=== PATIENT | female | born 1925 | race Caucasian/White ===

== ENCOUNTER 2016-04-04 12:57 | Inpatient (IN) | payer MEDICARE, OTHER ==
[2016-04-04] VITALS (37 sets, daily range): BP systolic 76–208; BP diastolic 17–176; PULSE 65–98; RESP 10–27; Ht 160 cm; Wt 85.0 kg
[~2016-04-04] VITALS: Ht 160 cm; Wt 85.0 kg
[~2016-04-04 12:57] MED LIST: ACET-2047 PO; ALLO100T PO; APIX2.5T PO; ASPIRIN 81 MG TAB ONE; BENZ200C43 PO; CLOPIDOGREL 75 MG TAB ONE; DOCU-144 PO; DOCU-159 PO; DULR PR; FER325 PO; FOLI0.8T2 PO; GUAI600T PO; HEPARIN 5,000 UNIT/0.5 ML SYG ONE; INSU100C SC; IPRA4AER INHALATION; LACT1CAP57 PO; LANT3I SC; LATA2.5D2 BOTH EYES; LEVO200T6 PO; LEVO250T9 PO; LIOT5TAB3 PO; LYRI100 PO; METO-448 PO; PANT40TA4 PO; POLY17PO3 PO; PRAV40TA76 PO; PRED5 PO; SENN-53 PO; SYMB80120 INHALATION; TAMS0.4C2 PO; TRAM-40 G-TUBE; ZOLP5TAB6 PO; [UNRECOGNIZED DRUG - CODE] CATHETER
[2016-04-04] MEDS ORDERED: IPRATROPIUM (NEB) 0.5 MG/2.5 ML AMP NEB STA (13:04)
[2016-04-04] MEDS ORDERED: ALBUTEROL 0.5% (NEB) 2.5 MG/0.5 ML AMP NEB STA (13:04)
[2016-04-04] MEDS ORDERED: LANT3I SC (13:28)
[2016-04-04] MEDS ORDERED: INSU100C SQ (13:33)
[2016-04-04] MEDS ORDERED: METO25TA4 PO (13:35)
[2016-04-04 13:36] LABS: HEMATOCRIT 30.5 % (37.0-47.0); LYMPHOCYTES # 0.9 10^3/ul (0.8-2.9); LYMPHOCYTES % 6.4 % (15.0-51.0); MEAN CORPUSCULAR HEMOGLOBIN 30.8 pg (29.0-33.0); MEAN CORPUSCULAR HGB CONC 32.9 g/dl (32.0-37.0); MEAN CORPUSCULAR VOLUME 93.5 fl (82.0-101.0); MEAN PLATELET VOLUME 9.4 fl (7.4-10.4); MONOCYTE # 0.9 10^3/ul (0.3-0.9); NEUTROPHIL # 12.4 10^3/ul (1.6-7.5); NEUTROPHILS % 87.6 % (39.0-77.0); PLATELET COUNT 123 10^3/UL (140-440); RED BLOOD COUNT 3.26 10^6/ul (4.20-5.40); RED CELL DISTRIBUTION WIDTH 17.4 % (11.5-14.5); UNCORRECTED WBC 14.2 10^3/ul (4.8-10.8); WHITE BLOOD COUNT 14.2 10^3/ul (4.8-10.8)
[2016-04-04] MEDS ORDERED: MECL-77 PO (13:37)
[2016-04-04] MEDS ORDERED: ONDA4TAB8 PO (13:38)
[2016-04-04] MEDS ORDERED: SIMV40TA2 PO (13:38)
[2016-04-04 13:42] LABS: ALBUMIN 3.6 g/dl (3.3-4.9); INR 1.46; PROTIME 17.8 Sec (12.2-14.2); PT RATIO 1.4
[2016-04-04 13:43] LABS: CONDITION 1; LH ANALYZER COMMENTS 1; PARTIAL THROMBOPLASTIN TIME 43.9 Sec (25.0-35.0); POTASSIUM 4.9 mmol/L (3.5-5.1); SUSPECT 1
[2016-04-04 13:45] LABS: ALBUMIN/GLOBULIN RATIO 1.05; BILIRUBIN,INDIRECT 0.1 mg/dl (0-1.1); BILIRUBIN,TOTAL 0.1 mg/dl (0.2-1.3); CALCIUM 9.1 mg/dl (8.4-10.2); CREATININE 4.48 mg/dl (0.44-1.00)
--- NOTE | 2016-04-04 13:56 | RADRPT ---
PROCEDURE: XR Chest. CLINICAL INDICATION: Possible sepsis TECHNIQUE: Single frontal chest x-ray. COMPARISON: 01/19/2016 FINDINGS: A dual lead, biventricular left-sided pacemaker is again seen. A right-sided dialysis catheter is p resent with its tip at the SVC / RA junction. Low lung volumes are seen with mild bibasilar atelectasis. There is no focal consolidation, pleural effusion or pneumothorax. The aorta is calcified. The cardiac silhouette is enlarged with presenc e of mitral annular calcifications. The osseous structures are unchanged. IMPRESSION: 1. Low lung volumes with bibasilar atelectasis. 2. No acute infiltrate or interval change. 3. Enlarged cardiac silhouette and atherosclerotic aortic calcifications. 4. Left-sided pacemaker and right-sided dialysis catheter, unchanged. RPTAT: VV .Cecilio Agrawal MD, Date Time Electronically viewed and signed by .Cecilio Agrawal MD, on 04/04/2016 13:55 .d/
[2016-04-04 14:05] LABS: TROPONIN-I 0.173 ng/ml (0.00-0.12)
[2016-04-04] MEDS ORDERED: CIPROFLOXACIN 400MG/D5W 200 ML IVPB STA (14:18)
[2016-04-04] MEDS ORDERED: CEFEPIME 1GM/50 ML (PMX) 50 ML IVPB STA (14:18)
[2016-04-04] MEDS ORDERED: SOD CHLORIDE 0.9% 500 ML IV STA (14:19)
[2016-04-04] MEDS ORDERED: ASPIRIN 325 MG TAB PO ONE (14:30)
[2016-04-04] MEDS ORDERED: HEPARIN 1000 UNITS/ML 10 ML INJ IV ONE ×2 (14:30→16:30)
[2016-04-04] MEDS ORDERED: CLOPIDOGREL 75 MG TAB PO ONE (14:30)
[2016-04-04] MEDS ORDERED: ASPIRIN 300 MG SUPP PR ONE (14:30)
--- NOTE | 2016-04-04 14:33 | ERA ---
ER Documentation Chief Complaint Date/Time DATE: 04/04/16 TIME: 14:22 Chief Complaint shortness of breath; chest congestion HPI History obtained from daughter who is at bedside as his review is unobtainable from patient secondary to her clinical condition. This is an 89-year-old female presents to the emergency room from home for shortness of breath, chest congestion, fever. This patient does have a history of previous pneumonia with hospitalization. Has a history of a previous AL with stenting. The patient came to the ER today for evaluation. Denies any active chest pain or palpitations at this time ROS All systems reviewed and are negative except as per history of present illness. Medications Home Meds Reported Medications Ondansetron Hcl* (Zofran*) 4 Mg Tablet, 4 MG PO Q8 Y for NAUSEA AND/OR VOMITING , TAB 04/04/16 Simvastatin* (Zocor*) 40 Mg Tablet, 40 MG PO QHS, #30 TAB 04/04/16 Meclizine Hcl* (Meclizine Hcl*) 25 Mg Tablet, 25 MG PO Q6 Y for DIZZINESS, TAB 04/04/16 Metoprolol Tartrate* (Lopressor*) 25 Mg Tablet, 25 MG PO BID, #60 TAB 04/04/16 Insulin Lispro (Humalog) 100 Unit/1 Ml Cartridge, 4 UNIT SQ AC MEALS 04/04/16 Insulin Glargine* (Lantus*) 100 Unit/Ml Soln, 25 UNIT SC QHS, #1 VIAL 04/04/16 Sennosides* (Senna Lax*) 8.6 Mg Tablet, 1 TAB PO BID, TAB 09/08/15 Polyethylene Glycol* (Polyethylene Glycol*) 17 Gm Powd.pack, 17 GM PO DAILY, # 30 PACKET 09/08/15 Docusate Sodium* (Docusate Sodium*) 100 Mg Capsule, 100 MG PO BID, #60 CAP 09/08/15 Bisacodyl* (Bisacodyl*) 10 Mg Supp, 10 MG NC DAILY, SUPP 09/08/15 Benzonatate* (Benzonatate*) 200 Mg Capsule, 200 MG PO Q8 Y for COUGH, CAP 09/08/15 Acetaminophen* (Acetaminophen*) 650 Mg Tablet, 650 MG PO Q4 Y for PAIN AND OR ELEVATED TEMP, #30 TAB 09/08/15 Tamsulosin Hcl* (Tamsulosin Hcl*) 0.4 Mg Cap.er.24h, 0.4 MG PO DAILY, CAP 09/08/15 Folic Acid/Vitamin B Comp W-C (Renal Multivitamin Tablet) 0.8 Mg Tablet, 0.8 MG PO QAM, TAB 09/08/15 Pregabalin* (Lyrica*) 100 Mg Capsule, 100 MG PO BID, CAP 09/08/15 Prednisone* (Prednisone*) 5 Mg Tab, 5 MG PO DAILY SUN WED SUN, TAB 09/08/15 Levothyroxine Sodium* (Levothyroxine Sodium*) 200 Mcg Tablet, 200 MCG PO BEFORE BREAKFAST, #30 TAB 09/08/15 Latanoprost (Latanoprost) 2.5 Ml Drops, 1 DROP BOTH EYES QHS, #1 BOTTLE 09/08/15 Lactobacillus Rhamnosus* (Culturelle*) 1 Each Cap.sprink, 1 CAP PO BID, CAP 09/08/15 Heparin Sodium,Porcine/Ns/Pf (Heparin 1,000 Units-Ns 500 Ml) 2 Unit/Ml Iv.soln, 6000 UNIT CATHETER AFTER EACH DIALYSIS 09/08/15 Guaifenesin (MUCUS ER) 600 Mg Tablet.er, 600 MG PO BID, TAB 09/08/15 Ferrous Sulfate* (Ferrous Sulfate*) 325 Mg Tabec, 325 MG PO DAILY, TAB 09/08/15 Docusate Sodium* (Colace*) 100 Mg Capsule, 200 MG PO DAILY, #30 CAP 09/08/15 Budesonide-Formoterol Fumarate* (Symbicort*) 80-4.5 Inha, 2 PUFFS INHALATION BID , #1 EACH 09/08/15 Apixaban* (Eliquis*) 2.5 Mg Tablet, 2.5 MG PO BID, TAB 09/08/15 Albuterol/Ipratropium* (Combivent Respimat*) 20-100 Mcg/Inh - 4 Gm Aer.w.adap, 1 PUFF INHALATION QID, #1 INHALER 09/08/15 Allopurinol* (Allopurinol*) 100 Mg Tablet, 200 MG PO DAILY, TAB 09/08/15 Discontinued Reported Medications Zolpidem Tartrate* (Zolpidem Tartrate*) 5 Mg Tablet, 5 MG PO QHS, #30 TAB 09/08/15 Tramadol Hcl* (Ultram*) 50 Mg Tablet, 50 MG G-TUBE Q6H Y for PAIN, TAB 09/08/15 Pravastatin Sodium* (Pravastatin Sodium*) 40 Mg Tablet, 40 MG PO HS, TAB 09/08/15 Pantoprazole* (Pantoprazole*) 40 Mg Tablet.dr, 40 MG PO AC BREAKFAST, TAB 09/08/15 Metoprolol Tartrate* (Lopressor*) 25 Mg Tab, 12.5 MG PO BID, #60 TAB 09/08/15 Liothyronine Sodium* (Cytomel*) 5 Mcg Tablet, 10 MCG PO DAILY, TAB 09/08/15 Levofloxacin* (Levofloxacin*) 250 Mg Tablet, 250 MG PO DAILY, TAB 09/08/15 Insulin Lispro (Humalog) 100 U/Ml Cartridge, 6 UNITS SC TID WC, EA 09/08/15 Insulin Lispro (Humalog) 100 U/Ml Cartridge, 12 UNITS SC QID WC AND HS, EA 09/08/15 Insulin Glargine* (Lantus*) 100 Unit/Ml Soln, 20 UNIT SC QHS, #1 VIAL 09/08/15 Allergies Allergies: Coded Allergies: Penicillins (Verified Allergy, Unknown, 04/04/16) codeine (Verified Allergy, Unknown, 04/04/16) PMhx/Soc History of Surgery: Yes (right chest dialysis catheter ) Anesthesia Reaction: No Hx Neurological Disorder: Yes Hx Respiratory Disorders: Yes Hx Cardiac Disorders: Yes Hx Psychiatric Problems: No Hx Miscellaneous Medical Probl: Yes (dialysis MWF) Hx Alcohol Use: No Hx Substance Use: No Hx Tobacco Use: No Smoking Status: Never smoker Physical Exam Vitals Vital Signs Date Time Temp Pulse Resp B/P Pulse Ox O2 Delivery O2 Flow Rate FiO2 04/04/16 14:00 3.0 04/04/16 13:30 Nasal Cannula 2 04/04/16 13:21 101 19 Aerosol Mask 10.0 04/04/16 13:04 Rebreather 15 04/04/16 13:00 100.4 75 35 104/54 95 Physical Exam INITIAL VITAL SIGNS: Reviewed by me GENERAL: The patient is frail-appearing elderly female, no acute distress HEENT: Pupils equal, round, and reactive to light. EOMI. There is no scleral icterus. NECK: C-spine is soft and supple, there is no meningismus. There is no cervical lymphadenopathy. LUNGS: Coarse breath sounds bilaterally with rhonchi auscultating bilateral lower lobe HEART: Tachycardic, no murmurs, clicks, rubs or gallops. ABDOMEN: Soft, non-tender, non-distended. There are bowel sounds in all four quadrants. No rebound or guarding. EXTREMITIES: There is no peripheral cyanosis or edema. No focal swelling or erythema. NEUROLOGICAL: The patient moves all four extremities with 5/5 strength. Cranial nerves II - XII are intact. Normal gait. Alert and oriented SKIN: There is no apparent rash or petechiae. HEME/LYMPHATIC: There is no evidence of excessive bruising or lymphedema. PSYCHIATRIC: The patient does not appear anxious or depressed. Result Diagram: 04/04/16 1310 04/04/16 1310 Results 24 hrs Laboratory Tests Test 04/04/16 13:10 Activated Partial Thromboplast Time 43.9Sec Alanine Aminotransferase (ALT/SGPT) 73IU/L Albumin 3.6g/dl Albumin/Globulin Ratio 1.05 Alkaline Phosphatase 154IU/L Anion Gap 23 Aspartate Amino Transf (AST/SGOT) 86IU/L Basophils # 0.010^3/ul Basophils % 0.0% Blood Morphology Comment Blood Urea Nitrogen 44mg/dl Calcium Level 9.1mg/dl Carbon Dioxide Level 25mmol/L Chloride Level 96mmol/L Creatinine 4.48mg/dl Direct Bilirubin 0.00mg/dl Eosinophils # 0.010^3/ul Eosinophils % 0.0% Globulin 3.40g/dl Glucose Level 186mg/dl Hematocrit 30.5% Hemoglobin 10.0g/dl INR International Normalized Ratio 1.46 Indirect Bilirubin 0.1mg/dl Lactic Acid Level 2.7mmol/L Lymphocytes # 0.910^3/ul Lymphocytes % 6.4% Mean Corpuscular Hemoglobin 30.8pg Mean Corpuscular Hemoglobin Concent 32.9g/dl Mean Corpuscular Volume 93.5fl Mean Platelet Volume 9.4fl Monocytes # 0.910^3/ul Monocytes % 6.0% Neutrophils # 12.410^3/ul Neutrophils % 87.6% Nucleated Red Blood Cells # 0.010^3/ul Nucleated Red Blood Cells % 0.0/100WBC Platelet Count 71827^3/UL Potassium Level 4.9mmol/L Prothrombin Time 17.8Sec Prothrombin Time Ratio 1.4 Red Blood Count 3.2610^6/ul Red Cell Distribution Width 17.4% Sodium Level 139mmol/L Total Bilirubin 0.1mg/dl Total Protein 7.0g/dl Troponin I 0.173ng/ml White Blood Count 14.210^3/ul Current Medications Medications (Trade) Dose Ordered Sig/Adelfo Route PRN Reason Start Time Stop Time Status Last Admin Dose Admin Albuterol (Proventil 0.5% (Neb)) 5 mg ONCE STAT NEB 04/04/16 13:04 04/04/16 13:05 DC 04/04/16 13:20 Ipratropium Dellrose (Atrovent 0.02% (Neb)) 0.5 mg ONCE STAT NEB 04/04/16 13:04 04/04/16 13:05 DC 04/04/16 13:20 Aspirin (Aspirin) 325 mg ONCE ONCE PO 04/04/16 14:30 04/04/16 14:31 DC 04/04/16 14:36 Clopidogrel Bisulfate (plaVIX) 300 mg ONCE ONCE PO 04/04/16 14:30 04/04/16 14:31 DC 04/04/16 14:36 Heparin Sodium (Porcine) 5000 unit 5,000 unit ONCE ONCE IV 04/04/16 14:30 04/04/16 14:31 DC 04/04/16 14:36 Cefepime HCl 50 ml @ 100 mls/hr ONCE STAT IVPB 04/04/16 14:18 04/04/16 14:47 04/04/16 14:36 Ciprofloxacin/ Dextrose 200 ml @ 200 mls/hr ONCE STAT IVPB 04/04/16 14:18 04/04/16 15:17 Sodium Chloride (NS) 500 ml @ 500 mls/hr Q1H STAT IV 04/04/16 14:19 04/04/16 15:18 04/04/16 14:23 Aspirin 300 mg 300 mg ONCE ONCE NC 04/04/16 14:30 04/04/16 14:31 DC Heparin Sodium/ Sodium Chloride (Heparin 1000 Units/NS (A-Line)) 1,500 ml @ ud STK-MED ONCE .ROUTE 04/04/16 14:39 04/04/16 14:40 DC Lidocaine (Xylocaine 1% (Mdv) 20 ml) 20 ml STK-MED ONCE .ROUTE 04/04/16 14:39 04/04/16 14:40 DC Iodixanol (Visipaque Locm) 100 ml STK-MED ONCE .ROUTE 04/04/16 14:39 04/04/16 14:40 DC Procedures/MDM EKG: Rate/Rhythm: Left bundle branch block QRS, ST, T-waves: [No changes consistent w/ acute ischemia] Impression: Left bundle branch block, abnormal EKG] Chest X-ray 1V Interpreted by me: Soft Tissue: Left-sided pacemaker , right-sided dialysis catheter Bones: No acute abnormalities Mediastinum/Cardiac Silhouette/Lungs: [No acute abnormalities] This 89-year-old female presents to the emergency room for evaluation of general weakness, cough and congestion. She is found to have fever, tachycardia. A septic workup was initiated. This patient did have an EKG which reads acute AL. However I do not see any ST elevations on the EKG. I did talk to her fiberglass pipe covering supervisor help desk consultant, Dr. Coyle who agrees that this is not an acute AL however he does state that the patient has a left bundle branch block. This patient does have a pacemaker as well. The troponin came back elevated, and although this could be due to sepsis, her chronic renal failure, or NSTEMI I did call back our fiberglass pipe covering supervisor who agrees to take this patient urgently to screedman/laborer. This patient was also found to have an elevated lactic acid, this could be due to pneumonia which is not yet seen on x-ray. This patient was given heparin, aspirin, Plavix, will be taken to catheter. The patient will be admitted to her panel physician, Dr. Post. This patient was not given a 30 cc/kg bolus of IV normal saline due to the fact that she is a dialysis patient, does have signs of fluid overload on x-ray Patient's infectious symptoms have not stabilized and the patient is at risk of rapid decompensation. The patient will be admitted for careful hydration, antibiotic therapy, and infectious source control. Severe Sepsis Assessment: Infectious Source: Pneumonia End organ damage indicated by: [Lactate > 2.0 mmol/L Hypotension( SBP < 90 or >40 mmHG drop or MAP < 65) Acute Resp Failure (sat < 92% w/o oxygen) Central Supply Supervisor > 2.0 INR > 1.5 Plt < 100 Bili > 2] Severe Sepsis Managment: Blood Cultures X 2 before broad spectrum antibiotics initiated within 3 hours of recognition. 30 ml/kg NS bolus Completed Initial Lactate: 2.7 Repeat Lactate pending Critical Care: Time: 44 minutes Treatments/Evaluations: Emergent fluid management, while maintaining close respiratory support. Immediate broad spectrum antibiotic therapy. Simultaneous assessment for possible sources in order to direct therapy. Consideration for invasive and chemical support to prevent respiratory or cardiac collapse. Septic Shock Assessment (1 hour post 30 ml/kg fluid bolus): Hypotension (SBP < 90 or 40 mmHg drop, MAP < 65): [No] Lactic acid > 4.0 [No] Perfusion Reassessment for Septic Shock: Temp 101.1, Pulse 94], RR 18, BP 104/74 Heart Exam: [Tachycardic] Lung Exam: [No Crackles] Capillary Refill: [Delayed] Peripheral Pulses: [Radially present] Skin: [Mottled, pale] Hypotensive Treatment (not required for isolated lactic acid elevation): Comfort Care: No Central LIne: [XOXOXO] Vasopressor started: [norepinephrine] I considered further perfusion assessment with CVP measurement, SCVO2, bedside ultrasound volume assessment, passive leg raise, trial of further fluid bolus. And preceded with [further fluid bolus Accepting Care Team: Current data and ongoing care discussed. Time: Time of admission Primary Provider: [XOXOXO] Consulting: [XOXOXO] Outstanding Data: none Departure Diagnosis: Primary Impression: Acute AL Additional Impressions: Severe sepsis Renal insufficiency Normocytic anemia Hyperchloremia Condition: Critical LUIS ENRIQUE SANDERSON DO Apr 04, 2016 14:33
[2016-04-04] MEDS ORDERED: IODIXANOL LOCM 100 ML BTL ONE (14:39)
[2016-04-04] MEDS ORDERED: NITROGLYCERIN (IC) 100 MCG/ML INJ ONE (14:39)
[2016-04-04] MEDS ORDERED: LIDOCAINE 1% (MDV) 20 ML INJ ONE (14:39)
[2016-04-04] MEDS ORDERED: HEPARIN 1000 UNITS/ML 10 ML INJ ONE (14:40)
[2016-04-04] MEDS ORDERED: VERAPAMIL 5 MG INJ ONE (14:40)
[2016-04-04] MEDS ORDERED: FUROSEMIDE 40 MG INJ ONE (14:50)
[2016-04-04] MEDS ORDERED: NACL 0.9% 3 ML SYG IV SCH (15:30)
[2016-04-04] MEDS ORDERED: LORAZEPAM 2 MG INJ IV PRN (15:30)
[2016-04-04] MEDS ORDERED: ONDANSETRON 4 MG INJ IV PRN (15:30)
--- NOTE | 2016-04-04 15:42 | RADRPT ---
PROCEDURE: XR Chest. CLINICAL INDICATION: Shortness of breath. TECHNIQUE: Single frontal view. COMPARISON: 04/04/2016. 1336 hours. FINDINGS: The right internal jugular vein tunneled dialysis catheter and left-sided biventricular pacemaker ar e once again noted. The heart is enlarged. There is calcification in the aorta consistent with ath erosclerosis. There is mild atelectasis at the lung bases. The lungs are otherwise clear. There is no pleural effusion. There is no pneumothorax. IMPRESSION: 1. No change from the prior study done earlier the same day. RPTAT: QQ .Ethan Fay MD, MD Date Time Electronically viewed and signed by .Ethan Fay MD, on 04/04/2016 15:42 .R/
[2016-04-04 15:54] LABS: AADO2 Arterial 179.7 mmHg (7.0-24.0); Allen Test ACCEPTAB; Arterial Base Excess -3.2 mmol/L (-3.0-3); Arterial COHb 0.3 % (0.0-3.0); Arterial Fraction of Oxyhgb 97.9 % (93.0-99.0); Arterial HCO3 22.4 mmol/L (22.0-26.0); Arterial MetHb 0.2 % (0.0-1.5); Arterial Total Hemglobin 11.1 g/dl (12.0-18.0); MODE MASK - SIMPLE
[2016-04-04] MEDS ORDERED: GLUCOSE GEL 15 GRAM TUBE BUCCAL PRN (16:00)
[2016-04-04] MEDS ORDERED: GLUCAGON 1 MG INJ IM PRN (16:00)
[2016-04-04] MEDS ORDERED: VANCOMYCIN IV PER PHARMACY XX SCH (16:00)
[2016-04-04] MEDS ORDERED: DEXTROSE 50% 50 ML SYRINGE IV PRN (16:00)
[2016-04-04] MEDS ORDERED: GLUCOSE GEL 15 GRAM TUBE PO PRN ×2 (16:00)
--- NOTE | 2016-04-04 16:13 | CONS ---
Date/Time of Note Date/Time of Note DATE: 04/04/16 TIME: 16:04 Assessment/Plan Assessment/Plan Problems: (1) Hyperchloremia Status: Acute (2) Renal insufficiency Status: Acute (3) Normocytic anemia Status: Acute (4) Acute OR Status: Acute (5) Severe sepsis Status: Acute Additional Assessment/Plan NSTEMI CAD PCI Severe MS ESRD TIA PAD DVT IVC filter Pt in ICU, critical On Bipap NSTEMI will give heparin drip no Eliques for now plavix given cotninue plavix and Heparin drip multiple TIAs in past as per daughter She wants to do everything on her We need to stablize her first medical mx for now see how she does HD needed Dr sanchez has been called as he is primary rn private duty. CXr Will f/u Consultation Date/Type/Reason Admit Date/Time Date of Consultation: Apr 04, 2016 Type of Consultation: Interventional Cardiology Reason for Consultation NSTEMI Hx of Present Illness Patient is 89 year old female with PMH of CAD pci of LAD, Severe mitral calcification with MS, CHF, ESRD on HD, Multiple TIA, PAD came in with SOB, Positive trop, intial plan was to take her to laboratory engineer from ER but she was very SOB with craclkes, So brought to ICU. Will need HD, trend trop. had long discussion with family, daughter. Constitutional: no complaints Past Medical History Medical History: coronary artery disease, diabetes, high cholesterol, hypertension Past Surgical History Past Surgical Hx: no surgical history Social History Smoking Status: Never smoker Exam/Review of Systems Vital Signs Vitals Vital Signs Date Time Temp Pulse Resp B/P Pulse Ox O2 Delivery O2 Flow Rate FiO2 04/04/16 14:00 3.0 04/04/16 13:30 Nasal Cannula 04/04/16 13:21 101 19 04/04/16 13:00 100.4 104/54 95 Exam Constitutional: alert, oriented Psych: no complaints Head: normocephalic Eyes: nl conjunctiva ENMT: nl external ears & nose Respiratory: diminished breath sounds, wheezing Cardiovascular: regular rate and rhythm Musculoskeletal: nl extremities to inspection Results Result Diagram: 04/04/16 1310 04/04/16 1310 Results 24 hrs Laboratory Tests Test 04/04/16 13:10 04/04/16 15:20 Activated Partial Thromboplast Time 43.9 H Alanine Aminotransferase (ALT/SGPT) 73 H Albumin 3.6 Albumin/Globulin Ratio 1.05 Alkaline Phosphatase 154 H Anion Gap 23 H Aspartate Amino Transf (AST/SGOT) 86 H Basophils # 0.0 Basophils % 0.0 Blood Morphology Comment Blood Urea Nitrogen 44 H Calcium Level 9.1 Carbon Dioxide Level 25 Chloride Level 96 L Creatinine 4.48 H Direct Bilirubin 0.00 Eosinophils # 0.0 Eosinophils % 0.0 Globulin 3.40 H Glucose Level 186 Hematocrit 30.5 L Hemoglobin 10.0 L INR International Normalized Ratio 1.46 Indirect Bilirubin 0.1 Lactic Acid Level 2.7 H Lymphocytes # 0.9 Lymphocytes % 6.4 L Mean Corpuscular Hemoglobin 30.8 Mean Corpuscular Hemoglobin Concent 32.9 Mean Corpuscular Volume 93.5 Mean Platelet Volume 9.4 Monocytes # 0.9 Monocytes % 6.0 Neutrophils # 12.4 H Neutrophils % 87.6 H Nucleated Red Blood Cells # 0.0 Nucleated Red Blood Cells % 0.0 Platelet Count 123 L Potassium Level 4.9 Prothrombin Time 17.8 H Prothrombin Time Ratio 1.4 Red Blood Count 3.26 L Red Cell Distribution Width 17.4 H Sodium Level 139 Total Bilirubin 0.1 L Total Protein 7.0 Troponin I 0.173 *H White Blood Count 14.2 #H Arterial Blood HCO3 22.4 Arterial Blood Base Excess -3.2 L Arterial Blood Oxygen Saturation 98.4 Jimmie Test ACCEPTAB Arterial Blood Gas Puncture Site Right Radial Arterial Blood Carboxyhemoglobin 0.3 Arterial Blood Date Drawn 04/04/2016 3:40:08 PM Arterial Blood Methemoglobin 0.2 Arterial Blood pCO2 (Temp correct) 42.3 Arterial Blood pH (Temp corrected) 7.342 L Arterial Blood pO2 (Temp corrected) 150.9 H Blood Gas A-a O2 Differential 179.7 H Blood Gas Modality MASK - SIMPLE Blood Gas Notified Time 04/04/2016 3:53:43 PM Blood Gas Notified Whom DT Blood Gas Specimen Source Blood arterial Blood Gas Temperature 37.0 FiO2 53.0 Oxyhemoglobin Percent 97.9 Total Hemoglobin 11.1 L Medications Medications Current Medications Lorazepam (Ativan) 0.5 mg Q6H PRN IV ANXIETY; Start 04/04/16 at 15:30 Ondansetron HCl (Zofran Inj) 4 mg Q6H PRN IV NAUSEA AND/OR VOMITING; Start at 15:30 Famotidine (Pepcid Iv) 20 mg QHS IV ; Start 04/04/16 at 21:00 Ferrous Sulfate (Ferrous Sulfate (Ec)) 325 mg DAILY PO ; Start 04/05/16 at 09: 00 Insulin Glargine (Lantus) 25 unit QHS SC ; Start 04/04/16 at 21:00 Latanoprost (Xalatan) 1 drop QHS BOTH EYES ; Start 04/04/16 at 21:00 Metoprolol Tartrate (Lopressor) 25 mg BID PO ; Start 04/04/16 at 21:00 Polyethylene Glycol (Miralax) 17 gm DAILY PO ; Start 04/05/16 at 09:00 Pregabalin (Lyrica) 100 mg BID PO ; Start 04/04/16 at 21:00 Atorvastatin Calcium (Lipitor) 20 mg DAILY@21 PO ; Start 04/04/16 at 21:00 Miscellaneous Information 1 ea NOTE XX ; Start 04/04/16 at 16:00 Glucose (Glutose) 15 gm Q15M PRN PO DECREASED GLUCOSE; Start 04/04/16 at 16:00 Glucose (Glutose) 22.5 gm Q15M PRN PO DECREASED GLUCOSE; Start 04/04/16 at 16: 00 Dextrose (D50w Syringe) 25 ml Q15M PRN IV DECREASED GLUCOSE; Start 04/04/16 at 16:00 Dextrose (D50w Syringe) 50 ml Q15M PRN IV DECREASED GLUCOSE; Start 04/04/16 at 16:00 Glucagon (Glucagen) 1 mg Q15M PRN IM DECREASED GLUCOSE; Start 04/04/16 at 16: 00 Glucose 15 gm 15 gm Q15M PRN BUCCAL DECREASED GLUCOSE; Start 04/04/16 at 16:00 Norepinephrine 16 mg/Dextrose 500 ml @ 1.87 mls/hr TITRATE IV ; Start at 16:30 Cefepime HCl (Maxipime 1gm/50 ml (Pmx)) 50 ml @ 100 mls/hr Q24H IVPB ; Start 04/05/16 at 15:00 Apixaban (Eliquis) 2.5 mg BID PO ; Start 04/04/16 at 21:00 ANH FRITZ MD Apr 04, 2016 16:13
--- NOTE | 2016-04-04 16:18 | RADRPT ---
Echocardiogram Report Patient Name: FRANKY ALEGRE Gender: Female Date: 1925 Study Date: 04-Apr-2016 Absorption Operator: Shayan Patino RDCS Location: [facility] Ref. Physician: TYLER COYLE Quality: Technically Difficult Study Procedures: Transthoracic echocardiogram with complete 2D, M-Mode, and doppler examination. Indications: Congestive Heart Failure. NSTEMI. 2D/M Mode Doppler Measurement Value Normal Ranges Measurement Value Normal Ranges LVIDd 2D 4.1 3.5 - 5.6 cm AV Peak Eric 1.2 m/sec LVIDs 2D 2.3 2.1 - 4.1 cm AV Peak PG 5.4 mmHg LVPWd 2D 1.0 0.6 - 1.1 cm LVOT Peak Eric 1.1 m/sec IVSd 2D 0.9 0.6 - 1.1 cm LVOT Peak PG 4.8 mmHg AoR Diam 2D 2.3 2.0 - 3.7 cm MV PHT 202.2 msec EDV 2D 72.7 cm3 MV Peak Eric 2.2 m/sec ESV 2D 12.9 cm3 MV Peak PG 19.9 mmHg LA Dimen 2D 4.0 2.3 - 4.0 cm MV Mean Eric 1.5 m/sec MV Mean PG 9.9 mmHg MV PHT 202.2 msec MV VTI 76.3 cm MVA PHT 1.1 cm2 TR Peak Eric 2.4 m/sec TR Peak PG 23.2 mmHg RVSP 31.0 mmHg Findings Left Ventricle: Normal left ventricular systolic function. Normal left ventricular cavity size. Normal left ventricular wall thickness. Ejection fraction is visually estimated at 65 %. Tissue Doppler/Mitral Doppler indices are indeterminate in this study due to the presence of severe mitral anular calcification. Right Ventricle: Normal right ventricular size. Normal right ventricular systolic function. Pacemaker right heart. Left Atrium: The left atrium is normal in size. Right Atrium: The right atrium is normal in size. Mitral Valve: Moderate mitral leaflet calcification. Severe mitral annular calcification. Trace mitral regurgitation. Moderate to severe mitral stenosis. Mitral valve Max Velocity 2.02 m/sec. MaxPG 19.90 mmHg. MeanPG 9.90 mmHg. Mitral Valve Area by PHT1.10 cm2. Aortic Valve: No significant aortic stenosis or insufficiency. Aortic cusps appear mildly calcified. Tricuspid Valve: Normal appearance of the tricuspid valve. Estimated peak PA systolic pressure 31 mmHg. There is moderate tricuspid regurgitation. Pulmonic Valve: Normal pulmonic valve appearance. Pericardium: Normal pericardium with no significant pericardial effusion. Aorta: Normal aortic root. IVC: Normal size and no respiratory collapse consistent with elevated right atrial pressure. Pulmonary Artery: Normal pulmonary artery size. Conclusions Normal left ventricular systolic function. Normal left ventricular cavity size. Normal left ventricular wall thickness. Ejection fraction is visually estimated at 65 %. Tissue Doppler/Mitral Doppler indices are indeterminate in this study due to the presence of severe mitral anular calcification. Normal right ventricular size. Normal right ventricular systolic function. Pacemaker right heart. The left atrium is normal in size. The right atrium is normal in size. Moderate mitral leaflet calcification. Severe mitral annular calcification. Trace mitral regurgitation. Moderate to severe mitral stenosis. Mitral valve Max Velocity 2.02 m/sec. MaxPG 19.90 mmHg. MeanPG 9.90 mmHg. Mitral Valve Area by PHT1.10 cm2. No significant aortic stenosis or insufficiency. Aortic cusps appear mildly calcified. Normal appearance of the tricuspid valve. Estimated peak PA systolic pressure 31 mmHg. There is moderate tricuspid regurgitation. Normal pulmonic valve appearance. Electronically Signed By: Tyler Coyle 04-Apr-2016 16:16:58 -0800 Patient Name: FRANKY ALEGRE Study Date: 04-Apr-2016 [id number]
[2016-04-04] MEDS ORDERED: HEPARIN 1000 UNITS/ML 10 ML INJ IV PRN (16:30)
[2016-04-04] MEDS ORDERED: HEPARIN 25000 UNITS/250 ML 250 ML IV SCH (16:30)
[2016-04-04] MEDS ORDERED: VANCOMYCIN 500MG/NS (PMX) 100 ML IVPB SCH (16:30)
[2016-04-04 17:32] LABS: BASOPHILS % 0.1 % (0.0-2.0); HEMATOCRIT 29.1 % (37.0-47.0); HEMOGLOBIN 9.7 g/dl (12.0-16.0); LYMPHOCYTES # 0.6 10^3/ul (0.8-2.9); LYMPHOCYTES % 6.2 % (15.0-51.0); MEAN CORPUSCULAR HEMOGLOBIN 31.3 pg (29.0-33.0); MEAN CORPUSCULAR HGB CONC 33.4 g/dl (32.0-37.0); MEAN CORPUSCULAR VOLUME 93.6 fl (82.0-101.0); MEAN PLATELET VOLUME 9.2 fl (7.4-10.4); MONOCYTE # 0.6 10^3/ul (0.3-0.9); MONOCYTES % 5.8 % (0.0-11.0); NEUTROPHIL # 9.1 10^3/ul (1.6-7.5); NEUTROPHILS % 87.9 % (39.0-77.0); PLATELET COUNT 118 10^3/UL (140-440); RED BLOOD COUNT 3.11 10^6/ul (4.20-5.40); RED CELL DISTRIBUTION WIDTH 17.5 % (11.5-14.5); UNCORRECTED WBC 10.4 10^3/ul (4.8-10.8); WHITE BLOOD COUNT 10.4 10^3/ul (4.8-10.8)
[2016-04-04 17:34] LABS: CONDITION 1; LH ANALYZER COMMENTS 1
[2016-04-04] MEDS: INSULIN ASPART [NOVOLOG] 3 ML PEN SC SCH ×3 (17:35→22:21)
[2016-04-04] MEDS: ALBUTEROL/IPRATROPIUM (NEB) 3 ML AMP HHN SCH ×2 (17:35→20:16)
--- NOTE | 2016-04-04 17:42 | HP ---
DATE OF ADMISSION: 04/04/2016 TIME OF EVALUATION: 1600. REASON FOR ADMISSION: Shortness of breath and chest congestion. CONSULTATIONS: 1. Dr. Tyler Coyle, Interventional Cardiology. 2. Dr. Truman Hirsch, Nephrology. 3. Dr. Tahir Jim, Pulmonary. HISTORY OF PRESENT ILLNESS: This is an 89-year-old Faroese female with multiple comorbidities including end-stage renal disease on hemodialysis, type 2 diabetes mellitus, essential hypertension, paroxysmal atrial fibrillation, hypothyroidism, dyslipidemia, multiple TIAs, gout, glaucoma CVA, COPD, diastolic heart failure, CAD, and sick sinus syndrome who was brought to the emergency room because of increasing shortness of breath and chest congestion. The patient was also noticed to be febrile in the emergency room with a temperature of 100.4. The patient also had leukocytosis. The patient's initial troponins were 0.173. In the emergency room, the patient was treated with p.o. aspirin 325 mg along with p.o. Plavix 300 mg, and the patient was emergently taken to the sugar laboratory assistant for evaluating for any possible underlying ACS. However, in the sugar laboratory assistant, the patient was unable to lie down flat and, hence, the coronary angiogram had to be aborted and the patient was moved to intensive care unit. PAST MEDICAL HISTORY: End-stage renal disease on hemodialysis, type 2 diabetes mellitus, essential hypertension, paroxysmal atrial fibrillation, hypothyroidism , dyslipidemia, multiple TIAs, a CVA, gout, glaucoma, COPD, CAD, sick sinus syndrome, DVT. PAST SURGICAL HISTORY: Pacemaker placement, cholecystectomy, PermCath placement , IVC filter placement. HOME MEDICATIONS: 1. Combivent 20/100 mcg inhalation 1 puff inhaled q.i.d. 2. Tamsulosin 0.4 mg p.o. daily. 3. Eliquis 2.5 mg p.o. b.i.d. 4. Ferrous sulfate 325 mg p.o. daily. 5. Lopressor 25 mg p.o. b.i.d. 6. Zocor 40 mg p.o. at bedtime. 7. Lyrica 100 mg p.o. b.i.d. 8. Symbicort 2 puffs inhalation b.i.d. 9. Latanoprost 1 drop to both eyes at bedtime. 10. Insulin Lantus 25 units subcutaneous at bedtime. 11. Insulin lispro 4 units subcutaneously before meals. 12. Synthroid 200 mcg before breakfast. 13. Allopurinol 200 mg p.o. daily. ALLERGIES: 1. PENICILLIN. 2. CODEINE. SOCIAL HISTORY: The patient lives at home with her family. Remote history of tobacco use. No recent history of tobacco, alcohol, or illicit drug use. REVIEW OF SYSTEMS: Unable to obtain any meaningful review of systems, since the patient has a significant respiratory distress and because of language barrier. PHYSICAL EXAMINATION: VITAL SIGNS: Temperature 100.4, pulse rate 101, respiratory rate 19, blood pressure 104/54, oxygen saturation 96% on 100% FIO2 via BiPAP mask. HEENT: Head normocephalic and atraumatic. Eyes: Anicteric sclerae. Conjunctivae clear. ENT: Nasal septum is midline. Oral mucosa is dry. NECK: Short and obese. Unable to visualize any neck veins. RESPIRATORY: Bilaterally coarse rales. No use of accessory muscles of respiration. Remains on BiPAP. CARDIAC: Regular rate and rhythm. S1, S2 heard. ABDOMEN: Protuberant. Distended. Bowel sounds hypoactive in all 4 quadrants. GENITOURINARY: Deferred. EXTREMITIES: No cyanosis, no clubbing, no edema. Peripheral pulses are palpable. NEUROLOGIC: The patient is somnolent. Moves all 4 extremities. LABORATORY AND DIAGNOSTIC DATA: 1. WBC 14.2, hemoglobin 10.0, hematocrit 30.5, platelet count 123. Sodium 139, potassium 4.9, chloride 96, carbon dioxide 25, anion gap 20, BUN 44 , creatinine 4.4, glucose 186. Lactic acid 2.7, calcium 9.1. AST 86, ALT 73, alkaline phosphatase 154. Troponin I 0.173. PT 17.8, INR 1.46, aPTT 43.9. Blood gas that was done on simple mask, pH 7.342, pCO2 of 42.3, pO2 of 150, bicarbonate 22.4, oxygen saturation 98.4, base excess -3.2. 2. Chest x-ray: Low lung volumes with bibasilar atelectasis. No acute infiltrate or interval change. Enlarged cardiac silhouette and atherosclerosis , aortic calcification. Left-sided pacemaker, right-sided dialysis catheter, unchanged. IMPRESSION: This is an 89-year-old female patient with multiple comorbidities who came to the emergency room with vague complaints of chest congestion and shortness of breath, who was found to have evidence of non-ST elevation myocardial infarction and possible underlying sepsis who will be admitted here for further treatment and evaluation. ASSESSMENT AND PLAN: 1. Non-ST elevation myocardial infarction. The patient will be started on heparin drip. The patient was evaluated by manager of drilling and was recommended to have a left heart catheterization. But this has to be aborted because of the patient's significant respiratory distress. The patient received a single dose of aspirin and Plavix in the emergency room. The patient will be maintained on aspirin. Cardiology will follow the patient. A 2D echocardiogram will be obtained. 2. Sepsis with underlying lactic acidosis, febrile illness, and leukocytosis. Etiology unclear. Chest x-ray negative for any acute infiltrates. Yost cultures will be obtained. The patient will be started on empiric antibiotics. The patient's blood pressure was noticed to be borderline low. It is unclear whether the patient is in impending septic shock. The patient will be started on vasopressors for blood pressure support. The patient cannot be aggressively resuscitated with fluids because of worsening renal function and underlying fluid overload with respiratory distress. Lactic acid levels will be trended. 3. Type 2 diabetes mellitus. The patient's home insulin regimen will be resumed. A hemoglobin A1c will be obtained to evaluate the blood glucose control over the past few weeks. 4. Paroxysmal atrial fibrillation. The patient to be anticoagulated with IV heparin. The patient's Eliquis will be put on hold. 5. End-stage renal disease on hemodialysis. The patient's galley boy was informed about the patient's admission. The patient most probably needs emergent hemodialysis because of her worsening respiratory distress. 6. Acute on chronic respiratory failure. Hypoxic. The patient will be maintained on supplemental oxygen. The patient will be resumed on her inhaled bronchodilators. 7. Glaucoma. The patient's optic drops will be resumed. 8. Gout. The patient's allopurinol will be resumed. A uric acid level will be obtained. 9. Hypothyroidism. The patient's Synthroid will be resumed. A thyroid function panel will be obtained. 10. Normocytic normochromic anemia. Most probably anemia of chronic kidney disease. We will monitor the H and H closely. 11. Transaminitis without hyperbilirubinemia. The patient is on a statin, Lipitor 20 mg. We will monitor the LFTs closely. If the LFTs are getting worse , will hold statin. 12. History of deep venous thrombosis, status post inferior vena cava filter placement. The patient currently anticoagulated with IV heparin. 13. Severe mitral stenosis. The patient being followed by cardiology. We will defer the management to cardiology. PLAN. The patient will be admitted to intensive care unit. The patient will be made a DNR as per family request. The patient will be started on gastrointestinal prophylaxis. The patient will be started on a carbohydrate controlled low cholesterol diet if the patient is able to tolerate oral intake. Activity will be bed rest. Cardiology, nephrology, and pulmonary consults were called. The rest of the patient's management will be based on the clinical course, results of diagnostic studies, and inputs from the consultants. Based on the patient's clinical presentation, she most probably requires at least 2 midnights' stay for further management and evaluation of her clinical presentation. The case and management of this patient was fully discussed with Dr. Lyons. The patient's prognosis is poor. This was discussed with the patient's family who was at the bedside. Approximately 60 minutes was spent on the history and physical of this patient. CARLEY LYONS MD, AM/MAXIMO Conf#: [id number] DID#: [id number] MTDD
[2016-04-04 17:43] LABS: INR 1.54; PROTIME 18.6 Sec (12.2-14.2); PT RATIO 1.5
--- NOTE | 2016-04-04 17:58 | CONS ---
DATE OF ADMISSION: 04/04/2016 DATE OF CONSULTATION: 04/04/2016 TYPE OF CONSULTATION: Nephrology. REASON FOR CONSULTATION: End-stage renal disease. REQUESTING PHYSICIAN: Waldo Starks NP HISTORY OF PRESENT ILLNESS: This is an 89-year-old female with past medical history of end-stage re nal disease on dialysis Sunday, Sunday, Sunday with access to right Perm-A-Cath, history of CHF, diabetes, CVA, AFib, neuropathy, dyslipidemia, hypothyroidism who presents to [facility] with complaints of shortness of breath and chest congestion. The patient had hemodialysis y where she had 4 liters removed. This morning, the patient was complaining of symptoms of s hortness of breath, congestion, fever. The patient had previous episode of pneumonia from previous hospitalization. As a result, she came into the emergency room. Upon arrival, patient was noted to be febrile with a temperature of 100.4. The patient was moderately hypotensive with systolic press ures of 104, on 100% nonrebreather. The patient's imaging studies x-ray in the emergency room showe d atelectasis at the lung base, no pleural effusion, no pneumothorax, no obvious cardiopulmonary inf iltrates or process. The patient's laboratory data showed a white count of 14,000. The patient als o noted to have elevated troponin of 0.173. In the emergency room, the patient was given IV antibio tics. She was given aspirin and heparin and placed on BiPAP. The patient was admitted to intensive care unit. While in intensive care unit, the patient has been on BiPAP, has been noted to be hypot ensive with systolic pressures in the 90s. No other acute episodes noted. No hemoptysis, hemetemes is, hematochezia. PAST MEDICAL HISTORY: As stated above, history of end-stage renal disease, CHF, diabetes, history o f CVA, history of AFib, hypothyroidism, neuropathy, dyslipidemia. PAST SURGICAL HISTORY: Status post PermCath placement. MEDICATIONS: The patient's medications have been reviewed. ALLERGIES: PATIENT IS ALLERGIC TO 1. PENICILLIN. 2. CODEINE. SOCIAL HISTORY: Does not drink, smoke or do drugs. FAMILY HISTORY: Noncontributory. REVIEW OF SYSTEMS: A 14-point review of systems was conducted. Pertinent positives in HPI, otherwi se negative. Please note that the review of system was obtained by speaking to family and hospital staff. PHYSICAL EXAMINATION: VITAL SIGNS: Blood pressure is currently 104/54, respiration 35, pulse 75, temperature 100.4. HEENT: Head is normocephalic. Pupils are reactive to light. NECK: Supple. HEART: Regular rate. LUNGS: Show diminished breath sounds at base. ABDOMEN: Soft, nontender to palpation. No rebound or guarding. EXTREMITIES: Negative for clubbing, cyanosis, trace edema. DERMATOLOGIC: No rashes. MUSCULOSKELETAL: No joint effusions. NEUROLOGIC: Limited exam as the patient is not able to follow commands. LABORATORY DATA: Shows sodium 139, potassium 4.9, chloride 96, BUN 44, creatinine 4.48. Lactic aci d 2.8. White count 14.2, hemoglobin 10.0, hematocrit 30.5, platelet count is 123. Chest x-ray on 06/05/2015 has been reviewed. ASSESSMENT AND PLAN: This is an 89-year-old female who presents with: 1. End-stage renal disease. The patient is on dialysis Sunday, Sunday, Sunday with access Perm- A-Cath. Will plan for dialysis today, if patient is hemodynamically stable. The patient is current ly hypotensive in the setting of sepsis. If unable to be dialyzed today, will then anticipate dialy sis tomorrow. Plan will be to dialyze for 3 hours on 2K bath, calcium 2.5, ultrafiltrate as tolerat ed. 2. Severe sepsis. Etiology and source unclear, possibly pneumonic, possible UTI. The patient is c urrently on broad spectrum antibiotics. We will continue. If patient becomes hypotensive, would co nsider starting IV hydration and/or pressor support. We will follow up cultures. Follow up with pr imary team. 3. Anemia of chronic disease. Continue to monitor hemoglobin and hematocrit levels. 4. Mineral bone support. Will monitor calcium and phosphorus levels. 5. Acute hypoxemic respiratory failure, etiology secondary to severe sepsis. There is no obvious e vidence of pulmonary edema; however, the patient may have pulmonary vascular congestion. Would atte mpt hemodialysis with ultrafiltration if patient is hemodynamically stable. 6. Non-ST elevation myocardial infarction. We will continue current medical management. Continue heparin drip. Continue Plavix. Follow up with cardiology. 7. Previous history of coronary artery disease. Continue medical management. 8. Severe mitral stenosis. Continue to monitor. 9. History of peripheral vascular disease. Continue current treatment plan. 10. Transaminitis. Etiology is multifactorial, possibly due to sepsis, hepatic congestion. We is[place] l continue to monitor. 11. Acute encephalopathy, etiology toxic metabolic. Continue to observe. 12. Lactic acidosis. Etiology is due to underlying sepsis. Continue to treat underlying sepsis. Continue IV antibiotics. Thank you, Waldo, for this interesting consultation. It will be a pleasure to follow patient with you throughout the hospital course. Dictated By: ZULEMA KOLB DO NR/NTS Conf#: [id number] DID#: [id number]
[2016-04-04] MEDS ORDERED: VANCOMYCIN 1.25 GM in SOD CHLORIDE 0.9% 250 ML IVPB ONE (18:30)
[2016-04-04 18:38] LABS: PARTIAL THROMBOPLASTIN TIME > 180.0 Sec (25.0-35.0)
[2016-04-04] MEDS: ALBUMIN HUMAN 25% 100 ML IV SCH ×2 (18:42→20:00)
[2016-04-04] MEDS: METOPROLOL 25 MG TAB PO SCH (21:00)
[2016-04-04] MEDS ORDERED: APIXABAN 5 MG TABLET PO SCH (21:00)
[2016-04-04] MEDS ORDERED: TAMSULOSIN (SR) 0.4 MG CAP PO SCH (21:00)
[2016-04-04] MEDS: ATORVASTATIN 20 MG TAB PO SCH (21:00)
[2016-04-04] MEDS: PREGABALIN 100 MG CAP PO SCH (21:00)
[2016-04-04 21:09] LABS: CK-MB 2.56 ng/ml (0.0-2.4)
[2016-04-04 21:13] LABS: TROPONIN-I 0.236 ng/ml (0.00-0.12)
[2016-04-04] MEDS: FAMOTIDINE 20 MG INJ IV SCH (22:22)
[2016-04-04] MEDS: INSULIN GLARGINE [LANtus] 3 ML PEN SC SCH (22:37)
[2016-04-04 22:52] LABS: Arterial Base Excess -0.1 mmol/L (-3.0-3); Arterial COHb 0 % (0.0-3.0)
[2016-04-04 22:53] LABS: AADO2 Arterial 203.6 mmHg (7.0-24.0); Allen Test ACCEPTAB; Arterial Fraction of Oxyhgb 98.5 % (93.0-99.0); Arterial MetHb 0.4 % (0.0-1.5); Arterial Total Hemglobin 12.7 g/dl (12.0-18.0); Blood Gas IEPAP 15/5; MODE MASK - BIPAP
[2016-04-04] MEDS: LATANOPROST 0.005% 2.5 ML OPH BOTH EYES SCH (23:51)
[2016-04-05] VITALS (83 sets, daily range): BP systolic 69–176; BP diastolic 21–141; PULSE 49–96; RESP 14–40
[2016-04-05 05:01] LABS: BASOPHILS % 0.2 % (0.0-2.0); HEMATOCRIT 31.6 % (37.0-47.0); HEMOGLOBIN 10.3 g/dl (12.0-16.0); LYMPHOCYTES # 0.8 10^3/ul (0.8-2.9); LYMPHOCYTES % 4.8 % (15.0-51.0); MEAN CORPUSCULAR HEMOGLOBIN 30.6 pg (29.0-33.0); MEAN CORPUSCULAR HGB CONC 32.4 g/dl (32.0-37.0); MEAN CORPUSCULAR VOLUME 94.5 fl (82.0-101.0); MEAN PLATELET VOLUME 9.6 fl (7.4-10.4); MONOCYTE # 0.5 10^3/ul (0.3-0.9); MONOCYTES % 2.9 % (0.0-11.0); NEUTROPHIL # 15.6 10^3/ul (1.6-7.5); NEUTROPHILS % 92.1 % (39.0-77.0); PLATELET COUNT 119 10^3/UL (140-440); RED BLOOD COUNT 3.35 10^6/ul (4.20-5.40); RED CELL DISTRIBUTION WIDTH 17.5 % (11.5-14.5); UNCORRECTED WBC 16.9 10^3/ul (4.8-10.8); WHITE BLOOD COUNT 16.9 10^3/ul (4.8-10.8)
[2016-04-05 05:10] LABS: CONDITION 1; LH ANALYZER COMMENTS 1; SUSPECT 1
[2016-04-05 05:24] LABS: ALBUMIN 4.3 g/dl (3.3-4.9)
[2016-04-05 05:25] LABS: POTASSIUM 4.7 mmol/L (3.5-5.1)
[2016-04-05 05:26] LABS: CHOL/HDL RATIO 3.2 RATIO
[2016-04-05 05:27] LABS: ALBUMIN/GLOBULIN RATIO 1.26; BILIRUBIN,INDIRECT 0.2 mg/dl (0-1.1); BILIRUBIN,TOTAL 0.2 mg/dl (0.2-1.3); CREATININE 3.38 mg/dl (0.44-1.00); TOTAL PROTEIN 7.7 g/dl (6.1-8.1)
[2016-04-05 05:28] LABS: CALCIUM 9.4 mg/dl (8.4-10.2)
[2016-04-05 05:29] LABS: CK-MB 2.33 ng/ml (0.0-2.4)
[2016-04-05 05:33] LABS: TROPONIN-I 0.273 ng/ml (0.00-0.12)
[2016-04-05 06:23] LABS: MAGNESIUM 2.1 mg/dl (1.7-2.5); PHOSPHORUS 4.6 mg/dl (2.5-4.9)
[2016-04-05] MEDS: LEVOTHYROXINE 100 MCG TAB PO SCH (06:35)
[2016-04-05] MEDS: INSULIN ASPART [NOVOLOG] 3 ML PEN SC SCH ×6 (07:35→21:00)
[2016-04-05] MEDS: DEXTROSE 50% 50 ML SYRINGE IV PRN (08:37)
[2016-04-05] MEDS: ALBUTEROL/IPRATROPIUM (NEB) 3 ML AMP HHN SCH ×4 (08:42→20:16)
[2016-04-05] MEDS: ASPIRIN (EC) 81 MG TAB PO SCH (08:43)
[2016-04-05] MEDS: FERROUS SULFATE (EC) 325 MG TAB PO SCH (08:43)
[2016-04-05] MEDS: METOPROLOL 25 MG TAB PO SCH ×2 (08:45→21:00)
[2016-04-05] MEDS: POLYETHYLENE GLYCOL 17 GM PACKET PO SCH (08:45)
[2016-04-05] MEDS: PREGABALIN 100 MG CAP PO SCH (08:45)
[2016-04-05] MEDS: ALLOPURINOL 100 MG TAB PO SCH (08:46)
[2016-04-05] MEDS: ALBUMIN HUMAN 25% 100 ML IV SCH (09:05)
[2016-04-05] MEDS: ALBUMIN HUMAN 25% 50 ML IV SCH ×2 (09:05→16:54)
--- NOTE | 2016-04-05 09:47 | RADRPT ---
PROCEDURE: XR Chest 1 view. CLINICAL INDICATION: Shortness of breath, pulmonary edema TECHNIQUE: AP views of the chest were obtained. COMPARISON: April 04, 2016 FINDINGS: The heart is large. Calcified atherosclerosis is noted in the aorta. Left-sided dual chamber pacema ker has its leads over the heart and appears stable. Right-sided dialysis catheter is unchanged. T he lungs are hypoinflated. Mild central pulmonary vascular congestion and interstitial prominence i n both lungs is unchanged. Atelectasis is seen at the lung bases. No consolidations are identified. No pneumothorax is seen. Osseous structures are intact. IMPRESSION: Cardiomegaly with calcified atherosclerosis in the aorta. Stable mild central pulmonary vascular congestion and interstitial prominence in both lungs. Atelectasis at the lung bases. RPTAT: AA .Wilfredo Curran MD, Date Time Electronically viewed and signed by .Wilfredo Curran MD, on 04/05/2016 09:46 .P/
--- NOTE | 2016-04-05 10:04 | PN ---
DATE: 04/05/2016 SUBJECTIVE: The patient remains critically ill, currently on pressor support. The patient yesterda y, was dialyzed with 3 L removed. The patient tolerated the procedure well, remained off the presso r support during the course of the evening. This morning, the patient resumed back on pressor suppo rt. No other events noted. No hemoptysis, hematemesis, or hematochezia. OBJECTIVE: VITAL SIGNS: Currently, blood pressure 102/43, respirations 19, pulse 90, temperature 98.6. The pa kary is on BiPAP. HEENT: Head is normocephalic. NECK: Supple. HEART: Regular rate. LUNGS: Show diminished breath sounds at the base. Positive rhonchi. ABDOMEN: Soft, nontender to palpation, no rebound or guarding. EXTREMITIES: Negative for clubbing, cyanosis. Positive edema. DERMATOLOGIC: No rashes. MUSCULOSKELETAL: No joint effusions. NEUROLOGIC: Limited exam due to lack of patient cooperation. LABORATORY DATA: The patient's sodium 124, potassium 4.7, chloride 97, bicarbonate 27, BUN 30, crea tinine 3.38, AST and ALT 115 and 79. Troponin 0.273. White count 16.9, hemoglobin 10.3, hematocrit 31.6, platelet count 119. ABG shows pH 7.38 with pCO2 of 42. ASSESSMENT AND PLAN: 1. End-stage renal disease. The patient is on dialysis Sunday, Sunday, Sunday. The patient had dialysis yesterday due to respiratory distress and pulmonary congestion. The patient tolerated it well with 3 L removed. Plan is to hold dialysis today as patient is currently on pressor support. Anticipate hemodialysis tomorrow if patient is hemodynamically stable. 2. Severe sepsis, etiology is unclear, possibly pneumonic, possible urinary tract infection. The p atient is currently on antibiotics, pressor support. We will give the patient IV albumin in order t o increase intravascular volume and facilitate weaning off pressors. Follow up cultures. Monitor c losely. 3. Anemia of chronic disease. Continue to monitor hemoglobin and hematocrit levels. Continue Epog en following dialysis. 4. Mineral bone disorder. Will monitor calcium and phosphorus levels. Defer phosphorus binders at this time. 5. Acute hypoxemic respiratory failure secondary to severe sepsis. Will continue BiPAP. Follow up ABG. Will repeat a chest x-ray and monitor closely. 6. Fmk-[id number] myocardial infarction. Continue current medical management. Continue heparin drip. Follow up with cardiology. 7. Severe mitral stenosis. Continue to monitor. 8. History of peripheral vascular disease. Continue current medical management. 9. Transaminitis, etiology is unclear. Continue to monitor. 10. Acute encephalopathy, etiology is toxic metabolic. Continue to monitor. 11. Lactic acidosis, likely due to underlying sepsis. Continue to observe. Repeat lactic acid lev el is pending. Please note I spent over 40 minutes of critical care time with this patient and discussed the case w ith the hospital staff. Dictated By: ZULEMA KOLB DO NR/NTS Conf#: [id number] DID#: [id number]
--- NOTE | 2016-04-05 11:46 | PN ---
Date/Time of Note Date/Time of Note DATE: 04/05/16 TIME: 11:36 Assessment/Plan VTE Prophylaxis VTE Prophylaxis Intervention: SCD's Lines/Catheters IV Catheter Type (from [facility]): Peripheral IV Urinary Cath still in place: No Assessment/Plan Chief Complaint/Hosp Course Assessment and plan 1. Non-ST elevated myocardial infarction. Continue on heparin. Patient seen by kitchen mechanic. Unable to tolerate left heart catheterization due to respiratory distress. Continue medical management for now. Follow-up with kitchen mechanic recommendations echocardiogram with ejection fraction at 65%. 2. sepsis. Follow up on silva culture. Continue on antibiotics for now. Remains afebrile at present. We'll get ID consultation 3. Type 2 diabetes. Continue on insulin regimen. Will adjust as needed 4. Paroxysmal atrial fibrillation. Continue on heparin for now. Continue on beta familia 5. End-stage renal disease. Personnel Records Clerk following. Continue on dialysis per nephrology recommendations. 6. Acute on chronic respiratory failure. Patient remains on BiPAP. Tailercpa follow. Continue bronchodilators. 7. History of glaucoma. Continue on patient's optic eyedrops 8. Gout. Continue allopurinol 9. Hypothyroidism. Resume Synthroid 10. Severe mitral stenosis. Continue with cardiology recommendations DVT prophylaxis: Heparin (patient does have IVC filter in place) Disposition and plan: Titrate down O2 as tolerated. Monitor for improvement of patient's pulmonary status. Continue on heparin. Follow-up with cardiology. Discussed plan of care with Problems: Subjective 24 Hr Interval Summary Free Text/Dictation seen on bipap. lethargic. Exam/Review of Systems Vital Signs Vitals Vital Signs Date Time Temp Pulse Resp B/P Pulse Ox O2 Delivery O2 Flow Rate FiO2 04/05/16 11:12 70 100 30 04/05/16 11:00 19 86/23 BIPAP 04/05/16 08:00 100.5 04/04/16 16:00 8.0 Intake and Output 04/04/16 04/04/16 04/05/16 14:59 22:59 06:59 Intake Total 705 ml Output Total 3500 ml Balance -2795 ml Exam General:on bipap, lethargic Eyes: pupils equal round, Anicteric sclera Neck: Supple nontender, no JVD Cardiac: S1, S2 auscultated, regular rhythm and rate Pulmonary: rales auscultated bilateral lung cano. GI: Abdomen soft nontender nondistended, bowel sounds active Extremities: No edema bilateral lower extremities Skin: Clean dry and intact Neurologic: awakens to noxious stimulus. lethargic Results Result Diagram: 04/05/16 0430 04/05/16 0430 Results 24 hrs Laboratory Tests Test 04/04/16 13:10 04/04/16 15:01 04/04/16 15:20 04/04/16 15:59 Activated Partial Thromboplast Time 43.9 H Alanine Aminotransferase (ALT/SGPT) 73 H Albumin 3.6 Albumin/Globulin Ratio 1.05 Alkaline Phosphatase 154 H Anion Gap 23 H Aspartate Amino Transf (AST/SGOT) 86 H Basophils # 0.0 Basophils % 0.0 Blood Morphology Comment Blood Urea Nitrogen 44 H Calcium Level 9.1 Carbon Dioxide Level 25 Chloride Level 96 L Creatinine 4.48 H Direct Bilirubin 0.00 Eosinophils # 0.0 Eosinophils % 0.0 Globulin 3.40 H Glucose Level 186 Hematocrit 30.5 L Hemoglobin 10.0 L INR International Normalized Ratio 1.46 Indirect Bilirubin 0.1 Lactic Acid Level 2.7 H 2.8 H Lymphocytes # 0.9 Lymphocytes % 6.4 L Mean Corpuscular Hemoglobin 30.8 Mean Corpuscular Hemoglobin Concent 32.9 Mean Corpuscular Volume 93.5 Mean Platelet Volume 9.4 Monocytes # 0.9 Monocytes % 6.0 Neutrophils # 12.4 H Neutrophils % 87.6 H Nucleated Red Blood Cells # 0.0 Nucleated Red Blood Cells % 0.0 Platelet Count 123 L Potassium Level 4.9 Prothrombin Time 17.8 H Prothrombin Time Ratio 1.4 Red Blood Count 3.26 L Red Cell Distribution Width 17.4 H Sodium Level 139 Total Bilirubin 0.1 L Total Protein 7.0 Troponin I 0.173 *H White Blood Count 14.2 #H Arterial Blood HCO3 22.4 Arterial Blood Base Excess -3.2 L Arterial Blood Oxygen Saturation 98.4 Jimmie Test ACCEPTAB Arterial Blood Gas Puncture Site Right Radial Arterial Blood Carboxyhemoglobin 0.3 Arterial Blood Date Drawn 04/04/2016 3:40:00 PM Arterial Blood Methemoglobin 0.2 Arterial Blood pCO2 (Temp correct) 42.3 Arterial Blood pH (Temp corrected) 7.342 L Arterial Blood pO2 (Temp corrected) 150.9 H Blood Gas A-a O2 Differential 179.7 H Blood Gas Modality MASK - SIMPLE Blood Gas Notified Time 04/04/2016 3:53:00 PM Blood Gas Notified Whom DT Blood Gas Specimen Source Blood arterial Blood Gas Temperature 37.0 FiO2 53.0 Oxyhemoglobin Percent 97.9 Total Hemoglobin 11.1 L Bedside Glucose 199 Test 04/04/16 17:10 04/04/16 17:18 04/04/16 18:45 04/04/16 20:30 Activated Partial Thromboplast Time > 180.0 *H 121.3 *H Basophils # 0.0 Basophils % 0.1 Blood Morphology Comment Eosinophils # 0.0 Eosinophils % 0.0 Hematocrit 29.1 L Hemoglobin 9.7 L INR International Normalized Ratio 1.54 Lymphocytes # 0.6 L Lymphocytes % 6.2 L Mean Corpuscular Hemoglobin 31.3 Mean Corpuscular Hemoglobin Concent 33.4 Mean Corpuscular Volume 93.6 Mean Platelet Volume 9.2 Monocytes # 0.6 Monocytes % 5.8 Neutrophils # 9.1 H Neutrophils % 87.9 H Nucleated Red Blood Cells # 0.0 Nucleated Red Blood Cells % 0.0 Platelet Count 118 L Prothrombin Time 18.6 H Prothrombin Time Ratio 1.5 Red Blood Count 3.11 L Red Cell Distribution Width 17.5 H White Blood Count 10.4 # Bedside Glucose 202 Free Thyroxine 2.75 H Thyroid Stimulating Hormone (TSH) 1.040 Creatine Kinase 208 H Creatine Kinase Index 1.2 Creatinine Kinase MB (Mass) 2.56 H Lactic Acid Level 2.7 H Troponin I 0.236 *H Test 04/04/16 21:30 04/04/16 22:18 04/04/16 23:30 04/05/16 01:41 Arterial Blood HCO3 25.0 Arterial Blood Base Excess -0.1 Arterial Blood Oxygen Saturation 98.9 Jimmie Test ACCEPTAB Arterial Blood Gas Puncture Site Right Radial Arterial Blood Carboxyhemoglobin 0 Arterial Blood Date Drawn 04/04/2016 10:35:56 PM Arterial Blood Methemoglobin 0.4 Arterial Blood pCO2 (Temp correct) 42.5 Arterial Blood pH (Temp corrected) 7.388 Arterial Blood pO2 (Temp corrected) 177.5 H Blood Gas A-a O2 Differential 203.6 H Blood Gas Actual Respiration Rate 26 Blood Gas IPAP/EPAP Ratio 15/ Blood Gas Modality MASK - BIPAP Blood Gas Notified Time 04/04/2016 10:52:52 PM Blood Gas Notified Whom KM Blood Gas Respiration Rate 16.0 Blood Gas Specimen Source Blood arterial Blood Gas Temperature 37.0 FiO2 60.0 Oxyhemoglobin Percent 98.5 Total Hemoglobin 12.7 Bedside Glucose 143 Activated Partial Thromboplast Time 80.3 *H 54.3 H Test 04/05/16 04:30 04/05/16 08:31 04/05/16 09:00 04/05/16 09:02 Alanine Aminotransferase (ALT/SGPT) 79 H Albumin 4.3 Albumin/Globulin Ratio 1.26 Alkaline Phosphatase 140 H Anion Gap 25 H Aspartate Amino Transf (AST/SGOT) 115 H Basophils # 0.0 Basophils % 0.2 Blood Morphology Comment Blood Urea Nitrogen 30 #H Calcium Level 9.4 Carbon Dioxide Level 27 Chloride Level 97 Cholesterol Level 148 Cholesterol/HDL Ratio 3.2 Creatine Kinase 575 #H Creatine Kinase Index 0.4 Creatinine 3.38 #H Creatinine Kinase MB (Mass) 2.33 Direct Bilirubin 0.00 Eosinophils # 0.0 Eosinophils % 0.0 Globulin 3.40 H Glucose Level 69 #L HDL Cholesterol 46 Hematocrit 31.6 L Hemoglobin 10.3 L Indirect Bilirubin 0.2 LDL Cholesterol, Calculated 86 Lymphocytes # 0.8 Lymphocytes % 4.8 L Magnesium Level 2.1 Mean Corpuscular Hemoglobin 30.6 Mean Corpuscular Hemoglobin Concent 32.4 Mean Corpuscular Volume 94.5 Mean Platelet Volume 9.6 Monocytes # 0.5 Monocytes % 2.9 Neutrophils # 15.6 H Neutrophils % 92.1 H Nucleated Red Blood Cells # 0.0 Nucleated Red Blood Cells % 0.0 Phosphorus Level 4.6 Platelet Count 119 L Potassium Level 4.7 Red Blood Count 3.35 L Red Cell Distribution Width 17.5 H Sodium Level 144 Total Bilirubin 0.2 Total Protein 7.7 Triglycerides Level 82 Troponin I 0.273 *H Uric Acid 3.3 White Blood Count 16.9 #H Bedside Glucose 62 L 126 Activated Partial Thromboplast Time 117.6 *H Lactic Acid Level 1.5 Test 04/05/16 09:28 Bedside Glucose 123 Medications Medications Current Medications Lorazepam (Ativan) 0.5 mg Q6H PRN IV ANXIETY Last administered on 04/04/16at 20 :40; Admin Dose 0.5 MG; Start 04/04/16 at 15:30 Ondansetron HCl (Zofran Inj) 4 mg Q6H PRN IV NAUSEA AND/OR VOMITING; Start at 15:30 Famotidine (Pepcid Iv) 20 mg QHS IV Last administered on 04/04/16at 22:22; Admin Dose 20 MG; Start 04/04/16 at 21:00 Ferrous Sulfate (Ferrous Sulfate (Ec)) 325 mg DAILY PO ; Start 04/05/16 at 09: 00 Insulin Glargine (Lantus) 25 unit QHS SC Last administered on 04/04/16at 22:37 ; Admin Dose 25 UNIT; Start 04/04/16 at 21:00 Latanoprost (Xalatan) 1 drop QHS BOTH EYES Last administered on 04/04/16at 23: 51; Admin Dose 1 DROP; Start 04/04/16 at 21:00 Metoprolol Tartrate (Lopressor) 25 mg BID PO ; Start 04/04/16 at 21:00 Polyethylene Glycol (Miralax) 17 gm DAILY PO ; Start 04/05/16 at 09:00 Pregabalin (Lyrica) 100 mg BID PO ; Start 04/04/16 at 21:00 Atorvastatin Calcium (Lipitor) 20 mg DAILY@21 PO ; Start 04/04/16 at 21:00 Miscellaneous Information 1 ea NOTE XX ; Start 04/04/16 at 16:00 Glucose (Glutose) 15 gm Q15M PRN PO DECREASED GLUCOSE; Start 04/04/16 at 16:00 Glucose (Glutose) 22.5 gm Q15M PRN PO DECREASED GLUCOSE; Start 04/04/16 at 16: 00 Dextrose (D50w Syringe) 25 ml Q15M PRN IV DECREASED GLUCOSE Last administered on 04/05/16at 08:37; Admin Dose 25 ML; Start 04/04/16 at 16:00 Dextrose (D50w Syringe) 50 ml Q15M PRN IV DECREASED GLUCOSE; Start 04/04/16 at 16:00 Glucagon (Glucagen) 1 mg Q15M PRN IM DECREASED GLUCOSE; Start 04/04/16 at 16: 00 Glucose 15 gm 15 gm Q15M PRN BUCCAL DECREASED GLUCOSE; Start 04/04/16 at 16:00 Norepinephrine 16 mg/Dextrose 500 ml @ 1.87 mls/hr TITRATE IV Last administered on 04/04/16at 18:44; Admin Dose 9.37 MLS/HR; Start 04/04/16 at 16: 30 Cefepime HCl (Maxipime 1gm/50 ml (Pmx)) 50 ml @ 100 mls/hr Q24H IVPB ; Start 04/05/16 at 15:00 Tramadol HCl (Ultram) 50 mg Q6H PRN PO Pain; Start 04/04/16 at 16:30 Aspirin (Halfprin) 81 mg DAILY PO ; Start 04/05/16 at 09:00 Allopurinol 200 mg 200 mg DAILY PO ; Start 04/05/16 at 09:00 Albumin Human (Albumin Human 25%) 50 ml @ 100 mls/hr Q8H IV ; Start 04/05/16 at 08:00; Stop 04/06/16 at 00:29 ERIK ALVARENGA Apr 05, 2016 11:45
--- NOTE | 2016-04-05 12:38 | CONS ---
DATE OF ADMISSION: 04/04/2016 DATE OF CONSULTATION: REASON FOR CONSULTATION: Shortness of breath, hypoxemia. Thank you, Dr. Almaguer, for this consultation. HISTORY OF PRESENT ILLNESS: This is an 89-year-old lady with multiple medical problems including en d-stage renal failure, on hemodialysis, type 2 diabetes, hypertension, hyperlipidemia, atrial fibril lation, who came in with increasing shortness of breath, orthopnea, PND requiring initiation of jeffrey nvasive positive pressure ventilation. She was also found to have fever of 100.4 with evidence of p ossible aspiration pneumonia. PAST MEDICAL HISTORY: As above. MEDICATIONS: Per chart. ALLERGIES: NONE. SURGICAL HISTORY: Includes IVC filter placement, pacemaker, cholecystectomy, and PermCath. ALLERGIES 1. PENICILLIN. 2. CODEINE. SOCIAL HISTORY: Nonsmoker, no alcohol, no history of drug use. FAMILY HISTORY: Noncontributory. SYSTEMS REVIEW: A 12-point review of systems currently unable to perform. PHYSICAL EXAMINATION: GENERAL: Elderly Bangladeshi lady on BiPAP. VITAL SIGNS: Currently afebrile, pulse is 70, blood pressure 80/40, O2 saturation 96% on FIO2 of 30 %. NECK: Supple. No JVD or lymphadenopathy. CARDIAC: S1, S2, no added sounds or murmurs. CHEST: Diminished air entry bilaterally. ABDOMEN: Soft, nontender. No guarding or rebound. EXTREMITIES: No cyanosis, clubbing, 1+ edema. NEUROLOGIC: Generalized weakness. LABORATORY DATA: White count 16.9, hemoglobin 10.3, platelets of 119. Chemistry: BUN 30, creatini ne 3.38. Troponin 2.23. INR 1.54. Arterial blood gas as of yesterday 7.38, pCO2 of 42, pO2 177. DIAGNOSTIC DATA: Chest x-ray was reviewed, shows ongoing pulmonary edema. IMPRESSION: 1. Pulmonary edema with possible component of pneumonia with subsequent hypoxemic respiratory failu re. 2. 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 3. Encephalopathy, toxic metabolic. 4. Patient's code status: DNR/DNI. PLAN: 1. Continue noninvasive positive pressure ventilation. 2. Supplemental O2. 3. DVT and GI prophylaxis. Dictated By: OSIRIS REYNOLDS MD SV/MAXIMO Conf#: [id number] DID#: [id number]
[2016-04-05] MEDS ORDERED: DEXTROSE 5% 1,000 ML IV SCH (14:00)
[2016-04-05] MEDS: DEXTROSE 5%-0.45% NACL 1,000 ML IV SCH (14:20)
[2016-04-05] MEDS: CEFEPIME 1GM/50 ML (PMX) 50 ML IVPB SCH (15:29)
--- NOTE | 2016-04-05 15:56 | CONS ---
DATE OF ADMISSION: 04/04/2016 DATE OF CONSULTATION: 04/05/2016 TYPE OF CONSULTATION: Infectious Disease. REASON FOR CONSULTATION: Antibiotic management. HISTORY OF PRESENT ILLNESS: Katy Dunaway is an 89-year-old English [place] female with multip le comorbidities who comes in now short of breath and is being seen for antibiotic management. Her past problems include: 1. End-stage renal disease on hemodialysis. 2. Adult-onset diabetes mellitus. 3. Hypertension. 4. Paroxysmal atrial fibrillation. 5. Hypothyroidism. 6. Dyslipidemia. 7. Multiple transient ischemic attacks. 8. Gout. 9. Glaucoma. 10. History of cerebrovascular accident. 11. COPD. 12. Diastolic heart failure. 13. Coronary artery disease 14. Sick sinus syndrome. 15. History of DVTs. Acutely, the patient was brought to the emergency room with increasing shortness of breath and conge stive failure. She was afebrile to 100.4 with leukocytosis. Troponin was 0.173. The patient was t aken to the engineering laboratory technician for any possible underlying acute coronary syndrome. In the engineering laboratory technician; however, she was unable to lie down flat and the angiogram had to be aborted. She was moved to the intensi ve care unit. PAST SURGICAL HISTORY: 1. Includes status post pacemaker placement. 2. Status post cholecystectomy. 3. Perm-A-Cath placement. 4. IVC filter placement. PAST MEDICAL HISTORY: Operations as outlined. FAMILY HISTORY: Noncontributory. SOCIAL HISTORY: She does not smoke though she has a remote history of tobacco use. She does not dr ink or abuse drugs. ALLERGIES 1. PENICILLIN. 2. CODEINE. MEDICATIONS: Per chart. REVIEW OF SYSTEMS: Noncontributory. PHYSICAL EXAMINATION: GENERAL: The patient is lethargic, sedated, on a BiPAP machine. VITAL SIGNS: Her T-max is 100.4. SKIN: Without generalized rash. HEENT: Within normal limits. NECK: Supple. LYMPH NODES: None palpable. CHEST: Decreased breath sounds at the bases. HEART: Without murmur or gallop. ABDOMEN: Soft, obese, nontender, without organosplenomegaly or masses. EXTREMITIES: Without cyanosis, clubbing, or edema. RECTAL AND GENITAL: Deferred. NEUROLOGIC: No focal neurological abnormalities. ANCILLARY LABORATORY DATA: White count on admission 14.2, H and H of 10 and 30.5, platelet count 12 3,000. BUN and creatinine is 44/4.4, glucose 186. Lactic acid 2.7, AST 86, ALT 73, alkaline phosph atase 154. IMAGING STUDIES: Chest x-ray showed low lung volumes, no acute infiltrate or interval change, enlar ged cardiac silhouette and atherosclerotic cardiovascular disease, acute calcification. She has lef t-sided pacemaker, right-sided dialysis catheter unchanged. Blood cultures x2 so far are negative. Chest x-ray shows just congestion. The patient was started on cefepime and vancomycin for the poss ibility of pneumonitis and also because her white count today is 16.9. Her BUN and creatinine are 3 0/3.8. Troponin still elevated at 0.273. IMPRESSION AND PLAN: We will continue her on vancomycin and cefepime and await further testing as s he is diuresed. I will dictate my findings to the hospitalist, as well as Dr. Hirsch and Dr. Nader guzman and Dr. Coyle. Dictated By: JONAH GRACIA MD, JD/MAXIMO Conf#: [id number] DID#: [id number]
--- NOTE | 2016-04-05 18:08 | CONS ---
Date/Time of Note Date/Time of Note DATE: 04/05/16 TIME: 17:51 Consult Date/Type/Reason Admit Date/Time Apr 04, 2016 at 15:15 Initial Consult Date 04/04/16 Type of Consultation: Interventional Cardiology Objective Vital Signs Date Time Temp Pulse Resp B/P Pulse Ox O2 Delivery O2 Flow Rate FiO2 04/05/16 17:11 58 99 30 04/05/16 14:45 17 118/38 04/05/16 14:30 BIPAP 04/05/16 12:00 99.6 04/04/16 16:00 8.0 Intake and Output 04/04/16 04/04/16 04/05/16 15:00 23:00 07:00 Intake Total 705 ml 10 ml Output Total 3500 ml Balance -2795 ml 10 ml Results/Medications Result Diagram: 04/05/16 0430 04/05/16 0430 Results 24 hrs Laboratory Tests Test 04/04/16 18:45 04/04/16 20:30 04/04/16 21:30 04/04/16 22:18 Free Thyroxine 2.75 H Thyroid Stimulating Hormone (TSH) 1.040 Activated Partial Thromboplast Time 121.3 *H Creatine Kinase 208 H Creatine Kinase Index 1.2 Creatinine Kinase MB (Mass) 2.56 H Lactic Acid Level 2.7 H Troponin I 0.236 *H Arterial Blood HCO3 25.0 Arterial Blood Base Excess -0.1 Arterial Blood Oxygen Saturation 98.9 Jimmie Test ACCEPTAB Arterial Blood Gas Puncture Site Right Radial Arterial Blood Carboxyhemoglobin 0 Arterial Blood Date Drawn 04/04/2016 10:35:56 PM Arterial Blood Methemoglobin 0.4 Arterial Blood pCO2 (Temp correct) 42.5 Arterial Blood pH (Temp corrected) 7.388 Arterial Blood pO2 (Temp corrected) 177.5 H Blood Gas A-a O2 Differential 203.6 H Blood Gas Actual Respiration Rate 26 Blood Gas IPAP/EPAP Ratio 15/5 Blood Gas Modality MASK - BIPAP Blood Gas Notified Time 04/04/2016 10:52:52 PM Blood Gas Notified Whom KM Blood Gas Respiration Rate 16.0 Blood Gas Specimen Source Blood arterial Blood Gas Temperature 37.0 FiO2 60.0 Oxyhemoglobin Percent 98.5 Total Hemoglobin 12.7 Bedside Glucose 143 Test 04/04/16 23:30 04/05/16 01:41 04/05/16 04:30 04/05/16 08:31 Activated Partial Thromboplast Time 80.3 *H 54.3 H Alanine Aminotransferase (ALT/SGPT) 79 H Albumin 4.3 Albumin/Globulin Ratio 1.26 Alkaline Phosphatase 140 H Anion Gap 25 H Aspartate Amino Transf (AST/SGOT) 115 H Basophils # 0.0 Basophils % 0.2 Blood Morphology Comment Blood Urea Nitrogen 30 #H Calcium Level 9.4 Carbon Dioxide Level 27 Chloride Level 97 Cholesterol Level 148 Cholesterol/HDL Ratio 3.2 Creatine Kinase 575 #H Creatine Kinase Index 0.4 Creatinine 3.38 #H Creatinine Kinase MB (Mass) 2.33 Direct Bilirubin 0.00 Eosinophils # 0.0 Eosinophils % 0.0 Globulin 3.40 H Glucose Level 69 #L HDL Cholesterol 46 Hematocrit 31.6 L Hemoglobin 10.3 L Indirect Bilirubin 0.2 LDL Cholesterol, Calculated 86 Lymphocytes # 0.8 Lymphocytes % 4.8 L Magnesium Level 2.1 Mean Corpuscular Hemoglobin 30.6 Mean Corpuscular Hemoglobin Concent 32.4 Mean Corpuscular Volume 94.5 Mean Platelet Volume 9.6 Monocytes # 0.5 Monocytes % 2.9 Neutrophils # 15.6 H Neutrophils % 92.1 H Nucleated Red Blood Cells # 0.0 Nucleated Red Blood Cells % 0.0 Phosphorus Level 4.6 Platelet Count 119 L Potassium Level 4.7 Red Blood Count 3.35 L Red Cell Distribution Width 17.5 H Sodium Level 144 Total Bilirubin 0.2 Total Protein 7.7 Triglycerides Level 82 Troponin I 0.273 *H Uric Acid 3.3 White Blood Count 16.9 #H Bedside Glucose 62 L Test 04/05/16 09:00 04/05/16 09:02 04/05/16 09:28 04/05/16 12:15 Activated Partial Thromboplast Time 117.6 *H Lactic Acid Level 1.5 Bedside Glucose 126 123 94 Test 04/05/16 12:45 04/05/16 16:51 Lab Scanned Report REFERENCE LAB Bedside Glucose 121 Medications Current Medications Lorazepam (Ativan) 0.5 mg Q6H PRN IV ANXIETY Last administered on 04/04/16at 20 :40; Admin Dose 0.5 MG; Start 04/04/16 at 15:30 Ondansetron HCl (Zofran Inj) 4 mg Q6H PRN IV NAUSEA AND/OR VOMITING; Start at 15:30 Famotidine (Pepcid Iv) 20 mg QHS IV Last administered on 04/04/16at 22:22; Admin Dose 20 MG; Start 04/04/16 at 21:00 Ferrous Sulfate (Ferrous Sulfate (Ec)) 325 mg DAILY PO ; Start 04/05/16 at 09: 00 Insulin Glargine (Lantus) 25 unit QHS SC Last administered on 04/04/16at 22:37 ; Admin Dose 25 UNIT; Start 04/04/16 at 21:00 Latanoprost (Xalatan) 1 drop QHS BOTH EYES Last administered on 04/04/16at 23: 51; Admin Dose 1 DROP; Start 04/04/16 at 21:00 Metoprolol Tartrate (Lopressor) 25 mg BID PO ; Start 04/04/16 at 21:00 Polyethylene Glycol (Miralax) 17 gm DAILY PO ; Start 04/05/16 at 09:00 Pregabalin (Lyrica) 100 mg BID PO ; Start 04/04/16 at 21:00 Atorvastatin Calcium (Lipitor) 20 mg DAILY@21 PO ; Start 04/04/16 at 21:00 Miscellaneous Information 1 ea NOTE XX ; Start 04/04/16 at 16:00 Glucose (Glutose) 15 gm Q15M PRN PO DECREASED GLUCOSE; Start 04/04/16 at 16:00 Glucose (Glutose) 22.5 gm Q15M PRN PO DECREASED GLUCOSE; Start 04/04/16 at 16: 00 Dextrose (D50w Syringe) 25 ml Q15M PRN IV DECREASED GLUCOSE Last administered on 04/05/16at 08:37; Admin Dose 25 ML; Start 04/04/16 at 16:00 Dextrose (D50w Syringe) 50 ml Q15M PRN IV DECREASED GLUCOSE; Start 04/04/16 at 16:00 Glucagon (Glucagen) 1 mg Q15M PRN IM DECREASED GLUCOSE; Start 04/04/16 at 16: 00 Glucose 15 gm 15 gm Q15M PRN BUCCAL DECREASED GLUCOSE; Start 04/04/16 at 16:00 Norepinephrine 16 mg/Dextrose 500 ml @ 1.87 mls/hr TITRATE IV Last administered on 04/04/16at 18:44; Admin Dose 9.37 MLS/HR; Start 04/04/16 at 16: 30 Cefepime HCl (Maxipime 1gm/50 ml (Pmx)) 50 ml @ 100 mls/hr Q24H IVPB Last administered on 04/05/16at 15:29; Admin Dose 100 MLS/HR; Start 04/05/16 at 15: 00 Tramadol HCl (Ultram) 50 mg Q6H PRN PO Pain; Start 04/04/16 at 16:30 Aspirin (Halfprin) 81 mg DAILY PO ; Start 04/05/16 at 09:00 Allopurinol 200 mg 200 mg DAILY PO ; Start 04/05/16 at 09:00 Albumin Human (Albumin Human 25%) 50 ml @ 100 mls/hr Q8H IV Last administered on 04/05/16at 16:54; Admin Dose 100 MLS/HR; Start 04/05/16 at 08:00; Stop at 00:29 Miscellaneous Information VANCO RANDOM LEVEL... ONCE ONCE XX ; Start 04/06/16 at 05:00; Stop 04/06/16 at 05:01 Dextrose/Sodium Chloride (D5-1/2ns) 1,000 ml @ 40 mls/hr Q24H IV Last administered on 04/05/16at 14:20; Admin Dose 40 MLS/HR; Start 04/05/16 at 14:00 Insulin Aspart (Novolog Insulin Pen) NOVOLOG *MILD* ALGORI... Q4 SC ; Start at 17:00 Assessment/Plan Chief Complaint/Hosp Course Patient is 89 year old female with PMH of CAD pci of LAD, Severe mitral calcification with MS, CHF, ESRD on HD, Multiple TIA, PAD came in with SOB, Positive trop, intial plan was to take her to pie bakery laborer from ER but she was very SOB with craclkes, So brought to ICU. Will need HD, trend trop. had long discussion with family, daughter. Problems: Additional Assessment/Plan High-risk non-ST elevation myocardial infarction History of coronary artery disease with a PCI of LAD Severe mitral stenosis with severe mitral calcification most likely a cause of TIA COPD Patient is high risk patient with high risk non-ST elevation MD had a long discussion with the daughters that patient might have a component of coronary artery disease which we will plan to see if he can help her out tomorrow. But during the procedure we need to really walk her DNR/DNI. All the risk and benefit has been excellent with the patient in detail in regards to possible TIA or stroke during the procedure as well as MD and sudden cardiac . We will start her on PO meds on NG or PO. Plavix will be given Will add BB as well PO Will /fu ANH FRITZ MD Apr 05, 2016 18:08
[2016-04-05] MEDS: CLOPIDOGREL 75 MG TAB PO SCH (18:52)
[2016-04-05] MEDS: ATORVASTATIN 20 MG TAB PO SCH (21:11)
[2016-04-05] MEDS: FAMOTIDINE 20 MG INJ IV SCH (21:12)
[2016-04-05] MEDS: LATANOPROST 0.005% 2.5 ML OPH BOTH EYES SCH (21:20)
[2016-04-05] MEDS: PREGABALIN 25 MG CAP PO SCH (21:20)
[2016-04-05] MEDS: INSULIN GLARGINE [LANtus] 3 ML PEN SC SCH (21:30)
[2016-04-06] VITALS (89 sets, daily range): BP systolic 53–170; BP diastolic 14–107; PULSE 33–98; RESP 15–29
[2016-04-06] MEDS: ALBUMIN HUMAN 25% 50 ML IV SCH (00:11)
[2016-04-06] MEDS: INSULIN ASPART [NOVOLOG] 3 ML PEN SC SCH ×6 (01:00→21:41)
[2016-04-06 06:07] LABS: EOSINOPHILS % 0.1 % (0.0-7.0); HEMATOCRIT 29.1 % (37.0-47.0); HEMOGLOBIN 9.6 g/dl (12.0-16.0); LYMPHOCYTES # 1.9 10^3/ul (0.8-2.9); LYMPHOCYTES % 13.1 % (15.0-51.0); MEAN CORPUSCULAR HEMOGLOBIN 31.3 pg (29.0-33.0); MEAN CORPUSCULAR HGB CONC 33.1 g/dl (32.0-37.0); MEAN CORPUSCULAR VOLUME 94.6 fl (82.0-101.0); MEAN PLATELET VOLUME 10.1 fl (7.4-10.4); MONOCYTE # 0.2 10^3/ul (0.3-0.9); MONOCYTES % 1.2 % (0.0-11.0); NEUTROPHIL # 12.1 10^3/ul (1.6-7.5); NEUTROPHILS % 85.6 % (39.0-77.0); PLATELET COUNT 118 10^3/UL (140-440); RED BLOOD COUNT 3.08 10^6/ul (4.20-5.40); RED CELL DISTRIBUTION WIDTH 17.6 % (11.5-14.5); UNCORRECTED WBC 14.1 10^3/ul (4.8-10.8); WHITE BLOOD COUNT 14.1 10^3/ul (4.8-10.8)
[2016-04-06 06:16] LABS: POTASSIUM 4.9 mmol/L (3.5-5.1)
[2016-04-06 06:19] LABS: CREATININE 4.8 mg/dl (0.44-1.00)
[2016-04-06 06:20] LABS: CALCIUM 9.4 mg/dl (8.4-10.2); MAGNESIUM 2.2 mg/dl (1.7-2.5); PHOSPHORUS 6.3 mg/dl (2.5-4.9)
[2016-04-06 06:24] LABS: CONDITION 1; LH ANALYZER COMMENTS 1
[2016-04-06] MEDS: ALBUTEROL/IPRATROPIUM (NEB) 3 ML AMP HHN SCH ×4 (09:40→20:17)
--- NOTE | 2016-04-06 09:50 | PN ---
DATE: 04/06/2016 SUBJECTIVE: The patient remains critically ill on pressor support. The patient is currently on hem odialysis, tolerating it well. No other acute events noted. No hemoptysis, hematemesis, or hematoc hezia. OBJECTIVE: VITAL SIGNS: Currently blood pressure is 119/31, respirations 17, pulse 56, temperature 98.6. Aline ent remains on BiPAP. HEENT: Head is normocephalic. NECK: Supple. HEART: Regular rate. LUNGS: Show diminished breath sounds at the base. Positive rhonchi. ABDOMEN: Soft, nontender to palpation. No rebound or guarding. EXTREMITIES: Negative for clubbing, cyanosis. Trace edema. DERMATOLOGIC: No rashes. MUSCULOSKELETAL: No joint effusions. NEUROLOGIC: No change in exam. MEDICATIONS: The patient's medications have been reviewed. LABORATORY DATA: Shows sodium 139, potassium 4.9, chloride 98, BUN 48, creatinine 4.80, phosphorus 6.3. White count 14.1, hemoglobin 9.6, hematocrit 29.1, platelet count is 118. Imaging studies hav e been reviewed. ABG was reviewed. ASSESSMENT AND PLAN: 1. End-stage renal disease. The patient is on dialysis Sunday, Sunday, Sunday. Currently, the patient is off schedule. Currently is on hemodialysis. Will be dialyzed for 3 hours with a 2K bath , calcium 2.5, will ultrafiltrate as tolerated. 2. Septic shock, etiology is possibly pneumonic versus urinary tract infection. The patient remain s on antibiotics, pressor support. We give IV albumin for fluids to expand intravascular volume. W ill monitor closely. 3. Anemia of chronic disease. Continue to monitor H and H levels. Continue Epogen. 4. Mineral bone disorder. Continue to monitor calcium, phosphorus levels. Defer phosphate binders . 5. Acute hypoxemic respiratory failure secondary to sepsis. Continue BiPAP. The patient's ABG was reviewed. Chest x-ray reviewed. 6. Leg-AR-skvttjhe myocardial infarction. Continue medical management. Continue heparin drip. 7. Severe mitral stenosis. Continue to monitor. 8. History of peripheral vascular disease. Continue medical management. 9. Acute encephalopathy. Etiology is toxic metabolic. Continue to monitor. 10. Lactic acidosis secondary to sepsis, improved. Continue to monitor. Dictated By: ZULEMA STOVALL/MAXIMO Conf#: [id number] [facility]#: [id number]
[2016-04-06] MEDS: FERROUS SULFATE (EC) 325 MG TAB PO SCH (10:58)
[2016-04-06] MEDS: LEVOTHYROXINE 100 MCG TAB PO SCH (10:58)
[2016-04-06] MEDS: ASPIRIN (EC) 81 MG TAB PO SCH (10:59)
[2016-04-06] MEDS: CLOPIDOGREL 75 MG TAB PO SCH (10:59)
[2016-04-06] MEDS: METOPROLOL 25 MG TAB PO SCH ×2 (10:59→21:00)
[2016-04-06] MEDS: ALLOPURINOL 100 MG TAB PO SCH (11:11)
[2016-04-06] MEDS: POLYETHYLENE GLYCOL 17 GM PACKET PO SCH (11:12)
[2016-04-06] MEDS ORDERED: ACETAMINOPHEN 650 MG SUPP PR PRN (12:00)
[2016-04-06] MEDS: PREGABALIN 25 MG CAP PO SCH ×2 (12:26→21:00)
--- NOTE | 2016-04-06 12:54 | PN ---
Date/Time of Note Date/Time of Note DATE: 04/06/16 TIME: 12:51 Assessment/Plan VTE Prophylaxis VTE Prophylaxis Intervention: heparin Lines/Catheters IV [facility]ter Type (from [facility]): Peripheral IV Urinary Cath still in place: No Assessment/Plan Assessment/Plan 1. Non-ST elevated myocardial infarction. - Continue on heparin and current cardiac meds. Patient seen by mandrel maker. 2. sepsis. Follow up on silva culture. Continue on antibiotics for now. Remains afebrile at present. We'll get ID consultation 3. Type 2 diabetes. Continue on insulin regimen. Will adjust as needed 4. Paroxysmal atrial fibrillation. Continue on heparin for now. Continue on beta familia 5. End-stage renal disease. Industrial Engineering Manager following. Continue on dialysis per nephrology recommendations. 6. Acute on chronic respiratory failure. Patient remains on BiPAP. Zigzag Elastic Attacher follow. Continue bronchodilators. 7. History of glaucoma. Continue on patient's optic eyedrops 8. Gout. Continue allopurinol 9. Hypothyroidism. Resume Synthroid 10. Severe mitral stenosis. Continue with cardiology recommendations Subjective 24 Hr Interval Summary Free Text/Dictation on BIPAP. noted to be lethargic and moaning Exam/Review of Systems Vital Signs Vitals Vital Signs Date Time Temp Pulse Resp B/P Pulse Ox O2 Delivery O2 Flow Rate FiO2 04/06/16 12:00 60 04/06/16 11:30 21 117/75 100 04/06/16 11:15 BIPAP 04/06/16 08:00 100.5 04/06/16 05:10 30 04/05/16 21:00 3.0 Intake and Output 04/05/16 04/05/16 04/06/16 14:59 22:59 06:59 Intake Total 245.60 ml 617.05 ml 413.33 ml Balance 245.60 ml 617.05 ml 413.33 ml Exam Constitutional: obese, other (on BIPAP. noted to be lethargic and moaning) Head: atraumatic, normocephalic Respiratory: diminished breath sounds, wheezing Cardiovascular: regular rate and rhythm Gastrointestinal: other (no grimaces noted), soft Extremities: normal pulses Results Result Diagram: 04/06/16 0540 04/06/16 0514 Results 24 hrs Laboratory Tests Test 04/05/16 16:51 04/05/16 17:37 04/05/16 21:09 04/06/16 00:35 Bedside Glucose 121 139 Activated Partial Thromboplast Time 159.6 *H Troponin I 0.287 *H 0.359 *H Test 04/06/16 00:51 04/06/16 01:55 04/06/16 05:14 04/06/16 05:40 Bedside Glucose 137 Activated Partial Thromboplast Time 127.2 *H Anion Gap 24 H Blood Urea Nitrogen 48 #H Calcium Level 9.4 Carbon Dioxide Level 22 Chloride Level 98 Creatinine 4.80 #H Glucose Level 130 # Magnesium Level 2.2 Phosphorus Level 6.3 H Potassium Level 4.9 Sodium Level 139 Basophils # 0.0 Basophils % 0.0 Blood Morphology Comment Eosinophils # 0.0 Eosinophils % 0.1 Hematocrit 29.1 L Hemoglobin 9.6 L Lymphocytes # 1.9 Lymphocytes % 13.1 L Mean Corpuscular Hemoglobin 31.3 Mean Corpuscular Hemoglobin Concent 33.1 Mean Corpuscular Volume 94.6 Mean Platelet Volume 10.1 Monocytes # 0.2 L Monocytes % 1.2 Neutrophils # 12.1 H Neutrophils % 85.6 H Nucleated Red Blood Cells # 0.0 Nucleated Red Blood Cells % 0.0 Platelet Count 118 L Random Vancomycin Level 16.9 Red Blood Count 3.08 L Red Cell Distribution Width 17.6 H Troponin I 0.353 *H White Blood Count 14.1 H Test 04/06/16 05:49 04/06/16 09:10 04/06/16 09:15 04/06/16 12:30 Bedside Glucose 134 141 120 Activated Partial Thromboplast Time 61.9 H Medications Medications Current Medications Lorazepam (Ativan) 0.5 mg Q6H PRN IV ANXIETY Last administered on 04/04/16at 20 :40; Admin Dose 0.5 MG; Start 04/04/16 at 15:30 Ondansetron HCl (Zofran Inj) 4 mg Q6H PRN IV NAUSEA AND/OR VOMITING; Start at 15:30 Famotidine (Pepcid Iv) 20 mg QHS IV Last administered on 04/05/16at 21:12; Admin Dose 20 MG; Start 04/04/16 at 21:00 Ferrous Sulfate (Ferrous Sulfate (Ec)) 325 mg DAILY PO Last administered on at 10:58; Admin Dose 325 MG; Start 04/05/16 at 09:00 Insulin Glargine (Lantus) 25 unit QHS SC Last administered on 04/05/16at 21:30 ; Admin Dose 25 UNIT; Start 04/04/16 at 21:00 Latanoprost (Xalatan) 1 drop QHS BOTH EYES Last administered on 04/05/16at 21: 20; Admin Dose 1 DROP; Start 04/04/16 at 21:00 Metoprolol Tartrate (Lopressor) 25 mg BID PO ; Start 04/04/16 at 21:00 Polyethylene Glycol (Miralax) 17 gm DAILY PO ; Start 04/05/16 at 09:00 Atorvastatin Calcium (Lipitor) 20 mg DAILY@21 PO Last administered on at 21:11; Admin Dose 20 MG; Start 04/04/16 at 21:00 Miscellaneous Information 1 ea NOTE XX ; Start 04/04/16 at 16:00 Glucose (Glutose) 15 gm Q15M PRN PO DECREASED GLUCOSE; Start 04/04/16 at 16:00 Glucose (Glutose) 22.5 gm Q15M PRN PO DECREASED GLUCOSE; Start 04/04/16 at 16: 00 Dextrose (D50w Syringe) 25 ml Q15M PRN IV DECREASED GLUCOSE Last administered on 04/05/16at 08:37; Admin Dose 25 ML; Start 04/04/16 at 16:00 Dextrose (D50w Syringe) 50 ml Q15M PRN IV DECREASED GLUCOSE; Start 04/04/16 at 16:00 Glucagon (Glucagen) 1 mg Q15M PRN IM DECREASED GLUCOSE; Start 04/04/16 at 16: 00 Glucose 15 gm 15 gm Q15M PRN BUCCAL DECREASED GLUCOSE; Start 04/04/16 at 16:00 Norepinephrine 16 mg/Dextrose 500 ml @ 1.87 mls/hr TITRATE IV Last administered on 04/04/16at 18:44; Admin Dose 9.37 MLS/HR; Start 04/04/16 at 16: 30 Cefepime HCl (Maxipime 1gm/50 ml (Pmx)) 50 ml @ 100 mls/hr Q24H IVPB Last administered on 04/05/16at 15:29; Admin Dose 100 MLS/HR; Start 04/05/16 at 15: 00 Tramadol HCl (Ultram) 50 mg Q6H PRN PO Pain; Start 04/04/16 at 16:30 Aspirin (Halfprin) 81 mg DAILY PO Last administered on 04/06/16at 10:59; Admin Dose 81 MG; Start 04/05/16 at 09:00 Allopurinol 200 mg 200 mg DAILY PO ; Start 04/05/16 at 09:00 Dextrose/Sodium Chloride (D5-1/2ns) 1,000 ml @ 40 mls/hr Q24H IV Last administered on 04/05/16at 14:20; Admin Dose 40 MLS/HR; Start 04/05/16 at 14:00 Insulin Aspart (Novolog Insulin Pen) NOVOLOG *MILD* ALGORI... Q4 SC Last administered on 04/06/16at 09:15; Admin Dose 1 UNIT; Start 04/05/16 at 17:00 Clopidogrel Bisulfate (plaVIX) 75 mg DAILY PO Last administered on 04/06/16at 10:59; Admin Dose 75 MG; Start 04/05/16 at 18:30 Pregabalin 100 mg 100 mg BID PO Last administered on 04/05/16at 21:20; Admin Dose 100 MG; Start 04/05/16 at 21:00 Vancomycin HCl (Vancocin) 250 ml @ 125 mls/hr ONCE ONCE IVPB ; Start at 18:00; Stop 04/06/16 at 19:59 Acetaminophen (Tylenol Supp) 650 mg Q6H PRN [place] FEVER; Start 04/06/16 at 12:00 DEJUAN LINDA MD Apr 06, 2016 12:54
[2016-04-06] MEDS: CEFEPIME 1GM/50 ML (PMX) 50 ML IVPB SCH (15:08)
[2016-04-06] MEDS: DEXTROSE 5%-0.45% NACL 1,000 ML IV SCH (15:09)
--- NOTE | 2016-04-06 15:15 | CONS ---
Date/Time of Note Date/Time of Note DATE: 04/06/16 TIME: 15:14 Consult Date/Type/Reason Admit Date/Time Apr 04, 2016 at 15:15 Initial Consult Date 04/04/16 Type of Consultation: pulmonary Subjective Patient remains on noninvasive positive pressure ventilation Pending further cardiac catheterization today Objective Vital Signs Date Time Temp Pulse Resp B/P Pulse Ox O2 Delivery O2 Flow Rate FiO2 04/06/16 12:00 60 04/06/16 11:30 21 117/75 100 04/06/16 11:15 BIPAP 04/06/16 08:00 100.5 04/06/16 05:10 30 04/05/16 21:00 3.0 Intake and Output 04/05/16 04/05/16 04/06/16 14:59 22:59 06:59 Intake Total 245.60 ml 617.05 ml 413.33 ml Balance 245.60 ml 617.05 ml 413.33 ml PHYSICAL EXAMINATION: GENERAL: Elderly Pashto lady on BiPAP. VITAL SIGNS: As above NECK: Supple. No JVD or lymphadenopathy. CARDIAC: S1, S2, no added sounds or murmurs. CHEST: Diminished air entry bilaterally. ABDOMEN: Soft, nontender. No guarding or rebound. EXTREMITIES: No cyanosis, clubbing, 1+ edema. NEUROLOGIC: Generalized weakness. Results/Medications Result Diagram: 04/06/16 0540 04/06/16 0514 Results 24 hrs Laboratory Tests Test 04/05/16 16:51 04/05/16 17:37 04/05/16 21:09 04/06/16 00:35 Bedside Glucose 121 139 Activated Partial Thromboplast Time 159.6 *H Troponin I 0.287 *H 0.359 *H Test 04/06/16 00:51 04/06/16 01:55 04/06/16 05:14 04/06/16 05:40 Bedside Glucose 137 Activated Partial Thromboplast Time 127.2 *H Anion Gap 24 H Blood Urea Nitrogen 48 #H Calcium Level 9.4 Carbon Dioxide Level 22 Chloride Level 98 Creatinine 4.80 #H Glucose Level 130 # Magnesium Level 2.2 Phosphorus Level 6.3 H Potassium Level 4.9 Sodium Level 139 Basophils # 0.0 Basophils % 0.0 Blood Morphology Comment Eosinophils # 0.0 Eosinophils % 0.1 Hematocrit 29.1 L Hemoglobin 9.6 L Lymphocytes # 1.9 Lymphocytes % 13.1 L Mean Corpuscular Hemoglobin 31.3 Mean Corpuscular Hemoglobin Concent 33.1 Mean Corpuscular Volume 94.6 Mean Platelet Volume 10.1 Monocytes # 0.2 L Monocytes % 1.2 Neutrophils # 12.1 H Neutrophils % 85.6 H Nucleated Red Blood Cells # 0.0 Nucleated Red Blood Cells % 0.0 Platelet Count 118 L Random Vancomycin Level 16.9 Red Blood Count 3.08 L Red Cell Distribution Width 17.6 H Troponin I 0.353 *H White Blood Count 14.1 H Test 04/06/16 05:49 04/06/16 09:10 04/06/16 09:15 04/06/16 12:25 Bedside Glucose 134 141 Activated Partial Thromboplast Time 61.9 H Troponin I 0.293 *H Test 04/06/16 12:30 Bedside Glucose 120 Medications Current Medications Lorazepam (Ativan) 0.5 mg Q6H PRN IV ANXIETY Last administered on 04/04/16at 20 :40; Admin Dose 0.5 MG; Start 04/04/16 at 15:30 Ondansetron HCl (Zofran Inj) 4 mg Q6H PRN IV NAUSEA AND/OR VOMITING; Start at 15:30 Famotidine (Pepcid Iv) 20 mg QHS IV Last administered on 04/05/16at 21:12; Admin Dose 20 MG; Start 04/04/16 at 21:00 Ferrous Sulfate (Ferrous Sulfate (Ec)) 325 mg DAILY PO Last administered on at 10:58; Admin Dose 325 MG; Start 04/05/16 at 09:00 Insulin Glargine (Lantus) 25 unit QHS SC Last administered on 04/05/16at 21:30 ; Admin Dose 25 UNIT; Start 04/04/16 at 21:00 Latanoprost (Xalatan) 1 drop QHS BOTH EYES Last administered on 04/05/16at 21: 20; Admin Dose 1 DROP; Start 04/04/16 at 21:00 Metoprolol Tartrate (Lopressor) 25 mg BID PO ; Start 04/04/16 at 21:00 Polyethylene Glycol (Miralax) 17 gm DAILY PO ; Start 04/05/16 at 09:00 Atorvastatin Calcium (Lipitor) 20 mg DAILY@21 PO Last administered on at 21:11; Admin Dose 20 MG; Start 04/04/16 at 21:00 Miscellaneous Information 1 ea NOTE XX ; Start 04/04/16 at 16:00 Glucose (Glutose) 15 gm Q15M PRN PO DECREASED GLUCOSE; Start 04/04/16 at 16:00 Glucose (Glutose) 22.5 gm Q15M PRN PO DECREASED GLUCOSE; Start 04/04/16 at 16: 00 Dextrose (D50w Syringe) 25 ml Q15M PRN IV DECREASED GLUCOSE Last administered on 04/05/16at 08:37; Admin Dose 25 ML; Start 04/04/16 at 16:00 Dextrose (D50w Syringe) 50 ml Q15M PRN IV DECREASED GLUCOSE; Start 04/04/16 at 16:00 Glucagon (Glucagen) 1 mg Q15M PRN IM DECREASED GLUCOSE; Start 04/04/16 at 16: 00 Glucose 15 gm 15 gm Q15M PRN BUCCAL DECREASED GLUCOSE; Start 04/04/16 at 16:00 Norepinephrine 16 mg/Dextrose 500 ml @ 1.87 mls/hr TITRATE IV Last administered on 04/06/16at 14:58; Admin Dose 28.12 MLS/HR; Start 04/04/16 at 16 :30 Cefepime HCl (Maxipime 1gm/50 ml (Pmx)) 50 ml @ 100 mls/hr Q24H IVPB Last administered on 04/06/16at 15:08; Admin Dose 100 MLS/HR; Start 04/05/16 at 15: 00 Tramadol HCl (Ultram) 50 mg Q6H PRN PO Pain; Start 04/04/16 at 16:30 Aspirin (Halfprin) 81 mg DAILY PO Last administered on 04/06/16at 10:59; Admin Dose 81 MG; Start 04/05/16 at 09:00 Allopurinol 200 mg 200 mg DAILY PO ; Start 04/05/16 at 09:00 Dextrose/Sodium Chloride (D5-1/2ns) 1,000 ml @ 40 mls/hr Q24H IV Last administered on 04/06/16at 15:09; Admin Dose 40 MLS/HR; Start 04/05/16 at 14:00 Insulin Aspart (Novolog Insulin Pen) NOVOLOG *MILD* ALGORI... Q4 SC Last administered on 04/06/16at 09:15; Admin Dose 1 UNIT; Start 04/05/16 at 17:00 Clopidogrel Bisulfate (plaVIX) 75 mg DAILY PO Last administered on 04/06/16at 10:59; Admin Dose 75 MG; Start 04/05/16 at 18:30 Pregabalin 100 mg 100 mg BID PO Last administered on 04/05/16at 21:20; Admin Dose 100 MG; Start 04/05/16 at 21:00 Vancomycin HCl (Vancocin) 250 ml @ 125 mls/hr ONCE ONCE IVPB ; Start at 18:00; Stop 04/06/16 at 19:59 Acetaminophen (Tylenol Supp) 650 mg Q6H PRN [place] FEVER; Start 04/06/16 at 12:00 Assessment/Plan Chief Complaint/Hosp Course IMPRESSION: 1. Pulmonary edema with possible component of pneumonia with subsequent hypoxemic respiratory failure. 2. 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 3. Encephalopathy, toxic metabolic. 4. Patient's code status: DNR/DNI. 5. Severe mitral stenosis with underlying coronary artery disease PLAN: 1. Continue noninvasive positive pressure ventilation. 2. Supplemental O2. 3. DVT and GI prophylaxis. 4. Cardiac catheterization with with an aim to help reperfusion Problems: OSIRIS REYNOLDS MD, [facility] Apr 06, 2016 15:15
[2016-04-06] MEDS ORDERED: LIDOCAINE 1% (MDV) 20 ML INJ ONE (17:29)
[2016-04-06] MEDS ORDERED: IODIXANOL LOCM 100 ML BTL ONE (17:29)
[2016-04-06] MEDS ORDERED: LIDOCAINE 1% (MDV) 20 ML INJ SC ONE (17:30)
[2016-04-06] MEDS ORDERED: METHYLPREDNISOLONE 125 MG INJ ONE (17:39)
[2016-04-06] MEDS ORDERED: DIPHENHYDRAMINE 50 MG INJ ONE (17:39)
[2016-04-06] MEDS ORDERED: VANCOMYCIN 1 GM in NS 250 ML IVPB ONE (18:00)
[2016-04-06] MEDS ORDERED: FAMOTIDINE 20 MG INJ IV SCH (18:00)
--- NOTE | 2016-04-06 18:03 | PN ---
DATE: 04/06/2016 SUBJECTIVE: Patient is awake on BiPAP. She is spiking fevers with a T-max of 101. The patient is on Levophed and heparin drip. She is also on BiPAP. Pulse 59, respirations 16, blood pressure 115/ 30, WBC today 14.1, H and H 9.6 and 29.1, platelets 118, neutrophils 85.6. INDWELLINGS: She has right subclavian Perm-A-Cath. MICROBIOLOGY: Blood cultures so far negative. Sputum culture negative. DIAGNOSTICS: Chest x-ray revealed cardiomegaly, mild central pulmonary vascular congestion and inte rstitial prominence in both lungs. ANTIMICROBIALS: The patient is on: 1. IV vancomycin. 2. Cefepime. PHYSICAL EXAMINATION: GENERAL: This is a fragile, obese, well-developed, elderly woman who is in no distress. HEENT: Head atraumatic, normocephalic. Sclerae anicteric. Buccal mucosa dry. NECK: Obese, trachea midline. CHEST: Rise symmetrical. Breath sounds diminished to bases. HEART: S1, S2. ABDOMEN: Soft, bowel tones present. EXTREMITIES: Without cyanosis. ASSESSMENT: 1. Shock, multifactorial, likely septic and cardiogenic. 2. Acute respiratory failure, possible pneumonia. 3. Pulmonary edema. 4. Severe mitral stenosis with underlying coronary artery disease. 5. End-stage renal disease, hemodialysis dependent. 6. Encephalopathy. PLAN: The patient remains hemodynamically unstable, covered with broad spectrum antibiotics. We wi ll repeat blood cultures with hemodialysis from [place]. 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 Dictated By: TAMIKO DIXON ELEMENTARY READING SPECIALIST for JONAH STEVE/MAXIMO Conf#: [id number] DID#: [id number]
[2016-04-06] MEDS ORDERED: MIDAZOLAM 1 MG/ML 2 ML INJ ONE (18:12)
--- NOTE | 2016-04-06 20:01 | SP ---
DATE OF PROCEDURE: 04/06/2016 INDICATIONS FOR THE PROCEDURE: Non-ST elevation myocardial infarction, chest pain, coronary artery disease. PROCEDURES PERFORMED: 1. Selective left and right coronary angiography. 2. LV pressure measurements. 3. Successful complex PCI of ostial PDA with 2.5 x 8 mm drug-eluting stent. 4. Fluoroscopy. 5. Supervised procedural sedation. PROCEDURE DETAILS: After informed consent, the patient was brought to cardiac catheter lab. The pa tient is on a BiPAP as well as Levophed. The patient is critically sick into ICU, patient's entire history and risk of the procedure has been explained to patient's daughter in detail. The patient i s also iodine allergic. The patient premedicated prior to the procedure. Still after the premedica tion, there is also the risk of hemodynamic instability as well as allergic reaction. The patient's daughter agrees prior to the procedure. A 6-Arabic Slender sheath was accessed into the left to right groin. Followed by that, selective di agnostic catheter angiography was performed and found to have a tight ostial PDA stenosis, so we swi tched our 0.035 wire to a JR4 guide and Runthrough wire was crossed to the lesion and 2.5 x 18 mm ba lloon angioplasty was performed prior to the stent. Followed by that 2.5 x 18 mm drug-eluting stent was placed into ostial PDA with good angiographic result. Followed by that JR4 guide, entered into the left ventricle retrogradely and LV pressure was measured with LVEDP was 35 mmHg. All the johanna ters and wires had been removed over the wire and procedure was finished without any complication. CORONARY FINDINGS: 1. Left main: Mild diffuse disease. 2. LAD: Proximal patent stent with mild diffuse disease throughout the vessel. There is in-stent restenosis off the distal segment of the stent around 40%. 3. Ramus intermedius: Proximal stent is patent with mild diffuse disease. 4. Circumflex artery: Mild diffuse disease. 5. Right coronary artery: Patent stent from proximal mid to distal artery, there is a high bifurca tion with PDA coming higher, the ostial PDA had a 99% severe stenosis. LEFT VENTRICULAR FINDINGS: LVEDP is 35 mmHg, no aortic stenosis. CONCLUSION: 1. A 99% ostial right posterior descending artery. 2. Patent stent in left anterior descending and ramus. 3. Patent stent in proximal distal RCA. 4. Successful complex PCI of ostial proximal PDA with 2.5 x 18 mm drug-eluting stent. RECOMMENDATIONS: Aspirin, Eliquis and Plavix 75 mg daily. Continue Levophed. ICU admit. Hemodialy sis. Dictated By: ANH FRITZ MD ML/NTS Conf#: [id number] DID#: [id number]
--- NOTE | 2016-04-06 20:12 | SP ---
DATE OF PROCEDURE: 04/06/2016 INDICATIONS FOR THE PROCEDURE: 1. Severe claudication resting pain. 2. Discrepancy of the blood pressure from to cuff pressure. PROCEDURES: 1. Selective right and left subclavian angiography. 2. Abdominal aortogram with runoff. 3. Successful Angio-Seal placement. PROCEDURE DETAILS: After informed consent, the patient was prepped and draped in the supine positio n. Her right groin was accessed with a 6-Ukrainian slender sheath in a sterile fashion. Followed by t hat JR4 guiding catheter was entered over 0.035 wire and selective right and left subclavian angiogr aphy was performed. Followed by that JR4 was switched to the pigtail and abdominal aortogram with r unoff was performed on the patient. Followed by that all the wires and catheter had been removed wi thout any complication and 6-Ukrainian groin was sealed with Angio-Seal. PERIPHERAL ARTERY FINDINGS: 1. Right and left subclavian artery: Mild diffuse disease without any significant stenosis 2. Abdominal aorta: Mild diffuse disease without any significant disease. 3. Bilateral iliac artery: Mild diffuse disease without any significant disease. 4. Right superficial femoral artery: Mild diffuse disease with mid distal area that has 50% stenos is followed by below the knee artery had severe diffuse disease. 5. Left superficial femoral artery: Mid to distal area has a 50% to 70% focal restenosis, fo llowed by that below the knee has severe diffuse disease. CONCLUSION: 1. There is bilateral superficial femoral artery disease. 2. There is below the knee severe diffuse disease. 3. Normal subclavian arteries bilaterally. RECOMMENDATIONS: Medical management for this time, exercise program. If symptoms do not go away, c onsider peripheral intervention. Discussed with the daughter in detail. Dictated By: ANH FRITZ MD ML/NTS Conf#: [id number] DID#: [id number]
--- NOTE | 2016-04-06 20:14 | CONS ---
Date/Time of Note Date/Time of Note DATE: 04/06/16 TIME: 20:13 Consult Date/Type/Reason Admit Date/Time Apr 04, 2016 at 15:15 Initial Consult Date 04/04/16 Type of Consultation: pulmonary Objective Vital Signs Date Time Temp Pulse Resp B/P Pulse Ox O2 Delivery O2 Flow Rate FiO2 04/06/16 19:29 51 99 30 04/06/16 16:45 21 105/38 04/06/16 16:30 BIPAP 04/06/16 16:00 100.8 04/05/16 21:00 3.0 Intake and Output 04/05/16 04/05/16 04/06/16 14:59 22:59 06:59 Intake Total 245.60 ml 617.05 ml 413.33 ml Balance 245.60 ml 617.05 ml 413.33 ml Results/Medications Result Diagram: 04/06/16 0540 04/06/16 0514 Results 24 hrs Laboratory Tests Test 04/05/16 21:09 04/06/16 00:35 04/06/16 00:51 04/06/16 01:55 Bedside Glucose 139 137 Troponin I 0.359 *H Activated Partial Thromboplast Time 127.2 *H Test 04/06/16 05:14 04/06/16 05:40 04/06/16 05:49 04/06/16 09:10 Anion Gap 24 H Blood Urea Nitrogen 48 #H Calcium Level 9.4 Carbon Dioxide Level 22 Chloride Level 98 Creatinine 4.80 #H Glucose Level 130 # Magnesium Level 2.2 Phosphorus Level 6.3 H Potassium Level 4.9 Sodium Level 139 Basophils # 0.0 Basophils % 0.0 Blood Morphology Comment Eosinophils # 0.0 Eosinophils % 0.1 Hematocrit 29.1 L Hemoglobin 9.6 L Lymphocytes # 1.9 Lymphocytes % 13.1 L Mean Corpuscular Hemoglobin 31.3 Mean Corpuscular Hemoglobin Concent 33.1 Mean Corpuscular Volume 94.6 Mean Platelet Volume 10.1 Monocytes # 0.2 L Monocytes % 1.2 Neutrophils # 12.1 H Neutrophils % 85.6 H Nucleated Red Blood Cells # 0.0 Nucleated Red Blood Cells % 0.0 Platelet Count 118 L Random Vancomycin Level 16.9 Red Blood Count 3.08 L Red Cell Distribution Width 17.6 H Troponin I 0.353 *H White Blood Count 14.1 H Bedside Glucose 134 141 Test 04/06/16 09:15 04/06/16 12:25 04/06/16 12:30 04/06/16 15:20 Activated Partial Thromboplast Time 61.9 H 48.6 H Troponin I 0.293 *H Bedside Glucose 120 Test 04/06/16 16:28 Bedside Glucose 164 Medications Current Medications Lorazepam (Ativan) 0.5 mg Q6H PRN IV ANXIETY Last administered on 04/04/16at 20 :40; Admin Dose 0.5 MG; Start 04/04/16 at 15:30 Ondansetron HCl (Zofran Inj) 4 mg Q6H PRN IV NAUSEA AND/OR VOMITING; Start at 15:30 Famotidine (Pepcid Iv) 20 mg QHS IV Last administered on 04/05/16at 21:12; Admin Dose 20 MG; Start 04/04/16 at 21:00 Ferrous Sulfate (Ferrous Sulfate (Ec)) 325 mg DAILY PO Last administered on at 10:58; Admin Dose 325 MG; Start 04/05/16 at 09:00 Insulin Glargine (Lantus) 25 unit QHS SC Last administered on 04/05/16at 21:30 ; Admin Dose 25 UNIT; Start 04/04/16 at 21:00 Latanoprost (Xalatan) 1 drop QHS BOTH EYES Last administered on 04/05/16at 21: 20; Admin Dose 1 DROP; Start 04/04/16 at 21:00 Metoprolol Tartrate (Lopressor) 25 mg BID PO ; Start 04/04/16 at 21:00 Polyethylene Glycol (Miralax) 17 gm DAILY PO ; Start 04/05/16 at 09:00 Atorvastatin Calcium (Lipitor) 20 mg DAILY@21 PO Last administered on at 21:11; Admin Dose 20 MG; Start 04/04/16 at 21:00 Miscellaneous Information 1 ea NOTE XX ; Start 04/04/16 at 16:00 Glucose (Glutose) 15 gm Q15M PRN PO DECREASED GLUCOSE; Start 04/04/16 at 16:00 Glucose (Glutose) 22.5 gm Q15M PRN PO DECREASED GLUCOSE; Start 04/04/16 at 16: 00 Dextrose (D50w Syringe) 25 ml Q15M PRN IV DECREASED GLUCOSE Last administered on 04/05/16at 08:37; Admin Dose 25 ML; Start 04/04/16 at 16:00 Dextrose (D50w Syringe) 50 ml Q15M PRN IV DECREASED GLUCOSE; Start 04/04/16 at 16:00 Glucagon (Glucagen) 1 mg Q15M PRN IM DECREASED GLUCOSE; Start 04/04/16 at 16: 00 Glucose 15 gm 15 gm Q15M PRN BUCCAL DECREASED GLUCOSE; Start 04/04/16 at 16:00 Norepinephrine 16 mg/Dextrose 500 ml @ 1.87 mls/hr TITRATE IV Last administered on 04/06/16at 14:58; Admin Dose 28.12 MLS/HR; Start 04/04/16 at 16 :30 Cefepime HCl (Maxipime 1gm/50 ml (Pmx)) 50 ml @ 100 mls/hr Q24H IVPB Last administered on 04/06/16at 15:08; Admin Dose 100 MLS/HR; Start 04/05/16 at 15: 00 Tramadol HCl (Ultram) 50 mg Q6H PRN PO Pain; Start 04/04/16 at 16:30 Aspirin (Halfprin) 81 mg DAILY PO Last administered on 04/06/16at 10:59; Admin Dose 81 MG; Start 04/05/16 at 09:00 Allopurinol 200 mg 200 mg DAILY PO ; Start 04/05/16 at 09:00 Dextrose/Sodium Chloride (D5-1/2ns) 1,000 ml @ 40 mls/hr Q24H IV Last administered on 04/06/16at 15:09; Admin Dose 40 MLS/HR; Start 04/05/16 at 14:00 Insulin Aspart (Novolog Insulin Pen) NOVOLOG *MILD* ALGORI... Q4 SC Last administered on 04/06/16at 16:33; Admin Dose 1 UNIT; Start 04/05/16 at 17:00 Clopidogrel Bisulfate (plaVIX) 75 mg DAILY PO Last administered on 04/06/16at 10:59; Admin Dose 75 MG; Start 04/05/16 at 18:30 Pregabalin (Lyrica) 100 mg BID PO Last administered on 04/05/16at 21:20; Admin Dose 100 MG; Start 04/05/16 at 21:00 Acetaminophen (Tylenol Supp) [address] FEVER; Start 04/06/16 at 12:00 Miscellaneous Information (* Miscellaneous Pharmacy Order) Hold all Metformin ... ONCE XX ; Start 04/06/16 at 19:00; Stop 04/08/16 at 18:59 Assessment/Plan Chief Complaint/Hosp Course Patient is 89 year old female with PMH of CAD pci of LAD, Severe mitral calcification with MS, CHF, ESRD on HD, Multiple TIA, PAD came in with SOB, Positive trop, intial plan was to take her to general laborer from ER but she was very SOB with craclkes, So brought to ICU. Will need HD, trend trop. had long discussion with family, daughter. Problems: Additional Assessment/Plan Pt under went [facility] Foiund to have 99% ostial PDA PCI done LVEDP was high ABG done in lab which was WNL Placed A line due to discripency of BP Low BP may be due to sepsis Still has Severe MS d/w daughter in detail Plavix and eliques No need for heparin drip Will ANH Mcallister MD Apr 06, 2016 20:14
[2016-04-06] MEDS: FAMOTIDINE 20 MG INJ IV SCH (21:00)
[2016-04-06] MEDS: ATORVASTATIN 20 MG TAB PO SCH (21:00)
[2016-04-06] MEDS: LATANOPROST 0.005% 2.5 ML OPH BOTH EYES SCH (21:42)
[2016-04-06] MEDS: INSULIN GLARGINE [LANtus] 3 ML PEN SC SCH (21:42)
--- NOTE | 2016-04-06 22:44 | RADRPT ---
PROCEDURE: XR Chest. CLINICAL INDICATION: Check PICC line position. TECHNIQUE: Single frontal view. COMPARISON: 04/05/2016. FINDINGS: There is a left arm PICC line with the tip in the lower superior vena cava. There is a tunneled rig ht internal jugular vein dialysis catheter with the tip in the cavoatrial junction region. A left-s ided permanent pacemaker is noted. The heart is enlarged. There is calcification in the aorta cons istent with atherosclerosis. There is mild atelectasis at the lung bases. There is no pleural effusion. There is no pneumothorax. IMPRESSION: 1. Satisfactory position of left arm PICC line. 2. No other change from 04/05/2016. RPTAT: QQ .Ethan Fay MD, MD Date Time Electronically viewed and signed by .Ethan Fay MD, on 04/06/2016 22:44 .R/
[2016-04-07] VITALS (54 sets, daily range): BP systolic 102–149; BP diastolic 35–71; PULSE 48–60; RESP 12–24
[2016-04-07] MEDS: INSULIN ASPART [NOVOLOG] 3 ML PEN SC SCH ×6 (01:29→20:55)
[2016-04-07 05:07] LABS: BASOPHILS % 0.1 % (0.0-2.0); HEMATOCRIT 28.2 % (37.0-47.0); HEMOGLOBIN 9.2 g/dl (12.0-16.0); LYMPHOCYTES # 0.4 10^3/ul (0.8-2.9); LYMPHOCYTES % 7.3 % (15.0-51.0); MEAN CORPUSCULAR HEMOGLOBIN 30.3 pg (29.0-33.0); MEAN CORPUSCULAR HGB CONC 32.5 g/dl (32.0-37.0); MEAN CORPUSCULAR VOLUME 93.2 fl (82.0-101.0); MONOCYTE # 0.2 10^3/ul (0.3-0.9); MONOCYTES % 3.2 % (0.0-11.0); NEUTROPHIL # 4.5 10^3/ul (1.6-7.5); NEUTROPHILS % 89.4 % (39.0-77.0); PLATELET COUNT 89 10^3/UL (140-440); RED BLOOD COUNT 3.02 10^6/ul (4.20-5.40); RED CELL DISTRIBUTION WIDTH 17.2 % (11.5-14.5)
[2016-04-07 05:13] LABS: CONDITION 1; LH ANALYZER COMMENTS 1; SUSPECT 1
[2016-04-07 05:17] LABS: POTASSIUM 4.2 mmol/L (3.5-5.1)
[2016-04-07 05:20] LABS: CREATININE 3.75 mg/dl (0.44-1.00)
[2016-04-07 05:21] LABS: CALCIUM 8.6 mg/dl (8.4-10.2); PHOSPHORUS 6.2 mg/dl (2.5-4.9)
[2016-04-07 06:05] LABS: AADO2 Arterial 145.8 mmHg (7.0-24.0); Arterial Base Excess -3.6 mmol/L (-3.0-3); Arterial COHb 0.3 % (0.0-3.0); Arterial HCO3 21.7 mmol/L (22.0-26.0); Arterial MetHb 0.3 % (0.0-1.5); Arterial Total Hemglobin 11.1 g/dl (12.0-18.0); Blood Gas IEPAP 15 / 5; MODE MASK - BIPAP
[2016-04-07] MEDS: LEVOTHYROXINE 100 MCG TAB PO SCH (06:45)
--- NOTE | 2016-04-07 08:06 | PN ---
DATE: 04/07/2016 SUBJECTIVE: The patient yesterday underwent cardiac catheterization, with successful PCI of the ost ial PDA. The patient remains critically ill, on pressor support, on BiPAP. No other acute events n oted. OBJECTIVE: VITAL SIGNS: Blood pressure is 119/45, respirations 14, pulse 50, temperature 98.6. HEENT: Head is normocephalic. NECK: Supple. HEART: Regular rate. LUNGS: Showed diminished breath sounds at the base. ABDOMEN: Soft, nontender to palpation. No rebound or guarding. EXTREMITIES: Negative for clubbing or cyanosis. Trace edema. DERMATOLOGIC: No rashes. MUSCULOSKELETAL: Have no joint effusion. NEUROLOGIC: No change in exam. MEDICATIONS: The patient's medications have been reviewed. LABORATORY DATA: Shows a white count of 5.0, hemoglobin 9.2, hematocrit 28.2, platelet count is 89. Sodium 136, potassium 4.2, BUN 35, creatinine 2.75. ABG shows a pH of 7.35, pCO2 of 40. IMAGING: Chest x-ray on 04/05/2016 shows mild central vascular congestion. ASSESSMENT AND PLAN: 1. End-stage renal disease. The patient has dialysis Sunday, Sunday, Sunday. Currently sched ed. The patient had hemodialysis yesterday and tolerated it well, with 3 liters removed. Plan is fo r hemodialysis tomorrow. 2. Septic shock. The patient's underlying etiology is unclear, possible pneumonic versus UTI. The patient remains on pressor support, on antibiotics. Will continue the current treatment plan. Wea n off pressors. 3. Anemia of chronic disease. Continue to monitor H and H levels. Continue Epogen with dialysis. 4. Mineral bone disorder. Continue to monitor calcium and phos levels. Defer phos binders. 5. Acute hypoxemic respiratory failure secondary to sepsis. Continue BiPAP. The patient's ABG was reviewed. Chest x-ray was reviewed. 6. Non-ST elevation myocardial infarction. The patient is status post PCI to the posterior descend ing artery. Continue the current medical management. Follow up with cardiology. 7. History of mitral stenosis. 8. History of peripheral vascular disease. Continue medical management. 9. Acute encephalopathy. Etiology is toxic metabolic. Continue to monitor. Dictated By: ZULEMA STOVALL/MAXIMO Conf#: [id number] [facility]#: [id number]
[2016-04-07] MEDS: ALBUTEROL/IPRATROPIUM (NEB) 3 ML AMP HHN SCH ×4 (08:22→20:33)
[2016-04-07 08:27] LABS: AADO2 Arterial 62.2 mmHg (7.0-24.0); Arterial Base Excess -3.5 mmol/L (-3.0-3); Arterial COHb 0 % (0.0-3.0); Arterial Fraction of Oxyhgb 97.4 % (93.0-99.0); Arterial MetHb 0.3 % (0.0-1.5); Arterial Total Hemglobin 9.9 g/dl (12.0-18.0); Blood Gas IEPAP 15/5; MODE MASK - BIPAP
[2016-04-07] MEDS: METOPROLOL 25 MG TAB PO SCH ×2 (09:00→20:48)
[2016-04-07] MEDS: PREGABALIN 25 MG CAP PO SCH ×2 (09:00→20:49)
[2016-04-07] MEDS: POLYETHYLENE GLYCOL 17 GM PACKET PO SCH (09:00)
[2016-04-07] MEDS: FERROUS SULFATE (EC) 325 MG TAB PO SCH (09:00)
[2016-04-07] MEDS: ALLOPURINOL 100 MG TAB PO SCH (09:00)
--- NOTE | 2016-04-07 10:02 | RADRPT ---
PROCEDURE: XR Chest. CLINICAL INDICATION: Shortness of breath. TECHNIQUE: Single frontal view. COMPARISON: 04/06/2016. FINDINGS: There is a left arm PICC line with the tip in the lower superior vena cava. There is a tunneled righ t internal jugular vein dialysis catheter with the tip in the cavoatrial junction region. A left-shelbie ed permanent pacemaker is noted. The heart is enlarged. There is calcification in the aorta consiste nt with atherosclerosis. There is mild atelectasis at the lung bases. There is mild pulmonary edema, slightly worse than seen previously. There is no pleural effusion. There is no pneumothorax. IMPRESSION: 1. Mild pulmonary edema, slightly worse than seen previously. 2. No other change from 04/06/2016. RPTAT: QQ .Ethan Fay MD, MD Date Time Electronically viewed and signed by .Ethan Fay MD, MD on 04/07/2016 10:02 .R/
--- NOTE | 2016-04-07 10:03 | RADRPT ---
PROCEDURE: Ultrasound guidance for placement of needle in left upper extremity vein. CLINICAL INDICATION: Venous access. TECHNIQUE: Limited sonography of the left upper extremity was performed. Ultrasound images were recorded and s tored in the patient's medical record. COMPARISON: None. FINDINGS: The ultrasound images demonstrate a patent left upper extremity vein. The PICC line was inserted by the PICC line nurse. IMPRESSION: 1. Ultrasound guidance for a needle placement in a left upper extremity vein. 2. The left upper extremity vein is patent. RPTAT: QQ .Ethan Fay MD, MD Date Time Electronically viewed and signed by .Ethan Fay MD, MD on 04/07/2016 10:03 .R/
[2016-04-07] MEDS: ASPIRIN (EC) 81 MG TAB PO SCH (10:20)
[2016-04-07] MEDS: CLOPIDOGREL 75 MG TAB PO SCH (10:20)
--- NOTE | 2016-04-07 10:23 | CONS ---
Date/Time of Note Date/Time of Note DATE: 04/07/16 TIME: 10:21 Consult Date/Type/Reason Admit Date/Time Apr 04, 2016 at 15:15 Initial Consult Date 04/04/16 Type of Consultation: pulmonary Subjective Status post coronary angiogram with intervention Remains hemodynamically stable on noninvasive positive pressure ventilation Awake alert and oriented Objective Vital Signs Date Time Temp Pulse Resp B/P Pulse Ox O2 Delivery O2 Flow Rate FiO2 04/07/16 09:15 50 15 120/43 100 04/07/16 09:00 BIPAP 04/07/16 08:22 30 04/07/16 08:05 97.0 04/05/16 21:00 3.0 Intake and Output 04/06/16 04/06/16 04/07/16 15:00 23:00 07:00 Intake Total 465.11 ml 438.74 ml 340.60 ml Output Total 2020 ml Balance -1554.89 ml 438.74 ml 340.60 ml PHYSICAL EXAMINATION: GENERAL: Elderly [place] lady on BiPAP. VITAL SIGNS: As above NECK: Supple. No JVD or lymphadenopathy. CARDIAC: S1, S2, no added sounds or murmurs. CHEST: Diminished air entry bilaterally. ABDOMEN: Soft, nontender. No guarding or rebound. EXTREMITIES: No cyanosis, clubbing, 1+ edema. NEUROLOGIC: Generalized weakness. Results/Medications Result Diagram: 04/07/16 0430 04/07/16 0430 Results 24 hrs Chest x-ray Interstitial edema Laboratory Tests Test 04/06/16 12:25 04/06/16 12:30 04/06/16 15:20 04/06/16 16:28 Troponin I 0.293 *H Bedside Glucose 120 164 Activated Partial Thromboplast Time 48.6 H Test 04/06/16 18:41 04/06/16 21:37 04/07/16 01:13 04/07/16 04:30 Arterial Blood HCO3 21.7 L Arterial Blood Base Excess -3.6 L Arterial Blood Oxygen Saturation 96.6 Jimmie Test N/A Arterial Blood Gas Puncture Site A-Line Arterial Blood Carboxyhemoglobin 0.3 Arterial Blood Date Drawn 04/06/2016 6:40:00 PM Arterial Blood Methemoglobin 0.3 Arterial Blood pCO2 (Temp correct) 40.2 Arterial Blood pH (Temp corrected) 7.351 Arterial Blood pO2 (Temp corrected) 93.2 H Blood Gas A-a O2 Differential 145.8 H Blood Gas Critical Value Read Back Aaron FRITZ MD Blood Gas IPAP/EPAP Ratio 15 Blood Gas Modality MASK - BIPAP Blood Gas Notified Time 04/06/2016 6:53:00 PM Blood Gas Notified Whom BL Blood Gas Respiration Rate 16.0 Blood Gas Specimen Source Blood arterial Blood Gas Temperature 37.0 FiO2 40.0 Oxyhemoglobin Percent 96.0 Total Hemoglobin 11.1 L Bedside Glucose 174 257 H Anion Gap 20 H Basophils # 0.0 Basophils % 0.1 Blood Morphology Comment Blood Urea Nitrogen 35 #H Calcium Level 8.6 Carbon Dioxide Level 24 Chloride Level 96 L Creatinine 3.75 #H Eosinophils # 0.0 Eosinophils % 0.0 Glucose Level 221 H Hematocrit 28.2 L Hemoglobin 9.2 L Lymphocytes # 0.4 L Lymphocytes % 7.3 L Magnesium Level 2.0 Mean Corpuscular Hemoglobin 30.3 Mean Corpuscular Hemoglobin Concent 32.5 Mean Corpuscular Volume 93.2 Mean Platelet Volume 10.0 Monocytes # 0.2 L Monocytes % 3.2 Neutrophils # 4.5 Neutrophils % 89.4 H Nucleated Red Blood Cells # 0.0 Nucleated Red Blood Cells % 0.0 Phosphorus Level 6.2 H Platelet Count 89 #L Potassium Level 4.2 Red Blood Count 3.02 L Red Cell Distribution Width 17.2 H Sodium Level 136 White Blood Count 5.0 # Test 04/07/16 04:32 04/07/16 07:00 04/07/16 08:51 Bedside Glucose 264 H 195 Arterial Blood HCO3 21.0 L Arterial Blood Base Excess -3.5 L Arterial Blood Oxygen Saturation 97.7 Jimmie Test N/A Arterial Blood Gas Puncture Site A-Line Arterial Blood Carboxyhemoglobin 0 Arterial Blood Date Drawn 04/07/2016 8:00:05 AM Arterial Blood Methemoglobin 0.3 Arterial Blood pCO2 (Temp correct) 35.9 Arterial Blood pH (Temp corrected) 7.386 Arterial Blood pO2 (Temp corrected) 109.5 H Blood Gas A-a O2 Differential 62.2 H Blood Gas Actual Respiration Rate 39 Blood Gas IPAP/EPAP Ratio 15 Blood Gas Modality MASK - BIPAP Blood Gas Notified Time 04/07/2016 8:26:55 AM Blood Gas Notified Whom JLD Blood Gas Respiration Rate 16.0 Blood Gas Specimen Source Blood arterial Blood Gas Temperature 37.0 FiO2 30.0 Oxyhemoglobin Percent 97.4 Total Hemoglobin 9.9 L Medications Current Medications Lorazepam (Ativan) 0.5 mg Q6H PRN IV ANXIETY Last administered on 04/04/16at 20 :40; Admin Dose 0.5 MG; Start 04/04/16 at 15:30 Ondansetron HCl (Zofran Inj) 4 mg Q6H PRN IV NAUSEA AND/OR VOMITING; Start at 15:30 Famotidine (Pepcid Iv) 20 mg QHS IV Last administered on 04/05/16at 21:12; Admin Dose 20 MG; Start 04/04/16 at 21:00 Ferrous Sulfate (Ferrous Sulfate (Ec)) 325 mg DAILY PO Last administered on at 10:58; Admin Dose 325 MG; Start 04/05/16 at 09:00 Insulin Glargine (Lantus) 25 unit QHS SC Last administered on 04/06/16at 21:42 ; Admin Dose 25 UNIT; Start 04/04/16 at 21:00 Latanoprost (Xalatan) 1 drop QHS BOTH EYES Last administered on 04/06/16at 21: 42; Admin Dose 1 DROP; Start 04/04/16 at 21:00 Metoprolol Tartrate (Lopressor) 25 mg BID PO ; Start 04/04/16 at 21:00 Polyethylene Glycol (Miralax) 17 gm DAILY PO ; Start 04/05/16 at 09:00 Atorvastatin Calcium (Lipitor) 20 mg DAILY@21 PO Last administered on at 21:11; Admin Dose 20 MG; Start 04/04/16 at 21:00 Miscellaneous Information 1 ea NOTE XX ; Start 04/04/16 at 16:00 Glucose (Glutose) 15 gm Q15M PRN PO DECREASED GLUCOSE; Start 04/04/16 at 16:00 Glucose (Glutose) 22.5 gm Q15M PRN PO DECREASED GLUCOSE; Start 04/04/16 at 16: 00 Dextrose (D50w Syringe) 25 ml Q15M PRN IV DECREASED GLUCOSE Last administered on 04/05/16at 08:37; Admin Dose 25 ML; Start 04/04/16 at 16:00 Dextrose (D50w Syringe) 50 ml Q15M PRN IV DECREASED GLUCOSE; Start 04/04/16 at 16:00 Glucagon (Glucagen) 1 mg Q15M PRN IM DECREASED GLUCOSE; Start 04/04/16 at 16: 00 Glucose 15 gm 15 gm Q15M PRN BUCCAL DECREASED GLUCOSE; Start 04/04/16 at 16:00 Norepinephrine 16 mg/Dextrose 500 ml @ 1.87 mls/hr TITRATE IV Last administered on 04/06/16 14:58; Admin Dose 28.12 MLS/HR; Start 04/04/16 at 16 :30 Cefepime HCl (Maxipime 1gm/50 ml (Pmx)) 50 ml @ 100 mls/hr Q24H IVPB Last administered on 04/06/16at 15:08; Admin Dose 100 MLS/HR; Start 04/05/16 at 15: 00 Tramadol HCl (Ultram) 50 mg Q6H PRN PO Pain; Start 04/04/16 at 16:30 Aspirin (Halfprin) 81 mg DAILY PO Last administered on 04/07/16at 10:20; Admin Dose 81 MG; Start 04/05/16 at 09:00 Allopurinol 200 mg 200 mg DAILY PO ; Start 04/05/16 at 09:00 Dextrose/Sodium Chloride (D5-1/2ns) 1,000 ml @ 40 mls/hr Q24H IV Last administered on 04/06/16at 15:09; Admin Dose 40 MLS/HR; Start 04/05/16 at 14:00 Insulin Aspart (Novolog Insulin Pen) NOVOLOG *MILD* ALGORI... Q4 SC Last administered on 04/07/16 08:54; Admin Dose 2 UNIT; Start 04/05/16 at 17:00 Clopidogrel Bisulfate (plaVIX) 75 mg DAILY PO Last administered on 04/07/16 10:20; Admin Dose 75 MG; Start 04/05/16 at 18:30 Pregabalin (Lyrica) 100 mg BID PO Last administered on 04/05/16at 21:20; Admin Dose 100 MG; Start 04/05/16 at 21:00 Acetaminophen (Tylenol Supp) 650 mg Q6H PRN [place] FEVER; Start 04/06/16 at 12:00 Miscellaneous Information (* Miscellaneous Pharmacy Order) Hold all Metformin ... ONCE XX Last administered on 12/29/16at 19:00; Admin Dose 1 EA; Start at 19:00; Stop 04/08/16 at 18:59 Assessment/Plan Chief Complaint/Hosp Course IMPRESSION: 1. Pulmonary edema with possible component of pneumonia with subsequent hypoxemic respiratory failure. 2. 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 3. Encephalopathy, toxic metabolic. 4. Patient's code status: DNR/DNI. 5. Severe mitral stenosis with underlying coronary artery disease 6. Status post coronary intervention PLAN: 1. Continue noninvasive positive pressure ventilation. Trial of nasal cannula oxygen 2. Supplemental O2. 3. DVT and GI prophylaxis. 4. Cardiac catheterization with revascularization, continue cardiology recommendations 5. Consider transfer to telemetry in stable this afternoon Problems: OSIRIS REYNOLDS [facility], [facility] Apr 07, 2016 10:23
--- NOTE | 2016-04-07 15:16 | PN ---
DATE: 04/07/2016 INFECTIOUS DISEASE PROGRESS NOTE SUBJECTIVE: No events overnight. The patient is awake, looks comfortable. Denies pain. Complaini ng of feeling cold. She is in no distress. T-max 100.8, T-current 97.2, pulse 50, respirations 17, blood pressure 119/43, saturations 100 on 3 liters nasal cannula. INDWELLINGS: Right radial line, right chest perm-a-cath. LABORATORY DATA: WBC 5, H and H 9.2 and 28.2, platelet count 89, neutrophils 89.4. No bands. MICROBIOLOGY: Sputum culture growing Sandra albicans. ANTIMICROBIALS: The patient is on: 1. Vancomycin. 2. Cefepime. PHYSICAL EXAMINATION: GENERAL: This is a morbidly obese, elderly woman, who is awake, in no distress. HEENT: Head atraumatic, normocephalic. Sclerae are anicteric. Buccal mucosa dry. NECK: Supple. CHEST: Chest rise is symmetrical. Breath sounds diminished to the bases. HEART: S1, S2. ABDOMEN: Soft, bowel tones present. EXTREMITIES: Without cyanosis. Trace edema. ASSESSMENT: 1. Status post shock, likely septic and cardiogenic both. 2. Acute respiratory failure secondary to pulmonary edema, possibly aspiration event. 3. Non-ST elevation myocardial infarction, status post cardiac catheterization with stenting to the posterior descending artery. 4. Severe mitral stenosis. 5. End-stage renal disease, hemodialysis dependent. 6. Resolving encephalopathy. PLAN: The patient is hemodynamically stable, now off pressors. We will add Diflucan to the regimen , continue her on vancomycin and cefepime for now, consider repeating blood cultures from hemodialys is catheter. Follow recommendation of consultants. Dictated By: TAMIKO DIXON [employer] for JONAH GRACIA MD NI/NTS Conf#: [id number] DID#: [id number]
[2016-04-07] MEDS: CEFEPIME 1GM/50 ML (PMX) 50 ML IVPB SCH (15:54)
[2016-04-07] MEDS: DEXTROSE 5%-0.45% NACL 1,000 ML IV SCH (15:54)
[2016-04-07] MEDS: FLUCONAZOLE 100 MG TAB PO SCH (17:10)
--- NOTE | 2016-04-07 19:06 | RADRPT ---
Vent Rate: 50 bpm RR Interval: 0 msec ID Interval: 162 msec QRS Duration: 66 msec QT Interval: 474 msec QTC Interval: 432 msec P-R-T [place]: 0 - 0 - -34 degrees Sinus bradycardia Right superior axis deviation Low voltage QRS Inferior infarct , age undetermined Anterior infarct , possibly acute Abnormal ECG Electronically Signed By: Travis Beltre [id number]
[2016-04-07] MEDS: LATANOPROST 0.005% 2.5 ML OPH BOTH EYES SCH (20:46)
[2016-04-07] MEDS: FAMOTIDINE 20 MG INJ IV SCH (20:48)
[2016-04-07] MEDS: ATORVASTATIN 20 MG TAB PO SCH (20:48)
[2016-04-07] MEDS: INSULIN GLARGINE [LANtus] 3 ML PEN SC SCH (20:56)
--- NOTE | 2016-04-07 22:34 | CONS ---
Date/Time of Note Date/Time of Note DATE: 04/07/16 TIME: 22:33 Consult Date/Type/Reason Admit Date/Time Apr 04, 2016 at 15:15 Initial Consult Date 04/04/16 Type of Consultation: cardiology Objective Vital Signs Date Time Temp Pulse Resp B/P Pulse Ox O2 Delivery O2 Flow Rate FiO2 04/07/16 20:33 97 2.0 04/07/16 20:33 50 18 Nasal Cannula 04/07/16 20:00 97.8 116/40 04/07/16 09:30 30 Intake and Output 04/06/16 04/06/16 04/07/16 15:00 23:00 07:00 Intake Total 465.11 ml 438.74 ml 340.60 ml Output Total 2020 ml Balance -1554.89 ml 438.74 ml 340.60 ml Results/Medications Result Diagram: 04/07/16 0430 04/07/16 0430 Results 24 hrs Laboratory Tests Test 04/07/16 01:13 04/07/16 04:30 04/07/16 04:32 04/07/16 07:00 Bedside Glucose 257 H 264 H Anion Gap 20 H Basophils # 0.0 Basophils % 0.1 Blood Morphology Comment Blood Urea Nitrogen 35 #H Calcium Level 8.6 Carbon Dioxide Level 24 Chloride Level 96 L Creatinine 3.75 #H Eosinophils # 0.0 Eosinophils % 0.0 Glucose Level 221 H Hematocrit 28.2 L Hemoglobin 9.2 L Lymphocytes # 0.4 L Lymphocytes % 7.3 L Magnesium Level 2.0 Mean Corpuscular Hemoglobin 30.3 Mean Corpuscular Hemoglobin Concent 32.5 Mean Corpuscular Volume 93.2 Mean Platelet Volume 10.0 Monocytes # 0.2 L Monocytes % 3.2 Neutrophils # 4.5 Neutrophils % 89.4 H Nucleated Red Blood Cells # 0.0 Nucleated Red Blood Cells % 0.0 Phosphorus Level 6.2 H Platelet Count 89 #L Potassium Level 4.2 Red Blood Count 3.02 L Red Cell Distribution Width 17.2 H Sodium Level 136 White Blood Count 5.0 # Arterial Blood HCO3 21.0 L Arterial Blood Base Excess -3.5 L Arterial Blood Oxygen Saturation 97.7 Jimmie Test N/A Arterial Blood Gas Puncture Site A-Line Arterial Blood Carboxyhemoglobin 0 Arterial Blood Date Drawn 04/07/2016 8:00:05 AM Arterial Blood Methemoglobin 0.3 Arterial Blood pCO2 (Temp correct) 35.9 Arterial Blood pH (Temp corrected) 7.386 Arterial Blood pO2 (Temp corrected) 109.5 H Blood Gas A-a O2 Differential 62.2 H Blood Gas Actual Respiration Rate 39 Blood Gas IPAP/EPAP Ratio 15/5 Blood Gas Modality MASK - BIPAP Blood Gas Notified Time 04/07/2016 8:26:55 AM Blood Gas Notified Whom JLD Blood Gas Respiration Rate 16.0 Blood Gas Specimen Source Blood arterial Blood Gas Temperature 37.0 FiO2 30.0 Oxyhemoglobin Percent 97.4 Total Hemoglobin 9.9 L Test 04/07/16 08:51 04/07/16 13:06 04/07/16 17:08 04/07/16 20:53 Bedside Glucose 195 195 225 H 205 Medications Current Medications Lorazepam (Ativan) 0.5 mg Q6H PRN IV ANXIETY Last administered on 04/04/16 20 :40; Admin Dose 0.5 MG; Start 04/04/16 at 15:30 Ondansetron HCl (Zofran Inj) 4 mg Q6H PRN IV NAUSEA AND/OR VOMITING; Start at 15:30 Famotidine (Pepcid Iv) 20 mg QHS IV Last administered on 04/07/16at 20:48; Admin Dose 20 MG; Start 04/04/16 at 21:00 Ferrous Sulfate (Ferrous Sulfate (Ec)) 325 mg DAILY PO Last administered on at 10:58; Admin Dose 325 MG; Start 04/05/16 at 09:00 Insulin Glargine (Lantus) 25 unit QHS SC Last administered on 04/07/16at 20:56 ; Admin Dose 25 UNIT; Start 04/04/16 at 21:00 Latanoprost (Xalatan) 1 drop QHS BOTH EYES Last administered on 04/07/16 20: 46; Admin Dose 1 DROP; Start 04/04/16 at 21:00 Metoprolol Tartrate (Lopressor) 25 mg BID PO ; Start 04/04/16 at 21:00 Polyethylene Glycol (Miralax) 17 gm DAILY PO ; Start 04/05/16 at 09:00 Atorvastatin Calcium (Lipitor) 20 mg DAILY@21 PO Last administered on at 20:48; Admin Dose 20 MG; Start 04/04/16 at 21:00 Miscellaneous Information 1 ea NOTE XX ; Start 04/04/16 at 16:00 Glucose (Glutose) 15 gm Q15M PRN PO DECREASED GLUCOSE; Start 04/04/16 at 16:00 Glucose (Glutose) 22.5 gm Q15M PRN PO DECREASED GLUCOSE; Start 04/04/16 at 16: 00 Dextrose (D50w Syringe) 25 ml Q15M PRN IV DECREASED GLUCOSE Last administered on 04/05/16at 08:37; Admin Dose 25 ML; Start 04/04/16 at 16:00 Dextrose (D50w Syringe) 50 ml Q15M PRN IV DECREASED GLUCOSE; Start 04/04/16 at 16:00 Glucagon (Glucagen) 1 mg Q15M PRN IM DECREASED GLUCOSE; Start 04/04/16 at 16: 00 Glucose 15 gm 15 gm Q15M PRN BUCCAL DECREASED GLUCOSE; Start 04/04/16 at 16:00 Norepinephrine 16 mg/Dextrose 500 ml @ 1.87 mls/hr TITRATE IV Last administered on 04/06/16at 14:58; Admin Dose 28.12 MLS/HR; Start 04/04/16 at 16 :30 Cefepime HCl (Maxipime 1gm/50 ml (Pmx)) 50 ml @ 100 mls/hr Q24H IVPB Last administered on 04/07/16at 15:54; Admin Dose 100 MLS/HR; Start 04/05/16 at 15: 00 Tramadol HCl (Ultram) 50 mg Q6H PRN PO Pain; Start 04/04/16 at 16:30 Aspirin (Halfprin) 81 mg DAILY PO Last administered on 04/07/16at 10:20; Admin Dose 81 MG; Start 04/05/16 at 09:00 Allopurinol 200 mg 200 mg DAILY PO ; Start 04/05/16 at 09:00 Dextrose/Sodium Chloride (D5-1/2ns) 1,000 ml @ 40 mls/hr Q24H IV Last administered on 04/07/16at 15:54; Admin Dose 40 MLS/HR; Start 04/05/16 at 14:00 Insulin Aspart (Novolog Insulin Pen) NOVOLOG *MILD* ALGORI... Q4 SC Last administered on 04/07/16at 20:55; Admin Dose 2 UNIT; Start 04/05/16 at 17:00 Clopidogrel Bisulfate (plaVIX) 75 mg DAILY PO Last administered on 04/07/16at 10:20; Admin Dose 75 MG; Start 04/05/16 at 18:30 Pregabalin (Lyrica) 100 mg BID PO Last administered on 04/05/16at 21:20; Admin Dose 100 MG; Start 04/05/16 at 21:00 Acetaminophen (Tylenol Supp) 650 mg Q6H PRN LA FEVER; Start 04/06/16 at 12:00 Miscellaneous Information (* Miscellaneous Pharmacy Order) Hold all Metformin ... ONCE XX Last administered on 04/06/16at 19:00; Admin Dose 1 EA; Start at 19:00; Stop 04/08/16 at 18:59 Miscellaneous Information (*Rx Drug Level Order Reminder*) RANDOM VANCO LE... ONCE ONCE XX ; Start 04/08/16 at 05:00; Stop 04/08/16 at 05:01 Fluconazole (Diflucan) 100 mg DAILY PO Last administered on 04/07/16at 17:10; Admin Dose 100 MG; Start 04/07/16 at 15:00 Assessment/Plan Chief Complaint/Hosp Course Patient is 89 year old female with PMH of CAD pci of LAD, Severe mitral calcification with MS, CHF, ESRD on HD, Multiple TIA, PAD came in with SOB, Positive trop, intial plan was to take her to metallurgical laboratory assistant from ER but she was very SOB with craclkes, So brought to ICU. Will need HD, trend trop. had long discussion with family, daughter. Problems: Additional Assessment/Plan Pt with PCI of RPDA severe MS doing better A line in place Hemodynamically stable can be tx to tele Continue abx and HD will. ANH Mcallister MD Apr 07, 2016 22:34
--- NOTE | 2016-04-07 23:33 | PN ---
Date/Time of Note Date/Time of Note DATE: 04/07/16 TIME: 23:33 Assessment/Plan VTE Prophylaxis VTE Prophylaxis Intervention: SCD's Lines/Catheters IV Catheter Type (from Nrs): A Line Central line still needed: Yes Urinary Cath still in place: No Assessment/Plan Assessment/Plan 1. Non-ST elevated myocardial infarction. - Continue on heparin and current cardiac meds. Patient seen by resource recovery specialist. 2. sepsis. Follow up on silva culture. Continue on antibiotics for now. Remains afebrile at present. We'll get ID consultation 3. Type 2 diabetes. Continue on insulin regimen. Will adjust as needed 4. Paroxysmal atrial fibrillation. Continue on heparin for now. Continue on beta familia 5. End-stage renal disease. Middleware Architect following. Continue on dialysis per nephrology recommendations. 6. Acute on chronic respiratory failure. Patient remains on BiPAP. Arrt Technologist follow. Continue bronchodilators. 7. History of glaucoma. Continue on patient's optic eyedrops 8. Gout. Continue allopurinol 9. Hypothyroidism. Resume Synthroid 10. Severe mitral stenosis. Continue with cardiology recommendations Subjective 24 Hr Interval Summary Free Text/Dictation on bipap, looks lethargic Exam/Review of Systems Vital Signs Vitals Vital Signs Date Time Temp Pulse Resp B/P Pulse Ox O2 Delivery O2 Flow Rate FiO2 04/07/16 22:00 50 15 113/39 97 Nasal Cannula 2.0 04/07/16 20:00 97.8 04/07/16 09:30 30 Intake and Output 04/06/16 04/06/16 04/07/16 15:00 23:00 07:00 Intake Total 465.11 ml 438.74 ml 340.60 ml Output Total 2020 ml Balance -1554.89 ml 438.74 ml 340.60 ml Exam Constitutional: obese, other (on BIPAP. noted to be lethargic and moaning) Head: atraumatic, normocephalic Respiratory: diminished breath sounds, wheezing Cardiovascular: regular rate and rhythm Gastrointestinal: other (no grimaces noted), soft Extremities: normal pulses Results Result Diagram: 04/07/160 04/07/16 0430 Results 24 hrs Laboratory Tests Test 04/07/16 01:13 04/07/16 04:30 04/07/16 04:32 04/07/16 07:00 Bedside Glucose 257 H 264 H Anion Gap 20 H Basophils # 0.0 Basophils % 0.1 Blood Morphology Comment Blood Urea Nitrogen 35 #H Calcium Level 8.6 Carbon Dioxide Level 24 Chloride Level 96 L Creatinine 3.75 #H Eosinophils # 0.0 Eosinophils % 0.0 Glucose Level 221 H Hematocrit 28.2 L Hemoglobin 9.2 L Lymphocytes # 0.4 L Lymphocytes % 7.3 L Magnesium Level 2.0 Mean Corpuscular Hemoglobin 30.3 Mean Corpuscular Hemoglobin Concent 32.5 Mean Corpuscular Volume 93.2 Mean Platelet Volume 10.0 Monocytes # 0.2 L Monocytes % 3.2 Neutrophils # 4.5 Neutrophils % 89.4 H Nucleated Red Blood Cells # 0.0 Nucleated Red Blood Cells % 0.0 Phosphorus Level 6.2 H Platelet Count 89 #L Potassium Level 4.2 Red Blood Count 3.02 L Red Cell Distribution Width 17.2 H Sodium Level 136 White Blood Count 5.0 # Arterial Blood HCO3 21.0 L Arterial Blood Base Excess -3.5 L Arterial Blood Oxygen Saturation 97.7 Jimmie Test N/A Arterial Blood Gas Puncture Site A-Line Arterial Blood Carboxyhemoglobin 0 Arterial Blood Date Drawn 04/07/2016 8:00:05 AM Arterial Blood Methemoglobin 0.3 Arterial Blood pCO2 (Temp correct) 35.9 Arterial Blood pH (Temp corrected) 7.386 Arterial Blood pO2 (Temp corrected) 109.5 H Blood Gas A-a O2 Differential 62.2 H Blood Gas Actual Respiration Rate 39 Blood Gas IPAP/EPAP Ratio 15/5 Blood Gas Modality MASK - BIPAP Blood Gas Notified Time 04/07/2016 8:26:55 AM Blood Gas Notified Whom JLD Blood Gas Respiration Rate 16.0 Blood Gas Specimen Source Blood arterial Blood Gas Temperature 37.0 FiO2 30.0 Oxyhemoglobin Percent 97.4 Total Hemoglobin 9.9 L Test 04/07/16 08:51 04/07/16 13:06 04/07/16 17:08 04/07/16 20:53 Bedside Glucose 195 195 225 H 205 Medications Medications Current Medications Lorazepam (Ativan) 0.5 mg Q6H PRN IV ANXIETY Last administered on 04/04/16at 20 :40; Admin Dose 0.5 MG; Start 04/04/16 at 15:30 Ondansetron HCl (Zofran Inj) 4 mg Q6H PRN IV NAUSEA AND/OR VOMITING; Start at 15:30 Famotidine (Pepcid Iv) 20 mg QHS IV Last administered on 04/07/16at 20:48; Admin Dose 20 MG; Start 04/04/16 at 21:00 Ferrous Sulfate (Ferrous Sulfate (Ec)) 325 mg DAILY PO Last administered on at 10:58; Admin Dose 325 MG; Start 04/05/16 at 09:00 Insulin Glargine (Lantus) 25 unit QHS SC Last administered on 04/07/16 20:56 ; Admin Dose 25 UNIT; Start 04/04/16 at 21:00 Latanoprost (Xalatan) 1 drop QHS BOTH EYES Last administered on 04/07/16 20: 46; Admin Dose 1 DROP; Start 04/04/16 at 21:00 Metoprolol Tartrate (Lopressor) 25 mg BID PO ; Start 04/04/16 at 21:00 Polyethylene Glycol (Miralax) 17 gm DAILY PO ; Start 04/05/16 at 09:00 Atorvastatin Calcium (Lipitor) 20 mg DAILY@21 PO Last administered on 20:48; Admin Dose 20 MG; Start 04/04/16 at 21:00 Miscellaneous Information 1 ea NOTE XX ; Start 04/04/16 at 16:00 Glucose (Glutose) 15 gm Q15M PRN PO DECREASED GLUCOSE; Start 04/04/16 at 16:00 Glucose (Glutose) 22.5 gm Q15M PRN PO DECREASED GLUCOSE; Start 04/04/16 at 16: 00 Dextrose (D50w Syringe) 25 ml Q15M PRN IV DECREASED GLUCOSE Last administered on 04/05/16at 08:37; Admin Dose 25 ML; Start 04/04/16 at 16:00 Dextrose (D50w Syringe) 50 ml Q15M PRN IV DECREASED GLUCOSE; Start 04/04/16 at 16:00 Glucagon (Glucagen) 1 mg Q15M PRN IM DECREASED GLUCOSE; Start 04/04/16 at 16: 00 Glucose 15 gm 15 gm Q15M PRN BUCCAL DECREASED GLUCOSE; Start 04/04/16 at 16:00 Norepinephrine 16 mg/Dextrose 500 ml @ 1.87 mls/hr TITRATE IV Last administered on 04/06/16at 14:58; Admin Dose 28.12 MLS/HR; Start 04/04/16 at 16 :30 Cefepime HCl (Maxipime 1gm/50 ml (Pmx)) 50 ml @ 100 mls/hr Q24H IVPB Last administered on 04/07/16at 15:54; Admin Dose 100 MLS/HR; Start 04/05/16 at 15: 00 Tramadol HCl (Ultram) 50 mg Q6H PRN PO Pain; Start 04/04/16 at 16:30 Aspirin (Halfprin) 81 mg DAILY PO Last administered on 04/07/16at 10:20; Admin Dose 81 MG; Start 04/05/16 at 09:00 Allopurinol 200 mg 200 mg DAILY PO ; Start 04/05/16 at 09:00 Dextrose/Sodium Chloride (D5-1/2ns) 1,000 ml @ 40 mls/hr Q24H IV Last administered on 04/07/16at 15:54; Admin Dose 40 MLS/HR; Start 04/05/16 at 14:00 Insulin Aspart (Novolog Insulin Pen) NOVOLOG *MILD* ALGORI... Q4 SC Last administered on 04/07/16at 20:55; Admin Dose 2 UNIT; Start 04/05/16 at 17:00 Clopidogrel Bisulfate (plaVIX) 75 mg DAILY PO Last administered on 04/07/16at 10:20; Admin Dose 75 MG; Start 04/05/16 at 18:30 Pregabalin (Lyrica) 100 mg BID PO Last administered on 04/05/16at 21:20; Admin Dose 100 MG; Start 04/05/16 at 21:00 Acetaminophen (Tylenol Supp) 650 mg Q6H PRN LA FEVER; Start 04/06/16 at 12:00 Miscellaneous Information (* Miscellaneous Pharmacy Order) Hold all Metformin ... ONCE XX Last administered on 04/06/16at 19:00; Admin Dose 1 EA; Start at 19:00; Stop 04/08/16 at 18:59 Miscellaneous Information (*Rx Drug Level Order Reminder*) RANDOM VANCO LE... ONCE ONCE XX ; Start 04/08/16 at 05:00; Stop 04/08/16 at 05:01 Fluconazole (Diflucan) 100 mg DAILY PO Last administered on 04/07/16at 17:10; Admin Dose 100 MG; Start 04/07/16 at 15:00 DEJUAN LINDA MD Apr 07, 2016 23:33
[2016-04-08] VITALS (40 sets, daily range): BP systolic 76–191; BP diastolic 28–69; PULSE 46–61; RESP 16–30
[2016-04-08] MEDS: INSULIN ASPART [NOVOLOG] 3 ML PEN SC SCH ×6 (00:24→21:00)
[2016-04-08 04:28] LABS: HEMATOCRIT 27.2 % (37.0-47.0); LYMPHOCYTES # 0.4 10^3/ul (0.8-2.9); LYMPHOCYTES % 6.5 % (15.0-51.0); MEAN CORPUSCULAR HEMOGLOBIN 30.8 pg (29.0-33.0); MEAN CORPUSCULAR VOLUME 93.2 fl (82.0-101.0); MEAN PLATELET VOLUME 10.1 fl (7.4-10.4); MONOCYTE # 0.3 10^3/ul (0.3-0.9); MONOCYTES % 5.7 % (0.0-11.0); NEUTROPHILS % 87.8 % (39.0-77.0); PLATELET COUNT 81 10^3/UL (140-440); RED BLOOD COUNT 2.92 10^6/ul (4.20-5.40); RED CELL DISTRIBUTION WIDTH 17.8 % (11.5-14.5); UNCORRECTED WBC 5.7 10^3/ul (4.8-10.8); WHITE BLOOD COUNT 5.7 10^3/ul (4.8-10.8)
[2016-04-08 04:29] LABS: CONDITION 1; LH ANALYZER COMMENTS 1
[2016-04-08 04:42] LABS: POTASSIUM 3.9 mmol/L (3.5-5.1)
[2016-04-08 04:44] LABS: CREATININE 4.55 mg/dl (0.44-1.00)
[2016-04-08 04:45] LABS: CALCIUM 8.9 mg/dl (8.4-10.2); PHOSPHORUS 6.1 mg/dl (2.5-4.9)
[2016-04-08] MEDS: traMADol 50 MG TAB PO PRN (05:48)
[2016-04-08] MEDS: FLUCONAZOLE 100 MG TAB PO SCH (09:00)
[2016-04-08] MEDS: POLYETHYLENE GLYCOL 17 GM PACKET PO SCH (09:00)
[2016-04-08] MEDS: CLOPIDOGREL 75 MG TAB PO SCH (09:00)
[2016-04-08] MEDS: PREGABALIN 25 MG CAP PO SCH ×2 (09:00→21:21)
[2016-04-08] MEDS: ASPIRIN (EC) 81 MG TAB PO SCH (09:00)
[2016-04-08] MEDS: METOPROLOL 25 MG TAB PO SCH ×2 (09:00→21:22)
[2016-04-08] MEDS: ALLOPURINOL 100 MG TAB PO SCH (09:00)
[2016-04-08] MEDS: FERROUS SULFATE (EC) 325 MG TAB PO SCH (09:00)
[2016-04-08] MEDS: ALBUTEROL/IPRATROPIUM (NEB) 3 ML AMP HHN SCH ×4 (09:13→20:49)
--- NOTE | 2016-04-08 09:13 | RADRPT ---
PROCEDURE: XR Chest. CLINICAL INDICATION: Pulmonary edema. TECHNIQUE: AP Portable chest. COMPARISON: Chest x-ray 04/07/2016. FINDINGS: A tunneled right jugular central venous dialysis catheter is again identified with its tip at the RA /SVC junction. A left-sided PICC line is evident, though its distal tip is somewhat obscured on the current examination. A dual-chamber pacemaker with a left chest wall battery pack is noted. Moder ate cardiomegaly is unchanged. Atherosclerotic calcifications of the thoracic aorta are identified. Mild central pulmonary vascular congestion is identified. Mild interstitial edema is noted and like ly not significantly changed. No consolidation is seen. No definite pleural effusion is evident. Degenerative changes of the thoracic spine are evident. IMPRESSION: 1. Mild central pulmonary vascular congestion and interstitial edema, not significantly changed. N o consolidation is evident. 2. The right jugular central venous dialysis catheter stable in position. The left PICC line dista l tip is not well seen due to overlying wires, though is visualized in the axillary region. 3. Unchanged dual-chamber pacemaker with a left chest wall battery pack. RPTAT: AA .Moira Mccullough MD, MD Date Time Electronically viewed and signed by .Moira Mccullough MD, on 04/08/2016 09:12 .H/
--- NOTE | 2016-04-08 09:33 | CONS ---
Date/Time of Note Date/Time of Note DATE: 04/08/16 TIME: : Consult Date/Type/Reason Admit Date/Time Apr 04, 2016 at 15:15 Initial Consult Date 04/04/16 Type of Consultation: pulmonary Subjective More congested today significant upper airway secretions patient is having difficulty clearing Continues to remain hemodynamically stable Arterial line in place Objective Vital Signs Date Time Temp Pulse Resp B/P Pulse Ox O2 Delivery O2 Flow Rate FiO2 04/08/16 09:13 56 100 30 04/08/16 08:00 97.8 29 135/45 Nasal Cannula 2.0 Intake and Output 04/07/16 04/07/16 04/08/16 14:59 22:59 06:59 Intake Total 334.67 ml 470 ml 350 ml Balance 334.67 ml 470 ml 350 ml PHYSICAL EXAMINATION: GENERAL: Elderly [place] lady on nasal cannula oxygen VITAL SIGNS: As above NECK: Supple. No JVD or lymphadenopathy. CARDIAC: S1, S2, no added sounds or murmurs. CHEST: Diminished air entry bilaterally. Coarse upper airway rales ABDOMEN: Soft, nontender. No guarding or rebound. EXTREMITIES: No cyanosis, clubbing, 1+ edema. NEUROLOGIC: Generalized weakness. Results/Medications Result Diagram: 04/08/16 0400 04/08/16 0400 Results 24 hrs Laboratory Tests Test 04/07/16 13:06 04/07/16 17:08 04/07/16 20:53 04/08/16 00:22 Bedside Glucose 195 225 H 205 210 Test 04/08/16 04:00 04/08/16 04:52 Anion Gap 21 H Basophils # 0.0 Basophils % 0.0 Blood Morphology Comment Blood Urea Nitrogen 49 #H Calcium Level 8.9 Carbon Dioxide Level 22 Chloride Level 95 L Creatinine 4.55 H Eosinophils # 0.0 Eosinophils % 0.0 Glucose Level 252 H Hematocrit 27.2 L Hemoglobin 9.0 L Lymphocytes # 0.4 L Lymphocytes % 6.5 L Magnesium Level 2.0 Mean Corpuscular Hemoglobin 30.8 Mean Corpuscular Hemoglobin Concent 33.0 Mean Corpuscular Volume 93.2 Mean Platelet Volume 10.1 Monocytes # 0.3 Monocytes % 5.7 Neutrophils # 5.0 Neutrophils % 87.8 H Nucleated Red Blood Cells # 0.0 Nucleated Red Blood Cells % 0.0 Phosphorus Level 6.1 H Platelet Count 81 L Potassium Level 3.9 Random Vancomycin Level 18.1 Red Blood Count 2.92 L Red Cell Distribution Width 17.8 H Sodium Level 134 L White Blood Count 5.7 Bedside Glucose 170 Medications Current Medications Lorazepam (Ativan) 0.5 mg Q6H PRN IV ANXIETY Last administered on 04/04/16 20 :40; Admin Dose 0.5 MG; Start 04/04/16 at 15:30 Ondansetron HCl (Zofran Inj) 4 mg Q6H PRN IV NAUSEA AND/OR VOMITING; Start at 15:30 Famotidine (Pepcid Iv) 20 mg QHS IV Last administered on 04/07/16 20:48; Admin Dose 20 MG; Start 04/04/16 at 21:00 Ferrous Sulfate (Ferrous Sulfate (Ec)) 325 mg DAILY PO Last administered on 10:58; Admin Dose 325 MG; Start 04/05/16 at 09:00 Insulin Glargine (Lantus) 25 unit QHS SC Last administered on 04/07/16 20:56 ; Admin Dose 25 UNIT; Start 04/04/16 at 21:00 Latanoprost (Xalatan) 1 drop QHS BOTH EYES Last administered on 04/07/16 20: 46; Admin Dose 1 DROP; Start 04/04/16 at 21:00 Metoprolol Tartrate (Lopressor) 25 mg BID PO ; Start 04/04/16 at 21:00 Polyethylene Glycol (Miralax) 17 gm DAILY PO ; Start 04/05/16 at 09:00 Atorvastatin Calcium (Lipitor) 20 mg DAILY@21 PO Last administered on at 20:48; Admin Dose 20 MG; Start 04/04/16 at 21:00 Miscellaneous Information 1 ea NOTE XX ; Start 04/04/16 at 16:00 Glucose (Glutose) 15 gm Q15M PRN PO DECREASED GLUCOSE; Start 04/04/16 at 16:00 Glucose (Glutose) 22.5 gm Q15M PRN PO DECREASED GLUCOSE; Start 04/04/16 at 16: 00 Dextrose (D50w Syringe) 25 ml Q15M PRN IV DECREASED GLUCOSE Last administered on 04/05/16at 08:37; Admin Dose 25 ML; Start 12/27/16 at 16:00 Dextrose (D50w Syringe) 50 ml Q15M PRN IV DECREASED GLUCOSE; Start 04/04/16 at 16:00 Glucagon (Glucagen) 1 mg Q15M PRN IM DECREASED GLUCOSE; Start 04/04/16 at 16: 00 Glucose 15 gm 15 gm Q15M PRN BUCCAL DECREASED GLUCOSE; Start 04/04/16 at 16:00 Norepinephrine 16 mg/Dextrose 500 ml @ 1.87 mls/hr TITRATE IV Last administered on 04/06/16at 14:58; Admin Dose 28.12 MLS/HR; Start 04/04/16 at 16 :30 Cefepime HCl (Maxipime 1gm/50 ml (Pmx)) 50 ml @ 100 mls/hr Q24H IVPB Last administered on 04/07/16at 15:54; Admin Dose 100 MLS/HR; Start 04/05/16 at 15: 00 Tramadol HCl (Ultram) 50 mg Q6H PRN PO Pain Last administered on 04/08/16at 05: 48; Admin Dose 50 MG; Start 04/04/16 at 16:30 Aspirin (Halfprin) 81 mg DAILY PO Last administered on 04/07/16at 10:20; Admin Dose 81 MG; Start 04/05/16 at 09:00 Allopurinol 200 mg 200 mg DAILY PO ; Start 04/05/16 at 09:00 Dextrose/Sodium Chloride (D5-1/2ns) 1,000 ml @ 40 mls/hr Q24H IV Last administered on 04/07/16at 15:54; Admin Dose 40 MLS/HR; Start 04/05/16 at 14:00 Insulin Aspart (Novolog Insulin Pen) NOVOLOG *MILD* ALGORI... Q4 SC Last administered on 04/08/16at 05:44; Admin Dose 1 UNIT; Start 04/05/16 at 17:00 Clopidogrel Bisulfate (plaVIX) 75 mg DAILY PO Last administered on 04/07/16at 10:20; Admin Dose 75 MG; Start 04/05/16 at 18:30 Pregabalin (Lyrica) 100 mg BID PO Last administered on 04/05/16at 21:20; Admin Dose 100 MG; Start 04/05/16 at 21:00 Acetaminophen (Tylenol Supp) [address] FEVER; Start 04/06/16 at 12:00 Miscellaneous Information (* Miscellaneous Pharmacy Order) Hold all Metformin ... ONCE XX Last administered on 04/06/16at 19:00; Admin Dose 1 EA; Start at 19:00; Stop 04/08/16 at 18:59 Fluconazole (Diflucan) 100 mg DAILY PO Last administered on 04/07/16at 17:10; Admin Dose 100 MG; Start 04/07/16 at 15:00 Assessment/Plan Chief Complaint/Hosp Course IMPRESSION: 1. Pulmonary edema with possible component of pneumonia with subsequent hypoxemic respiratory failure. 2. 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 3. Encephalopathy, toxic metabolic. 4. Patient's code status: DNR/DNI. 5. Severe mitral stenosis with underlying coronary artery disease 6. Status post coronary intervention 7. Likely significant aspiration risk PLAN: 1. Continue noninvasive positive pressure ventilation and nasal cannula oxygen. Aggressive pulmonary toilet 2. Supplemental O2. 3. DVT and GI prophylaxis. 4. Cardiac catheterization with revascularization, continue cardiology recommendations 5. Consider keep nothing by mouth and speech therapy evaluation Consider hospice evaluation Problems: OSIRIS REYNOLDS MD, [facility] Apr 08, 2016 09:33
[2016-04-08] MEDS: LEVOTHYROXINE 100 MCG TAB PO SCH (09:37)
--- NOTE | 2016-04-08 12:18 | PN ---
DATE: 04/08/2016 TIME SEEN: 9:30 a.m. SUBJECTIVE: The patient remains on BiPAP now. She is lethargic, continues to moan and appears weak. She is currently receiving dialysis, with a plan to remove 3 liters, if she tolerates it. DON kilgore. Her chest x-ray still shows mild central pulmonary vascular congestion and interstitial edema; [facility] er, without significant change. On physical examination she still has crackles. PHYSICAL EXAMINATION: VITAL SIGNS: Blood pressure 146/48, heart rate 58, respiratory rate 29, temperature 97.8, oxygen sa turation 97% on 2 liters. GENERAL: The patient is on BiPAP. Appears lethargic and moaning, not following any commands. HEENT: No obvious head deformity. CARDIOVASCULAR: Bradycardic, with a regular rhythm. She also has a systolic murmur. PULMONARY: Lungs sound congested, with crackles anteriorly. ABDOMEN: Obese, soft. No grimaces noted on palpation. Positive bowel sounds. EXTREMITIES: There is trace pitting edema. LABORATORY: Hemoglobin 9, platelet count 81. Sodium 134, chloride 95, BUN 49, creatinine 4.55, glu cose 252, phosphorus 6.1. IMAGING: X-ray shows mild central pulmonary vascular congestion, interstitial edema, not significan tly changed from yesterday. No consolidation noted. IMPRESSION: 1. Hypoxic respiratory failure, with pulmonary vascular congestion. 2. Coronary artery disease, status post PCI, with stent to right posterior descending artery. The patient also has a history of PCI to the LAD. 3. Severe mitral calcification with stenosis. 4. End-stage renal disease, on dialysis. 5. History of transient ischemic attack. 6. Status post sepsis, with possible underlying pneumonia. 7. Anemia, likely anemia of chronic disease. 8. Electrolyte abnormalities. 9. Type 2 diabetes. PLAN: Will continue positive pressure support. Continue breathing treatments. The patient just antonio d a cardiac catheterization with a PCI and stents to RPDA. She also has a history PCI of the LAD. T he patient is supposed to be on cardiac medications, including dual antiplatelets; however, she cont inues to be on BiPAP and has not been receiving her medications regularly. If she is transitioned t o nasal cannula we need to place a NG tube and at least give medication through that. Will continue her insulin for her diabetes and will adjust as needed. Dialysis per nephrology. Today the plan i s to remove 3 liters, if the patient tolerates it. Overall the patient does not have a good prognos is and we need to have a family meeting to discuss even possible hospice. Will place a palliative c are consult. Further workup and management per clinical course. Total critical time spent was about 35 minutes. Dictated By: DEJUAN GRIGGS/MAXIMO Conf#: [id number] DID#: [id number]
--- NOTE | 2016-04-08 13:41 | PN ---
DATE: 04/08/2016 SUBJECTIVE: The patient remains on BiPAP. No acute events overnight. No hemoptysis, hematemesis, h ematochezia. OBJECTIVE: VITAL SIGNS: Blood pressure is 135/45, respiration 26, pulse , temperature 98.6. I's and O's reviewed. HEENT: Head is normocephalic. NECK: Supple. HEART: Regular rate. LUNGS: Show diminished breath sounds at base. ABDOMEN: Soft, nontender to palpation without rebound or guarding. EXTREMITIES: Center for clubbing, cyanosis. Positive edema. DERMATOLOGIC: No rashes. MUSCULOSKELETAL: No joint effusions. NEUROLOGIC: No change in exam. MEDICATIONS: The patient's medications have been reviewed. LABORATORY DATA: Shows sodium 134, potassium, chloride 95, BUN 49, creatinine 4.55. White count 5. 7, hemoglobin 9.0, hematocrit 27.2, platelet count is 81. ASSESSMENT AND PLAN 1. End-stage renal disease. Patient on dialysis Sunday, Sunday, Sunday. Will anticipate dialys is for next several days for volume clearance. The patient remains volume overloaded on exam. 2. Sepsis, status post shock. Etiology secondary to pneumonia, urinary tract infection. The patie nt currently off pressors. Continue antibiotic therapy. 3. Volume overload. The patient has noted some crackles on exam. Chest x-ray shows pulmonary tequila estion. Continue ultrafiltration dialysis, anticipate dialysis tomorrow for continued ultrafiltrati on. 4. Anemia of chronic disease. Continue to monitor hemoglobin and hematocrit levels. Continue Epog en. 5. Mineral bone disorder. Continue to monitor calcium and phosphorus. Defer phosphate binders. 6. Acute hypoxemic respiratory failure, etiology secondary to congestive heart failure. Continue B iPAP. Continue ultrafiltration dialysis. Monitor closely. 7. Non-ST elevation myocardial infarction. The patient is status post PCI to the posterior descend ing artery. Continue medical management. 8. History of mitral stenosis. 9. Peripheral vascular disease. Continue medical management. 10. Encephalopathy, etiology is toxic metabolic. Mental status slowly improving. Continue to obse rve. Dictated By: ZUELMA KOLB DO NR/NTS Conf#: [id number] DID#: [id number]
[2016-04-08] MEDS: DEXTROSE 5%-0.45% NACL 1,000 ML IV SCH ×2 (14:13→22:08)
--- NOTE | 2016-04-08 14:29 | CONS ---
Date/Time of Note Date/Time of Note DATE: 04/08/16 TIME: 14:29 Assessment/Plan Assessment/Plan Chief Complaint/Hosp Course INFECTIOUS DISEASE PROGRESS NOTE 24H INTERVAL SUMMARY * 89 yo F, alert, stable, no fevers, on supplemental O2 via NC * INDWELLINGS: IJ, PICC, PACER * MICROBIOLOGY: Sputum culture growing Sandra albicans. * ANTIMICROBIALS: Vancomycin IV, Cefepime, Diflucan * CXR TODAY: IMPRESSION: * 1. Mild central pulmonary vascular congestion and interstitial edema, not significantly changed. No consolidation is evident. * 2. The right jugular central venous dialysis catheter stable in position. The left PICC line distal tip is not well seen due to overlying wires, though is visualized in the axillary region. * 3. Unchanged dual-chamber pacemaker with a left chest wall battery pack. PHYSICAL EXAMINATION: GENERAL: This is a morbidly obese, elderly woman, who is awake, in no distress. HEENT: Unremarkable NECK: Supple. CHEST: Chest rise is symmetrical, diminished, supplemental O2 HEART: S1, S2. ABDOMEN: Soft, bowel tones present. EXTREMITIES: Without cyanosis. Trace edema. ID ASSESSMENT: 89 yo Obese F admit with: 1. Status post shock, likely septic and cardiogenic both. 2. Acute respiratory failure secondary to pulmonary edema, possibly aspiration event. 3. Non-ST elevation myocardial infarction, status post cardiac catheterization with stenting to the posterior descending artery. 4. Severe mitral stenosis. 5. (+)Indwelling Pacer 6. End-stage renal disease, hemodialysis dependent. 7. Resolving encephalopathy. (-)MRSA Nares INVASIVES: IJ-> HD , PICC, Pacer CURRENT ABX: Vanco IV, Cefepime, Diflucan ID PLAN: Continue ABX Repeat BCx next HD Problems: Consultation Date/Type/Reason Admit Date/Time Apr 04, 2016 at 15:15 Initial Consult Date 04/04/16 Type of Consultation: ID Exam/Review of Systems Vital Signs Vitals Vital Signs Date Time Temp Pulse Resp B/P Pulse Ox O2 Delivery O2 Flow Rate FiO2 04/08/16 13:53 61 100 30 04/08/16 12:00 98.1 28 121/41 BIPAP 04/08/16 10:00 2.0 Intake and Output 04/07/16 04/07/16 04/08/16 15:00 23:00 07:00 Intake Total 292.80 ml 510 ml 350 ml Balance 292.80 ml 510 ml 350 ml Results Result Diagram: 04/08/16 0400 04/08/16 0400 Results 24 hrs Laboratory Tests Test 04/07/16 17:08 04/07/16 20:53 04/08/16 00:22 04/08/16 04:00 Bedside Glucose 225 H 205 210 Anion Gap 21 H Basophils # 0.0 Basophils % 0.0 Blood Morphology Comment Blood Urea Nitrogen 49 #H Calcium Level 8.9 Carbon Dioxide Level 22 Chloride Level 95 L Creatinine 4.55 H Eosinophils # 0.0 Eosinophils % 0.0 Glucose Level 252 H Hematocrit 27.2 L Hemoglobin 9.0 L Lymphocytes # 0.4 L Lymphocytes % 6.5 L Magnesium Level 2.0 Mean Corpuscular Hemoglobin 30.8 Mean Corpuscular Hemoglobin Concent 33.0 Mean Corpuscular Volume 93.2 Mean Platelet Volume 10.1 Monocytes # 0.3 Monocytes % 5.7 Neutrophils # 5.0 Neutrophils % 87.8 H Nucleated Red Blood Cells # 0.0 Nucleated Red Blood Cells % 0.0 Phosphorus Level 6.1 H Platelet Count 81 L Potassium Level 3.9 Random Vancomycin Level 18.1 Red Blood Count 2.92 L Red Cell Distribution Width 17.8 H Sodium Level 134 L White Blood Count 5.7 Test 04/08/16 04:52 04/08/16 09:40 04/08/16 13:28 Bedside Glucose 170 126 85 Medications Medications Current Medications Lorazepam (Ativan) 0.5 mg Q6H PRN IV ANXIETY Last administered on 04/04/16at 20 :40; Admin Dose 0.5 MG; Start 04/04/16 at 15:30 Ondansetron HCl (Zofran Inj) 4 mg Q6H PRN IV NAUSEA AND/OR VOMITING; Start at 15:30 Famotidine (Pepcid Iv) 20 mg QHS IV Last administered on 04/07/16at 20:48; Admin Dose 20 MG; Start 04/04/16 at 21:00 Ferrous Sulfate (Ferrous Sulfate (Ec)) 325 mg DAILY PO Last administered on at 10:58; Admin Dose 325 MG; Start 04/05/16 at 09:00 Insulin Glargine (Lantus) 25 unit QHS SC Last administered on 04/07/16at 20:56 ; Admin Dose 25 UNIT; Start 04/04/16 at 21:00 Latanoprost (Xalatan) 1 drop QHS BOTH EYES Last administered on 04/07/16at 20: 46; Admin Dose 1 DROP; Start 04/04/16 at 21:00 Metoprolol Tartrate (Lopressor) 25 mg BID PO ; Start 04/04/16 at 21:00 Polyethylene Glycol (Miralax) 17 gm DAILY PO ; Start 04/05/16 at 09:00 Atorvastatin Calcium (Lipitor) 20 mg DAILY@21 PO Last administered on at 20:48; Admin Dose 20 MG; Start 04/04/16 at 21:00 Miscellaneous Information 1 ea NOTE XX ; Start 04/04/16 at 16:00 Glucose (Glutose) 15 gm Q15M PRN PO DECREASED GLUCOSE; Start 04/04/16 at 16:00 Glucose (Glutose) 22.5 gm Q15M PRN PO DECREASED GLUCOSE; Start 04/04/16 at 16: 00 Dextrose (D50w Syringe) 25 ml Q15M PRN IV DECREASED GLUCOSE Last administered on 04/05/16at 08:37; Admin Dose 25 ML; Start 04/04/16 at 16:00 Dextrose (D50w Syringe) 50 ml Q15M PRN IV DECREASED GLUCOSE; Start 04/04/16 at 16:00 Glucagon (Glucagen) 1 mg Q15M PRN IM DECREASED GLUCOSE; Start 04/04/16 at 16: 00 Glucose 15 gm 15 gm Q15M PRN BUCCAL DECREASED GLUCOSE; Start 04/04/16 at 16:00 Norepinephrine 16 mg/Dextrose 500 ml @ 1.87 mls/hr TITRATE IV Last administered on 04/06/16at 14:58; Admin Dose 28.12 MLS/HR; Start 04/04/16 at 16 :30 Cefepime HCl (Maxipime 1gm/50 ml (Pmx)) 50 ml @ 100 mls/hr Q24H IVPB Last administered on 04/07/16at 15:54; Admin Dose 100 MLS/HR; Start 04/05/16 at 15: 00 Tramadol HCl (Ultram) 50 mg Q6H PRN PO Pain Last administered on 04/08/16at 05: 48; Admin Dose 50 MG; Start 04/04/16 at 16:30 Aspirin (Halfprin) 81 mg DAILY PO Last administered on 04/07/16 10:20; Admin Dose 81 MG; Start 04/05/16 at 09:00 Allopurinol (Zyloprim) 200 mg DAILY PO ; Start 04/05/16 at 09:00 Insulin Aspart (Novolog Insulin Pen) NOVOLOG *MILD* ALGORI... Q4 SC Last administered on 04/08/16 05:44; Admin Dose 1 UNIT; Start 04/05/16 at 17:00 Clopidogrel Bisulfate (plaVIX) 75 mg DAILY PO Last administered on 04/07/16 10:20; Admin Dose 75 MG; Start 04/05/16 at 18:30 Pregabalin (Lyrica) 100 mg BID PO Last administered on 04/05/16 21:20; Admin Dose 100 MG; Start 04/05/16 at 21:00 Acetaminophen (Tylenol Supp) 650 mg Q6H PRN [place] FEVER Last administered on 04/08 14:12; Admin Dose 650 MG; Start 04/06/16 at 12:00 Miscellaneous Information (* Miscellaneous Pharmacy Order) Hold all Metformin ... ONCE XX Last administered on 04/06/16 19:00; Admin Dose 1 EA; Start at 19:00; Stop 04/08/16 at 18:59 Fluconazole 100 mg 100 mg DAILY PO Last administered on 04/07/16 17:10; Admin Dose 100 MG; Start 04/07/16 at 15:00 Dextrose/Sodium Chloride (D5-1/2ns) 1,000 ml @ 40 mls/hr Q24H IV Last administered on 04/08/16 14:13; Admin Dose 40 MLS/HR; Start 04/08/16 at 14:00 MANDIE DOW NP Apr 08, 2016 14:29
[2016-04-08] MEDS: CEFEPIME 1GM/50 ML (PMX) 50 ML IVPB SCH (15:23)
--- NOTE | 2016-04-08 16:25 | CONS ---
Date/Time of Note Date/Time of Note DATE: 04/08/16 TIME: 16:18 Consult Date/Type/Reason Admit Date/Time Apr 04, 2016 at 15:15 Initial Consult Date 04/04/16 Type of Consultation: Cardiology Objective Vital Signs Date Time Temp Pulse Resp B/P Pulse Ox O2 Delivery O2 Flow Rate FiO2 04/08/16 15:00 29 119/37 100 BIPAP 04/08/16 14:30 61 04/08/16 13:53 30 04/08/16 12:00 98.1 04/08/16 10:00 2.0 Intake and Output 04/07/16 04/07/16 04/08/16 14:59 22:59 06:59 Intake Total 334.67 ml 470 ml 350 ml Balance 334.67 ml 470 ml 350 ml Results/Medications Result Diagram: 04/08/16 0400 04/08/16 0400 Results 24 hrs Laboratory Tests Test 04/07/16 17:08 04/07/16 20:53 04/08/16 00:22 04/08/16 04:00 Bedside Glucose 225 H 205 210 Anion Gap 21 H Basophils # 0.0 Basophils % 0.0 Blood Morphology Comment Blood Urea Nitrogen 49 #H Calcium Level 8.9 Carbon Dioxide Level 22 Chloride Level 95 L Creatinine 4.55 H Eosinophils # 0.0 Eosinophils % 0.0 Glucose Level 252 H Hematocrit 27.2 L Hemoglobin 9.0 L Lymphocytes # 0.4 L Lymphocytes % 6.5 L Magnesium Level 2.0 Mean Corpuscular Hemoglobin 30.8 Mean Corpuscular Hemoglobin Concent 33.0 Mean Corpuscular Volume 93.2 Mean Platelet Volume 10.1 Monocytes # 0.3 Monocytes % 5.7 Neutrophils # 5.0 Neutrophils % 87.8 H Nucleated Red Blood Cells # 0.0 Nucleated Red Blood Cells % 0.0 Phosphorus Level 6.1 H Platelet Count 81 L Potassium Level 3.9 Random Vancomycin Level 18.1 Red Blood Count 2.92 L Red Cell Distribution Width 17.8 H Sodium Level 134 L White Blood Count 5.7 Test 04/08/16 04:52 04/08/16 09:40 04/08/16 13:28 Bedside Glucose 170 126 85 Medications Current Medications Lorazepam (Ativan) 0.5 mg Q6H PRN IV ANXIETY Last administered on 04/04/16at 20 :40; Admin Dose 0.5 MG; Start 04/04/16 at 15:30 Ondansetron HCl (Zofran Inj) 4 mg Q6H PRN IV NAUSEA AND/OR VOMITING; Start at 15:30 Famotidine (Pepcid Iv) 20 mg QHS IV Last administered on 04/07/16at 20:48; Admin Dose 20 MG; Start 04/04/16 at 21:00 Ferrous Sulfate (Ferrous Sulfate (Ec)) 325 mg DAILY PO Last administered on at 10:58; Admin Dose 325 MG; Start 04/05/16 at 09:00 Insulin Glargine (Lantus) 25 unit QHS SC Last administered on 04/07/16at 20:56 ; Admin Dose 25 UNIT; Start 04/04/16 at 21:00 Latanoprost (Xalatan) 1 drop QHS BOTH EYES Last administered on 04/07/16at 20: 46; Admin Dose 1 DROP; Start 04/04/16 at 21:00 Metoprolol Tartrate (Lopressor) 25 mg BID PO ; Start 04/04/16 at 21:00 Polyethylene Glycol (Miralax) 17 gm DAILY PO ; Start 04/05/16 at 09:00 Atorvastatin Calcium (Lipitor) 20 mg DAILY@21 PO Last administered on at 20:48; Admin Dose 20 MG; Start 04/04/16 at 21:00 Miscellaneous Information 1 ea NOTE XX ; Start 04/04/16 at 16:00 Glucose (Glutose) 15 gm Q15M PRN PO DECREASED GLUCOSE; Start 04/04/16 at 16:00 Glucose (Glutose) 22.5 gm Q15M PRN PO DECREASED GLUCOSE; Start 04/04/16 at 16: 00 Dextrose (D50w Syringe) 25 ml Q15M PRN IV DECREASED GLUCOSE Last administered on 04/05/16at 08:37; Admin Dose 25 ML; Start 04/04/16 at 16:00 Dextrose (D50w Syringe) 50 ml Q15M PRN IV DECREASED GLUCOSE; Start 04/04/16 at 16:00 Glucagon (Glucagen) 1 mg Q15M PRN IM DECREASED GLUCOSE; Start 04/04/16 at 16: 00 Glucose 15 gm 15 gm Q15M PRN BUCCAL DECREASED GLUCOSE; Start 12/27/16 at 16:00 Norepinephrine 16 mg/Dextrose 500 ml @ 1.87 mls/hr TITRATE IV Last administered on 04/06/16 14:58; Admin Dose 28.12 MLS/HR; Start 04/04/16 at 16 :30 Cefepime HCl (Maxipime 1gm/50 ml (Pmx)) 50 ml @ 100 mls/hr Q24H IVPB Last administered on 04/08/16 15:23; Admin Dose 100 MLS/HR; Start 04/05/16 at 15: 00 Tramadol HCl (Ultram) 50 mg Q6H PRN PO Pain Last administered on 04/08/16 05: 48; Admin Dose 50 MG; Start 04/04/16 at 16:30 Aspirin (Halfprin) 81 mg DAILY PO Last administered on 04/07/16 10:20; Admin Dose 81 MG; Start 04/05/16 at 09:00 Allopurinol (Zyloprim) 200 mg DAILY PO ; Start 04/05/16 at 09:00 Insulin Aspart (Novolog Insulin Pen) NOVOLOG *MILD* ALGORI... Q4 SC Last administered on 04/08/16 05:44; Admin Dose 1 UNIT; Start 04/05/16 at 17:00 Clopidogrel Bisulfate (plaVIX) 75 mg DAILY PO Last administered on 04/07/16at 10:20; Admin Dose 75 MG; Start 04/05/16 at 18:30 Pregabalin (Lyrica) 100 mg BID PO Last administered on 04/05/16at 21:20; Admin Dose 100 MG; Start 04/05/16 at 21:00 Acetaminophen (Tylenol Supp) 650 mg Q6H PRN [place] FEVER Last administered on 04/08at 14:12; Admin Dose 650 MG; Start 04/06/16 at 12:00 Miscellaneous Information (* Miscellaneous Pharmacy Order) Hold all Metformin ... ONCE XX Last administered on 04/06/16at 19:00; Admin Dose 1 EA; Start at 19:00; Stop 04/08/16 at 18:59 Fluconazole 100 mg 100 mg DAILY PO Last administered on 04/07/16at 17:10; Admin Dose 100 MG; Start 04/07/16 at 15:00 Dextrose/Sodium Chloride 1,000 ml @ 40 mls/hr Q24H IV Last administered on at 14:13; Admin Dose 40 MLS/HR; Start 04/08/16 at 14:00 Vancomycin HCl/ Sodium Chloride (Vancocin/NS) 150 ml @ 75 mls/hr ONCE IVPB ; Start 04/08/16 at 23:00; Stop 04/09/16 at 03:00 Assessment/Plan Chief Complaint/Hosp Course Patient is 89 year old female with PMH of CAD pci of LAD, Severe mitral calcification with MS, CHF, ESRD on HD, Multiple TIA, PAD came in with SOB, Positive trop, intial plan was to take her to laborer operator from ER but she was very SOB with craclkes, So brought to ICU. Will need HD, trend trop. had long discussion with family, daughter. Problems: Additional Assessment/Plan CAD NSTEMI PCI of PDA Sepsis Severe MS PAD ESRD Multile TIAs due to severe MS and calcificaiton on mitral valve. Pt still has A-line and BP 100/33 and Cuff pressure is 84/30 There is clear difference of >15mm Hg difference due to likely calcified arteries for peripheral BP check A line should come out She is on BB and PPM changed to the setting that now her internal rhytm is out. PPM set at 50 so she can have her internal rhythm. Will d/c asa and add epixiban due to multiple TIAs d/w daughter in detail about she is still sick and prognosis overall is poor. They made her DNR and DNI for long time. acceptance is there about prognosis. will continue cardiac care Pulm/CC on case. ANH FRITZ MD Apr 08, 2016 16:25
--- NOTE | 2016-04-08 17:43 | RADRPT ---
PROCEDURE: XR Chest. CLINICAL INDICATION: NG tube placement TECHNIQUE: Chest AP portable. COMPARISON: 04/08/2016 at 0903 hours FINDINGS: Left-sided dual lead pacemaker. Right internal jugular tunneled dialysis catheter. Nasogastric tub e with the tip in the antrum of the stomach. No change in left arm PICC line The mediastinal structures are unremarkable. There is calcification of the thoracic aorta (consiste nt with atherosclerosis). There is mild cardiomegaly. There is no change in the pulmonary venous h ypertension. There are L U L, LLL and RLL patchy consolidations. The pleural spaces are unremarkab le. There are senescent changes of the axial skeleton. IMPRESSION: Mild cardiomegaly. No change in pulmonary venous hypertension. L U L, LLL and RLL patchy consolidations. RPTAT: HGDB .Davon Frey MD, Date Time Electronically viewed and signed by .Davon Frey MD, on 04/08/2016 17:42 .B/
[2016-04-08] MEDS: FAMOTIDINE 20 MG INJ IV SCH (21:21)
[2016-04-08] MEDS: LATANOPROST 0.005% 2.5 ML OPH BOTH EYES SCH (21:21)
[2016-04-08] MEDS: APIXABAN 5 MG TABLET PO SCH (21:22)
[2016-04-08] MEDS: ATORVASTATIN 20 MG TAB PO SCH (21:22)
[2016-04-08] MEDS: INSULIN GLARGINE [LANtus] 3 ML PEN SC SCH (21:47)
[2016-04-08] MEDS ORDERED: VANCOMYCIN 750 MG in SOD CHLORIDE 0.9% 150 ML IVPB SCH (23:00)
[2016-04-09] VITALS (85 sets, daily range): BP systolic 65–236; BP diastolic 16–207; PULSE 49–64; RESP 18–29
[2016-04-09] MEDS: INSULIN ASPART [NOVOLOG] 3 ML PEN SC SCH ×6 (01:00→22:20)
[2016-04-09 04:54] LABS: ALBUMIN 3.6 g/dl (3.3-4.9)
[2016-04-09 04:55] LABS: POTASSIUM 3.4 mmol/L (3.5-5.1)
[2016-04-09 04:57] LABS: BILIRUBIN,INDIRECT 0.2 mg/dl (0-1.1); BILIRUBIN,TOTAL 0.2 mg/dl (0.2-1.3); CREATININE 3.88 mg/dl (0.44-1.00)
[2016-04-09 04:58] LABS: ALBUMIN/GLOBULIN RATIO 1.12; CALCIUM 9.2 mg/dl (8.4-10.2); TOTAL PROTEIN 6.8 g/dl (6.1-8.1)
[2016-04-09 05:09] LABS: HEMATOCRIT 29.6 % (37.0-47.0); HEMOGLOBIN 9.8 g/dl (12.0-16.0); LYMPHOCYTES # 0.5 10^3/ul (0.8-2.9); LYMPHOCYTES % 6.5 % (15.0-51.0); MEAN CORPUSCULAR HEMOGLOBIN 30.9 pg (29.0-33.0); MEAN CORPUSCULAR VOLUME 93.5 fl (82.0-101.0); MEAN PLATELET VOLUME 10.7 fl (7.4-10.4); MONOCYTE # 0.2 10^3/ul (0.3-0.9); MONOCYTES % 2.3 % (0.0-11.0); NEUTROPHIL # 6.4 10^3/ul (1.6-7.5); NEUTROPHILS % 91.2 % (39.0-77.0); PLATELET COUNT 91 10^3/UL (140-440); RED BLOOD COUNT 3.16 10^6/ul (4.20-5.40); RED CELL DISTRIBUTION WIDTH 17.2 % (11.5-14.5)
[2016-04-09 06:23] LABS: CONDITION 1; LH ANALYZER COMMENTS 1
[2016-04-09] MEDS: LEVOTHYROXINE 100 MCG TAB PO SCH (06:32)
[2016-04-09] MEDS ORDERED: ALBUMIN HUMAN 25% 100 ML IV ONE (07:30)
[2016-04-09] MEDS: CLOPIDOGREL 75 MG TAB PO SCH (09:13)
[2016-04-09] MEDS: FERROUS SULFATE (EC) 325 MG TAB PO SCH (09:13)
[2016-04-09] MEDS: POLYETHYLENE GLYCOL 17 GM PACKET PO SCH (09:13)
[2016-04-09] MEDS: PREGABALIN 25 MG CAP PO SCH ×2 (09:13→20:22)
[2016-04-09] MEDS: FLUCONAZOLE 100 MG TAB PO SCH (09:14)
[2016-04-09] MEDS: ALLOPURINOL 100 MG TAB PO SCH (09:14)
[2016-04-09] MEDS: METOPROLOL 25 MG TAB PO SCH ×2 (09:22→20:22)
[2016-04-09] MEDS: APIXABAN 5 MG TABLET PO SCH ×2 (09:23→20:20)
[2016-04-09] MEDS: DEXTROSE 50% 50 ML SYRINGE IV PRN ×2 (09:29→13:09)
[2016-04-09] MEDS: ALBUTEROL/IPRATROPIUM (NEB) 3 ML AMP HHN SCH ×4 (09:30→22:25)
[2016-04-09] MEDS ORDERED: hydrALAzine 20 MG INJ ONE (09:57)
[2016-04-09] MEDS ORDERED: POTASSIUM CHLORIDE 250 ML IVPB ONE (10:00)
[2016-04-09] MEDS ORDERED: BENAZEPRIL 40 MG TAB PO ONE (10:00)
--- NOTE | 2016-04-09 10:23 | CONS ---
Date/Time of Note Date/Time of Note DATE: 04/09/16 TIME: 10:22 Consult Date/Type/Reason Admit Date/Time Apr 04, 2016 at 15:15 Initial Consult Date 04/04/16 Subjective Afebrile this morning, continues noninvasive positive pressure ventilation Objective Vital Signs Date Time Temp Pulse Resp B/P Pulse Ox O2 Delivery O2 Flow Rate FiO2 04/09/16 10:00 28 228/203 96 04/09/16 09:15 62 04/09/16 07:30 101.2 04/09/16 05:00 30 04/09/16 04:00 BIPAP 04/09/16 00:00 3.0 Intake and Output 04/08/16 04/08/16 04/09/16 15:00 23:00 07:00 Intake Total 700 ml 505 ml 355 ml Output Total 3500 ml Balance -2800 ml 505 ml 355 ml PHYSICAL EXAMINATION: GENERAL: Elderly [place] lady on nasal cannula oxygen VITAL SIGNS: As above NECK: Supple. No JVD or lymphadenopathy. CARDIAC: S1, S2, no added sounds or murmurs. CHEST: Diminished air entry bilaterally. Coarse upper airway rales ABDOMEN: Soft, nontender. No guarding or rebound. EXTREMITIES: No cyanosis, clubbing, 1+ edema. NEUROLOGIC: Generalized weakness. Results/Medications Result Diagram: 04/09/1642404/09/165 Results 24 hrs Laboratory Tests Test 04/08/16 13:28 04/08/16 17:27 04/08/16 21:44 04/09/16 01:17 Bedside Glucose 85 117 124 117 Test 04/09/16 04:25 04/09/16 04:26 04/09/16 09:25 04/09/16 10:01 Alanine Aminotransferase (ALT/SGPT) 62 Albumin 3.6 Albumin/Globulin Ratio 1.12 Alkaline Phosphatase 123 H Anion Gap 19 H Aspartate Amino Transf (AST/SGOT) 128 H Basophils # 0.0 Basophils % 0.0 Blood Morphology Comment Blood Urea Nitrogen 35 #H Calcium Level 9.2 Carbon Dioxide Level 25 Chloride Level 102 Creatinine 3.88 H Direct Bilirubin 0.00 Eosinophils # 0.0 Eosinophils % 0.0 Globulin 3.20 Glucose Level 83 # Hematocrit 29.6 L Hemoglobin 9.8 L Indirect Bilirubin 0.2 Lymphocytes # 0.5 L Lymphocytes % 6.5 L Mean Corpuscular Hemoglobin 30.9 Mean Corpuscular Hemoglobin Concent 33.0 Mean Corpuscular Volume 93.5 Mean Platelet Volume 10.7 H Monocytes # 0.2 L Monocytes % 2.3 Neutrophils # 6.4 Neutrophils % 91.2 H Nucleated Red Blood Cells # 0.0 Nucleated Red Blood Cells % 0.0 Platelet Count 91 L Potassium Level 3.4 L Red Blood Count 3.16 L Red Cell Distribution Width 17.2 H Sodium Level 143 Total Bilirubin 0.2 Total Protein 6.8 White Blood Count 7.0 # Bedside Glucose 88 62 L 116 Medications Current Medications Lorazepam (Ativan) 0.5 mg Q6H PRN IV ANXIETY Last administered on 04/04/16 20 :40; Admin Dose 0.5 MG; Start 04/04/16 at 15:30 Ondansetron HCl (Zofran Inj) 4 mg Q6H PRN IV NAUSEA AND/OR VOMITING; Start at 15:30 Famotidine (Pepcid Iv) 20 mg QHS IV Last administered on 04/08/16 21:21; Admin Dose 20 MG; Start 04/04/16 at 21:00 Ferrous Sulfate (Ferrous Sulfate (Ec)) 325 mg DAILY PO Last administered on 04/09 09:13; Admin Dose 325 MG; Start 04/05/16 at 09:00 Insulin Glargine (Lantus) 25 unit QHS SC Last administered on 04/08/16 21:47 ; Admin Dose 25 UNIT; Start 04/04/16 at 21:00 Latanoprost (Xalatan) 1 drop QHS BOTH EYES Last administered on 04/08/16 21: 21; Admin Dose 1 DROP; Start 04/04/16 at 21:00 Metoprolol Tartrate (Lopressor) 25 mg BID PO Last administered on 04/09/16 09: 22; Admin Dose 25 MG; Start 04/04/16 at 21:00 Polyethylene Glycol (Miralax) 17 gm DAILY PO Last administered on 04/09/16 09: 13; Admin Dose 17 GM; Start 04/05/16 at 09:00 Atorvastatin Calcium (Lipitor) 20 mg DAILY@21 PO Last administered on 21:22; Admin Dose 20 MG; Start 04/04/16 at 21:00 Miscellaneous Information 1 ea NOTE XX ; Start 04/04/16 at 16:00 Glucose (Glutose) 15 gm Q15M PRN PO DECREASED GLUCOSE; Start 04/04/16 at 16:00 Glucose (Glutose) 22.5 gm Q15M PRN PO DECREASED GLUCOSE; Start 04/04/16 at 16: 00 Dextrose (D50w Syringe) 25 ml Q15M PRN IV DECREASED GLUCOSE Last administered on 04/09/16 09:29; Admin Dose 25 ML; Start 04/04/16 at 16:00 Dextrose (D50w Syringe) 50 ml Q15M PRN IV DECREASED GLUCOSE; Start 04/04/16 at 16:00 Glucagon (Glucagen) 1 mg Q15M PRN IM DECREASED GLUCOSE; Start 04/04/16 at 16: 00 Glucose 15 gm 15 gm Q15M PRN BUCCAL DECREASED GLUCOSE; Start 04/04/16 at 16:00 Norepinephrine 16 mg/Dextrose 500 ml @ 1.87 mls/hr TITRATE IV Last administered on 04/06/16at 14:58; Admin Dose 28.12 MLS/HR; Start 04/04/16 at 16 :30 Cefepime HCl (Maxipime 1gm/50 ml (Pmx)) 50 ml @ 100 mls/hr Q24H IVPB Last administered on 04/08/16at 15:23; Admin Dose 100 MLS/HR; Start 04/05/16 at 15: 00 Tramadol HCl (Ultram) 50 mg Q6H PRN PO Pain Last administered on 04/08/16at 05: 48; Admin Dose 50 MG; Start 04/04/16 at 16:30 Allopurinol (Zyloprim) 200 mg DAILY PO Last administered on 04/09/16 09:14; Admin Dose 200 MG; Start 04/05/16 at 09:00 Insulin Aspart (Novolog Insulin Pen) NOVOLOG *MILD* ALGORI... Q4 SC Last administered on 04/08/16at 05:44; Admin Dose 1 UNIT; Start 04/05/16 at 17:00 Clopidogrel Bisulfate (plaVIX) 75 mg DAILY PO Last administered on 04/09/16 09: 13; Admin Dose 75 MG; Start 04/05/16 at 18:30 Pregabalin (Lyrica) 100 mg BID PO Last administered on 04/09/16 09:13; Admin Dose 100 MG; Start 04/05/16 at 21:00 Acetaminophen (Tylenol Supp) 650 mg Q6H PRN [place] FEVER Last administered on 04/08at 14:12; Admin Dose 650 MG; Start 04/06/16 at 12:00 Fluconazole (Diflucan) 100 mg DAILY PO Last administered on 04/09/16 09:14; Admin Dose 100 MG; Start 04/07/16 at 15:00 Apixaban 2.5 mg 2.5 mg BID PO Last administered on 04/09/16 09:23; Admin Dose 2.5 MG; Start 04/08/16 at 21:00 Dextrose 1,000 ml @ 40 mls/hr Q24H IV ; Start 04/09/16 at 10:00 Potassium Chloride (KCl 40 MEQ/250 ML NS) 250 ml @ 62.5 mls/hr ONCE ONCE IVPB ; Start 04/09/16 at 10:00; Stop 04/09/16 at 13:59 Benazepril HCl (Lotensin) 40 mg DAILY GTB ; Start 04/10/16 at 09:00 Amlodipine Besylate (Norvasc) 5 mg DAILY NGT ; Start 04/10/16 at 09:00 Hydralazine HCl (Apresoline) 5 mg Q6 IV ; Start 04/09/16 at 12:00 Assessment/Plan Chief Complaint/Hosp Course IMPRESSION: 1. Pulmonary edema with possible component of pneumonia with subsequent hypoxemic respiratory failure. 2. 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 3. Encephalopathy, toxic metabolic. 4. Patient's code status: DNR/DNI. 5. Severe mitral stenosis with underlying coronary artery disease 6. Status post coronary intervention 7. Likely significant aspiration risk PLAN: 1. Continue noninvasive positive pressure ventilation and nasal cannula oxygen. Aggressive pulmonary toilet 2. Supplemental O2. 3. DVT and GI prophylaxis. 4. Cardiac catheterization with revascularization, continue cardiology recommendations 5. Unlikely patient is stable for oral intake significant aspiration risk Consider hospice evaluation Problems: OSIRIS REYNOLDS MD, [facility] Apr 09, 2016 10:23
[2016-04-09] MEDS ORDERED: hydrALAzine 20 MG INJ IV PRN (11:30)
[2016-04-09] MEDS: DEXTROSE 5% 1,000 ML IV SCH ×2 (11:42→22:50)
--- NOTE | 2016-04-09 11:48 | CONS ---
Date/Time of Note Date/Time of Note DATE: 04/09/16 TIME: 11:30 Assessment/Plan Assessment/Plan Chief Complaint/Hosp Course INFECTIOUS DISEASE PROGRESS NOTE 24H INTERVAL SUMMARY * 89 yo F - Bipap, no fevers, severe mitral valve stenosis w/hx of TIAs, (+) NSTEMI hx of CAD * CARDS note reviewed: Patient has arterial calcification w/arterial stiffness - > her non-invasive peripheral B/P readings are ~15mmHg lower than her invasive A -line readings. A-esha needs to be removed. Recommend taking peripheral B/P on lower extremity if possible due to false low systolic B/P readings on upper extremities. * INDWELLINGS: IJ, PICC, PACER * MICROBIOLOGY: Sputum culture growing Sandra albicans. * ANTIMICROBIALS: Vancomycin IV, Cefepime, Diflucan * CXR TODAY: IMPRESSION: * 1. Mild central pulmonary vascular congestion and interstitial edema, not significantly changed. No consolidation is evident. * 2. The right jugular central venous dialysis catheter stable in position. The left PICC line distal tip is not well seen due to overlying wires, though is visualized in the axillary region. * 3. Unchanged dual-chamber pacemaker with a left chest wall battery pack. PHYSICAL EXAMINATION: GENERAL: This is a morbidly obese, elderly woman, who is awake, in no distress. HEENT: Unremarkable NECK: Supple. CHEST: Chest rise is symmetrical, diminished, supplemental O2 HEART: S1, S2. ABDOMEN: Soft, bowel tones present. EXTREMITIES: Without cyanosis. Trace edema. ID ASSESSMENT: 89 yo Obese F admit with: 1. Status post shock, likely septic and cardiogenic both. 2. HYPOTENSION => CARDS note reviewed: * Patient has arterial calcification w/arterial stiffness -> her non-invasive peripheral B/P readings are ~15mmHg lower than her invasive A-line readings. A- esha needs to be removed. Recommend taking peripheral B/P on lower extremity if possible due to false low systolic B/P readings on upper extremities. Acute respiratory failure secondary to pulmonary edema, possibly aspiration event. 3. Non-ST elevation myocardial infarction, status post cardiac catheterization with stenting to the posterior descending artery. 4. Severe mitral stenosis. 5. (+)Indwelling Pacer 6. End-stage renal disease, hemodialysis dependent. 7. Resolving encephalopathy. (-)MRSA Nares INVASIVES: IJ-> HD , PICC, Pacer CURRENT ABX: Vanco IV, Cefepime, Diflucan ID PLAN: Continue ABX Repeat BCx next HD CARDS note reviewed: Patient has arterial calcification w/arterial stiffness: * -> her non-invasive peripheral B/P readings are ~15mmHg lower than her invasive A-line readings. A-esha needs to be removed. * Recommend taking peripheral B/P on lower extremity if possible due to false low systolic B/P readings on upper extremities. Problems: Consultation Date/Type/Reason Admit Date/Time Apr 04, 2016 at 15:15 Initial Consult Date 04/04/16 Exam/Review of Systems Vital Signs Vitals Vital Signs Date Time Temp Pulse Resp B/P Pulse Ox O2 Delivery O2 Flow Rate FiO2 04/09/16 10:00 28 228/203 96 04/09/16 09:15 62 04/09/16 07:30 101.2 04/09/16 05:00 30 04/09/16 04:00 BIPAP 04/09/16 00:00 3.0 Intake and Output 04/08/16 04/08/16 04/09/16 15:00 23:00 07:00 Intake Total 700 ml 505 ml 355 ml Output Total 3500 ml Balance -2800 ml 505 ml 355 ml Results Result Diagram: 04/09/16 0425 04/09/16 0425 Results 24 hrs Laboratory Tests Test 04/08/16 13:28 04/08/16 17:27 04/08/16 21:44 04/09/16 01:17 Bedside Glucose 85 117 124 117 Test 04/09/16 04:25 04/09/16 04:26 04/09/16 09:25 04/09/16 10:01 Alanine Aminotransferase (ALT/SGPT) 62 Albumin 3.6 Albumin/Globulin Ratio 1.12 Alkaline Phosphatase 123 H Anion Gap 19 H Aspartate Amino Transf (AST/SGOT) 128 H Basophils # 0.0 Basophils % 0.0 Blood Morphology Comment Blood Urea Nitrogen 35 #H Calcium Level 9.2 Carbon Dioxide Level 25 Chloride Level 102 Creatinine 3.88 H Direct Bilirubin 0.00 Eosinophils # 0.0 Eosinophils % 0.0 Globulin 3.20 Glucose Level 83 # Hematocrit 29.6 L Hemoglobin 9.8 L Indirect Bilirubin 0.2 Lymphocytes # 0.5 L Lymphocytes % 6.5 L Mean Corpuscular Hemoglobin 30.9 Mean Corpuscular Hemoglobin Concent 33.0 Mean Corpuscular Volume 93.5 Mean Platelet Volume 10.7 H Monocytes # 0.2 L Monocytes % 2.3 Neutrophils # 6.4 Neutrophils % 91.2 H Nucleated Red Blood Cells # 0.0 Nucleated Red Blood Cells % 0.0 Platelet Count 91 L Potassium Level 3.4 L Red Blood Count 3.16 L Red Cell Distribution Width 17.2 H Sodium Level 143 Total Bilirubin 0.2 Total Protein 6.8 White Blood Count 7.0 # Bedside Glucose 88 62 L 116 Test 04/09/16 10:38 Bedside Glucose 89 Medications Medications Current Medications Lorazepam (Ativan) 0.5 mg Q6H PRN IV ANXIETY Last administered on 04/04/16 20 :40; Admin Dose 0.5 MG; Start 04/04/16 at 15:30 Ondansetron HCl (Zofran Inj) 4 mg Q6H PRN IV NAUSEA AND/OR VOMITING; Start at 15:30 Famotidine (Pepcid Iv) 20 mg QHS IV Last administered on 04/08/16 21:21; Admin Dose 20 MG; Start 04/04/16 at 21:00 Ferrous Sulfate (Ferrous Sulfate (Ec)) 325 mg DAILY PO Last administered on 04/09 09:13; Admin Dose 325 MG; Start 04/05/16 at 09:00 Insulin Glargine (Lantus) 25 unit QHS SC Last administered on 04/08/16 21:47 ; Admin Dose 25 UNIT; Start 04/04/16 at 21:00 Latanoprost (Xalatan) 1 drop QHS BOTH EYES Last administered on 04/08/16 21: 21; Admin Dose 1 DROP; Start 04/04/16 at 21:00 Metoprolol Tartrate (Lopressor) 25 mg BID PO Last administered on 04/09/16 09: 22; Admin Dose 25 MG; Start 04/04/16 at 21:00 Polyethylene Glycol (Miralax) 17 gm DAILY PO Last administered on 04/09/16 09: 13; Admin Dose 17 GM; Start 04/05/16 at 09:00 Atorvastatin Calcium (Lipitor) 20 mg DAILY@21 PO Last administered on 21:22; Admin Dose 20 MG; Start 04/04/16 at 21:00 Miscellaneous Information 1 ea NOTE XX ; Start 04/04/16 at 16:00 Glucose (Glutose) 15 gm Q15M PRN PO DECREASED GLUCOSE; Start 04/04/16 at 16:00 Glucose (Glutose) 22.5 gm Q15M PRN PO DECREASED GLUCOSE; Start 04/04/16 at 16: 00 Dextrose (D50w Syringe) 25 ml Q15M PRN IV DECREASED GLUCOSE Last administered on 04/09/16 09:29; Admin Dose 25 ML; Start 04/04/16 at 16:00 Dextrose (D50w Syringe) 50 ml Q15M PRN IV DECREASED GLUCOSE; Start 04/04/16 at 16:00 Glucagon (Glucagen) 1 mg Q15M PRN IM DECREASED GLUCOSE; Start 04/04/16 at 16: 00 Glucose 15 gm 15 gm Q15M PRN BUCCAL DECREASED GLUCOSE; Start 04/04/16 at 16:00 Norepinephrine 16 mg/Dextrose 500 ml @ 1.87 mls/hr TITRATE IV Last administered on 04/06/16at 14:58; Admin Dose 28.12 MLS/HR; Start 04/04/16 at 16 :30 Cefepime HCl (Maxipime 1gm/50 ml (Pmx)) 50 ml @ 100 mls/hr Q24H IVPB Last administered on 04/08/16at 15:23; Admin Dose 100 MLS/HR; Start 04/05/16 at 15: 00 Tramadol HCl (Ultram) 50 mg Q6H PRN PO Pain Last administered on 04/08/16at 05: 48; Admin Dose 50 MG; Start 04/04/16 at 16:30 Allopurinol (Zyloprim) 200 mg DAILY PO Last administered on 04/09/16 09:14; Admin Dose 200 MG; Start 04/05/16 at 09:00 Insulin Aspart (Novolog Insulin Pen) NOVOLOG *MILD* ALGORI... Q4 SC Last administered on 04/08/16at 05:44; Admin Dose 1 UNIT; Start 04/05/16 at 17:00 Clopidogrel Bisulfate (plaVIX) 75 mg DAILY PO Last administered on 04/09/16 09: 13; Admin Dose 75 MG; Start 04/05/16 at 18:30 Pregabalin (Lyrica) 100 mg BID PO Last administered on 04/09/16 09:13; Admin Dose 100 MG; Start 04/05/16 at 21:00 Acetaminophen (Tylenol Supp) 650 mg Q6H PRN MT FEVER Last administered on 04/08at 14:12; Admin Dose 650 MG; Start 04/06/16 at 12:00 Fluconazole (Diflucan) 100 mg DAILY PO Last administered on 04/09/16 09:14; Admin Dose 100 MG; Start 04/07/16 at 15:00 Apixaban 2.5 mg 2.5 mg BID PO Last administered on 04/09/16 09:23; Admin Dose 2.5 MG; Start 04/08/16 at 21:00 Dextrose 1,000 ml @ 40 mls/hr Q24H IV ; Start 04/09/16 at 10:00 Potassium Chloride (KCl 40 MEQ/250 ML NS) 250 ml @ 62.5 mls/hr ONCE ONCE IVPB ; Start 04/09/16 at 10:00; Stop 04/09/16 at 13:59 Benazepril HCl (Lotensin) 40 mg DAILY GTB ; Start 04/10/16 at 09:00 Amlodipine Besylate (Norvasc) 5 mg DAILY NGT ; Start 04/10/16 at 09:00 Hydralazine HCl (Apresoline) 5 mg Q6 IV ; Start 04/09/16 at 12:00 MANDIE DOW NP Apr 09, 2016 11:48
[2016-04-09] MEDS ORDERED: hydrALAzine 20 MG INJ IV SCH (12:00)
[2016-04-09] MEDS: CEFEPIME 1GM/50 ML (PMX) 50 ML IVPB SCH (16:06)
--- NOTE | 2016-04-09 18:10 | PN ---
DATE: 04/09/2016 SUBJECTIVE: The patient is hemodialysis stable with 2 liters removed. The patient noted to be hype rtensive this morning. No other acute events noted. The patient remains on BiPAP. No hemoptysis, hematemesis, or hematochezia. OBJECTIVE: VITAL SIGNS: Blood pressure is 200/69, respiration is 29, pulse 62. HEENT: Head is normocephalic. NECK: Supple. HEART: Regular rate. LUNGS: Show diminished breath sounds at the base. ABDOMEN: Soft, nontender to palpation. No rebound or guarding. EXTREMITIES: Negative for clubbing, cyanosis, edema. DERMATOLOGIC: No rashes. MUSCULOSKELETAL: No joint effusions. NEUROLOGIC: No change in exam. MEDICATIONS: The patient's medications have been reviewed. LABORATORY DATA: Showed a sodium 143, potassium 4, chloride 102, BUN 35, creatinine 3.55. White co unt 7.9, hemoglobin 9.8, hematocrit 29.6, platelet count is 91. IMAGING STUDIES: Chest x-ray on 04/08/2016 shows cardiomegaly, patchy consolidations. ASSESSMENT AND PLAN: 1. End-stage renal disease. The patient has been receiving dialysis daily for solute clearance and volume removal. Anticipate dialysis again tomorrow for 3 hours, 2K bath, calcium 2.5. 2. Sepsis, status post shock. Etiology is secondary to pneumonia, urinary tract infection. Contin ue current antibiotic regimen. 3. Volume overload. The patient has received dialysis near daily. We will continue ultrafiltratio n. 4. Anemia of chronic disease. Continue to monitor hemoglobin and hematocrit levels. Continue Epog en. 5. Hypertensive urgency. The patient's systolic pressures are greater than 200. We will give IV l abetalol. We will also start the patient on oral medications of Norvasc and benazepril and monitor closely. If blood pressure is not improved, consider starting nicardipine drip. 6. Mineral bone disorder. Monitor calcium and phosphorus levels. 7. Acute hypoxemic respiratory failure secondary to congestive heart failure, pneumonia. Continue BiPAP. 8. Non-ST elevation myocardial infarction, status post percutaneous coronary intervention. Continu e medical management. 9. Peripheral vascular disease. Continue medical management. 10. Encephalopathy, etiology toxic metabolic. Continue to monitor. 11. History of mitral stenosis. Please note I spent over 40 minutes critical care time with this patient. Dictated By: ZULEMA STOVALL/MAXIMO Conf#: [id number] DID#: [id number]
[2016-04-09] MEDS: ATORVASTATIN 20 MG TAB PO SCH (20:20)
[2016-04-09] MEDS: LATANOPROST 0.005% 2.5 ML OPH BOTH EYES SCH (20:20)
[2016-04-09] MEDS: FAMOTIDINE 20 MG INJ IV SCH (20:20)
[2016-04-09] MEDS: INSULIN GLARGINE [LANtus] 3 ML PEN SC SCH (22:19)
--- NOTE | 2016-04-09 22:29 | CONS ---
Date/Time of Note Date/Time of Note DATE: 04/09/16 TIME: 22:28 Consult Date/Type/Reason Admit Date/Time Apr 04, 2016 at 15:15 Initial Consult Date 04/04/16 Objective Vital Signs Date Time Temp Pulse Resp B/P Pulse Ox O2 Delivery O2 Flow Rate FiO2 04/09/16 18:30 51 18 83/32 94 04/09/16 17:40 30 04/09/16 16:00 97.9 04/09/16 04:00 BIPAP 04/09/16 00:00 3.0 Intake and Output 04/08/16 04/08/16 04/09/16 15:00 23:00 07:00 Intake Total 700 ml 505 ml 355 ml Output Total 3500 ml Balance -2800 ml 505 ml 355 ml Results/Medications Result Diagram: 04/09/16 0425 04/09/16 0425 Results 24 hrs Laboratory Tests Test 04/09/16 01:17 04/09/16 04:25 04/09/16 04:26 04/09/16 09:25 Bedside Glucose 117 88 62 L Alanine Aminotransferase (ALT/SGPT) 62 Albumin 3.6 Albumin/Globulin Ratio 1.12 Alkaline Phosphatase 123 H Anion Gap 19 H Aspartate Amino Transf (AST/SGOT) 128 H Basophils # 0.0 Basophils % 0.0 Blood Morphology Comment Blood Urea Nitrogen 35 #H Calcium Level 9.2 Carbon Dioxide Level 25 Chloride Level 102 Creatinine 3.88 H Direct Bilirubin 0.00 Eosinophils # 0.0 Eosinophils % 0.0 Globulin 3.20 Glucose Level 83 # Hematocrit 29.6 L Hemoglobin 9.8 L Indirect Bilirubin 0.2 Lymphocytes # 0.5 L Lymphocytes % 6.5 L Mean Corpuscular Hemoglobin 30.9 Mean Corpuscular Hemoglobin Concent 33.0 Mean Corpuscular Volume 93.5 Mean Platelet Volume 10.7 H Monocytes # 0.2 L Monocytes % 2.3 Neutrophils # 6.4 Neutrophils % 91.2 H Nucleated Red Blood Cells # 0.0 Nucleated Red Blood Cells % 0.0 Platelet Count 91 L Potassium Level 3.4 L Red Blood Count 3.16 L Red Cell Distribution Width 17.2 H Sodium Level 143 Total Bilirubin 0.2 Total Protein 6.8 White Blood Count 7.0 # Test 04/09/16 10:01 04/09/16 10:38 04/09/16 11:21 04/09/16 13:06 Bedside Glucose 116 89 89 69 L Test 04/09/16 14:14 04/09/16 16:57 04/09/16 20:50 Bedside Glucose 124 170 152 Medications Current Medications Lorazepam (Ativan) 0.5 mg Q6H PRN IV ANXIETY Last administered on 04/04/16at 20 :40; Admin Dose 0.5 MG; Start 04/04/16 at 15:30 Ondansetron HCl (Zofran Inj) 4 mg Q6H PRN IV NAUSEA AND/OR VOMITING; Start at 15:30 Famotidine (Pepcid Iv) 20 mg QHS IV Last administered on 04/09/16 20:20; Admin Dose 20 MG; Start 04/04/16 at 21:00 Ferrous Sulfate (Ferrous Sulfate (Ec)) 325 mg DAILY PO Last administered on 04/09 09:13; Admin Dose 325 MG; Start 04/05/16 at 09:00 Insulin Glargine (Lantus) 25 unit QHS SC Last administered on 04/09/16 22:19; Admin Dose 25 UNIT; Start 04/04/16 at 21:00 Latanoprost (Xalatan) 1 drop QHS BOTH EYES Last administered on 04/09/16 20:20 ; Admin Dose 1 DROP; Start 04/04/16 at 21:00 Metoprolol Tartrate (Lopressor) 25 mg BID PO Last administered on 04/09/16 20: 22; Admin Dose 25 MG; Start 04/04/16 at 21:00 Polyethylene Glycol (Miralax) 17 gm DAILY PO Last administered on 04/09/16 09: 13; Admin Dose 17 GM; Start 04/05/16 at 09:00 Atorvastatin Calcium (Lipitor) 20 mg DAILY@21 PO Last administered on 04/09/16 20:20; Admin Dose 20 MG; Start 04/04/16 at 21:00 Miscellaneous Information 1 ea NOTE XX ; Start 04/04/16 at 16:00 Glucose (Glutose) 15 gm Q15M PRN PO DECREASED GLUCOSE; Start 04/04/16 at 16:00 Glucose (Glutose) 22.5 gm Q15M PRN PO DECREASED GLUCOSE; Start 04/04/16 at 16: 00 Dextrose (D50w Syringe) 25 ml Q15M PRN IV DECREASED GLUCOSE Last administered on 04/09/16 13:09; Admin Dose 25 ML; Start 04/04/16 at 16:00 Dextrose (D50w Syringe) 50 ml Q15M PRN IV DECREASED GLUCOSE; Start 04/04/16 at 16:00 Glucagon (Glucagen) 1 mg Q15M PRN IM DECREASED GLUCOSE; Start 04/04/16 at 16: 00 Glucose 15 gm 15 gm Q15M PRN BUCCAL DECREASED GLUCOSE; Start 04/04/16 at 16:00 Norepinephrine 16 mg/Dextrose 500 ml @ 1.87 mls/hr TITRATE IV Last administered on 04/06/16at 14:58; Admin Dose 28.12 MLS/HR; Start 04/04/16 at 16 :30 Cefepime HCl (Maxipime 1gm/50 ml (Pmx)) 50 ml @ 100 mls/hr Q24H IVPB Last administered on 04/09/16 16:06; Admin Dose 100 MLS/HR; Start 04/05/16 at 15:00 Tramadol HCl (Ultram) 50 mg Q6H PRN PO Pain Last administered on 04/08/16at 05: 48; Admin Dose 50 MG; Start 04/04/16 at 16:30 Allopurinol (Zyloprim) 200 mg DAILY PO Last administered on 04/09/16 09:14; Admin Dose 200 MG; Start 04/05/16 at 09:00 Insulin Aspart (Novolog Insulin Pen) NOVOLOG *MILD* ALGORI... Q4 SC Last administered on 04/09/16 22:20; Admin Dose 1 UNIT; Start 04/05/16 at 17:00 Clopidogrel Bisulfate (plaVIX) 75 mg DAILY PO Last administered on 04/09/16 09: 13; Admin Dose 75 MG; Start 04/05/16 at 18:30 Pregabalin (Lyrica) 100 mg BID PO Last administered on 04/09/16 20:22; Admin Dose 100 MG; Start 04/05/16 at 21:00 Acetaminophen (Tylenol Supp) 650 mg Q6H PRN HI FEVER Last administered on 04/08at 14:12; Admin Dose 650 MG; Start 04/06/16 at 12:00 Fluconazole (Diflucan) 100 mg DAILY PO Last administered on 04/09/16 09:14; Admin Dose 100 MG; Start 04/07/16 at 15:00 Apixaban 2.5 mg 2.5 mg BID PO Last administered on 04/09/16 20:20; Admin Dose 2.5 MG; Start 04/08/16 at 21:00 Dextrose (D5W) 1,000 ml @ 40 mls/hr Q24H IV Last administered on 04/09/16 11: 42; Admin Dose 40 MLS/HR; Start 04/09/16 at 10:00 Hydralazine HCl (Apresoline) 5 mg Q6H PRN IV ELEVATED BLOOD PRESSURE; Start 04/09/16 at 11:30 Assessment/Plan Chief Complaint/Hosp Course Patient is 89 year old female with PMH of CAD pci of LAD, Severe mitral calcification with MS, CHF, ESRD on HD, Multiple TIA, PAD came in with SOB, Positive trop, intial plan was to take her to labor conciliator from ER but she was very SOB with craclkes, So brought to ICU. Will need HD, trend trop. had long discussion with family, daughter. Problems: Additional Assessment/Plan Stable off pressures on plavix and jayla keep her on bipap overnight tx out from ICU d/C planning continue ANH Avila MD Apr 09, 2016 22:28
[2016-04-10] VITALS (79 sets, daily range): BP systolic 47–127; BP diastolic 10–79; PULSE 48–80; RESP 15–21
[2016-04-10] MEDS: INSULIN ASPART [NOVOLOG] 3 ML PEN SC SCH ×6 (01:30→20:34)
[2016-04-10 05:17] LABS: BASOPHILS % 0.2 % (0.0-2.0); EOSINOPHILS % 0.3 % (0.0-7.0); HEMATOCRIT 28.5 % (37.0-47.0); HEMOGLOBIN 9.3 g/dl (12.0-16.0); LYMPHOCYTES # 0.8 10^3/ul (0.8-2.9); LYMPHOCYTES % 10.9 % (15.0-51.0); MEAN CORPUSCULAR HEMOGLOBIN 30.7 pg (29.0-33.0); MEAN CORPUSCULAR HGB CONC 32.7 g/dl (32.0-37.0); MEAN CORPUSCULAR VOLUME 93.9 fl (82.0-101.0); MONOCYTE # 0.3 10^3/ul (0.3-0.9); MONOCYTES % 4.5 % (0.0-11.0); NEUTROPHILS % 84.1 % (39.0-77.0); PLATELET COUNT 98 10^3/UL (140-440); RED BLOOD COUNT 3.03 10^6/ul (4.20-5.40); UNCORRECTED WBC 7.1 10^3/ul (4.8-10.8); WHITE BLOOD COUNT 7.1 10^3/ul (4.8-10.8)
[2016-04-10 05:32] LABS: CONDITION 1; LH ANALYZER COMMENTS 1
[2016-04-10 05:56] LABS: ALBUMIN 3.5 g/dl (3.3-4.9); POTASSIUM 3.6 mmol/L (3.5-5.1)
[2016-04-10 05:58] LABS: CREATININE 4.53 mg/dl (0.44-1.00)
[2016-04-10 05:59] LABS: ALBUMIN/GLOBULIN RATIO 1.09; BILIRUBIN,INDIRECT 0.2 mg/dl (0-1.1); BILIRUBIN,TOTAL 0.2 mg/dl (0.2-1.3); TOTAL PROTEIN 6.7 g/dl (6.1-8.1)
[2016-04-10] MEDS: LEVOTHYROXINE 100 MCG TAB PO SCH (06:37)
[2016-04-10] MEDS: ALLOPURINOL 100 MG TAB PO SCH (08:06)
[2016-04-10] MEDS: FLUCONAZOLE 100 MG TAB PO SCH (08:06)
[2016-04-10] MEDS: APIXABAN 5 MG TABLET PO SCH ×2 (08:07→20:37)
[2016-04-10] MEDS: CLOPIDOGREL 75 MG TAB PO SCH (08:07)
--- NOTE | 2016-04-10 08:16 | RADRPT ---
PROCEDURE: XR Chest. CLINICAL INDICATION: Shortness of breath. TECHNIQUE: Single frontal view. COMPARISON: 04/08/2016. FINDINGS: The nasogastric tube and right internal jugular vein tunneled dialysis catheter remain in satisfacto ry position. There is a left-sided permanent pacemaker and a left arm PICC line in satisfactory pos ition. Pulmonary edema is unchanged. The heart is enlarged. There is no pleural effusion. There is no pneumothorax. IMPRESSION: 1. No change from 04/08/2016. RPTAT: QQ .Ethan Fay MD, MD Date Time Electronically viewed and signed by .Ethan Fay MD, MD on 04/10/2016 08:16 .R/
[2016-04-10 08:17] LABS: AADO2 Arterial 113.8 mmHg (7.0-24.0); Arterial Base Excess -3.5 mmol/L (-3.0-3); Arterial COHb 0.5 % (0.0-3.0); Arterial Fraction of Oxyhgb 90.7 % (93.0-99.0); Arterial HCO3 20.2 mmol/L (22.0-26.0); Arterial MetHb 0.3 % (0.0-1.5); Arterial Total Hemglobin 14.2 g/dl (12.0-18.0); Blood Gas IEPAP 15/5; MODE MASK - BIPAP
[2016-04-10] MEDS ORDERED: AMLODIPINE 5 MG TAB NGT SCH (09:00)
[2016-04-10] MEDS ORDERED: BENAZEPRIL 40 MG TAB GTB SCH (09:00)
[2016-04-10] MEDS: FERROUS SULFATE (EC) 325 MG TAB PO SCH (09:00)
[2016-04-10] MEDS: POLYETHYLENE GLYCOL 17 GM PACKET PO SCH (09:00)
[2016-04-10] MEDS ORDERED: ALBUMIN HUMAN 25% 100 ML ONE (09:04)
[2016-04-10] MEDS: ALBUTEROL/IPRATROPIUM (NEB) 3 ML AMP HHN SCH ×4 (09:06→21:04)
[2016-04-10] MEDS ORDERED: ALBUMIN HUMAN 25% 100 ML IV ONE (09:30)
--- NOTE | 2016-04-10 09:31 | PN ---
DATE: 04/10/2016 SUBJECTIVE: The patient remains on BiPAP, unable to be weaned off. The patient's hypertensive urge ncy yesterday resolved. No other acute events noted. No hemoptysis, hematemesis or hematochezia. OBJECTIVE: VITAL SIGNS: Blood pressure of 110/51, respiration is 18, pulse 50. I's and O's of 1.0 liters in, 2.5 liters out. HEENT: Head is normocephalic. NECK: Supple. HEART: Regular rate. LUNGS: Show diminished breath sounds at base. Positive crackles. ABDOMEN: Soft, nontender to palpation without rebound or guarding. EXTREMITIES: Negative for clubbing, cyanosis. No edema. DERMATOLOGIC: No rashes. MUSCULOSKELETAL: No joint effusions. NEUROLOGIC: No change in exam. MEDICATIONS: The patient's medications have been reviewed. LABORATORY DATA: Shows sodium 141, potassium 3.6, chloride 102, BUN , creatinine 4.53. White count 7.1, hemoglobin 9.3, hematocrit 28.5, platelet count is 90. IMAGING: Chest x-ray shows worsening pulmonary congestion. ASSESSMENT AND PLAN: 1. End-stage renal disease. The patient is receiving daily dialysis for solute clearance and volum e removal. Plan for dialysis today and tomorrow. The patient will be dialyzed today for 3 hours on a 3 K bath, calcium 2.5, ultrafiltrate as tolerated. 2. Sepsis, status post shock. Etiology secondary to pneumonia, urinary tract infection. The patie nt is currently on antibiotics, continue. 3. Volume overload. The patient continues to have pulmonary congestion. Continue daily dialysis w ith ultrafiltration. 4. Anemia. Hemoglobin level stable. Continue Epogen. 5. Hypertensive urgency, resolved. The patient is currently normotensive. Blood pressure medicati ons will be held, monitor closely. 6. Mineral bone disorder. Continue to monitor calcium and phosphorus levels. 7. Acute hypoxemic respiratory failure secondary to congestive heart failure, pneumonia. Continue BiPAP, wean off if possible. 8. Non-ST elevation myocardial infarction, status post percutaneous coronary intervention. Continu e medical management. 9. Peripheral vascular disease. Continue current medical management. 10. encephalopathy, etiology toxic metabolic. Continue to monitor. 11. Severe mitral stenosis. Dictated By: ZULEMA STOVALL/MAXIMO Conf#: [id number] [facility]#: [id number]
--- NOTE | 2016-04-10 10:21 | PN ---
Date/Time of Note Date/Time of Note DATE: 04/10/16 TIME: 09:14 Assessment/Plan VTE Prophylaxis VTE Prophylaxis Intervention: other (Apixaban) Lines/Catheters IV [facility] Type (from [facility]): PICC Line Central line still needed: Yes Urinary Cath still in place: No Assessment/Plan Assessment/Plan IMPRESSION: 1. Hypoxic respiratory failure, with pulmonary vascular congestion. 2. Coronary artery disease, status post PCI, with stent to right posterior descending artery. The patient also has a history of PCI to the LAD. 3. Severe mitral calcification with stenosis. 4. End-stage renal disease, on dialysis. 5. History of transient ischemic attack. 6. Status post sepsis, with possible underlying pneumonia. 7. Anemia, likely anemia of chronic disease. 8. Type 2 diabetes. PLAN: - Will continue positive pressure support and try to transition to NC as tolerated. - Continue breathing treatments. pt is s/p cardiac catheterization with a PCI and stents to RPDA. She also has a history PCI of the LAD. Cont meds, including cardiac through NG tube. Will continue insulin for her diabetes and will adjust as needed. - Cont Dialysis per nephrology. - Overall the patient does not have a good prognosis and we need to have a family meeting to discuss even possible hospice. Palliative care consult has been placed Further workup and management per clinical course. Total critical time spent was about 35 minutes. Subjective 24 Hr Interval Summary Free Text/Dictation pt is on BIPAP, still looks lethargic. Exam/Review of Systems Vital Signs Vitals Vital Signs Date Time Temp Pulse Resp B/P Pulse Ox O2 Delivery O2 Flow Rate FiO2 04/10/16 08:58 50 20 04/10/16 08:15 97 04/10/16 08:00 99/41 04/10/16 07:15 98.0 04/10/16 05:30 30 04/10/16 04:00 BIPAP 04/09/16 00:00 3.0 Intake and Output 04/09/16 04/09/16 04/10/16 15:00 23:00 07:00 Intake Total 860 ml 600 ml 380 ml Output Total 4500 ml 0 ml 0 ml Balance -3640 ml 600 ml 380 ml Exam GENERAL: The patient is on BiPAP. Appears lethargic and moaning, not following any commands. HEENT: No obvious head deformity. CARDIOVASCULAR: Bradycardic, with a regular rhythm. She also has a systolic murmur. PULMONARY: Lungs sound congested, with crackles anteriorly. ABDOMEN: Obese, soft. No grimaces noted on palpation. Positive bowel sounds. EXTREMITIES: No edema. Results Result Diagram: 04/10/16 0440 04/10/16 0440 Results 24 hrs Laboratory Tests Test 04/09/16 09:25 04/09/16 10:01 04/09/16 10:38 04/09/16 11:21 Bedside Glucose 62 L 116 89 89 Test 04/09/16 13:06 04/09/16 14:14 04/09/16 16:57 04/09/16 20:50 Bedside Glucose 69 L 124 170 152 Test 04/10/16 01:22 04/10/16 04:40 04/10/16 04:49 04/10/16 07:00 Bedside Glucose 164 157 Alanine Aminotransferase (ALT/SGPT) 58 Albumin 3.5 Albumin/Globulin Ratio 1.09 Alkaline Phosphatase 114 Anion Gap 19 H Aspartate Amino Transf (AST/SGOT) 131 H Basophils # 0.0 Basophils % 0.2 Blood Morphology Comment Blood Urea Nitrogen 40 H Calcium Level 9.0 Carbon Dioxide Level 24 Chloride Level 102 Creatinine 4.53 H Direct Bilirubin 0.00 Eosinophils # 0.0 Eosinophils % 0.3 Globulin 3.20 Glucose Level 141 # Hematocrit 28.5 L Hemoglobin 9.3 L Indirect Bilirubin 0.2 Lymphocytes # 0.8 Lymphocytes % 10.9 L Mean Corpuscular Hemoglobin 30.7 Mean Corpuscular Hemoglobin Concent 32.7 Mean Corpuscular Volume 93.9 Mean Platelet Volume 11.0 H Monocytes # 0.3 Monocytes % 4.5 Neutrophils # 6.0 Neutrophils % 84.1 H Nucleated Red Blood Cells # 0.0 Nucleated Red Blood Cells % 0.0 Platelet Count 98 L Potassium Level 3.6 Red Blood Count 3.03 L Red Cell Distribution Width 18.0 H Sodium Level 141 Total Bilirubin 0.2 Total Protein 6.7 White Blood Count 7.1 Arterial Blood HCO3 20.2 L Arterial Blood Base Excess -3.5 L Arterial Blood Oxygen Saturation 91.4 L Jimmie Test N/A Arterial Blood Gas Puncture Site LB Arterial Blood Carboxyhemoglobin 0.5 Arterial Blood Date Drawn 04/10/2016 8:00:51 AM Arterial Blood Methemoglobin 0.3 Arterial Blood pCO2 (Temp correct) 32.6 L Arterial Blood pH (Temp corrected) 7.409 Arterial Blood pO2 (Temp corrected) 61.8 L Blood Gas A-a O2 Differential 113.8 H Blood Gas Actual Respiration Rate 18 Blood Gas IPAP/EPAP Ratio 15/5 Blood Gas Modality MASK - BIPAP Blood Gas Notified Time 04/10/2016 8:16:53 AM Blood Gas Notified Whom CW Blood Gas Respiration Rate 16.0 Blood Gas Specimen Source Blood arterial Blood Gas Temperature 37.0 FiO2 30.0 Oxyhemoglobin Percent 90.7 L Total Hemoglobin 14.2 Medications Medications Current Medications Lorazepam (Ativan) 0.5 mg Q6H PRN IV ANXIETY Last administered on 04/04/16at 20 :40; Admin Dose 0.5 MG; Start 04/04/16 at 15:30 Ondansetron HCl (Zofran Inj) 4 mg Q6H PRN IV NAUSEA AND/OR VOMITING; Start at 15:30 Famotidine (Pepcid Iv) 20 mg QHS IV Last administered on 04/09/16 20:20; Admin Dose 20 MG; Start 04/04/16 at 21:00 Ferrous Sulfate (Ferrous Sulfate (Ec)) 325 mg DAILY PO Last administered on 04/09 09:13; Admin Dose 325 MG; Start 04/05/16 at 09:00 Insulin Glargine (Lantus) 25 unit QHS SC Last administered on 04/09/16 22:19; Admin Dose 25 UNIT; Start 04/04/16 at 21:00 Latanoprost (Xalatan) 1 drop QHS BOTH EYES Last administered on 04/09/16 20:20 ; Admin Dose 1 DROP; Start 04/04/16 at 21:00 Metoprolol Tartrate (Lopressor) 25 mg BID PO Last administered on 04/09/16 20: 22; Admin Dose 25 MG; Start 04/04/16 at 21:00 Polyethylene Glycol (Miralax) 17 gm DAILY PO Last administered on 04/09/16 09: 13; Admin Dose 17 GM; Start 04/05/16 at 09:00 Atorvastatin Calcium (Lipitor) 20 mg DAILY@21 PO Last administered on 04/09/16 20:20; Admin Dose 20 MG; Start 04/04/16 at 21:00 Miscellaneous Information 1 ea NOTE XX ; Start 04/04/16 at 16:00 Glucose (Glutose) 15 gm Q15M PRN PO DECREASED GLUCOSE; Start 04/04/16 at 16:00 Glucose (Glutose) 22.5 gm Q15M PRN PO DECREASED GLUCOSE; Start 04/04/16 at 16: 00 Dextrose (D50w Syringe) 25 ml Q15M PRN IV DECREASED GLUCOSE Last administered on 04/09/16 13:09; Admin Dose 25 ML; Start 04/04/16 at 16:00 Dextrose (D50w Syringe) 50 ml Q15M PRN IV DECREASED GLUCOSE; Start 04/04/16 at 16:00 Glucagon (Glucagen) 1 mg Q15M PRN IM DECREASED GLUCOSE; Start 04/04/16 at 16: 00 Glucose 15 gm 15 gm Q15M PRN BUCCAL DECREASED GLUCOSE; Start 04/04/16 at 16:00 Norepinephrine 16 mg/Dextrose 500 ml @ 1.87 mls/hr TITRATE IV Last administered on 04/06/16at 14:58; Admin Dose 28.12 MLS/HR; Start 04/04/16 at 16 :30 Cefepime HCl (Maxipime 1gm/50 ml (Pmx)) 50 ml @ 100 mls/hr Q24H IVPB Last administered on 04/09/16 16:06; Admin Dose 100 MLS/HR; Start 04/05/16 at 15:00 Tramadol HCl (Ultram) 50 mg Q6H PRN PO Pain Last administered on 04/08/16at 05: 48; Admin Dose 50 MG; Start 04/04/16 at 16:30 Allopurinol (Zyloprim) 200 mg DAILY PO Last administered on 04/10/16 08:06; Admin Dose 200 MG; Start 04/05/16 at 09:00 Insulin Aspart (Novolog Insulin Pen) NOVOLOG *MILD* ALGORI... Q4 SC Last administered on 04/10/16 05:00; Admin Dose 1 UNIT; Start 04/05/16 at 17:00 Clopidogrel Bisulfate (plaVIX) 75 mg DAILY PO Last administered on 04/10/16 08: 07; Admin Dose 75 MG; Start 04/05/16 at 18:30 Pregabalin (Lyrica) 100 mg BID PO Last administered on 04/09/16 20:22; Admin Dose 100 MG; Start 04/05/16 at 21:00 Acetaminophen (Tylenol Supp) [address] FEVER Last administered on 04/08at 14:12; Admin Dose 650 MG; Start 04/06/16 at 12:00 Fluconazole (Diflucan) 100 mg DAILY PO Last administered on 04/10/16 08:06; Admin Dose 100 MG; Start 04/07/16 at 15:00 Apixaban 2.5 mg 2.5 mg BID PO Last administered on 04/10/16 08:07; Admin Dose 2.5 MG; Start 04/08/16 at 21:00 Dextrose (D5W) 1,000 ml @ 40 mls/hr Q24H IV Last administered on 04/09/16 22: 50; Admin Dose 40 MLS/HR; Start 04/09/16 at 10:00 Hydralazine HCl (Apresoline) 5 mg Q6H PRN IV ELEVATED BLOOD PRESSURE; Start 04/09/16 at 11:30 DEJUAN LINDA MD Apr 10, 2016 10:19
--- NOTE | 2016-04-10 10:57 | CONS ---
Date/Time of Note Date/Time of Note DATE: 04/10/16 TIME: 10:56 Consult Date/Type/Reason Admit Date/Time Apr 04, 2016 at 15:15 Initial Consult Date 04/04/16 Type of Consultation: Pulm Subjective Back on bipap desaturating off nippv. having HD Objective Vital Signs Date Time Temp Pulse Resp B/P Pulse Ox O2 Delivery O2 Flow Rate FiO2 04/10/16 10:30 50 20 114/32 95 04/10/16 07:15 98.0 04/10/16 05:30 30 04/10/16 04:00 BIPAP 04/09/16 00:00 3.0 Intake and Output 04/09/16 04/09/16 04/10/16 15:00 23:00 07:00 Intake Total 860 ml 600 ml 380 ml Output Total 4500 ml 0 ml 0 ml Balance -3640 ml 600 ml 380 ml PHYSICAL EXAMINATION: GENERAL: Elderly Yi lady on bilevel VITAL SIGNS: As above NECK: Supple. No JVD or lymphadenopathy. CARDIAC: S1, S2, no added sounds or murmurs. CHEST: Diminished air entry bilaterally. Coarse upper airway rales ABDOMEN: Soft, nontender. No guarding or rebound. EXTREMITIES: No cyanosis, clubbing, 1+ edema. NEUROLOGIC: Generalized weakness. Results/Medications Result Diagram: 04/10/16 0440 04/10/16 0440 Results 24 hrs Laboratory Tests Test 04/09/16 11:21 04/09/16 13:06 04/09/16 14:14 04/09/16 16:57 Bedside Glucose 89 69 L 124 170 Test 04/09/16 20:50 04/10/16 01:22 04/10/16 04:40 04/10/16 04:49 Bedside Glucose 152 164 157 Alanine Aminotransferase (ALT/SGPT) 58 Albumin 3.5 Albumin/Globulin Ratio 1.09 Alkaline Phosphatase 114 Anion Gap 19 H Aspartate Amino Transf (AST/SGOT) 131 H Basophils # 0.0 Basophils % 0.2 Blood Morphology Comment Blood Urea Nitrogen 40 H Calcium Level 9.0 Carbon Dioxide Level 24 Chloride Level 102 Creatinine 4.53 H Direct Bilirubin 0.00 Eosinophils # 0.0 Eosinophils % 0.3 Globulin 3.20 Glucose Level 141 # Hematocrit 28.5 L Hemoglobin 9.3 L Indirect Bilirubin 0.2 Lymphocytes # 0.8 Lymphocytes % 10.9 L Mean Corpuscular Hemoglobin 30.7 Mean Corpuscular Hemoglobin Concent 32.7 Mean Corpuscular Volume 93.9 Mean Platelet Volume 11.0 H Monocytes # 0.3 Monocytes % 4.5 Neutrophils # 6.0 Neutrophils % 84.1 H Nucleated Red Blood Cells # 0.0 Nucleated Red Blood Cells % 0.0 Platelet Count 98 L Potassium Level 3.6 Red Blood Count 3.03 L Red Cell Distribution Width 18.0 H Sodium Level 141 Total Bilirubin 0.2 Total Protein 6.7 White Blood Count 7.1 Test 04/10/16 07:00 04/10/16 09:33 Arterial Blood HCO3 20.2 L Arterial Blood Base Excess -3.5 L Arterial Blood Oxygen Saturation 91.4 L Jimmie Test N/A Arterial Blood Gas Puncture Site LB Arterial Blood Carboxyhemoglobin 0.5 Arterial Blood Date Drawn 04/10/2016 8:00:51 AM Arterial Blood Methemoglobin 0.3 Arterial Blood pCO2 (Temp correct) 32.6 L Arterial Blood pH (Temp corrected) 7.409 Arterial Blood pO2 (Temp corrected) 61.8 L Blood Gas A-a O2 Differential 113.8 H Blood Gas Actual Respiration Rate 18 Blood Gas IPAP/EPAP Ratio 15/5 Blood Gas Modality MASK - BIPAP Blood Gas Notified Time 04/10/2016 8:16:53 AM Blood Gas Notified Whom CW Blood Gas Respiration Rate 16.0 Blood Gas Specimen Source Blood arterial Blood Gas Temperature 37.0 FiO2 30.0 Oxyhemoglobin Percent 90.7 L Total Hemoglobin 14.2 Bedside Glucose 185 Medications Current Medications Lorazepam (Ativan) 0.5 mg Q6H PRN IV ANXIETY Last administered on 04/04/16at 20 :40; Admin Dose 0.5 MG; Start 04/04/16 at 15:30 Ondansetron HCl (Zofran Inj) 4 mg Q6H PRN IV NAUSEA AND/OR VOMITING; Start at 15:30 Famotidine (Pepcid Iv) 20 mg QHS IV Last administered on 04/09/16 20:20; Admin Dose 20 MG; Start 04/04/16 at 21:00 Ferrous Sulfate (Ferrous Sulfate (Ec)) 325 mg DAILY PO Last administered on 04/09 09:13; Admin Dose 325 MG; Start 04/05/16 at 09:00 Insulin Glargine (Lantus) 25 unit QHS SC Last administered on 04/09/16 22:19; Admin Dose 25 UNIT; Start 04/04/16 at 21:00 Latanoprost (Xalatan) 1 drop QHS BOTH EYES Last administered on 04/09/16 20:20 ; Admin Dose 1 DROP; Start 04/04/16 at 21:00 Metoprolol Tartrate (Lopressor) 25 mg BID PO Last administered on 04/09/16 20: 22; Admin Dose 25 MG; Start 04/04/16 at 21:00 Polyethylene Glycol (Miralax) 17 gm DAILY PO Last administered on 04/09/16 09: 13; Admin Dose 17 GM; Start 04/05/16 at 09:00 Atorvastatin Calcium (Lipitor) 20 mg DAILY@21 PO Last administered on 04/09/16 20:20; Admin Dose 20 MG; Start 04/04/16 at 21:00 Miscellaneous Information 1 ea NOTE XX ; Start 04/04/16 at 16:00 Glucose (Glutose) 15 gm Q15M PRN PO DECREASED GLUCOSE; Start 04/04/16 at 16:00 Glucose (Glutose) 22.5 gm Q15M PRN PO DECREASED GLUCOSE; Start 04/04/16 at 16: 00 Dextrose (D50w Syringe) 25 ml Q15M PRN IV DECREASED GLUCOSE Last administered on 04/09/16 13:09; Admin Dose 25 ML; Start 04/04/16 at 16:00 Dextrose (D50w Syringe) 50 ml Q15M PRN IV DECREASED GLUCOSE; Start 04/04/16 at 16:00 Glucagon (Glucagen) 1 mg Q15M PRN IM DECREASED GLUCOSE; Start 04/04/16 at 16: 00 Glucose 15 gm 15 gm Q15M PRN BUCCAL DECREASED GLUCOSE; Start 04/04/16 at 16:00 Norepinephrine 16 mg/Dextrose 500 ml @ 1.87 mls/hr TITRATE IV Last administered on 04/06/16at 14:58; Admin Dose 28.12 MLS/HR; Start 04/04/16 at 16 :30 Cefepime HCl (Maxipime 1gm/50 ml (Pmx)) 50 ml @ 100 mls/hr Q24H IVPB Last administered on 04/09/16 16:06; Admin Dose 100 MLS/HR; Start 04/05/16 at 15:00 Tramadol HCl (Ultram) 50 mg Q6H PRN PO Pain Last administered on 04/08/16at 05: 48; Admin Dose 50 MG; Start 04/04/16 at 16:30 Allopurinol (Zyloprim) 200 mg DAILY PO Last administered on 04/10/16 08:06; Admin Dose 200 MG; Start 04/05/16 at 09:00 Insulin Aspart (Novolog Insulin Pen) NOVOLOG *MILD* ALGORI... Q4 SC Last administered on 04/10/16 09:45; Admin Dose 2 UNIT; Start 04/05/16 at 17:00 Clopidogrel Bisulfate (plaVIX) 75 mg DAILY PO Last administered on 04/10/16 08: 07; Admin Dose 75 MG; Start 04/05/16 at 18:30 Pregabalin (Lyrica) 100 mg BID PO Last administered on 04/09/16 20:22; Admin Dose 100 MG; Start 04/05/16 at 21:00 Acetaminophen (Tylenol Supp) 650 mg Q6H PRN [place] FEVER Last administered on 04/08at 14:12; Admin Dose 650 MG; Start 04/06/16 at 12:00 Fluconazole (Diflucan) 100 mg DAILY PO Last administered on 04/10/16 08:06; Admin Dose 100 MG; Start 04/07/16 at 15:00 Apixaban 2.5 mg 2.5 mg BID PO Last administered on 04/10/16 08:07; Admin Dose 2.5 MG; Start 04/08/16 at 21:00 Dextrose (D5W) 1,000 ml @ 40 mls/hr Q24H IV Last administered on 04/09/16 22: 50; Admin Dose 40 MLS/HR; Start 04/09/16 at 10:00 Hydralazine HCl (Apresoline) 5 mg Q6H PRN IV ELEVATED BLOOD PRESSURE; Start 04/09/16 at 11:30 Assessment/Plan Chief Complaint/Hosp Course IMPRESSION: 1. Pulmonary edema with possible component of pneumonia with subsequent hypoxemic respiratory failure. 2. 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 3. Encephalopathy, toxic metabolic. 4. Patient's code status: DNR/DNI. 5. Severe mitral stenosis with underlying coronary artery disease 6. Status post coronary intervention 7. Likely significant aspiration risk PLAN: 1. Continue noninvasive positive pressure ventilation and nasal cannula oxygen. Aggressive pulmonary toilet 2. Supplemental O2. 3. DVT and GI prophylaxis. 4. Cardiac catheterization with revascularization, continue cardiology recommendations 5. Unlikely patient is stable for oral intake significant aspiration risk Consider hospice evaluation Problems: OSIRIS REYNOLDS MD, [facility] Apr 10, 2016 10:57
[2016-04-10] MEDS: METOPROLOL 25 MG TAB PO SCH ×2 (11:01→20:38)
[2016-04-10] MEDS: PREGABALIN 25 MG CAP PO SCH ×2 (12:00→20:41)
--- NOTE | 2016-04-10 12:09 | CONS ---
Date/Time of Note Date/Time of Note DATE: 04/10/16 TIME: 12:07 Assessment/Plan Assessment/Plan Chief Complaint/Hosp Course INFECTIOUS DISEASE PROGRESS NOTE 24H INTERVAL SUMMARY * No fevers, BIPAP, HD today -> Swallow eval deferred * CHART REVIEWED: 89 yo F - Bipap, severe mitral valve stenosis w/hx of TIAs, (+ )NSTEMI hx of CAD * CARDS note reviewed: Patient has arterial calcification w/arterial stiffness - > her non-invasive peripheral B/P readings are ~15mmHg lower than her invasive A -line readings. A-esha needs to be removed. Recommend taking peripheral B/P on lower extremity if possible due to false low systolic B/P readings on upper extremities. * INDWELLINGS: IJ, PICC, PACER * MICROBIOLOGY: Sputum culture growing Sandra albicans. * ANTIMICROBIALS: Vancomycin IV, Cefepime, Diflucan PHYSICAL EXAMINATION: GENERAL: This is a morbidly obese, elderly woman, lethargic HEENT: Unremarkable - full face bipap NECK: Supple. CHEST: Chest rise is symmetrical, diminished, supplemental O2 HEART: S1, S2. ABDOMEN: Soft EXTREMITIES: Without cyanosis. Trace edema. ID ASSESSMENT: 89 yo Obese F admit with: 1. Status post shock, likely septic and cardiogenic both. 2. HYPOTENSION => CARDS note reviewed: * Patient has arterial calcification w/arterial stiffness -> her non-invasive peripheral B/P readings are ~15mmHg lower than her invasive A-line readings. A- esha needs to be removed. Recommend taking peripheral B/P on lower extremity if possible due to false low systolic B/P readings on upper extremities. Acute respiratory failure secondary to pulmonary edema, possibly aspiration event. 3. Non-ST elevation myocardial infarction, status post cardiac catheterization with stenting to the posterior descending artery. 4. Severe mitral stenosis. 5. (+)Indwelling Pacer 6. End-stage renal disease, hemodialysis dependent. 7. Resolving encephalopathy. (-)MRSA Nares INVASIVES: IJ-> HD , PICC, Pacer CURRENT ABX: Vanco IV, Cefepime, Diflucan ID PLAN: Continue ABX Swallow eval pending - deferred today 2/2 HD and Bipap Repeat BCx next HD CARDS note reviewed: Patient has arterial calcification w/arterial stiffness: * -> her non-invasive peripheral B/P readings are ~15mmHg lower than her invasive A-line readings. A-esha needs to be removed. * Recommend taking peripheral B/P on lower extremity if possible due to false low systolic B/P readings on upper extremities. Problems: Consultation Date/Type/Reason Admit Date/Time Apr 04, 2016 at 15:15 Initial Consult Date 04/04/16 Type of Consultation: ID Exam/Review of Systems Vital Signs Vitals Vital Signs Date Time Temp Pulse Resp B/P Pulse Ox O2 Delivery O2 Flow Rate FiO2 04/10/16 11:15 51 04/10/16 11:15 20 04/10/16 10:30 114/32 95 04/10/16 07:15 98.0 04/10/16 05:30 30 04/10/16 04:00 BIPAP 04/09/16 00:00 3.0 Intake and Output 04/09/16 04/09/16 04/10/16 15:00 23:00 07:00 Intake Total 860 ml 600 ml 380 ml Output Total 4500 ml 0 ml 0 ml Balance -3640 ml 600 ml 380 ml Results Result Diagram: 04/10/16 0440 04/10/16 0440 Results 24 hrs Laboratory Tests Test 04/09/16 13:06 04/09/16 14:14 04/09/16 16:57 04/09/16 20:50 Bedside Glucose 69 L 124 170 152 Test 04/10/16 01:22 04/10/16 04:40 04/10/16 04:49 04/10/16 07:00 Bedside Glucose 164 157 Alanine Aminotransferase (ALT/SGPT) 58 Albumin 3.5 Albumin/Globulin Ratio 1.09 Alkaline Phosphatase 114 Anion Gap 19 H Aspartate Amino Transf (AST/SGOT) 131 H Basophils # 0.0 Basophils % 0.2 Blood Morphology Comment Blood Urea Nitrogen 40 H Calcium Level 9.0 Carbon Dioxide Level 24 Chloride Level 102 Creatinine 4.53 H Direct Bilirubin 0.00 Eosinophils # 0.0 Eosinophils % 0.3 Globulin 3.20 Glucose Level 141 # Hematocrit 28.5 L Hemoglobin 9.3 L Indirect Bilirubin 0.2 Lymphocytes # 0.8 Lymphocytes % 10.9 L Mean Corpuscular Hemoglobin 30.7 Mean Corpuscular Hemoglobin Concent 32.7 Mean Corpuscular Volume 93.9 Mean Platelet Volume 11.0 H Monocytes # 0.3 Monocytes % 4.5 Neutrophils # 6.0 Neutrophils % 84.1 H Nucleated Red Blood Cells # 0.0 Nucleated Red Blood Cells % 0.0 Platelet Count 98 L Potassium Level 3.6 Red Blood Count 3.03 L Red Cell Distribution Width 18.0 H Sodium Level 141 Total Bilirubin 0.2 Total Protein 6.7 White Blood Count 7.1 Arterial Blood HCO3 20.2 L Arterial Blood Base Excess -3.5 L Arterial Blood Oxygen Saturation 91.4 L Jimmie Test N/A Arterial Blood Gas Puncture Site LB Arterial Blood Carboxyhemoglobin 0.5 Arterial Blood Date Drawn 04/10/2016 8:00:51 AM Arterial Blood Methemoglobin 0.3 Arterial Blood pCO2 (Temp correct) 32.6 L Arterial Blood pH (Temp corrected) 7.409 Arterial Blood pO2 (Temp corrected) 61.8 L Blood Gas A-a O2 Differential 113.8 H Blood Gas Actual Respiration Rate 18 Blood Gas IPAP/EPAP Ratio 15/5 Blood Gas Modality MASK - BIPAP Blood Gas Notified Time 04/10/2016 8:16:53 AM Blood Gas Notified Whom CW Blood Gas Respiration Rate 16.0 Blood Gas Specimen Source Blood arterial Blood Gas Temperature 37.0 FiO2 30.0 Oxyhemoglobin Percent 90.7 L Total Hemoglobin 14.2 Test 04/10/16 09:33 Bedside Glucose 185 Medications Medications Current Medications Lorazepam (Ativan) 0.5 mg Q6H PRN IV ANXIETY Last administered on 04/04/16at 20 :40; Admin Dose 0.5 MG; Start 04/04/16 at 15:30 Ondansetron HCl (Zofran Inj) 4 mg Q6H PRN IV NAUSEA AND/OR VOMITING; Start at 15:30 Famotidine (Pepcid Iv) 20 mg QHS IV Last administered on 04/09/16 20:20; Admin Dose 20 MG; Start 04/04/16 at 21:00 Ferrous Sulfate (Ferrous Sulfate (Ec)) 325 mg DAILY PO Last administered on 04/09 09:13; Admin Dose 325 MG; Start 04/05/16 at 09:00 Insulin Glargine (Lantus) 25 unit QHS SC Last administered on 04/09/16 22:19; Admin Dose 25 UNIT; Start 04/04/16 at 21:00 Latanoprost (Xalatan) 1 drop QHS BOTH EYES Last administered on 04/09/16 20:20 ; Admin Dose 1 DROP; Start 04/04/16 at 21:00 Metoprolol Tartrate (Lopressor) 25 mg BID PO Last administered on 04/09/16 20: 22; Admin Dose 25 MG; Start 04/04/16 at 21:00 Polyethylene Glycol (Miralax) 17 gm DAILY PO Last administered on 04/09/16 09: 13; Admin Dose 17 GM; Start 04/05/16 at 09:00 Atorvastatin Calcium (Lipitor) 20 mg DAILY@21 PO Last administered on 04/09/16 20:20; Admin Dose 20 MG; Start 04/04/16 at 21:00 Miscellaneous Information 1 ea NOTE XX ; Start 04/04/16 at 16:00 Glucose (Glutose) 15 gm Q15M PRN PO DECREASED GLUCOSE; Start 04/04/16 at 16:00 Glucose (Glutose) 22.5 gm Q15M PRN PO DECREASED GLUCOSE; Start 04/04/16 at 16: 00 Dextrose (D50w Syringe) 25 ml Q15M PRN IV DECREASED GLUCOSE Last administered on 04/09/16 13:09; Admin Dose 25 ML; Start 04/04/16 at 16:00 Dextrose (D50w Syringe) 50 ml Q15M PRN IV DECREASED GLUCOSE; Start 04/04/16 at 16:00 Glucagon (Glucagen) 1 mg Q15M PRN IM DECREASED GLUCOSE; Start 04/04/16 at 16: 00 Glucose 15 gm 15 gm Q15M PRN BUCCAL DECREASED GLUCOSE; Start 04/04/16 at 16:00 Norepinephrine 16 mg/Dextrose 500 ml @ 1.87 mls/hr TITRATE IV Last administered on 04/06/16at 14:58; Admin Dose 28.12 MLS/HR; Start 04/04/16 at 16 :30 Cefepime HCl (Maxipime 1gm/50 ml (Pmx)) 50 ml @ 100 mls/hr Q24H IVPB Last administered on 04/09/16 16:06; Admin Dose 100 MLS/HR; Start 04/05/16 at 15:00 Tramadol HCl (Ultram) 50 mg Q6H PRN PO Pain Last administered on 04/08/16at 05: 48; Admin Dose 50 MG; Start 04/04/16 at 16:30 Allopurinol (Zyloprim) 200 mg DAILY PO Last administered on 04/10/16 08:06; Admin Dose 200 MG; Start 04/05/16 at 09:00 Insulin Aspart (Novolog Insulin Pen) NOVOLOG *MILD* ALGORI... Q4 SC Last administered on 04/10/16 09:45; Admin Dose 2 UNIT; Start 04/05/16 at 17:00 Clopidogrel Bisulfate (plaVIX) 75 mg DAILY PO Last administered on 04/10/16 08: 07; Admin Dose 75 MG; Start 04/05/16 at 18:30 Pregabalin (Lyrica) 100 mg BID PO Last administered on 04/09/16 20:22; Admin Dose 100 MG; Start 04/05/16 at 21:00 Acetaminophen (Tylenol Supp) 650 mg Q6H PRN [place] FEVER Last administered on 04/08at 14:12; Admin Dose 650 MG; Start 04/06/16 at 12:00 Fluconazole (Diflucan) 100 mg DAILY PO Last administered on 04/10/16 08:06; Admin Dose 100 MG; Start 04/07/16 at 15:00 Apixaban 2.5 mg 2.5 mg BID PO Last administered on 04/10/16 08:07; Admin Dose 2.5 MG; Start 04/08/16 at 21:00 Dextrose (D5W) 1,000 ml @ 40 mls/hr Q24H IV Last administered on 04/09/16 22: 50; Admin Dose 40 MLS/HR; Start 04/09/16 at 10:00 Hydralazine HCl (Apresoline) 5 mg Q6H PRN IV ELEVATED BLOOD PRESSURE; Start 04/09/16 at 11:30 MANDIE DOW NP Apr 10, 2016 12:09
[2016-04-10] MEDS: CEFEPIME 1GM/50 ML (PMX) 50 ML IVPB SCH (16:45)
[2016-04-10] MEDS: LATANOPROST 0.005% 2.5 ML OPH BOTH EYES SCH (20:34)
[2016-04-10] MEDS: FAMOTIDINE 20 MG INJ IV SCH (20:35)
[2016-04-10] MEDS: ATORVASTATIN 20 MG TAB PO SCH (20:37)
[2016-04-10] MEDS: INSULIN GLARGINE [LANtus] 3 ML PEN SC SCH (20:55)
--- NOTE | 2016-04-10 21:23 | CONS ---
Date/Time of Note Date/Time of Note DATE: 04/10/16 TIME: 21:22 Consult Date/Type/Reason Admit Date/Time Apr 04, 2016 at 15:15 Initial Consult Date 04/04/16 Type of Consultation: Cardiology Objective Vital Signs Date Time Temp Pulse Resp B/P Pulse Ox O2 Delivery O2 Flow Rate FiO2 04/10/16 21:05 49 99 40 04/10/16 19:00 18 96/29 04/10/16 16:30 98.8 04/10/16 04:00 BIPAP 04/09/16 00:00 3.0 Intake and Output 04/09/16 04/09/16 04/10/16 15:00 23:00 07:00 Intake Total 860 ml 600 ml 380 ml Output Total 4500 ml 0 ml 0 ml Balance -3640 ml 600 ml 380 ml Results/Medications Result Diagram: 04/10/16 0440 04/10/16 0440 Results 24 hrs Laboratory Tests Test 04/10/16 01:22 04/10/16 04:40 04/10/16 04:49 04/10/16 07:00 Bedside Glucose 164 157 Alanine Aminotransferase (ALT/SGPT) 58 Albumin 3.5 Albumin/Globulin Ratio 1.09 Alkaline Phosphatase 114 Anion Gap 19 H Aspartate Amino Transf (AST/SGOT) 131 H Basophils # 0.0 Basophils % 0.2 Blood Morphology Comment Blood Urea Nitrogen 40 H Calcium Level 9.0 Carbon Dioxide Level 24 Chloride Level 102 Creatinine 4.53 H Direct Bilirubin 0.00 Eosinophils # 0.0 Eosinophils % 0.3 Globulin 3.20 Glucose Level 141 # Hematocrit 28.5 L Hemoglobin 9.3 L Indirect Bilirubin 0.2 Lymphocytes # 0.8 Lymphocytes % 10.9 L Mean Corpuscular Hemoglobin 30.7 Mean Corpuscular Hemoglobin Concent 32.7 Mean Corpuscular Volume 93.9 Mean Platelet Volume 11.0 H Monocytes # 0.3 Monocytes % 4.5 Neutrophils # 6.0 Neutrophils % 84.1 H Nucleated Red Blood Cells # 0.0 Nucleated Red Blood Cells % 0.0 Platelet Count 98 L Potassium Level 3.6 Red Blood Count 3.03 L Red Cell Distribution Width 18.0 H Sodium Level 141 Total Bilirubin 0.2 Total Protein 6.7 White Blood Count 7.1 Arterial Blood HCO3 20.2 L Arterial Blood Base Excess -3.5 L Arterial Blood Oxygen Saturation 91.4 L Jimmie Test N/A Arterial Blood Gas Puncture Site LB Arterial Blood Carboxyhemoglobin 0.5 Arterial Blood Date Drawn 04/10/2016 8:00:51 AM Arterial Blood Methemoglobin 0.3 Arterial Blood pCO2 (Temp correct) 32.6 L Arterial Blood pH (Temp corrected) 7.409 Arterial Blood pO2 (Temp corrected) 61.8 L Blood Gas A-a O2 Differential 113.8 H Blood Gas Actual Respiration Rate 18 Blood Gas IPAP/EPAP Ratio 15 Blood Gas Modality MASK - BIPAP Blood Gas Notified Time 04/10/2016 8:16:53 AM Blood Gas Notified Whom CW Blood Gas Respiration Rate 16.0 Blood Gas Specimen Source Blood arterial Blood Gas Temperature 37.0 FiO2 30.0 Oxyhemoglobin Percent 90.7 L Total Hemoglobin 14.2 Test 04/10/16 09:33 04/10/16 13:48 04/10/16 17:45 04/10/16 20:33 Bedside Glucose 185 130 144 138 Medications Current Medications Lorazepam (Ativan) 0.5 mg Q6H PRN IV ANXIETY Last administered on 04/04/16at 20 :40; Admin Dose 0.5 MG; Start 04/04/16 at 15:30 Ondansetron HCl (Zofran Inj) 4 mg Q6H PRN IV NAUSEA AND/OR VOMITING; Start at 15:30 Famotidine (Pepcid Iv) 20 mg QHS IV Last administered on 04/10/16 20:35; Admin Dose 20 MG; Start 04/04/16 at 21:00 Ferrous Sulfate (Ferrous Sulfate (Ec)) 325 mg DAILY PO Last administered on 04/09 09:13; Admin Dose 325 MG; Start 04/05/16 at 09:00 Insulin Glargine (Lantus) 25 unit QHS SC Last administered on 04/10/16 20:55; Admin Dose 25 UNIT; Start 04/04/16 at 21:00 Latanoprost (Xalatan) 1 drop QHS BOTH EYES Last administered on 04/10/16 20:34 ; Admin Dose 1 DROP; Start 04/04/16 at 21:00 Metoprolol Tartrate (Lopressor) 25 mg BID PO Last administered on 04/10/16 20: 38; Admin Dose 25 MG; Start 04/04/16 at 21:00 Polyethylene Glycol (Miralax) 17 gm DAILY PO Last administered on 04/09/16 09: 13; Admin Dose 17 GM; Start 04/05/16 at 09:00 Atorvastatin Calcium (Lipitor) 20 mg DAILY@21 PO Last administered on 04/10/16 20:37; Admin Dose 20 MG; Start 04/04/16 at 21:00 Miscellaneous Information 1 ea NOTE XX ; Start 04/04/16 at 16:00 Glucose (Glutose) 15 gm Q15M PRN PO DECREASED GLUCOSE; Start 04/04/16 at 16:00 Glucose (Glutose) 22.5 gm Q15M PRN PO DECREASED GLUCOSE; Start 04/04/16 at 16: 00 Dextrose (D50w Syringe) 25 ml Q15M PRN IV DECREASED GLUCOSE Last administered on 04/09/16 13:09; Admin Dose 25 ML; Start 04/04/16 at 16:00 Dextrose (D50w Syringe) 50 ml Q15M PRN IV DECREASED GLUCOSE; Start 04/04/16 at 16:00 Glucagon (Glucagen) 1 mg Q15M PRN IM DECREASED GLUCOSE; Start 04/04/16 at 16: 00 Glucose 15 gm 15 gm Q15M PRN BUCCAL DECREASED GLUCOSE; Start 04/04/16 at 16:00 Norepinephrine 16 mg/Dextrose 500 ml @ 1.87 mls/hr TITRATE IV Last administered on 04/06/16at 14:58; Admin Dose 28.12 MLS/HR; Start 04/04/16 at 16 :30 Cefepime HCl (Maxipime 1gm/50 ml (Pmx)) 50 ml @ 100 mls/hr Q24H IVPB Last administered on 04/10/16 16:45; Admin Dose 100 MLS/HR; Start 04/05/16 at 15:00 Tramadol HCl (Ultram) 50 mg Q6H PRN PO Pain Last administered on 04/08/16at 05: 48; Admin Dose 50 MG; Start 04/04/16 at 16:30 Allopurinol (Zyloprim) 200 mg DAILY PO Last administered on 04/10/16 08:06; Admin Dose 200 MG; Start 04/05/16 at 09:00 Insulin Aspart (Novolog Insulin Pen) NOVOLOG *MILD* ALGORI... Q4 SC Last administered on 04/10/16 09:45; Admin Dose 2 UNIT; Start 04/05/16 at 17:00 Clopidogrel Bisulfate (plaVIX) 75 mg DAILY PO Last administered on 04/10/16 08: 07; Admin Dose 75 MG; Start 04/05/16 at 18:30 Pregabalin (Lyrica) 100 mg BID PO Last administered on 04/10/16 20:41; Admin Dose 100 MG; Start 04/05/16 at 21:00 Acetaminophen (Tylenol Supp) 650 mg Q6H PRN MS FEVER Last administered on 04/08at 14:12; Admin Dose 650 MG; Start 04/06/16 at 12:00 Fluconazole (Diflucan) 100 mg DAILY PO Last administered on 04/10/16 08:06; Admin Dose 100 MG; Start 04/07/16 at 15:00 Apixaban 2.5 mg 2.5 mg BID PO Last administered on 04/10/16 20:37; Admin Dose 2.5 MG; Start 04/08/16 at 21:00 Dextrose (D5W) 1,000 ml @ 40 mls/hr Q24H IV Last administered on 04/09/16 22: 50; Admin Dose 40 MLS/HR; Start 04/09/16 at 10:00 Hydralazine HCl (Apresoline) 5 mg Q6H PRN IV ELEVATED BLOOD PRESSURE; Start 04/09/16 at 11:30 Assessment/Plan Chief Complaint/Hosp Course Patient is 89 year old female with PMH of CAD pci of LAD, Severe mitral calcification with MS, CHF, ESRD on HD, Multiple TIA, PAD came in with SOB, Positive trop, intial plan was to take her to lab clerk from ER but she was very SOB with craclkes, So brought to ICU. Will need HD, trend trop. had long discussion with family, daughter. Problems: Additional Assessment/Plan Back on Bipap Aspiration risk ICU care continue Likely pulm etiology of infection due to possible aspiraiton. Contineu eliques and plavix Will /fu ANH FRITZ MD Apr 10, 2016 21:23
[2016-04-11] VITALS (28 sets, daily range): BP systolic 91–127; BP diastolic 40–56; PULSE 49–177; RESP 17–23
[2016-04-11] MEDS: INSULIN ASPART [NOVOLOG] 3 ML PEN SC SCH ×6 (01:00→21:00)
[2016-04-11 07:07] LABS: EOSINOPHILS # 0.1 10^3/ul (0.0-0.5); EOSINOPHILS % 0.8 % (0.0-7.0); HEMATOCRIT 29.8 % (37.0-47.0); HEMOGLOBIN 9.9 g/dl (12.0-16.0); LYMPHOCYTES # 0.9 10^3/ul (0.8-2.9); MEAN CORPUSCULAR HEMOGLOBIN 30.7 pg (29.0-33.0); MEAN CORPUSCULAR HGB CONC 33.1 g/dl (32.0-37.0); MEAN CORPUSCULAR VOLUME 92.6 fl (82.0-101.0); MEAN PLATELET VOLUME 11.4 fl (7.4-10.4); MONOCYTE # 0.1 10^3/ul (0.3-0.9); MONOCYTES % 1.2 % (0.0-11.0); NEUTROPHIL # 6.5 10^3/ul (1.6-7.5); PLATELET COUNT 119 10^3/UL (140-440); RED BLOOD COUNT 3.22 10^6/ul (4.20-5.40); RED CELL DISTRIBUTION WIDTH 17.5 % (11.5-14.5); UNCORRECTED WBC 7.6 10^3/ul (4.8-10.8); WHITE BLOOD COUNT 7.6 10^3/ul (4.8-10.8)
[2016-04-11 07:09] LABS: CONDITION 1; LH ANALYZER COMMENTS 1; SUSPECT 1
[2016-04-11 07:29] LABS: POTASSIUM 3.5 mmol/L (3.5-5.1)
[2016-04-11 07:32] LABS: CREATININE 3.51 mg/dl (0.44-1.00)
[2016-04-11 07:33] LABS: MAGNESIUM 1.9 mg/dl (1.7-2.5); PHOSPHORUS 2.1 mg/dl (2.5-4.9)
--- NOTE | 2016-04-11 09:03 | CONS ---
Date/Time of Note Date/Time of Note DATE: 04/11/16 TIME: 09:02 Consult Date/Type/Reason Admit Date/Time Apr 04, 2016 at 15:15 Initial Consult Date 04/04/16 Type of Consultation: Cardiology Objective Vital Signs Date Time Temp Pulse Resp B/P Pulse Ox O2 Delivery O2 Flow Rate FiO2 04/11/16 08:56 50 93 40 04/11/16 07:41 97.9 17 103/50 04/11/16 05:52 4.0 04/10/16 23:00 Mechanical Ventilator Intake and Output 04/10/16 04/10/16 04/11/16 14:59 22:59 06:59 Intake Total 560 ml 410 ml 440 ml Output Total 4800 ml 0 ml Balance -4240 ml 410 ml 440 ml Results/Medications Result Diagram: 04/11/1615 04/11/1615 Results 24 hrs Laboratory Tests Test 04/10/16 09:33 04/10/16 13:48 04/10/16 17:45 04/10/16 20:33 Bedside Glucose 185 130 144 138 Test 04/11/16 01:22 04/11/16 05:45 04/11/16 06:15 04/11/16 07:59 Bedside Glucose 124 139 141 Anion Gap 20 H Basophils # 0.0 Basophils % 0.0 Blood Morphology Comment Blood Urea Nitrogen 28 #H Calcium Level 9.0 Carbon Dioxide Level 25 Chloride Level 96 L Creatinine 3.51 #H Eosinophils # 0.1 Eosinophils % 0.8 Glucose Level 130 Hematocrit 29.8 L Hemoglobin 9.9 L Lymphocytes # 0.9 Lymphocytes % 12.0 L Magnesium Level 1.9 Mean Corpuscular Hemoglobin 30.7 Mean Corpuscular Hemoglobin Concent 33.1 Mean Corpuscular Volume 92.6 Mean Platelet Volume 11.4 H Monocytes # 0.1 L Monocytes % 1.2 Neutrophils # 6.5 Neutrophils % 86.0 H Nucleated Red Blood Cells # 0.0 Nucleated Red Blood Cells % 0.0 Phosphorus Level 2.1 L Platelet Count 119 #L Potassium Level 3.5 Red Blood Count 3.22 L Red Cell Distribution Width 17.5 H Sodium Level 137 White Blood Count 7.6 Medications Current Medications Lorazepam (Ativan) 0.5 mg Q6H PRN IV ANXIETY Last administered on 04/04/16at 20 :40; Admin Dose 0.5 MG; Start 04/04/16 at 15:30 Ondansetron HCl (Zofran Inj) 4 mg Q6H PRN IV NAUSEA AND/OR VOMITING; Start at 15:30 Famotidine (Pepcid Iv) 20 mg QHS IV Last administered on 04/10/16 20:35; Admin Dose 20 MG; Start 04/04/16 at 21:00 Ferrous Sulfate (Ferrous Sulfate (Ec)) 325 mg DAILY PO Last administered on 04/09 09:13; Admin Dose 325 MG; Start 04/05/16 at 09:00 Insulin Glargine (Lantus) 25 unit QHS SC Last administered on 04/10/16 20:55; Admin Dose 25 UNIT; Start 04/04/16 at 21:00 Latanoprost (Xalatan) 1 drop QHS BOTH EYES Last administered on 04/10/16 20:34 ; Admin Dose 1 DROP; Start 04/04/16 at 21:00 Metoprolol Tartrate (Lopressor) 25 mg BID PO Last administered on 04/10/16 20: 38; Admin Dose 25 MG; Start 04/04/16 at 21:00 Polyethylene Glycol (Miralax) 17 gm DAILY PO Last administered on 04/09/16 09: 13; Admin Dose 17 GM; Start 04/05/16 at 09:00 Atorvastatin Calcium (Lipitor) 20 mg DAILY@21 PO Last administered on 04/10/16 20:37; Admin Dose 20 MG; Start 04/04/16 at 21:00 Miscellaneous Information 1 ea NOTE XX ; Start 04/04/16 at 16:00 Glucose (Glutose) 15 gm Q15M PRN PO DECREASED GLUCOSE; Start 04/04/16 at 16:00 Glucose (Glutose) 22.5 gm Q15M PRN PO DECREASED GLUCOSE; Start 04/04/16 at 16: 00 Dextrose (D50w Syringe) 25 ml Q15M PRN IV DECREASED GLUCOSE Last administered on 04/09/16 13:09; Admin Dose 25 ML; Start 04/04/16 at 16:00 Dextrose (D50w Syringe) 50 ml Q15M PRN IV DECREASED GLUCOSE; Start 04/04/16 at 16:00 Glucagon (Glucagen) 1 mg Q15M PRN IM DECREASED GLUCOSE; Start 04/04/16 at 16: 00 Glucose 15 gm 15 gm Q15M PRN BUCCAL DECREASED GLUCOSE; Start 04/04/16 at 16:00 Norepinephrine 16 mg/Dextrose 500 ml @ 1.87 mls/hr TITRATE IV Last administered on 04/06/16at 14:58; Admin Dose 28.12 MLS/HR; Start 04/04/16 at 16 :30 Cefepime HCl (Maxipime 1gm/50 ml (Pmx)) 50 ml @ 100 mls/hr Q24H IVPB Last administered on 04/10/16 16:45; Admin Dose 100 MLS/HR; Start 04/05/16 at 15:00 Tramadol HCl (Ultram) 50 mg Q6H PRN PO Pain Last administered on 04/08/16at 05: 48; Admin Dose 50 MG; Start 04/04/16 at 16:30 Allopurinol (Zyloprim) 200 mg DAILY PO Last administered on 04/10/16 08:06; Admin Dose 200 MG; Start 04/05/16 at 09:00 Insulin Aspart (Novolog Insulin Pen) NOVOLOG *MILD* ALGORI... Q4 SC Last administered on 04/10/16 09:45; Admin Dose 2 UNIT; Start 04/05/16 at 17:00 Clopidogrel Bisulfate (plaVIX) 75 mg DAILY PO Last administered on 04/10/16 08: 07; Admin Dose 75 MG; Start 04/05/16 at 18:30 Pregabalin (Lyrica) 100 mg BID PO Last administered on 04/10/16 20:41; Admin Dose 100 MG; Start 04/05/16 at 21:00 Acetaminophen (Tylenol Supp) 650 mg Q6H PRN GA FEVER Last administered on 04/08at 14:12; Admin Dose 650 MG; Start 04/06/16 at 12:00 Fluconazole (Diflucan) 100 mg DAILY PO Last administered on 04/10/16 08:06; Admin Dose 100 MG; Start 04/07/16 at 15:00 Apixaban 2.5 mg 2.5 mg BID PO Last administered on 04/10/16 20:37; Admin Dose 2.5 MG; Start 04/08/16 at 21:00 Dextrose (D5W) 1,000 ml @ 40 mls/hr Q24H IV Last administered on 04/09/16t 22: 50; Admin Dose 40 MLS/HR; Start 04/09/16 at 10:00 Hydralazine HCl (Apresoline) 5 mg Q6H PRN IV ELEVATED BLOOD PRESSURE; Start 04/09/16 at 11:30 Assessment/Plan Chief Complaint/Hosp Course Patient is 89 year old female with PMH of CAD pci of LAD, Severe mitral calcification with MS, CHF, ESRD on HD, Multiple TIA, PAD came in with SOB, Positive trop, intial plan was to take her to brick and blocker aid labor from ER but she was very SOB with craclkes, So brought to ICU. Will need HD, trend trop. had long discussion with family, daughter. Problems: Additional Assessment/Plan Pt is awake on Bipap talkning to me She is lethargic Plan for HD NGT in place Speech and swallow if not able to swallow may need PEG. Will /ANH Mcallister MD Apr 11, 2016 09:03
[2016-04-11] MEDS: DEXTROSE 5% 1,000 ML IV SCH (09:08)
[2016-04-11] MEDS: traMADol 50 MG TAB PO PRN (09:20)
[2016-04-11] MEDS: POLYETHYLENE GLYCOL 17 GM PACKET PO SCH (09:20)
[2016-04-11] MEDS: FLUCONAZOLE 100 MG TAB PO SCH (09:20)
[2016-04-11] MEDS: CLOPIDOGREL 75 MG TAB PO SCH (09:20)
[2016-04-11] MEDS: PREGABALIN 25 MG CAP PO SCH ×2 (09:20→21:39)
[2016-04-11] MEDS: LEVOTHYROXINE 100 MCG TAB PO SCH (09:20)
[2016-04-11] MEDS: FERROUS SULFATE (EC) 325 MG TAB PO SCH (09:21)
[2016-04-11] MEDS: METOPROLOL 25 MG TAB PO SCH ×2 (09:21→21:00)
[2016-04-11] MEDS: ALLOPURINOL 100 MG TAB PO SCH (09:21)
[2016-04-11] MEDS: APIXABAN 5 MG TABLET PO SCH ×2 (09:21→21:39)
[2016-04-11] MEDS: ALBUTEROL/IPRATROPIUM (NEB) 3 ML AMP HHN SCH ×4 (09:37→20:20)
[2016-04-11] MEDS ORDERED: SODIUM PHOSPHATE 15 MMOL in SOD CHLORIDE 0.9% 250 ML IVPB SCH (12:00)
--- NOTE | 2016-04-11 12:00 | PN ---
DATE: 04/11/2016 SUBJECTIVE: The patient was transferred from intensive care unit to telemetry. The patient remains on BiPAP. No other events noted. OBJECTIVE: VITAL SIGNS: Blood pressure is 103/50, respiration 15, pulse 70, temperature 97.9. HEENT: Head is normocephalic. NECK: Supple. HEART: Regular rate. LUNGS: Show diminished breath sounds at base. ABDOMEN: Soft, nontender to palpation without rebound or guarding. EXTREMITIES: Negative for clubbing, cyanosis. Positive edema. DERMATOLOGIC: No rashes. MUSCULOSKELETAL: No joint effusions. NEUROLOGIC: No change in exam. MEDICATIONS: The patient's medications have been reviewed. LABORATORY DATA: Shows white count 7.6, hemoglobin 9.9, hematocrit 29.8, platelet count is 119. So dium 137, potassium 3.5, chloride 96, BUN 28, creatinine 3.51, phosphorus 2.1. ASSESSMENT AND PLAN: 1. End-stage renal disease. The patient has been receiving daily dialysis for solute clearance and volume removal. We will plan for 2 hours of ultrafiltration today. We will monitor closely. 2. Sepsis status post shock secondary to pneumonia and urinary tract infection. The patient is cur rently on antibiotic therapy, continue. 3. Volume overload. The patient continues pulmonary congestion. Continue ultrafiltration with adi lysis. 4. Anemia. Continue to monitor hemoglobin and hematocrit levels. Continue Epogen. 5. Acute hypoxemic respiratory failure secondary to congestive heart failure and pneumonia. Contin ue bilevel positive airway pressure and wean off if possible. 6. Hypertension. Blood pressure controlled. 7. Mineral bone disorder. The patient's phosphorus levels have remained low. We will hold phospha te binders and give one pack of sodium phosphate. 8. Non-ST elevation myocardial infarction. The patient is status post percutaneous coronary interv ention. Continue current medical management. 9. Peripheral vascular disease. Continue medical management. 10. Encephalopathy, etiology is toxic metabolic. Patient's mental status is waxing and waning. Co ntinue to monitor. 11. History of severe mitral stenosis. Dictated By: ZULEMA KOLB DO NR/NTS Conf#: [id number] DID#: [id number]
--- NOTE | 2016-04-11 12:45 | PN ---
DATE: 04/11/2016 SUBJECTIVE: No acute changes overnight. The patient is on BiPAP, lethargic, in no distress. No fe vers. LABORATORY: WBC 7.6, platelets 119, neutrophils 86. INDWELLINGS: Right chest Perm-A-Cath. ANTIMICROBIALS: The patient remains on IV vancomycin and Cefepime day #7. PHYSICAL EXAMINATION: GENERAL: This is a morbidly obese, fragile, elderly woman who is lying comfortably in bed. HEENT: Head atraumatic, normocephalic. Sclerae anicteric. Buccal mucosa dry. NECK: Supple, trachea midline. CHEST: Rise symmetrical. Breath sounds diminished to bases. HEART: S1, S2. ABDOMEN: Soft, bowel tones present. EXTREMITIES: Without cyanosis. ASSESSMENT: 1. Status post shock, septic and cardiogenic. 2. Acute respiratory failure secondary to pulmonary edema, rule out aspiration, on antibiotics day #7. 3. Non-ST elevation myocardial infarction, status post cardiac catheterization with stent to the po sterior descending artery 4. Severe mitral stenosis. 5. End-stage renal disease, hemodialysis dependent. 6. Encephalopathy. PLAN: The patient is DNR status, is clinically unchanged, comfortable on BiPAP. The patient had a chest x-ray yesterday that revealed pulmonary edema that is unchanged. No pleural effusion, no pneu mothorax. We are going to discontinue her antibiotics and observe her. We will panculture her if s he spikes a fever. Dictated By: TAMIKO DIXON [employer] CONSULTANT for JONAH STEVE/MAXIMO Conf#: [id number] DID#: [id number]
--- NOTE | 2016-04-11 17:19 | CONS ---
Date/Time of Note Date/Time of Note DATE: 04/11/16 TIME: 17:16 Consult Date/Type/Reason Admit Date/Time Apr 04, 2016 at 15:15 Initial Consult Date 04/04/16 Type of Consultation: Pulm Subjective Comfortable on bipap. Objective Vital Signs Date Time Temp Pulse Resp B/P Pulse Ox O2 Delivery O2 Flow Rate FiO2 04/11/16 16:22 97.5 50 18 91/40 94 04/11/16 14:52 40 04/11/16 09:40 Nasal Cannula 4.0 Intake and Output 04/10/16 04/10/16 04/11/16 15:00 23:00 07:00 Intake Total 560 ml 410 ml 400 ml Output Total 4800 ml 0 ml Balance -4240 ml 410 ml 400 ml PHYSICAL EXAMINATION: GENERAL: Elderly [place]ese lady on bilevel VITAL SIGNS: As above NECK: Supple. No JVD or lymphadenopathy. CARDIAC: S1, S2, no added sounds or murmurs. CHEST: Diminished air entry bilaterally. Coarse upper airway rales ABDOMEN: Soft, nontender. No guarding or rebound. EXTREMITIES: No cyanosis, clubbing, 1+ edema. NEUROLOGIC: Generalized weakness. Results/Medications Result Diagram: 04/11/16 0615 04/11/16 0615 Results 24 hrs Laboratory Tests Test 04/10/16 17:45 04/10/16 20:33 04/11/16 01:22 04/11/16 05:45 Bedside Glucose 144 138 124 139 Test 04/11/16 06:15 04/11/16 07:59 04/11/16 11:20 04/11/16 16:53 Anion Gap 20 H Basophils # 0.0 Basophils % 0.0 Blood Morphology Comment Blood Urea Nitrogen 28 #H Calcium Level 9.0 Carbon Dioxide Level 25 Chloride Level 96 L Creatinine 3.51 #H Eosinophils # 0.1 Eosinophils % 0.8 Glucose Level 130 Hematocrit 29.8 L Hemoglobin 9.9 L Lymphocytes # 0.9 Lymphocytes % 12.0 L Magnesium Level 1.9 Mean Corpuscular Hemoglobin 30.7 Mean Corpuscular Hemoglobin Concent 33.1 Mean Corpuscular Volume 92.6 Mean Platelet Volume 11.4 H Monocytes # 0.1 L Monocytes % 1.2 Neutrophils # 6.5 Neutrophils % 86.0 H Nucleated Red Blood Cells # 0.0 Nucleated Red Blood Cells % 0.0 Phosphorus Level 2.1 L Platelet Count 119 #L Potassium Level 3.5 Red Blood Count 3.22 L Red Cell Distribution Width 17.5 H Sodium Level 137 White Blood Count 7.6 Bedside Glucose 141 148 114 Medications Current Medications Lorazepam (Ativan) 0.5 mg Q6H PRN IV ANXIETY Last administered on 04/04/16at 20 :40; Admin Dose 0.5 MG; Start 04/04/16 at 15:30 Ondansetron HCl (Zofran Inj) 4 mg Q6H PRN IV NAUSEA AND/OR VOMITING; Start at 15:30 Famotidine (Pepcid Iv) 20 mg QHS IV Last administered on 04/10/16 20:35; Admin Dose 20 MG; Start 04/04/16 at 21:00 Ferrous Sulfate (Ferrous Sulfate (Ec)) 325 mg DAILY PO Last administered on 04/11 09:21; Admin Dose 325 MG; Start 04/05/16 at 09:00 Insulin Glargine (Lantus) 25 unit QHS SC Last administered on 04/10/16 20:55; Admin Dose 25 UNIT; Start 04/04/16 at 21:00 Latanoprost (Xalatan) 1 drop QHS BOTH EYES Last administered on 04/10/16 20:34 ; Admin Dose 1 DROP; Start 04/04/16 at 21:00 Metoprolol Tartrate (Lopressor) 25 mg BID PO Last administered on 04/11/16 09: 21; Admin Dose 25 MG; Start 04/04/16 at 21:00 Polyethylene Glycol (Miralax) 17 gm DAILY PO Last administered on 04/11/16 09: 20; Admin Dose 17 GM; Start 04/05/16 at 09:00 Atorvastatin Calcium (Lipitor) 20 mg DAILY@21 PO Last administered on 04/10/16 20:37; Admin Dose 20 MG; Start 04/04/16 at 21:00 Miscellaneous Information 1 ea NOTE XX ; Start 04/04/16 at 16:00 Glucose (Glutose) 15 gm Q15M PRN PO DECREASED GLUCOSE; Start 04/04/16 at 16:00 Glucose (Glutose) 22.5 gm Q15M PRN PO DECREASED GLUCOSE; Start 04/04/16 at 16: 00 Dextrose (D50w Syringe) 25 ml Q15M PRN IV DECREASED GLUCOSE Last administered on 04/09/16 13:09; Admin Dose 25 ML; Start 04/04/16 at 16:00 Dextrose (D50w Syringe) 50 ml Q15M PRN IV DECREASED GLUCOSE; Start 04/04/16 at 16:00 Glucagon (Glucagen) 1 mg Q15M PRN IM DECREASED GLUCOSE; Start 04/04/16 at 16: 00 Glucose 15 gm 15 gm Q15M PRN BUCCAL DECREASED GLUCOSE; Start 04/04/16 at 16:00 Norepinephrine/ Dextrose (Levophed/D5W) 500 ml @ 1.87 mls/hr TITRATE IV Last administered on 04/06/16at 14:58; Admin Dose 28.12 MLS/HR; Start 04/04/16 at 16 :30 Tramadol HCl (Ultram) 50 mg Q6H PRN PO Pain Last administered on 04/11/16 09:20 ; Admin Dose 50 MG; Start 04/04/16 at 16:30 Allopurinol (Zyloprim) 200 mg DAILY PO Last administered on 04/11/16 09:21; Admin Dose 200 MG; Start 04/05/16 at 09:00 Insulin Aspart (Novolog Insulin Pen) NOVOLOG *MILD* ALGORI... Q4 SC Last administered on 04/11/16 11:55; Admin Dose 1 UNIT; Start 04/05/16 at 17:00 Clopidogrel Bisulfate (plaVIX) 75 mg DAILY PO Last administered on 04/11/16 09: 20; Admin Dose 75 MG; Start 04/05/16 at 18:30 Pregabalin (Lyrica) 100 mg BID PO Last administered on 04/11/16 09:20; Admin Dose 100 MG; Start 04/05/16 at 21:00 Acetaminophen (Tylenol Supp) 650 mg Q6H PRN IN FEVER Last administered on 04/08at 14:12; Admin Dose 650 MG; Start 04/06/16 at 12:00 Fluconazole (Diflucan) 100 mg DAILY PO Last administered on 04/11/16 09:20; Admin Dose 100 MG; Start 04/07/16 at 15:00 Apixaban 2.5 mg 2.5 mg BID PO Last administered on 04/11/16 09:21; Admin Dose 2.5 MG; Start 04/08/16 at 21:00 Dextrose (D5W) 1,000 ml @ 40 mls/hr Q24H IV Last administered on 04/09/16t 22: 50; Admin Dose 40 MLS/HR; Start 04/09/16 at 10:00 Hydralazine HCl (Apresoline) 5 mg Q6H PRN IV ELEVATED BLOOD PRESSURE; Start 04/09/16 at 11:30 Assessment/Plan Chief Complaint/Hosp Course IMPRESSION: 1. Pulmonary edema with possible component of pneumonia with subsequent hypoxemic respiratory failure. 2. 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 3. Encephalopathy, toxic metabolic. 4. Patient's code status: DNR/DNI. 5. Severe mitral stenosis with underlying coronary artery disease 6. Status post coronary intervention 7. Likely significant aspiration risk PLAN: 1. Continue noninvasive positive pressure ventilation and nasal cannula oxygen. Aggressive pulmonary toilet 2. Supplemental O2. 3. DVT and GI prophylaxis. 4. Cardiac catheterization with revascularization, continue cardiology recommendations 5. Unlikely patient is stable for oral intake significant aspiration risk Consider hospice evaluation Problems: OSIRIS REYNOLDS MD, [facility] Apr 11, 2016 17:18
--- NOTE | 2016-04-11 19:47 | PN ---
Date/Time of Note Date/Time of Note DATE: 04/11/16 TIME: 19:46 Assessment/Plan VTE Prophylaxis VTE Prophylaxis Intervention: other (eliquis) Lines/Catheters IV Catheter Type (from [facility]): Peripheral IV Urinary Cath still in place: No Assessment/Plan Assessment/Plan IMPRESSION: 1. Hypoxic respiratory failure, with pulmonary vascular congestion. 2. Coronary artery disease, status post PCI, with stent to right posterior descending artery. The patient also has a history of PCI to the LAD. 3. Severe mitral calcification with stenosis. 4. End-stage renal disease, on dialysis. 5. History of transient ischemic attack. 6. Status post sepsis, with possible underlying pneumonia. 7. Anemia, likely anemia of chronic disease. 8. Type 2 diabetes. PLAN: - Will continue positive pressure support and try to transition to NC as tolerated. - Continue breathing treatments. pt is s/p cardiac catheterization with a PCI and stents to RPDA. She also has a history PCI of the LAD. Cont meds, including cardiac through NG tube. Will continue insulin for her diabetes and will adjust as needed. - Cont Dialysis per nephrology. - Overall the patient does not have a good prognosis and we need to have a family meeting to discuss even possible hospice. Palliative care consult has been placed Further workup and management per clinical course. Total critical time spent was about 35 minutes. Subjective 24 Hr Interval Summary Free Text/Dictation lethargic, on BIPAP Exam/Review of Systems Vital Signs Vitals Vital Signs Date Time Temp Pulse Resp B/P Pulse Ox O2 Delivery O2 Flow Rate FiO2 04/11/16 17:26 50 99 40 04/11/16 16:22 97.5 18 91/40 04/11/16 09:40 Nasal Cannula 4.0 Intake and Output 04/10/16 04/10/16 04/11/16 15:00 23:00 07:00 Intake Total 560 ml 410 ml 400 ml Output Total 4800 ml 0 ml Balance -4240 ml 410 ml 400 ml Exam GENERAL: The patient is on BiPAP. Appears lethargic and moaning, not following any commands. HEENT: No obvious head deformity. CARDIOVASCULAR: Bradycardic, with a regular rhythm. She also has a systolic murmur. PULMONARY: Lungs sound congested, with crackles anteriorly. ABDOMEN: Obese, soft. No grimaces noted on palpation. Positive bowel sounds. EXTREMITIES: No edema. Results Result Diagram: 04/11/16 0615 04/11/16 0615 Results 24 hrs Laboratory Tests Test 04/10/16 20:33 04/11/16 01:22 04/11/16 05:45 04/11/16 06:15 Bedside Glucose 138 124 139 Anion Gap 20 H Basophils # 0.0 Basophils % 0.0 Blood Morphology Comment Blood Urea Nitrogen 28 #H Calcium Level 9.0 Carbon Dioxide Level 25 Chloride Level 96 L Creatinine 3.51 #H Eosinophils # 0.1 Eosinophils % 0.8 Glucose Level 130 Hematocrit 29.8 L Hemoglobin 9.9 L Lymphocytes # 0.9 Lymphocytes % 12.0 L Magnesium Level 1.9 Mean Corpuscular Hemoglobin 30.7 Mean Corpuscular Hemoglobin Concent 33.1 Mean Corpuscular Volume 92.6 Mean Platelet Volume 11.4 H Monocytes # 0.1 L Monocytes % 1.2 Neutrophils # 6.5 Neutrophils % 86.0 H Nucleated Red Blood Cells # 0.0 Nucleated Red Blood Cells % 0.0 Phosphorus Level 2.1 L Platelet Count 119 #L Potassium Level 3.5 Red Blood Count 3.22 L Red Cell Distribution Width 17.5 H Sodium Level 137 White Blood Count 7.6 Test 04/11/16 07:59 04/11/16 11:20 04/11/16 16:53 Bedside Glucose 141 148 114 Medications Medications Current Medications Lorazepam (Ativan) 0.5 mg Q6H PRN IV ANXIETY Last administered on 04/04/16at 20 :40; Admin Dose 0.5 MG; Start 04/04/16 at 15:30 Ondansetron HCl (Zofran Inj) 4 mg Q6H PRN IV NAUSEA AND/OR VOMITING; Start at 15:30 Famotidine (Pepcid Iv) 20 mg QHS IV Last administered on 04/10/16 20:35; Admin Dose 20 MG; Start 04/04/16 at 21:00 Ferrous Sulfate (Ferrous Sulfate (Ec)) 325 mg DAILY PO Last administered on 04/11 09:21; Admin Dose 325 MG; Start 04/05/16 at 09:00 Insulin Glargine (Lantus) 25 unit QHS SC Last administered on 04/10/16 20:55; Admin Dose 25 UNIT; Start 04/04/16 at 21:00 Latanoprost (Xalatan) 1 drop QHS BOTH EYES Last administered on 04/10/16 20:34 ; Admin Dose 1 DROP; Start 04/04/16 at 21:00 Metoprolol Tartrate (Lopressor) 25 mg BID PO Last administered on 04/11/16 09: 21; Admin Dose 25 MG; Start 04/04/16 at 21:00 Polyethylene Glycol (Miralax) 17 gm DAILY PO Last administered on 04/11/16 09: 20; Admin Dose 17 GM; Start 04/05/16 at 09:00 Atorvastatin Calcium (Lipitor) 20 mg DAILY@21 PO Last administered on 04/10/16 20:37; Admin Dose 20 MG; Start 04/04/16 at 21:00 Miscellaneous Information 1 ea NOTE XX ; Start 04/04/16 at 16:00 Glucose (Glutose) 15 gm Q15M PRN PO DECREASED GLUCOSE; Start 04/04/16 at 16:00 Glucose (Glutose) 22.5 gm Q15M PRN PO DECREASED GLUCOSE; Start 04/04/16 at 16: 00 Dextrose (D50w Syringe) 25 ml Q15M PRN IV DECREASED GLUCOSE Last administered on 04/09/16 13:09; Admin Dose 25 ML; Start 04/04/16 at 16:00 Dextrose (D50w Syringe) 50 ml Q15M PRN IV DECREASED GLUCOSE; Start 04/04/16 at 16:00 Glucagon (Glucagen) 1 mg Q15M PRN IM DECREASED GLUCOSE; Start 04/04/16 at 16: 00 Glucose 15 gm 15 gm Q15M PRN BUCCAL DECREASED GLUCOSE; Start 04/04/16 at 16:00 Norepinephrine/ Dextrose (Levophed/D5W) 500 ml @ 1.87 mls/hr TITRATE IV Last administered on 04/06/16at 14:58; Admin Dose 28.12 MLS/HR; Start 04/04/16 at 16 :30 Tramadol HCl (Ultram) 50 mg Q6H PRN PO Pain Last administered on 04/11/16 09:20 ; Admin Dose 50 MG; Start 04/04/16 at 16:30 Allopurinol (Zyloprim) 200 mg DAILY PO Last administered on 04/11/16 09:21; Admin Dose 200 MG; Start 04/05/16 at 09:00 Insulin Aspart (Novolog Insulin Pen) NOVOLOG *MILD* ALGORI... Q4 SC Last administered on 04/11/16 11:55; Admin Dose 1 UNIT; Start 04/05/16 at 17:00 Clopidogrel Bisulfate (plaVIX) 75 mg DAILY PO Last administered on 04/11/16 09: 20; Admin Dose 75 MG; Start 04/05/16 at 18:30 Pregabalin (Lyrica) 100 mg BID PO Last administered on 04/11/16 09:20; Admin Dose 100 MG; Start 04/05/16 at 21:00 Acetaminophen (Tylenol Supp) 650 mg Q6H PRN [place] FEVER Last administered on 04/08at 14:12; Admin Dose 650 MG; Start 04/06/16 at 12:00 Fluconazole (Diflucan) 100 mg DAILY PO Last administered on 04/11/16 09:20; Admin Dose 100 MG; Start 04/07/16 at 15:00 Apixaban 2.5 mg 2.5 mg BID PO Last administered on 04/11/16 09:21; Admin Dose 2.5 MG; Start 04/08/16 at 21:00 Dextrose (D5W) 1,000 ml @ 40 mls/hr Q24H IV Last administered on 04/09/16 22: 50; Admin Dose 40 MLS/HR; Start 04/09/16 at 10:00 Hydralazine HCl (Apresoline) 5 mg Q6H PRN IV ELEVATED BLOOD PRESSURE; Start 04/09/16 at 11:30 DEJUAN LINDA MD Apr 11, 2016 19:47
[2016-04-11] MEDS: LATANOPROST 0.005% 2.5 ML OPH BOTH EYES SCH (21:00)
[2016-04-11] MEDS: ATORVASTATIN 20 MG TAB PO SCH (21:40)
[2016-04-11] MEDS: FAMOTIDINE 20 MG INJ IV SCH (21:41)
[2016-04-11] MEDS: INSULIN GLARGINE [LANtus] 3 ML PEN SC SCH (23:01)
[2016-04-12] VITALS (30 sets, daily range): BP systolic 88–123; BP diastolic 32–66; PULSE 49–70; RESP 16–20
[2016-04-12] MEDS: INSULIN ASPART [NOVOLOG] 3 ML PEN SC SCH ×6 (01:00→21:00)
[2016-04-12 07:05] LABS: BASOPHILS % 0.4 % (0.0-2.0); EOSINOPHILS # 0.1 10^3/ul (0.0-0.5); EOSINOPHILS % 1.2 % (0.0-7.0); HEMATOCRIT 30.3 % (37.0-47.0); HEMOGLOBIN 9.9 g/dl (12.0-16.0); LYMPHOCYTES # 0.8 10^3/ul (0.8-2.9); LYMPHOCYTES % 10.5 % (15.0-51.0); MEAN CORPUSCULAR HEMOGLOBIN 30.7 pg (29.0-33.0); MEAN CORPUSCULAR HGB CONC 32.5 g/dl (32.0-37.0); MEAN CORPUSCULAR VOLUME 94.3 fl (82.0-101.0); MEAN PLATELET VOLUME 10.9 fl (7.4-10.4); MONOCYTE # 0.4 10^3/ul (0.3-0.9); MONOCYTES % 5.8 % (0.0-11.0); NEUTROPHILS % 82.1 % (39.0-77.0); PLATELET COUNT 136 10^3/UL (140-440); RED BLOOD COUNT 3.21 10^6/ul (4.20-5.40); RED CELL DISTRIBUTION WIDTH 17.4 % (11.5-14.5); UNCORRECTED WBC 7.3 10^3/ul (4.8-10.8); WHITE BLOOD COUNT 7.3 10^3/ul (4.8-10.8)
[2016-04-12 07:15] LABS: CONDITION 1; SUSPECT 1
[2016-04-12 07:16] LABS: LH ANALYZER COMMENTS 1
[2016-04-12 07:25] LABS: POTASSIUM 3.4 mmol/L (3.5-5.1)
[2016-04-12 07:27] LABS: CREATININE 3.53 mg/dl (0.44-1.00)
[2016-04-12 07:28] LABS: CALCIUM 8.8 mg/dl (8.4-10.2); MAGNESIUM 2.1 mg/dl (1.7-2.5); PHOSPHORUS 3.3 mg/dl (2.5-4.9)
[2016-04-12] MEDS: ALBUTEROL/IPRATROPIUM (NEB) 3 ML AMP HHN SCH ×4 (08:30→22:12)
[2016-04-12] MEDS: METOPROLOL 25 MG TAB PO SCH ×2 (09:00→21:00)
[2016-04-12] MEDS: POLYETHYLENE GLYCOL 17 GM PACKET PO SCH (09:01)
[2016-04-12] MEDS: FLUCONAZOLE 100 MG TAB PO SCH (09:01)
[2016-04-12] MEDS: ALLOPURINOL 100 MG TAB PO SCH (09:01)
[2016-04-12] MEDS: FERROUS SULFATE (EC) 325 MG TAB PO SCH (09:01)
[2016-04-12] MEDS: LEVOTHYROXINE 100 MCG TAB PO SCH (09:01)
[2016-04-12] MEDS: CLOPIDOGREL 75 MG TAB PO SCH (09:01)
[2016-04-12] MEDS: PREGABALIN 25 MG CAP PO SCH ×2 (09:02→22:05)
[2016-04-12] MEDS: APIXABAN 5 MG TABLET PO SCH ×2 (09:02→22:02)
[2016-04-12] MEDS ORDERED: POTASSIUM CHLORIDE (SR) 20 MEQ TAB PO STA (09:26)
[2016-04-12] MEDS: DEXTROSE 5% 1,000 ML IV SCH (10:00)
--- NOTE | 2016-04-12 10:42 | PN ---
DATE: 04/12/2016 SUBJECTIVE: The patient remains on BiPAP. The patient had hemodialysis yesterday, tolerated it wel l. No acute events noted. No hemoptysis, hematemesis or hematochezia. OBJECTIVE: VITAL SIGNS: Blood pressure 112/53, respiratory rate 16, pulse 54, temperature 97.9. HEENT: Head is normocephalic. NECK: Supple. HEART: Regular rate. LUNGS: Show diminished breath sounds at base. ABDOMEN: Soft, nontender to palpation without rebound or guarding. EXTREMITIES: Negative for clubbing, cyanosis. Trace edema. DERMATOLOGIC: No rashes. MUSCULOSKELETAL: No joint effusions. NEUROLOGIC: No change in exam. MEDICATIONS: The patient's medications have been reviewed. LABORATORY DATA: Sodium 143, potassium 3.4, chloride 100, BUN 22, creatinine 3.53. White count 7.3 , hemoglobin 9.9, hematocrit 30.3, platelet count is 136. ASSESSMENT AND PLAN: 1. End-stage renal disease. The patient has been receiving daily dialysis. removal. We will plan for dialysis again today for 3 hours, 4K bath, calcium 2.5, will ultrafiltrate as tolerated. 2. Hypokalemia, replete potassium chloride. Will dialyze on a low potassium bath. 3. Volume overload. Continue ultrafiltration with dialysis. 4. Anemia. Continue to monitor hemoglobin and hematocrit levels. Continue Epogen. 5. Acute hypoxemic respiratory failure secondary to congestive heart failure, pneumonia. Continue BiPAP, wean off if possible. 6. Hypertension. Continue current blood pressure regimen. 7. Mineral bone disorder. Continue to monitor calcium and phosphorous levels. 8. Non-ST elevation myocardial infarction. Continue the patient is status post percutaneous bravo ry intervention. Continue medical management. 9. Peripheral vascular disease. Continue medical management. 10. Encephalopathy dialysis toxic metabolic. Continue to monitor. 11. History of mitral stenosis. Dictated By: ZULEMA STOVALL/MAXIMO Conf#: [id number] DID#: [id number]
--- NOTE | 2016-04-12 12:30 | CONS ---
Date/Time of Note Date/Time of Note DATE: 04/12/16 TIME: 12:28 Consult Date/Type/Reason Admit Date/Time Apr 04, 2016 at 15:15 Initial Consult Date 04/04/16 Type of Consultation: id Subjective on Bipap, lethargic, no fevers, nad Objective Vital Signs Date Time Temp Pulse Resp B/P Pulse Ox O2 Delivery O2 Flow Rate FiO2 04/12/16 12:11 50 04/12/16 11:20 98.0 20 123/63 97 04/12/16 11:00 40 04/12/16 04:00 BIPAP 04/11/16 09:40 4.0 Intake and Output 04/11/16 04/11/16 04/12/16 15:00 23:00 07:00 Intake Total 500 ml 100 ml Output Total 2500 ml Balance -2000 ml 100 ml Results/Medications Result Diagram: 04/12/16 0605 04/12/16 0620 Results 24 hrs Laboratory Tests Test 04/11/16 16:53 04/11/16 20:34 04/12/16 06:02 04/12/16 06:05 Bedside Glucose 114 139 154 Basophils # 0.0 Basophils % 0.4 Blood Morphology Comment Eosinophils # 0.1 Eosinophils % 1.2 Hematocrit 30.3 L Hemoglobin 9.9 L Lymphocytes # 0.8 Lymphocytes % 10.5 L Mean Corpuscular Hemoglobin 30.7 Mean Corpuscular Hemoglobin Concent 32.5 Mean Corpuscular Volume 94.3 Mean Platelet Volume 10.9 H Monocytes # 0.4 Monocytes % 5.8 Neutrophils # 6.0 Neutrophils % 82.1 H Nucleated Red Blood Cells # 0.0 Nucleated Red Blood Cells % 0.0 Platelet Count 136 L Red Blood Count 3.21 L Red Cell Distribution Width 17.4 H White Blood Count 7.3 Test 04/12/16 06:20 04/12/16 08:41 Anion Gap 18 H Blood Urea Nitrogen 22 H Calcium Level 8.8 Carbon Dioxide Level 28 Chloride Level 100 Creatinine 3.53 H Glucose Level 143 Magnesium Level 2.1 Phosphorus Level 3.3 Potassium Level 3.4 L Sodium Level 143 Bedside Glucose 163 Medications Current Medications Lorazepam (Ativan) 0.5 mg Q6H PRN IV ANXIETY Last administered on 04/04/16at 20 :40; Admin Dose 0.5 MG; Start 04/04/16 at 15:30 Ondansetron HCl (Zofran Inj) 4 mg Q6H PRN IV NAUSEA AND/OR VOMITING; Start at 15:30 Famotidine (Pepcid Iv) 20 mg QHS IV Last administered on 04/11/16 21:41; Admin Dose 20 MG; Start 04/04/16 at 21:00 Ferrous Sulfate (Ferrous Sulfate (Ec)) 325 mg DAILY PO Last administered on 04/12 09:01; Admin Dose 325 MG; Start 04/05/16 at 09:00 Insulin Glargine (Lantus) 25 unit QHS SC Last administered on 04/11/16 23:01; Admin Dose 25 UNIT; Start 04/04/16 at 21:00 Latanoprost (Xalatan) 1 drop QHS BOTH EYES Last administered on 04/10/16 20:34 ; Admin Dose 1 DROP; Start 04/04/16 at 21:00 Metoprolol Tartrate (Lopressor) 25 mg BID PO Last administered on 04/11/16 09: 21; Admin Dose 25 MG; Start 04/04/16 at 21:00 Polyethylene Glycol (Miralax) 17 gm DAILY PO Last administered on 04/12/16 09: 01; Admin Dose 17 GM; Start 04/05/16 at 09:00 Atorvastatin Calcium (Lipitor) 20 mg DAILY@21 PO Last administered on 04/11/16 21:40; Admin Dose 20 MG; Start 04/04/16 at 21:00 Miscellaneous Information 1 ea NOTE XX ; Start 04/04/16 at 16:00 Glucose (Glutose) 15 gm Q15M PRN PO DECREASED GLUCOSE; Start 04/04/16 at 16:00 Glucose (Glutose) 22.5 gm Q15M PRN PO DECREASED GLUCOSE; Start 04/04/16 at 16: 00 Dextrose (D50w Syringe) 25 ml Q15M PRN IV DECREASED GLUCOSE Last administered on 04/09/16 13:09; Admin Dose 25 ML; Start 04/04/16 at 16:00 Dextrose (D50w Syringe) 50 ml Q15M PRN IV DECREASED GLUCOSE; Start 04/04/16 at 16:00 Glucagon (Glucagen) 1 mg Q15M PRN IM DECREASED GLUCOSE; Start 12/27/16 at 16: 00 Glucose 15 gm 15 gm Q15M PRN BUCCAL DECREASED GLUCOSE; Start 04/04/16 at 16:00 Norepinephrine/ Dextrose (Levophed/D5W) 500 ml @ 1.87 mls/hr TITRATE IV Last administered on 04/06/16at 14:58; Admin Dose 28.12 MLS/HR; Start 04/04/16 at 16 :30 Tramadol HCl (Ultram) 50 mg Q6H PRN PO Pain Last administered on 04/11/16 09:20 ; Admin Dose 50 MG; Start 04/04/16 at 16:30 Allopurinol (Zyloprim) 200 mg DAILY PO Last administered on 04/12/16 09:01; Admin Dose 200 MG; Start 04/05/16 at 09:00 Insulin Aspart (Novolog Insulin Pen) NOVOLOG *MILD* ALGORI... Q4 SC Last administered on 04/12/16 09:03; Admin Dose 1 UNIT; Start 04/05/16 at 17:00 Clopidogrel Bisulfate (plaVIX) 75 mg DAILY PO Last administered on 04/12/16 09: 01; Admin Dose 75 MG; Start 04/05/16 at 18:30 Pregabalin (Lyrica) 100 mg BID PO Last administered on 04/12/16 09:02; Admin Dose 100 MG; Start 04/05/16 at 21:00 Acetaminophen (Tylenol Supp) 650 mg Q6H PRN [place] FEVER Last administered on 04/08at 14:12; Admin Dose 650 MG; Start 04/06/16 at 12:00 Fluconazole (Diflucan) 100 mg DAILY PO Last administered on 04/12/16 09:01; Admin Dose 100 MG; Start 04/07/16 at 15:00 Apixaban 2.5 mg 2.5 mg BID PO Last administered on 04/12/16 09:02; Admin Dose 2.5 MG; Start 04/08/16 at 21:00 Dextrose (D5W) 1,000 ml @ 40 mls/hr Q24H IV Last administered on 04/09/16 22: 50; Admin Dose 40 MLS/HR; Start 04/09/16 at 10:00 Hydralazine HCl (Apresoline) 5 mg Q6H PRN IV ELEVATED BLOOD PRESSURE; Start 04/09/16 at 11:30 Assessment/Plan Chief Complaint/Hosp Course INDWELLINGS: Right chest Perm-A-Cath PHYSICAL EXAMINATION: GENERAL: This is a morbidly obese, fragile, elderly woman who is lying comfortably in bed. HEENT: Head atraumatic, normocephalic. Sclerae anicteric. Buccal mucosa dry. NECK: Supple, trachea midline. CHEST: Rise symmetrical. Breath sounds diminished to bases. HEART: S1, S2. ABDOMEN: Soft, bowel tones present. EXTREMITIES: Without cyanosis. ASSESSMENT: 1. Status post shock, septic and cardiogenic. 2. Acute respiratory failure secondary to pulmonary edema, rule out aspiration= ==> s/p antibiotics for 7 days 3. Non-ST elevation myocardial infarction, status post cardiac catheterization with stent to the posterior descending artery 4. Severe mitral stenosis. 5. End-stage renal disease, hemodialysis dependent. 6. Encephalopathy. PLAN: Clinically unchanged, no fevers, off abx. Continue present care, Bipap per pulmonary, silva cx prn [facility] staff Problems: TAMIKO DIXON NP Apr 12, 2016 12:30
[2016-04-12] MEDS ORDERED: VANCOMYCIN 1 GM in NS 250 ML IVPB SCH (16:00)
--- NOTE | 2016-04-12 16:57 | CONS ---
Date/Time of Note Date/Time of Note DATE: 04/12/16 TIME: 16:57 Consult Date/Type/Reason Admit Date/Time Apr 04, 2016 at 15:15 Initial Consult Date 04/04/16 Type of Consultation: pulmonary Subjective No new events Still has mild shortness of breath Objective Vital Signs Date Time Temp Pulse Resp B/P Pulse Ox O2 Delivery O2 Flow Rate FiO2 04/12/16 16:26 50 17 97 04/12/16 15:12 98.2 118/66 04/12/16 15:11 40 04/12/16 04:00 BIPAP 04/11/16 09:40 4.0 Intake and Output 04/11/16 04/11/16 04/12/16 15:00 23:00 07:00 Intake Total 500 ml 100 ml Output Total 2500 ml Balance -2000 ml 100 ml PHYSICAL EXAMINATION: GENERAL: Elderly [place] lady on supplemental oxygen VITAL SIGNS: As above NECK: Supple. No JVD or lymphadenopathy. CARDIAC: S1, S2, no added sounds or murmurs. CHEST: Diminished air entry bilaterally. Coarse upper airway rales ABDOMEN: Soft, nontender. No guarding or rebound. EXTREMITIES: No cyanosis, clubbing, 1+ edema. NEUROLOGIC: Generalized weakness. Results/Medications Result Diagram: 04/12/16 0605 04/12/16 0620 Results 24 hrs Laboratory Tests Test 04/11/16 20:34 04/12/16 06:02 04/12/16 06:05 04/12/16 06:20 Bedside Glucose 139 154 Basophils # 0.0 Basophils % 0.4 Blood Morphology Comment Eosinophils # 0.1 Eosinophils % 1.2 Hematocrit 30.3 L Hemoglobin 9.9 L Lymphocytes # 0.8 Lymphocytes % 10.5 L Mean Corpuscular Hemoglobin 30.7 Mean Corpuscular Hemoglobin Concent 32.5 Mean Corpuscular Volume 94.3 Mean Platelet Volume 10.9 H Monocytes # 0.4 Monocytes % 5.8 Neutrophils # 6.0 Neutrophils % 82.1 H Nucleated Red Blood Cells # 0.0 Nucleated Red Blood Cells % 0.0 Platelet Count 136 L Red Blood Count 3.21 L Red Cell Distribution Width 17.4 H White Blood Count 7.3 Anion Gap 18 H Blood Urea Nitrogen 22 H Calcium Level 8.8 Carbon Dioxide Level 28 Chloride Level 100 Creatinine 3.53 H Glucose Level 143 Magnesium Level 2.1 Phosphorus Level 3.3 Potassium Level 3.4 L Sodium Level 143 Test 04/12/16 08:41 04/12/16 12:24 Bedside Glucose 163 148 Medications Current Medications Lorazepam (Ativan) 0.5 mg Q6H PRN IV ANXIETY Last administered on 04/04/16at 20 :40; Admin Dose 0.5 MG; Start 04/04/16 at 15:30 Ondansetron HCl (Zofran Inj) 4 mg Q6H PRN IV NAUSEA AND/OR VOMITING; Start at 15:30 Famotidine (Pepcid Iv) 20 mg QHS IV Last administered on 04/11/16 21:41; Admin Dose 20 MG; Start 04/04/16 at 21:00 Ferrous Sulfate (Ferrous Sulfate (Ec)) 325 mg DAILY PO Last administered on 04/12 09:01; Admin Dose 325 MG; Start 04/05/16 at 09:00 Insulin Glargine (Lantus) 25 unit QHS SC Last administered on 04/11/16 23:01; Admin Dose 25 UNIT; Start 04/04/16 at 21:00 Latanoprost (Xalatan) 1 drop QHS BOTH EYES Last administered on 04/10/16 20:34 ; Admin Dose 1 DROP; Start 04/04/16 at 21:00 Metoprolol Tartrate (Lopressor) 25 mg BID PO Last administered on 04/11/16 09: 21; Admin Dose 25 MG; Start 04/04/16 at 21:00 Polyethylene Glycol (Miralax) 17 gm DAILY PO Last administered on 04/12/16 09: 01; Admin Dose 17 GM; Start 04/05/16 at 09:00 Atorvastatin Calcium (Lipitor) 20 mg DAILY@21 PO Last administered on 04/11/16 21:40; Admin Dose 20 MG; Start 04/04/16 at 21:00 Miscellaneous Information 1 ea NOTE XX ; Start 04/04/16 at 16:00 Glucose (Glutose) 15 gm Q15M PRN PO DECREASED GLUCOSE; Start 04/04/16 at 16:00 Glucose (Glutose) 22.5 gm Q15M PRN PO DECREASED GLUCOSE; Start 04/04/16 at 16: 00 Dextrose (D50w Syringe) 25 ml Q15M PRN IV DECREASED GLUCOSE Last administered on 04/09/16 13:09; Admin Dose 25 ML; Start 04/04/16 at 16:00 Dextrose (D50w Syringe) 50 ml Q15M PRN IV DECREASED GLUCOSE; Start 04/04/16 at 16:00 Glucagon (Glucagen) 1 mg Q15M PRN IM DECREASED GLUCOSE; Start 04/04/16 at 16: 00 Glucose 15 gm 15 gm Q15M PRN BUCCAL DECREASED GLUCOSE; Start 04/04/16 at 16:00 Norepinephrine/ Dextrose (Levophed/D5W) 500 ml @ 1.87 mls/hr TITRATE IV Last administered on 04/06/16at 14:58; Admin Dose 28.12 MLS/HR; Start 04/04/16 at 16 :30 Tramadol HCl (Ultram) 50 mg Q6H PRN PO Pain Last administered on 04/11/16 09:20 ; Admin Dose 50 MG; Start 04/04/16 at 16:30 Allopurinol (Zyloprim) 200 mg DAILY PO Last administered on 04/12/16 09:01; Admin Dose 200 MG; Start 04/05/16 at 09:00 Insulin Aspart (Novolog Insulin Pen) NOVOLOG *MILD* ALGORI... Q4 SC Last administered on 04/12/16 12:28; Admin Dose 1 UNIT; Start 04/05/16 at 17:00 Clopidogrel Bisulfate (plaVIX) 75 mg DAILY PO Last administered on 04/12/16 09: 01; Admin Dose 75 MG; Start 04/05/16 at 18:30 Pregabalin (Lyrica) 100 mg BID PO Last administered on 04/12/16 09:02; Admin Dose 100 MG; Start 04/05/16 at 21:00 Acetaminophen (Tylenol Supp) 650 mg Q6H PRN [place] FEVER Last administered on 04/08at 14:12; Admin Dose 650 MG; Start 04/06/16 at 12:00 Fluconazole (Diflucan) 100 mg DAILY PO Last administered on 04/12/16 09:01; Admin Dose 100 MG; Start 04/07/16 at 15:00 Apixaban 2.5 mg 2.5 mg BID PO Last administered on 04/12/16 09:02; Admin Dose 2.5 MG; Start 12/31/16 at 21:00 Dextrose (D5W) 1,000 ml @ 40 mls/hr Q24H IV Last administered on 04/09/16t 22: 50; Admin Dose 40 MLS/HR; Start 04/09/16 at 10:00 Hydralazine HCl (Apresoline) 5 mg Q6H PRN IV ELEVATED BLOOD PRESSURE; Start 04/09/16 at 11:30 Assessment/Plan Chief Complaint/Hosp Course IMPRESSION: 1. Pulmonary edema with possible component of pneumonia with subsequent hypoxemic respiratory failure. 2. 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 3. Encephalopathy, toxic metabolic. 4. Patient's code status: DNR/DNI. 5. Severe mitral stenosis with underlying coronary artery disease 6. Status post coronary intervention 7. Likely significant aspiration risk PLAN: 1. Continue noninvasive positive pressure ventilation and nasal cannula oxygen. Aggressive pulmonary toilet 2. Supplemental O2. 3. DVT and GI prophylaxis. 4. Cardiac catheterization with revascularization, continue cardiology recommendations 5. Unlikely patient is stable for oral intake significant aspiration risk Consider hospice evaluation Problems: OSIRIS REYNOLDS MD, [facility] Apr 12, 2016 16:57
--- NOTE | 2016-04-12 19:20 | PN ---
Date/Time of Note Date/Time of Note DATE: 04/12/16 TIME: 19:20 Assessment/Plan VTE Prophylaxis VTE Prophylaxis Intervention: SCD's Lines/Catheters IV C[facility]ter Type (from [facility] Peripheral IV Urinary Cath still in place: No Assessment/Plan Assessment/Plan IMPRESSION: 1. Hypoxic respiratory failure, with pulmonary vascular congestion. 2. Coronary artery disease, status post PCI, with stent to right posterior descending artery. The patient also has a history of PCI to the LAD. 3. Severe mitral calcification with stenosis. 4. End-stage renal disease, on dialysis. 5. History of transient ischemic attack. 6. Status post sepsis, with possible underlying pneumonia. 7. Anemia, likely anemia of chronic disease. 8. Type 2 diabetes. PLAN: - Will continue positive pressure support and try to transition to NC as tolerated. - Continue breathing treatments. pt is s/p cardiac catheterization with a PCI and stents to RPDA. She also has a history PCI of the LAD. Cont meds, including cardiac through NG tube. Will continue insulin for her diabetes and will adjust as needed. - Cont Dialysis per nephrology. - Overall the patient does not have a good prognosis and we need to have a family meeting to discuss even possible hospice. Palliative care consult has been placed Further workup and management per clinical course. Total critical time spent was about 35 minutes. Subjective 24 Hr Interval Summary Free Text/Dictation on bipap. eyes closed. no acute distress Exam/Review of Systems Vital Signs Vitals Vital Signs Date Time Temp Pulse Resp B/P Pulse Ox O2 Delivery O2 Flow Rate FiO2 04/12/16 18:50 50 04/12/16 17:20 20 04/12/16 17:12 97 40 04/12/16 15:12 98.2 118/66 04/12/16 04:00 BIPAP 04/11/16 09:40 4.0 Intake and Output 04/11/16 04/11/16 04/12/16 15:00 23:00 07:00 Intake Total 500 ml 100 ml Output Total 2500 ml Balance -2000 ml 100 ml Exam GENERAL: The patient is on BiPAP. Appears lethargic and moaning, not following any commands. HEENT: No obvious head deformity. CARDIOVASCULAR: Bradycardic, with a regular rhythm. She also has a systolic murmur. PULMONARY: Lungs sound congested, with crackles anteriorly. ABDOMEN: Obese, soft. No grimaces noted on palpation. Positive bowel sounds. EXTREMITIES: No edema. Results Result Diagram: 04/12/16 0605 04/12/16 0620 Results 24 hrs Laboratory Tests Test 04/11/16 20:34 04/12/16 06:02 04/12/16 06:05 04/12/16 06:20 Bedside Glucose 139 154 Basophils # 0.0 Basophils % 0.4 Blood Morphology Comment Eosinophils # 0.1 Eosinophils % 1.2 Hematocrit 30.3 L Hemoglobin 9.9 L Lymphocytes # 0.8 Lymphocytes % 10.5 L Mean Corpuscular Hemoglobin 30.7 Mean Corpuscular Hemoglobin Concent 32.5 Mean Corpuscular Volume 94.3 Mean Platelet Volume 10.9 H Monocytes # 0.4 Monocytes % 5.8 Neutrophils # 6.0 Neutrophils % 82.1 H Nucleated Red Blood Cells # 0.0 Nucleated Red Blood Cells % 0.0 Platelet Count 136 L Red Blood Count 3.21 L Red Cell Distribution Width 17.4 H White Blood Count 7.3 Anion Gap 18 H Blood Urea Nitrogen 22 H Calcium Level 8.8 Carbon Dioxide Level 28 Chloride Level 100 Creatinine 3.53 H Glucose Level 143 Magnesium Level 2.1 Phosphorus Level 3.3 Potassium Level 3.4 L Sodium Level 143 Test 04/12/16 08:41 04/12/16 12:24 04/12/16 17:35 Bedside Glucose 163 148 126 Medications Medications Current Medications Lorazepam (Ativan) 0.5 mg Q6H PRN IV ANXIETY Last administered on 04/04/16at 20 :40; Admin Dose 0.5 MG; Start 04/04/16 at 15:30 Ondansetron HCl (Zofran Inj) 4 mg Q6H PRN IV NAUSEA AND/OR VOMITING; Start at 15:30 Famotidine (Pepcid Iv) 20 mg QHS IV Last administered on 04/11/16 21:41; Admin Dose 20 MG; Start 04/04/16 at 21:00 Ferrous Sulfate (Ferrous Sulfate (Ec)) 325 mg DAILY PO Last administered on 04/12 09:01; Admin Dose 325 MG; Start 04/05/16 at 09:00 Insulin Glargine (Lantus) 25 unit QHS SC Last administered on 04/11/16 23:01; Admin Dose 25 UNIT; Start 04/04/16 at 21:00 Latanoprost (Xalatan) 1 drop QHS BOTH EYES Last administered on 04/10/16 20:34 ; Admin Dose 1 DROP; Start 04/04/16 at 21:00 Metoprolol Tartrate (Lopressor) 25 mg BID PO Last administered on 04/11/16 09: 21; Admin Dose 25 MG; Start 04/04/16 at 21:00 Polyethylene Glycol (Miralax) 17 gm DAILY PO Last administered on 04/12/16 09: 01; Admin Dose 17 GM; Start 04/05/16 at 09:00 Atorvastatin Calcium (Lipitor) 20 mg DAILY@21 PO Last administered on 04/11/16 21:40; Admin Dose 20 MG; Start 04/04/16 at 21:00 Miscellaneous Information 1 ea NOTE XX ; Start 04/04/16 at 16:00 Glucose (Glutose) 15 gm Q15M PRN PO DECREASED GLUCOSE; Start 04/04/16 at 16:00 Glucose (Glutose) 22.5 gm Q15M PRN PO DECREASED GLUCOSE; Start 04/04/16 at 16: 00 Dextrose (D50w Syringe) 25 ml Q15M PRN IV DECREASED GLUCOSE Last administered on 04/09/16 13:09; Admin Dose 25 ML; Start 04/04/16 at 16:00 Dextrose (D50w Syringe) 50 ml Q15M PRN IV DECREASED GLUCOSE; Start 04/04/16 at 16:00 Glucagon (Glucagen) 1 mg Q15M PRN IM DECREASED GLUCOSE; Start 04/04/16 at 16: 00 Glucose 15 gm 15 gm Q15M PRN BUCCAL DECREASED GLUCOSE; Start 04/04/16 at 16:00 Norepinephrine/ Dextrose (Levophed/D5W) 500 ml @ 1.87 mls/hr TITRATE IV Last administered on 04/06/16at 14:58; Admin Dose 28.12 MLS/HR; Start 04/04/16 at 16 :30 Tramadol HCl (Ultram) 50 mg Q6H PRN PO Pain Last administered on 04/11/16 09:20 ; Admin Dose 50 MG; Start 04/04/16 at 16:30 Allopurinol (Zyloprim) 200 mg DAILY PO Last administered on 04/12/16 09:01; Admin Dose 200 MG; Start 04/05/16 at 09:00 Insulin Aspart (Novolog Insulin Pen) NOVOLOG *MILD* ALGORI... Q4 SC Last administered on 04/12/16 12:28; Admin Dose 1 UNIT; Start 04/05/16 at 17:00 Clopidogrel Bisulfate (plaVIX) 75 mg DAILY PO Last administered on 04/12/16 09: 01; Admin Dose 75 MG; Start 04/05/16 at 18:30 Pregabalin (Lyrica) 100 mg BID PO Last administered on 04/12/16 09:02; Admin Dose 100 MG; Start 04/05/16 at 21:00 Acetaminophen (Tylenol Supp) 650 mg Q6H PRN [place] FEVER Last administered on 04/08at 14:12; Admin Dose 650 MG; Start 04/06/16 at 12:00 Fluconazole (Diflucan) 100 mg DAILY PO Last administered on 04/12/16 09:01; Admin Dose 100 MG; Start 04/07/16 at 15:00 Apixaban 2.5 mg 2.5 mg BID PO Last administered on 04/12/16 09:02; Admin Dose 2.5 MG; Start 04/08/16 at 21:00 Dextrose (D5W) 1,000 ml @ 40 mls/hr Q24H IV Last administered on 04/09/16 22: 50; Admin Dose 40 MLS/HR; Start 04/09/16 at 10:00 Hydralazine HCl (Apresoline) 5 mg Q6H PRN IV ELEVATED BLOOD PRESSURE; Start 04/09/16 at 11:30 DEJUAN LINDA MD Apr 12, 2016 19:20
[2016-04-12] MEDS: LATANOPROST 0.005% 2.5 ML OPH BOTH EYES SCH (21:00)
[2016-04-12] MEDS: FAMOTIDINE 20 MG INJ IV SCH (22:02)
[2016-04-12] MEDS: INSULIN GLARGINE [LANtus] 3 ML PEN SC SCH (22:08)
[2016-04-12] MEDS: ATORVASTATIN 20 MG TAB PO SCH (22:12)
--- NOTE | 2016-04-12 23:31 | CONS ---
Date/Time of Note Date/Time of Note DATE: 04/12/16 TIME: 23:30 Consult Date/Type/Reason Admit Date/Time Apr 04, 2016 at 15:15 Initial Consult Date 04/04/16 Type of Consultation: Card Objective Vital Signs Date Time Temp Pulse Resp B/P Pulse Ox O2 Delivery O2 Flow Rate FiO2 04/12/16 20:20 50 20 04/12/16 20:00 98.3 94/48 97 04/12/16 17:12 40 04/12/16 04:00 BIPAP 04/11/16 09:40 4.0 Intake and Output 04/11/16 04/11/16 04/12/16 15:00 23:00 07:00 Intake Total 500 ml 100 ml Output Total 2500 ml Balance -2000 ml 100 ml Results/Medications Result Diagram: 04/12/16 0605 04/12/16 0620 Results 24 hrs Laboratory Tests Test 04/12/16 06:02 04/12/16 06:05 04/12/16 06:20 04/12/16 08:41 Bedside Glucose 154 163 Basophils # 0.0 Basophils % 0.4 Blood Morphology Comment Eosinophils # 0.1 Eosinophils % 1.2 Hematocrit 30.3 L Hemoglobin 9.9 L Lymphocytes # 0.8 Lymphocytes % 10.5 L Mean Corpuscular Hemoglobin 30.7 Mean Corpuscular Hemoglobin Concent 32.5 Mean Corpuscular Volume 94.3 Mean Platelet Volume 10.9 H Monocytes # 0.4 Monocytes % 5.8 Neutrophils # 6.0 Neutrophils % 82.1 H Nucleated Red Blood Cells # 0.0 Nucleated Red Blood Cells % 0.0 Platelet Count 136 L Red Blood Count 3.21 L Red Cell Distribution Width 17.4 H White Blood Count 7.3 Anion Gap 18 H Blood Urea Nitrogen 22 H Calcium Level 8.8 Carbon Dioxide Level 28 Chloride Level 100 Creatinine 3.53 H Glucose Level 143 Magnesium Level 2.1 Phosphorus Level 3.3 Potassium Level 3.4 L Sodium Level 143 Test 04/12/16 12:24 04/12/16 17:35 04/12/16 20:14 Bedside Glucose 148 126 168 Medications Current Medications Lorazepam (Ativan) 0.5 mg Q6H PRN IV ANXIETY Last administered on 04/04/16at 20 :40; Admin Dose 0.5 MG; Start 04/04/16 at 15:30 Ondansetron HCl (Zofran Inj) 4 mg Q6H PRN IV NAUSEA AND/OR VOMITING; Start at 15:30 Famotidine (Pepcid Iv) 20 mg QHS IV Last administered on 04/12/16 22:02; Admin Dose 20 MG; Start 04/04/16 at 21:00 Ferrous Sulfate (Ferrous Sulfate (Ec)) 325 mg DAILY PO Last administered on 04/12 09:01; Admin Dose 325 MG; Start 04/05/16 at 09:00 Insulin Glargine (Lantus) 25 unit QHS SC Last administered on 04/12/16 22:08; Admin Dose 25 UNIT; Start 04/04/16 at 21:00 Latanoprost (Xalatan) 1 drop QHS BOTH EYES Last administered on 04/10/16 20:34 ; Admin Dose 1 DROP; Start 04/04/16 at 21:00 Metoprolol Tartrate (Lopressor) 25 mg BID PO Last administered on 04/11/16 09: 21; Admin Dose 25 MG; Start 04/04/16 at 21:00 Polyethylene Glycol (Miralax) 17 gm DAILY PO Last administered on 04/12/16 09: 01; Admin Dose 17 GM; Start 04/05/16 at 09:00 Atorvastatin Calcium (Lipitor) 20 mg DAILY@21 PO Last administered on 04/12/16 22:12; Admin Dose 20 MG; Start 04/04/16 at 21:00 Miscellaneous Information 1 ea NOTE XX ; Start 04/04/16 at 16:00 Glucose (Glutose) 15 gm Q15M PRN PO DECREASED GLUCOSE; Start 04/04/16 at 16:00 Glucose (Glutose) 22.5 gm Q15M PRN PO DECREASED GLUCOSE; Start 04/04/16 at 16: 00 Dextrose (D50w Syringe) 25 ml Q15M PRN IV DECREASED GLUCOSE Last administered on 04/09/16 13:09; Admin Dose 25 ML; Start 04/04/16 at 16:00 Dextrose (D50w Syringe) 50 ml Q15M PRN IV DECREASED GLUCOSE; Start 04/04/16 at 16:00 Glucagon (Glucagen) 1 mg Q15M PRN IM DECREASED GLUCOSE; Start 04/04/16 at 16: 00 Glucose 15 gm 15 gm Q15M PRN BUCCAL DECREASED GLUCOSE; Start 04/04/16 at 16:00 Norepinephrine/ Dextrose (Levophed/D5W) 500 ml @ 1.87 mls/hr TITRATE IV Last administered on 04/06/16at 14:58; Admin Dose 28.12 MLS/HR; Start 04/04/16 at 16 :30 Tramadol HCl (Ultram) 50 mg Q6H PRN PO Pain Last administered on 04/11/16 09:20 ; Admin Dose 50 MG; Start 04/04/16 at 16:30 Allopurinol (Zyloprim) 200 mg DAILY PO Last administered on 04/12/16 09:01; Admin Dose 200 MG; Start 04/05/16 at 09:00 Insulin Aspart (Novolog Insulin Pen) NOVOLOG *MILD* ALGORI... Q4 SC Last administered on 04/12/16 12:28; Admin Dose 1 UNIT; Start 04/05/16 at 17:00 Clopidogrel Bisulfate (plaVIX) 75 mg DAILY PO Last administered on 04/12/16 09: 01; Admin Dose 75 MG; Start 04/05/16 at 18:30 Pregabalin (Lyrica) 100 mg BID PO Last administered on 04/12/16 22:05; Admin Dose 100 MG; Start 04/05/16 at 21:00 Acetaminophen (Tylenol Supp) 650 mg Q6H PRN [place] FEVER Last administered on 04/08at 14:12; Admin Dose 650 MG; Start 04/06/16 at 12:00 Fluconazole (Diflucan) 100 mg DAILY PO Last administered on 04/12/16 09:01; Admin Dose 100 MG; Start 04/07/16 at 15:00 Apixaban 2.5 mg 2.5 mg BID PO Last administered on 04/12/16 22:02; Admin Dose 2.5 MG; Start 04/08/16 at 21:00 Dextrose (D5W) 1,000 ml @ 40 mls/hr Q24H IV Last administered on 04/09/16 22: 50; Admin Dose 40 MLS/HR; Start 04/09/16 at 10:00 Hydralazine HCl (Apresoline) 5 mg Q6H PRN IV ELEVATED BLOOD PRESSURE; Start 04/09/16 at 11:30 Assessment/Plan Chief Complaint/Hosp Course Patient is 89 year old female with PMH of CAD pci of LAD, Severe mitral calcification with MS, CHF, ESRD on HD, Multiple TIA, PAD came in with SOB, Positive trop, intial plan was to take her to [facility] from ER but she was very SOB with craclkes, So brought to ICU. Will need HD, trend trop. had long discussion with family, daughter. Problems: Additional Assessment/Plan Stable cardiac caputo continue renal HD Pulm toilet Bipap plan for d/c snf ANH FRITZ MD Apr 12, 2016 23:31
[2016-04-13] VITALS (17 sets, daily range): BP systolic 82–118; BP diastolic 43–58; PULSE 49–69; RESP 18–22
[2016-04-13] MEDS: INSULIN ASPART [NOVOLOG] 3 ML PEN SC SCH ×6 (01:00→21:35)
[2016-04-13] MEDS: LEVOTHYROXINE 100 MCG TAB PO SCH (06:22)
[2016-04-13 06:51] LABS: HEMATOCRIT 31.8 % (37.0-47.0); HEMOGLOBIN 10.6 g/dl (12.0-16.0); MEAN CORPUSCULAR HEMOGLOBIN 31.2 pg (29.0-33.0); MEAN CORPUSCULAR HGB CONC 33.2 g/dl (32.0-37.0); MEAN CORPUSCULAR VOLUME 93.8 fl (82.0-101.0); MEAN PLATELET VOLUME 10.8 fl (7.4-10.4); PLATELET COUNT 184 10^3/UL (140-440); RED BLOOD COUNT 3.39 10^6/ul (4.20-5.40); RED CELL DISTRIBUTION WIDTH 17.1 % (11.5-14.5)
[2016-04-13 06:58] LABS: CONDITION 1; LH ANALYZER COMMENTS 1; SUSPECT 1
[2016-04-13 07:03] LABS: POTASSIUM 3.4 mmol/L (3.5-5.1)
[2016-04-13 07:05] LABS: CREATININE 3.45 mg/dl (0.44-1.00)
[2016-04-13 07:06] LABS: CALCIUM 8.4 mg/dl (8.4-10.2); MAGNESIUM 1.7 mg/dl (1.7-2.5); PHOSPHORUS 2.9 mg/dl (2.5-4.9)
[2016-04-13] MEDS: FLUCONAZOLE 100 MG TAB PO SCH (08:19)
[2016-04-13] MEDS: PREGABALIN 25 MG CAP PO SCH ×2 (08:19→21:32)
[2016-04-13] MEDS: METOPROLOL 25 MG TAB PO SCH ×2 (08:20→21:32)
[2016-04-13] MEDS: FERROUS SULFATE (EC) 325 MG TAB PO SCH (08:22)
[2016-04-13] MEDS: ALLOPURINOL 100 MG TAB PO SCH (08:22)
[2016-04-13] MEDS: CLOPIDOGREL 75 MG TAB PO SCH (08:23)
[2016-04-13] MEDS: POLYETHYLENE GLYCOL 17 GM PACKET PO SCH (08:23)
[2016-04-13] MEDS: APIXABAN 5 MG TABLET PO SCH ×2 (08:24→21:33)
[2016-04-13] MEDS: DEXTROSE 5% 1,000 ML IV SCH (10:00)
[2016-04-13] MEDS: ALBUTEROL/IPRATROPIUM (NEB) 3 ML AMP HHN SCH ×4 (10:10→20:41)
[2016-04-13 10:27] LABS: ANISOCYTOSIS 1+; EOSINOPHILS # 0.1 10^3/ul (0.0-0.5); LYMPHOCYTES # 1.1 10^3/ul (0.8-2.9); MONOCYTE # 0.5 10^3/ul (0.3-0.9); NEUTROPHIL # 10.1 10^3/ul (1.6-7.5)
--- NOTE | 2016-04-13 13:24 | PN ---
DATE: 04/13/2016 SUBJECTIVE: The patient remains on BiPAP. She is very lethargic and in no distress. No nausea, vo miting, diarrhea per discussion with RN. No fevers. LABORATORIES: WBC today and went to 12 with neutrophils 84, bands 2. MICROBIOLOGY: Blood cultures since admission remain negative. INDWELLINGS: Right chest Perm-A-Cath and PICC line placed on 04/06/2016. PHYSICAL EXAMINATION: GENERAL: This is an obese, chronically ill-appearing, elderly woman who looks comfortable on BiPAP. HEENT: Head atraumatic, normocephalic. Sclerae anicteric. Buccal mucosa dry. NECK: Supple, trachea midline. CHEST: Rise symmetrical. Breath sounds diminished to bases. HEART: S1, S2. ABDOMEN: Soft, bowel tones present. EXTREMITIES: Without cyanosis. ASSESSMENT: 1. Acute respiratory failure secondary to pulmonary edema, patient was treated with antibiotics for 7 days for concern of aspiration. 2. Status post shock. 3. Non-ST elevation myocardial infarction, status post cardiac stent to posterior descending artery . 4. Severe mitral stenosis. 5. End-stage renal disease, hemodialysis dependent. PLAN: The patient remains clinically stable off antibiotics day #1. No fevers. We will continue o bserving her and panculture p.r.n. Dictated By: TAMIKO DIXON RESAWYER for JONAH STEVE/NTS Conf#: [id number] DID#: [id number]
--- NOTE | 2016-04-13 13:30 | CONS ---
Date/Time of Note Date/Time of Note DATE: 04/13/16 TIME: 13:29 Consult Date/Type/Reason Admit Date/Time Apr 04, 2016 at 15:15 Initial Consult Date 04/04/16 Type of Consultation: Comfortable Subjective PHYSICAL EXAMINATION: GENERAL: Elderly [place] lady on supplemental oxygen VITAL SIGNS: As above NECK: Supple. No JVD or lymphadenopathy. CARDIAC: S1, S2, no added sounds or murmurs. CHEST: Diminished air entry bilaterally. Coarse upper airway rales ABDOMEN: Soft, nontender. No guarding or rebound. EXTREMITIES: No cyanosis, clubbing, 1+ edema. NEUROLOGIC: Generalized weakness. Objective Vital Signs Date Time Temp Pulse Resp B/P Pulse Ox O2 Delivery O2 Flow Rate FiO2 04/13/16 12:44 60 99 40 04/13/16 12:15 91/52 04/13/16 11:39 97.7 22 04/12/16 04:00 BIPAP 04/11/16 09:40 4.0 Intake and Output 04/12/16 04/12/16 04/13/16 15:00 23:00 07:00 Intake Total 950 ml Output Total 2800 ml Balance -1850 ml Results/Medications Result Diagram: 04/13/16 0550 04/13/16 0550 Results 24 hrs Laboratory Tests Test 04/12/16 17:35 04/12/16 20:14 04/13/16 03:15 04/13/16 05:50 Bedside Glucose 126 168 190 Anion Gap 19 H Anisocytosis 1+ Band Neutrophils % 2.0 Basophils # Basophils % Blood Morphology Comment Blood Urea Nitrogen 22 H Calcium Level 8.4 Carbon Dioxide Level 26 Chloride Level 89 #L Creatinine 3.45 H Differential Comment MANUAL DIFF Eosinophils # 0.1 Eosinophils % 1.0 Giant Platelets RARE Glucose Level 363 #H Hematocrit 31.8 L Hemoglobin 10.6 L Large Platelets OCCASIONAL Lymphocytes # 1.1 Lymphocytes % 9.0 L Magnesium Level 1.7 Mean Corpuscular Hemoglobin 31.2 Mean Corpuscular Hemoglobin Concent 33.2 Mean Corpuscular Volume 93.8 Mean Platelet Volume 10.8 H Monocytes # 0.5 Monocytes % 4.0 Neutrophils # 10.1 H Neutrophils % 84.0 H Nucleated Red Blood Cells # Nucleated Red Blood Cells % Phosphorus Level 2.9 Platelet Count 184 # Potassium Level 3.4 L Red Blood Count 3.39 L Red Cell Distribution Width 17.1 H Sodium Level 131 L White Blood Count 12.0 #H Test 04/13/16 06:07 04/13/16 08:06 04/13/16 12:05 Bedside Glucose 188 191 205 Medications Current Medications Lorazepam (Ativan) 0.5 mg Q6H PRN IV ANXIETY Last administered on 04/04/16at 20 :40; Admin Dose 0.5 MG; Start 04/04/16 at 15:30 Ondansetron HCl (Zofran Inj) 4 mg Q6H PRN IV NAUSEA AND/OR VOMITING; Start at 15:30 Famotidine (Pepcid Iv) 20 mg QHS IV Last administered on 04/12/16 22:02; Admin Dose 20 MG; Start 04/04/16 at 21:00 Ferrous Sulfate (Ferrous Sulfate (Ec)) 325 mg DAILY PO Last administered on 04/13 08:22; Admin Dose 325 MG; Start 04/05/16 at 09:00 Insulin Glargine (Lantus) 25 unit QHS SC Last administered on 04/12/16 22:08; Admin Dose 25 UNIT; Start 04/04/16 at 21:00 Latanoprost (Xalatan) 1 drop QHS BOTH EYES Last administered on 04/10/16 20:34 ; Admin Dose 1 DROP; Start 04/04/16 at 21:00 Metoprolol Tartrate (Lopressor) 25 mg BID PO Last administered on 04/13/16 08: 20; Admin Dose 25 MG; Start 04/04/16 at 21:00 Polyethylene Glycol (Miralax) 17 gm DAILY PO Last administered on 04/13/16 08: 23; Admin Dose 17 GM; Start 04/05/16 at 09:00 Atorvastatin Calcium (Lipitor) 20 mg DAILY@21 PO Last administered on 04/12/16 22:12; Admin Dose 20 MG; Start 04/04/16 at 21:00 Miscellaneous Information 1 ea NOTE XX ; Start 04/04/16 at 16:00 Glucose (Glutose) 15 gm Q15M PRN PO DECREASED GLUCOSE; Start 04/04/16 at 16:00 Glucose (Glutose) 22.5 gm Q15M PRN PO DECREASED GLUCOSE; Start 04/04/16 at 16: 00 Dextrose (D50w Syringe) 25 ml Q15M PRN IV DECREASED GLUCOSE Last administered on 04/09/16 13:09; Admin Dose 25 ML; Start 04/04/16 at 16:00 Dextrose (D50w Syringe) 50 ml Q15M PRN IV DECREASED GLUCOSE; Start 04/04/16 at 16:00 Glucagon (Glucagen) 1 mg Q15M PRN IM DECREASED GLUCOSE; Start 04/04/16 at 16: 00 Glucose 15 gm 15 gm Q15M PRN BUCCAL DECREASED GLUCOSE; Start 04/04/16 at 16:00 Norepinephrine/ Dextrose (Levophed/D5W) 500 ml @ 1.87 mls/hr TITRATE IV Last administered on 04/06/16at 14:58; Admin Dose 28.12 MLS/HR; Start 04/04/16 at 16 :30 Tramadol HCl (Ultram) 50 mg Q6H PRN PO Pain Last administered on 04/11/16 09:20 ; Admin Dose 50 MG; Start 04/04/16 at 16:30 Allopurinol (Zyloprim) 200 mg DAILY PO Last administered on 04/13/16 08:22; Admin Dose 200 MG; Start 04/05/16 at 09:00 Insulin Aspart (Novolog Insulin Pen) NOVOLOG *MILD* ALGORI... Q4 SC Last administered on 04/13/16 12:28; Admin Dose 2 UNIT; Start 04/05/16 at 17:00 Clopidogrel Bisulfate (plaVIX) 75 mg DAILY PO Last administered on 04/13/16 08: 23; Admin Dose 75 MG; Start 04/05/16 at 18:30 Pregabalin (Lyrica) 100 mg BID PO Last administered on 04/13/16 08:19; Admin Dose 100 MG; Start 04/05/16 at 21:00 Acetaminophen (Tylenol Supp) 650 mg Q6H PRN [place] FEVER Last administered on 04/08at 14:12; Admin Dose 650 MG; Start 04/06/16 at 12:00 Apixaban 2.5 mg 2.5 mg BID PO Last administered on 04/13/16 08:24; Admin Dose 2.5 MG; Start 04/08/16 at 21:00 Dextrose (D5W) 1,000 ml @ 40 mls/hr Q24H IV Last administered on 1/1/17at 22: 50; Admin Dose 40 MLS/HR; Start 04/09/16 at 10:00 Hydralazine HCl (Apresoline) 5 mg Q6H PRN IV ELEVATED BLOOD PRESSURE; Start 04/09/16 at 11:30 Assessment/Plan Chief Complaint/Hosp Course IMPRESSION: 1. Pulmonary edema with possible component of pneumonia with subsequent hypoxemic respiratory failure. 2. 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 3. Encephalopathy, toxic metabolic. 4. Patient's code status: DNR/DNI. 5. Severe mitral stenosis with underlying coronary artery disease 6. Status post coronary intervention 7. Likely significant aspiration risk PLAN: 1. Continue noninvasive positive pressure ventilation and nasal cannula oxygen. Aggressive pulmonary toilet 2. Supplemental O2. 3. DVT and GI prophylaxis. 4. Cardiac catheterization with revascularization, continue cardiology recommendations 5. Unlikely patient is stable for oral intake significant aspiration risk Consider hospice evaluation SNF placement. Problems: OSIRIS REYNOLDS MD, [facility] Apr 13, 2016 13:30
--- NOTE | 2016-04-13 14:19 | CONS ---
Date/Time of Note Date/Time of Note DATE: 04/13/16 TIME: 14:17 Consult Date/Type/Reason Admit Date/Time Apr 04, 2016 at 15:15 Initial Consult Date 04/04/16 Type of Consultation: Subjective SUBJECTIVE: The patient remains on BiPAP. The patient had hemodialysis yesterday, tolerated it well. No acute events noted. No hemoptysis, hematemesis or hematochezia. OBJECTIVE: HEENT: Head is normocephalic. NECK: Supple. HEART: Regular rate. LUNGS: Show diminished breath sounds at base. ABDOMEN: Soft, nontender to palpation without rebound or guarding. EXTREMITIES: Negative for clubbing, cyanosis. Trace edema. DERMATOLOGIC: No rashes. MUSCULOSKELETAL: No joint effusions. NEUROLOGIC: No change in exam. ASSESSMENT AND PLAN: 1. End-stage renal disease. The patient has been receiving daily dialysis for volume removal. We will plan for dialysis again today for 3 hours, 4K bath, calcium 2.5, will ultrafiltrate as tolerated. 2. Hypokalemia, replete potassium chloride. Will dialyze on a low potassium bath. 3. Volume overload. Continue ultrafiltration with dialysis. 4. Anemia. Continue to monitor hemoglobin and hematocrit levels. Continue Epogen. 5. Acute hypoxemic respiratory failure secondary to congestive heart failure, pneumonia. Continue BiPAP, wean off if possible. 6. Hypertension. Continue current blood pressure regimen. 7. Mineral bone disorder. Continue to monitor calcium and phosphorous levels. 8. Non-ST elevation myocardial infarction. Continue the patient is status post percutaneous coronary intervention. Continue medical management. 9. Peripheral vascular disease. Continue medical management. 10. Encephalopathy dialysis toxic metabolic. Continue to monitor. 11. History of mitral stenosis. Objective Vital Signs Date Time Temp Pulse Resp B/P Pulse Ox O2 Delivery O2 Flow Rate FiO2 04/13/16 12:44 60 99 40 04/13/16 12:15 91/52 04/13/16 11:39 97.7 22 04/12/16 04:00 BIPAP 04/11/16 09:40 4.0 Intake and Output 04/12/16 04/12/16 04/13/16 15:00 23:00 07:00 Intake Total 950 ml 40 ml Output Total 2800 ml Balance -1850 ml 40 ml Results/Medications Result Diagram: 04/13/16 0550 04/13/16 0550 Results 24 hrs Laboratory Tests Test 04/12/16 17:35 04/12/16 20:14 04/13/16 03:15 04/13/16 05:50 Bedside Glucose 126 168 190 Anion Gap 19 H Anisocytosis 1+ Band Neutrophils % 2.0 Basophils # Basophils % Blood Morphology Comment Blood Urea Nitrogen 22 H Calcium Level 8.4 Carbon Dioxide Level 26 Chloride Level 89 #L Creatinine 3.45 H Differential Comment MANUAL DIFF Eosinophils # 0.1 Eosinophils % 1.0 Giant Platelets RARE Glucose Level 363 #H Hematocrit 31.8 L Hemoglobin 10.6 L Large Platelets OCCASIONAL Lymphocytes # 1.1 Lymphocytes % 9.0 L Magnesium Level 1.7 Mean Corpuscular Hemoglobin 31.2 Mean Corpuscular Hemoglobin Concent 33.2 Mean Corpuscular Volume 93.8 Mean Platelet Volume 10.8 H Monocytes # 0.5 Monocytes % 4.0 Neutrophils # 10.1 H Neutrophils % 84.0 H Nucleated Red Blood Cells # Nucleated Red Blood Cells % Phosphorus Level 2.9 Platelet Count 184 # Potassium Level 3.4 L Red Blood Count 3.39 L Red Cell Distribution Width 17.1 H Sodium Level 131 L White Blood Count 12.0 #H Test 04/13/16 06:07 04/13/16 08:06 04/13/16 12:05 Bedside Glucose 188 191 205 Medications Current Medications Lorazepam (Ativan) 0.5 mg Q6H PRN IV ANXIETY Last administered on 04/04/16at 20 :40; Admin Dose 0.5 MG; Start 04/04/16 at 15:30 Ondansetron HCl (Zofran Inj) 4 mg Q6H PRN IV NAUSEA AND/OR VOMITING; Start at 15:30 Famotidine (Pepcid Iv) 20 mg QHS IV Last administered on 04/12/16 22:02; Admin Dose 20 MG; Start 04/04/16 at 21:00 Ferrous Sulfate (Ferrous Sulfate (Ec)) 325 mg DAILY PO Last administered on 04/13 08:22; Admin Dose 325 MG; Start 04/05/16 at 09:00 Insulin Glargine (Lantus) 25 unit QHS SC Last administered on 04/12/16 22:08; Admin Dose 25 UNIT; Start 04/04/16 at 21:00 Latanoprost (Xalatan) 1 drop QHS BOTH EYES Last administered on 04/10/16 20:34 ; Admin Dose 1 DROP; Start 04/04/16 at 21:00 Metoprolol Tartrate (Lopressor) 25 mg BID PO Last administered on 04/13/16 08: 20; Admin Dose 25 MG; Start 04/04/16 at 21:00 Polyethylene Glycol (Miralax) 17 gm DAILY PO Last administered on 04/13/16 08: 23; Admin Dose 17 GM; Start 04/05/16 at 09:00 Atorvastatin Calcium (Lipitor) 20 mg DAILY@21 PO Last administered on 04/12/16 22:12; Admin Dose 20 MG; Start 04/04/16 at 21:00 Miscellaneous Information 1 ea NOTE XX ; Start 04/04/16 at 16:00 Glucose (Glutose) 15 gm Q15M PRN PO DECREASED GLUCOSE; Start 04/04/16 at 16:00 Glucose (Glutose) 22.5 gm Q15M PRN PO DECREASED GLUCOSE; Start 04/04/16 at 16: 00 Dextrose (D50w Syringe) 25 ml Q15M PRN IV DECREASED GLUCOSE Last administered on 04/09/16 13:09; Admin Dose 25 ML; Start 04/04/16 at 16:00 Dextrose (D50w Syringe) 50 ml Q15M PRN IV DECREASED GLUCOSE; Start 04/04/16 at 16:00 Glucagon (Glucagen) 1 mg Q15M PRN IM DECREASED GLUCOSE; Start 04/04/16 at 16: 00 Glucose 15 gm 15 gm Q15M PRN BUCCAL DECREASED GLUCOSE; Start 04/04/16 at 16:00 Norepinephrine/ Dextrose (Levophed/D5W) 500 ml @ 1.87 mls/hr TITRATE IV Last administered on 04/06/16at 14:58; Admin Dose 28.12 MLS/HR; Start 04/04/16 at 16 :30 Tramadol HCl (Ultram) 50 mg Q6H PRN PO Pain Last administered on 04/11/16 09:20 ; Admin Dose 50 MG; Start 04/04/16 at 16:30 Allopurinol (Zyloprim) 200 mg DAILY PO Last administered on 04/13/16 08:22; Admin Dose 200 MG; Start 04/05/16 at 09:00 Insulin Aspart (Novolog Insulin Pen) NOVOLOG *MILD* ALGORI... Q4 SC Last administered on 04/13/16 12:28; Admin Dose 2 UNIT; Start 04/05/16 at 17:00 Clopidogrel Bisulfate (plaVIX) 75 mg DAILY PO Last administered on 04/13/16 08: 23; Admin Dose 75 MG; Start 04/05/16 at 18:30 Pregabalin (Lyrica) 100 mg BID PO Last administered on 04/13/16 08:19; Admin Dose 100 MG; Start 04/05/16 at 21:00 Acetaminophen (Tylenol Supp) 650 mg Q6H PRN [place] FEVER Last administered on 04/08at 14:12; Admin Dose 650 MG; Start 04/06/16 at 12:00 Apixaban 2.5 mg 2.5 mg BID PO Last administered on 04/13/16 08:24; Admin Dose 2.5 MG; Start 04/08/16 at 21:00 Dextrose (D5W) 1,000 ml @ 40 mls/hr Q24H IV Last administered on 04/13/16 10: 00; Admin Dose 40 MLS/HR; Start 04/09/16 at 10:00 Hydralazine HCl (Apresoline) 5 mg Q6H PRN IV ELEVATED BLOOD PRESSURE; Start 04/09/16 at 11:30 IVELISSE HERRERA MD Apr 13, 2016 14:18
--- NOTE | 2016-04-13 18:29 | PN ---
Date/Time of Note Date/Time of Note DATE: 04/13/16 TIME: 18:24 Assessment/Plan VTE Prophylaxis VTE Prophylaxis Intervention: SCD's Lines/Catheters IV [facility] Type [facility]from [facility] Peripheral IV Urinary Cath still in place: No Assessment/Plan Assessment/Plan IMPRESSION: 1. Hypoxic respiratory failure, with pulmonary vascular congestion. 2. Coronary artery disease, status post PCI, with stent to right posterior descending artery. The patient also has a history of PCI to the LAD. 3. Severe mitral calcification with stenosis. 4. End-stage renal disease, on dialysis. 5. History of transient ischemic attack. 6. Status post sepsis, with possible underlying pneumonia. 7. Anemia, likely anemia of chronic disease. 8. Type 2 diabetes. 9. Hyponatremia and mild Hypokalemia 10. Leukocytosis 11. Sandra in resp cx; s/p treatment PLAN: - Will continue positive pressure support and try to transition to NC as tolerated. - Continue breathing treatments. pt is s/p cardiac catheterization with a PCI and stents to RPDA. She also has a history PCI of the LAD. Cont meds, including cardiac through NG tube. Will continue insulin for her diabetes and will adjust as needed. - Cont Dialysis per nephrology. - Overall the patient does not have a good prognosis and we need to have a family meeting to discuss even possible hospice. Palliative care on board - pt off abx now. no fever, but up trended WBC. cont to monitor for now. ID on board - Correct electrolytes as needed Further workup and management per clinical course. Total critical time spent was about 35 minutes. Subjective 24 Hr Interval Summary Free Text/Dictation off BIPAP, still lethargic, not following commands Exam/Review of Systems Vital Signs Vitals Vital Signs Date Time Temp Pulse Resp B/P Pulse Ox O2 Delivery O2 Flow Rate FiO2 04/13/16 16:50 50 04/13/16 16:42 22 97 Nasal Cannula 3.0 04/13/16 16:05 97.7 89/57 04/13/16 12:44 40 Intake and Output 04/12/16 04/12/16 04/13/16 15:00 23:00 07:00 Intake Total 950 ml 40 ml Output Total 2800 ml Balance -1850 ml 40 ml Exam GENERAL: The patient is on BiPAP. Appears lethargic and moaning, not following any commands. HEENT: No obvious head deformity. CARDIOVASCULAR: Bradycardic, with a regular rhythm. She also has a systolic murmur. PULMONARY: Lungs sound congested, with crackles anteriorly. ABDOMEN: Obese, soft. No grimaces noted on palpation. Positive bowel sounds. EXTREMITIES: No edema. Results Result Diagram: 04/13/16 0550 04/13/16 0550 Results 24 hrs Laboratory Tests Test 04/12/16 20:14 04/13/16 03:15 04/13/16 05:50 04/13/16 06:07 Bedside Glucose 168 190 188 Anion Gap 19 H Anisocytosis 1+ Band Neutrophils % 2.0 Basophils # Basophils % Blood Morphology Comment Blood Urea Nitrogen 22 H Calcium Level 8.4 Carbon Dioxide Level 26 Chloride Level 89 #L Creatinine 3.45 H Differential Comment MANUAL DIFF Eosinophils # 0.1 Eosinophils % 1.0 Giant Platelets RARE Glucose Level 363 #H Hematocrit 31.8 L Hemoglobin 10.6 L Large Platelets OCCASIONAL Lymphocytes # 1.1 Lymphocytes % 9.0 L Magnesium Level 1.7 Mean Corpuscular Hemoglobin 31.2 Mean Corpuscular Hemoglobin Concent 33.2 Mean Corpuscular Volume 93.8 Mean Platelet Volume 10.8 H Monocytes # 0.5 Monocytes % 4.0 Neutrophils # 10.1 H Neutrophils % 84.0 H Nucleated Red Blood Cells # Nucleated Red Blood Cells % Phosphorus Level 2.9 Platelet Count 184 # Potassium Level 3.4 L Red Blood Count 3.39 L Red Cell Distribution Width 17.1 H Sodium Level 131 L White Blood Count 12.0 #H Test 04/13/16 08:06 04/13/16 12:05 Bedside Glucose 191 205 Medications Medications Current Medications Lorazepam (Ativan) 0.5 mg Q6H PRN IV ANXIETY Last administered on 04/04/16at 20 :40; Admin Dose 0.5 MG; Start 04/04/16 at 15:30 Ondansetron HCl (Zofran Inj) 4 mg Q6H PRN IV NAUSEA AND/OR VOMITING; Start at 15:30 Ferrous Sulfate (Ferrous Sulfate (Ec)) 325 mg DAILY PO Last administered on 04/13 08:22; Admin Dose 325 MG; Start 04/05/16 at 09:00 Insulin Glargine (Lantus) 25 unit QHS SC Last administered on 04/12/16 22:08; Admin Dose 25 UNIT; Start 04/04/16 at 21:00 Latanoprost (Xalatan) 1 drop QHS BOTH EYES Last administered on 04/10/16 20:34 ; Admin Dose 1 DROP; Start 04/04/16 at 21:00 Metoprolol Tartrate (Lopressor) 25 mg BID PO Last administered on 04/13/16 08: 20; Admin Dose 25 MG; Start 04/04/16 at 21:00 Polyethylene Glycol (Miralax) 17 gm DAILY PO Last administered on 04/13/16 08: 23; Admin Dose 17 GM; Start 04/05/16 at 09:00 Atorvastatin Calcium (Lipitor) 20 mg DAILY@21 PO Last administered on 04/12/16 22:12; Admin Dose 20 MG; Start 04/04/16 at 21:00 Miscellaneous Information 1 ea NOTE XX ; Start 04/04/16 at 16:00 Glucose (Glutose) 15 gm Q15M PRN PO DECREASED GLUCOSE; Start 04/04/16 at 16:00 Glucose (Glutose) 22.5 gm Q15M PRN PO DECREASED GLUCOSE; Start 04/04/16 at 16: 00 Dextrose (D50w Syringe) 25 ml Q15M PRN IV DECREASED GLUCOSE Last administered on 04/09/16 13:09; Admin Dose 25 ML; Start 04/04/16 at 16:00 Dextrose (D50w Syringe) 50 ml Q15M PRN IV DECREASED GLUCOSE; Start 04/04/16 at 16:00 Glucagon (Glucagen) 1 mg Q15M PRN IM DECREASED GLUCOSE; Start 04/04/16 at 16: 00 Glucose 15 gm 15 gm Q15M PRN BUCCAL DECREASED GLUCOSE; Start 04/04/16 at 16:00 Norepinephrine/ Dextrose (Levophed/D5W) 500 ml @ 1.87 mls/hr TITRATE IV Last administered on 04/06/16at 14:58; Admin Dose 28.12 MLS/HR; Start 04/04/16 at 16 :30 Tramadol HCl (Ultram) 50 mg Q6H PRN PO Pain Last administered on 04/11/16 09:20 ; Admin Dose 50 MG; Start 04/04/16 at 16:30 Allopurinol (Zyloprim) 200 mg DAILY PO Last administered on 04/13/16 08:22; Admin Dose 200 MG; Start 04/05/16 at 09:00 Insulin Aspart (Novolog Insulin Pen) NOVOLOG *MILD* ALGORI... Q4 SC Last administered on 04/13/16 12:28; Admin Dose 2 UNIT; Start 04/05/16 at 17:00 Clopidogrel Bisulfate (plaVIX) 75 mg DAILY PO Last administered on 04/13/16 08: 23; Admin Dose 75 MG; Start 04/05/16 at 18:30 Pregabalin (Lyrica) 100 mg BID PO Last administered on 04/13/16 08:19; Admin Dose 100 MG; Start 04/05/16 at 21:00 Acetaminophen (Tylenol Supp) 650 mg Q6H PRN [place] FEVER Last administered on 04/08at 14:12; Admin Dose 650 MG; Start 04/06/16 at 12:00 Apixaban 2.5 mg 2.5 mg BID PO Last administered on 04/13/16 08:24; Admin Dose 2.5 MG; Start 04/08/16 at 21:00 Dextrose (D5W) 1,000 ml @ 40 mls/hr Q24H IV Last administered on 04/13/16 10: 00; Admin Dose 40 MLS/HR; Start 04/09/16 at 10:00 Hydralazine HCl (Apresoline) 5 mg Q6H PRN IV ELEVATED BLOOD PRESSURE; Start 04/09/16 at 11:30 Famotidine (Pepcid) 20 mg QHS PO ; Start 04/13/16 at 21:00 DEJUAN LINDA MD Apr 13, 2016 18:29
[2016-04-13] MEDS ORDERED: POTASSIUM CHLORIDE 20 MEQ in SOD CHLORIDE 0.9% 100 ML IVPB ONE (18:30)
--- NOTE | 2016-04-13 19:45 | CONS ---
Date/Time of Note Date/Time of Note DATE: 04/13/16 TIME: 19:43 Consult Date/Type/Reason Admit Date/Time Apr 04, 2016 at 15:15 Initial Consult Date 04/04/16 Type of Consultation: Card Objective Vital Signs Date Time Temp Pulse Resp B/P Pulse Ox O2 Delivery O2 Flow Rate FiO2 04/13/16 16:50 50 04/13/16 16:42 22 97 Nasal Cannula 3.0 04/13/16 16:05 97.7 89/57 04/13/16 12:44 40 Intake and Output 04/12/16 04/12/16 04/13/16 15:00 23:00 07:00 Intake Total 950 ml 40 ml Output Total 2800 ml Balance -1850 ml 40 ml Results/Medications Result Diagram: 04/13/16 0550 04/13/16 0550 Results 24 hrs Laboratory Tests Test 04/12/16 20:14 04/13/16 03:15 04/13/16 05:50 04/13/16 06:07 Bedside Glucose 168 190 188 Anion Gap 19 H Anisocytosis 1+ Band Neutrophils % 2.0 Basophils # Basophils % Blood Morphology Comment Blood Urea Nitrogen 22 H Calcium Level 8.4 Carbon Dioxide Level 26 Chloride Level 89 #L Creatinine 3.45 H Differential Comment MANUAL DIFF Eosinophils # 0.1 Eosinophils % 1.0 Giant Platelets RARE Glucose Level 363 #H Hematocrit 31.8 L Hemoglobin 10.6 L Large Platelets OCCASIONAL Lymphocytes # 1.1 Lymphocytes % 9.0 L Magnesium Level 1.7 Mean Corpuscular Hemoglobin 31.2 Mean Corpuscular Hemoglobin Concent 33.2 Mean Corpuscular Volume 93.8 Mean Platelet Volume 10.8 H Monocytes # 0.5 Monocytes % 4.0 Neutrophils # 10.1 H Neutrophils % 84.0 H Nucleated Red Blood Cells # Nucleated Red Blood Cells % Phosphorus Level 2.9 Platelet Count 184 # Potassium Level 3.4 L Red Blood Count 3.39 L Red Cell Distribution Width 17.1 H Sodium Level 131 L White Blood Count 12.0 #H Test 04/13/16 08:06 04/13/16 12:05 04/13/16 18:29 Bedside Glucose 191 205 196 Medications Current Medications Lorazepam (Ativan) 0.5 mg Q6H PRN IV ANXIETY Last administered on 04/04/16at 20 :40; Admin Dose 0.5 MG; Start 04/04/16 at 15:30 Ondansetron HCl (Zofran Inj) 4 mg Q6H PRN IV NAUSEA AND/OR VOMITING; Start at 15:30 Ferrous Sulfate (Ferrous Sulfate (Ec)) 325 mg DAILY PO Last administered on 04/13 08:22; Admin Dose 325 MG; Start 04/05/16 at 09:00 Insulin Glargine (Lantus) 25 unit QHS SC Last administered on 04/12/16 22:08; Admin Dose 25 UNIT; Start 04/04/16 at 21:00 Latanoprost (Xalatan) 1 drop QHS BOTH EYES Last administered on 04/10/16 20:34 ; Admin Dose 1 DROP; Start 04/04/16 at 21:00 Metoprolol Tartrate (Lopressor) 25 mg BID PO Last administered on 04/13/16 08: 20; Admin Dose 25 MG; Start 04/04/16 at 21:00 Polyethylene Glycol (Miralax) 17 gm DAILY PO Last administered on 04/13/16 08: 23; Admin Dose 17 GM; Start 04/05/16 at 09:00 Atorvastatin Calcium (Lipitor) 20 mg DAILY@21 PO Last administered on 04/12/16 22:12; Admin Dose 20 MG; Start 04/04/16 at 21:00 Miscellaneous Information 1 ea NOTE XX ; Start 04/04/16 at 16:00 Glucose (Glutose) 15 gm Q15M PRN PO DECREASED GLUCOSE; Start 04/04/16 at 16:00 Glucose (Glutose) 22.5 gm Q15M PRN PO DECREASED GLUCOSE; Start 04/04/16 at 16: 00 Dextrose (D50w Syringe) 25 ml Q15M PRN IV DECREASED GLUCOSE Last administered on 04/09/16 13:09; Admin Dose 25 ML; Start 04/04/16 at 16:00 Dextrose (D50w Syringe) 50 ml Q15M PRN IV DECREASED GLUCOSE; Start 04/04/16 at 16:00 Glucagon (Glucagen) 1 mg Q15M PRN IM DECREASED GLUCOSE; Start 04/04/16 at 16: 00 Glucose 15 gm 15 gm Q15M PRN BUCCAL DECREASED GLUCOSE; Start 04/04/16 at 16:00 Norepinephrine/ Dextrose (Levophed/D5W) 500 ml @ 1.87 mls/hr TITRATE IV Last administered on 04/06/16at 14:58; Admin Dose 28.12 MLS/HR; Start 04/04/16 at 16 :30 Tramadol HCl (Ultram) 50 mg Q6H PRN PO Pain Last administered on 04/11/16 09:20 ; Admin Dose 50 MG; Start 04/04/16 at 16:30 Allopurinol (Zyloprim) 200 mg DAILY PO Last administered on 04/13/16 08:22; Admin Dose 200 MG; Start 04/05/16 at 09:00 Insulin Aspart (Novolog Insulin Pen) NOVOLOG *MILD* ALGORI... Q4 SC Last administered on 04/13/16 18:39; Admin Dose 2 UNIT; Start 04/05/16 at 17:00 Clopidogrel Bisulfate (plaVIX) 75 mg DAILY PO Last administered on 04/13/16 08: 23; Admin Dose 75 MG; Start 04/05/16 at 18:30 Pregabalin (Lyrica) 100 mg BID PO Last administered on 04/13/16 08:19; Admin Dose 100 MG; Start 04/05/16 at 21:00 Acetaminophen (Tylenol Supp) 650 mg Q6H PRN [place] FEVER Last administered on 04/08at 14:12; Admin Dose 650 MG; Start 04/06/16 at 12:00 Apixaban 2.5 mg 2.5 mg BID PO Last administered on 04/13/16 08:24; Admin Dose 2.5 MG; Start 04/08/16 at 21:00 Dextrose (D5W) 1,000 ml @ 40 mls/hr Q24H IV Last administered on 04/13/16 10: 00; Admin Dose 40 MLS/HR; Start 04/09/16 at 10:00 Hydralazine HCl (Apresoline) 5 mg Q6H PRN IV ELEVATED BLOOD PRESSURE; Start 04/09/16 at 11:30 Famotidine 20 mg 20 mg QHS PO ; Start 04/13/16 at 21:00 Potassium Chloride/Sodium Chloride (KCl/NS) 110 ml @ 55 mls/hr ONCE ONCE IVPB ; Start 04/13/16 at 18:30; Stop 04/13/16 at 20:29 Assessment/Plan Chief Complaint/Hosp Course Patient is 89 year old female with PMH of CAD pci of LAD, Severe mitral calcification with MS, CHF, ESRD on HD, Multiple TIA, PAD came in with SOB, Positive trop, intial plan was to take her to photo lab technician from ER but she was very SOB with craclkes, So brought to ICU. Will need HD, trend trop. had long discussion with family, daughter. Problems: Additional Assessment/Plan Post NSTEMI Resp Failure On Bipap patient is stable Plan for NSF Will /fu ANH FRITZ MD Apr 13, 2016 19:45
[2016-04-13] MEDS: ATORVASTATIN 20 MG TAB PO SCH (21:31)
[2016-04-13] MEDS: FAMOTIDINE 20 MG TAB PO SCH (21:32)
[2016-04-13] MEDS: INSULIN GLARGINE [LANtus] 3 ML PEN SC SCH (21:36)
[2016-04-13] MEDS: LATANOPROST 0.005% 2.5 ML OPH BOTH EYES SCH (21:57)
[2016-04-14] VITALS (20 sets, daily range): BP systolic 91–133; BP diastolic 23–71; PULSE 49–64; RESP 17–22
[2016-04-14] MEDS: ALBUTEROL/IPRATROPIUM (NEB) 3 ML AMP HHN SCH ×4 (00:38→20:51)
[2016-04-14] MEDS: INSULIN ASPART [NOVOLOG] 3 ML PEN SC SCH ×6 (01:00→21:24)
[2016-04-14] MEDS: LEVOTHYROXINE 100 MCG TAB PO SCH (05:08)
[2016-04-14] MEDS: ALBUTEROL/IPRATROPIUM (NEB) 3 ML AMP HHN PRN ×2 (05:10→14:32)
[2016-04-14] MEDS: DEXTROSE 5% 1,000 ML IV SCH (06:45)
[2016-04-14 07:51] LABS: BASOPHILS % 0.2 % (0.0-2.0); EOSINOPHILS # 0.1 10^3/ul (0.0-0.5); EOSINOPHILS % 0.9 % (0.0-7.0); HEMATOCRIT 33.9 % (37.0-47.0); LYMPHOCYTES # 1.3 10^3/ul (0.8-2.9); LYMPHOCYTES % 8.7 % (15.0-51.0); MEAN CORPUSCULAR HEMOGLOBIN 30.4 pg (29.0-33.0); MEAN CORPUSCULAR HGB CONC 32.4 g/dl (32.0-37.0); MEAN CORPUSCULAR VOLUME 93.7 fl (82.0-101.0); MEAN PLATELET VOLUME 10.4 fl (7.4-10.4); MONOCYTE # 0.7 10^3/ul (0.3-0.9); MONOCYTES % 4.4 % (0.0-11.0); NEUTROPHIL # 13.1 10^3/ul (1.6-7.5); NEUTROPHILS % 85.8 % (39.0-77.0); PLATELET COUNT 216 10^3/UL (140-440); RED BLOOD COUNT 3.62 10^6/ul (4.20-5.40); RED CELL DISTRIBUTION WIDTH 17.5 % (11.5-14.5); UNCORRECTED WBC 15.3 10^3/ul (4.8-10.8); WHITE BLOOD COUNT 15.3 10^3/ul (4.8-10.8)
[2016-04-14 07:57] LABS: CONDITION 1; LH ANALYZER COMMENTS 1; SUSPECT 1
[2016-04-14 08:02] LABS: CREATININE 5.36 mg/dl (0.44-1.00)
[2016-04-14 08:03] LABS: PHOSPHORUS 3.4 mg/dl (2.5-4.9)
[2016-04-14 08:04] LABS: CALCIUM 8.9 mg/dl (8.4-10.2); MAGNESIUM 1.9 mg/dl (1.7-2.5)
[2016-04-14] MEDS: ALLOPURINOL 100 MG TAB PO SCH (08:51)
[2016-04-14] MEDS: PREGABALIN 25 MG CAP PO SCH ×2 (08:51→21:21)
[2016-04-14] MEDS: FERROUS SULFATE (EC) 325 MG TAB PO SCH (08:52)
[2016-04-14] MEDS: CLOPIDOGREL 75 MG TAB PO SCH (08:52)
[2016-04-14] MEDS: POLYETHYLENE GLYCOL 17 GM PACKET PO SCH (08:52)
[2016-04-14] MEDS: APIXABAN 5 MG TABLET PO SCH ×2 (08:52→21:22)
[2016-04-14] MEDS: METOPROLOL 25 MG TAB PO SCH ×2 (08:55→21:22)
--- NOTE | 2016-04-14 12:23 | CONS ---
Date/Time of Note Date/Time of Note DATE: 04/14/16 TIME: 12:21 Consult Date/Type/Reason Admit Date/Time Apr 04, 2016 at 15:15 Initial Consult Date 04/04/16 Type of Consultation: Pulm Subjective Stable off bipap. No resp distress. Objective Vital Signs Date Time Temp Pulse Resp B/P Pulse Ox O2 Delivery O2 Flow Rate FiO2 04/14/16 11:23 98.2 61 22 112/70 94 04/14/16 07:59 Nasal Cannula 3.0 04/14/16 05:11 32 Intake and Output 04/13/16 04/13/16 04/14/16 15:00 23:00 07:00 Intake Total 350 ml 680 ml Output Total 0 ml Balance 350 ml 680 ml GENERAL: Elderly [place] lady. VITAL SIGNS: per chart NECK: Supple. No JVD or lymphadenopathy. CARDIAC EXAM: S1, S2. No added sounds or murmurs. CHEST: clear bilaterally, No added sounds, rales or wheezes ABDOMEN: Soft, nontender. No guarding or rebound. Obese EXTREMITIES: No cyanosis, clubbing, edema +1 NEUROLOGIC: Generalized weakness. Results/Medications Result Diagram: 04/14/16 0705 04/14/16 0705 Results 24 hrs Laboratory Tests Test 04/13/16 18:29 04/13/16 21:30 04/14/16 01:09 04/14/16 05:07 Bedside Glucose 196 177 149 166 Test 04/14/16 07:05 04/14/16 08:09 Anion Gap 20 H Basophils # 0.0 Basophils % 0.2 Blood Morphology Comment Blood Urea Nitrogen 35 #H Calcium Level 8.9 Carbon Dioxide Level 24 Chloride Level 94 L Creatinine 5.36 H Eosinophils # 0.1 Eosinophils % 0.9 Glucose Level 139 # Hematocrit 33.9 L Hemoglobin 11.0 L Lymphocytes # 1.3 Lymphocytes % 8.7 L Magnesium Level 1.9 Mean Corpuscular Hemoglobin 30.4 Mean Corpuscular Hemoglobin Concent 32.4 Mean Corpuscular Volume 93.7 Mean Platelet Volume 10.4 Monocytes # 0.7 Monocytes % 4.4 Neutrophils # 13.1 H Neutrophils % 85.8 H Nucleated Red Blood Cells # 0.0 Nucleated Red Blood Cells % 0.0 Phosphorus Level 3.4 Platelet Count 216 Potassium Level 4.0 Red Blood Count 3.62 L Red Cell Distribution Width 17.5 H Sodium Level 134 L White Blood Count 15.3 #H Bedside Glucose 158 Medications Current Medications Lorazepam (Ativan) 0.5 mg Q6H PRN IV ANXIETY Last administered on 04/04/16at 20 :40; Admin Dose 0.5 MG; Start 04/04/16 at 15:30 Ondansetron HCl (Zofran Inj) 4 mg Q6H PRN IV NAUSEA AND/OR VOMITING; Start at 15:30 Ferrous Sulfate (Ferrous Sulfate (Ec)) 325 mg DAILY PO Last administered on 04/14 08:52; Admin Dose 325 MG; Start 04/05/16 at 09:00 Insulin Glargine (Lantus) 25 unit QHS SC Last administered on 04/13/16 21:36; Admin Dose 25 UNIT; Start 04/04/16 at 21:00 Latanoprost (Xalatan) 1 drop QHS BOTH EYES Last administered on 04/13/16 21:57 ; Admin Dose 1 DROP; Start 04/04/16 at 21:00 Metoprolol Tartrate (Lopressor) 25 mg BID PO Last administered on 04/13/16 21: 32; Admin Dose 25 MG; Start 04/04/16 at 21:00 Polyethylene Glycol (Miralax) 17 gm DAILY PO Last administered on 04/14/16 08: 52; Admin Dose 17 GM; Start 04/05/16 at 09:00 Atorvastatin Calcium (Lipitor) 20 mg DAILY@21 PO Last administered on 04/13/16 21:31; Admin Dose 20 MG; Start 04/04/16 at 21:00 Miscellaneous Information 1 ea NOTE XX ; Start 04/04/16 at 16:00 Glucose (Glutose) 15 gm Q15M PRN PO DECREASED GLUCOSE; Start 04/04/16 at 16:00 Glucose (Glutose) 22.5 gm Q15M PRN PO DECREASED GLUCOSE; Start 04/04/16 at 16: 00 Dextrose (D50w Syringe) 25 ml Q15M PRN IV DECREASED GLUCOSE Last administered on 04/09/16 13:09; Admin Dose 25 ML; Start 04/04/16 at 16:00 Dextrose (D50w Syringe) 50 ml Q15M PRN IV DECREASED GLUCOSE; Start 04/04/16 at 16:00 Glucagon (Glucagen) 1 mg Q15M PRN IM DECREASED GLUCOSE; Start 04/04/16 at 16: 00 Glucose 15 gm 15 gm Q15M PRN BUCCAL DECREASED GLUCOSE; Start 04/04/16 at 16:00 Norepinephrine/ Dextrose (Levophed/D5W) 500 ml @ 1.87 mls/hr TITRATE IV Last administered on 04/06/16at 14:58; Admin Dose 28.12 MLS/HR; Start 04/04/16 at 16 :30 Tramadol HCl (Ultram) 50 mg Q6H PRN PO Pain Last administered on 04/11/16 09:20 ; Admin Dose 50 MG; Start 04/04/16 at 16:30 Allopurinol (Zyloprim) 200 mg DAILY PO Last administered on 04/14/16 08:51; Admin Dose 200 MG; Start 04/05/16 at 09:00 Insulin Aspart (Novolog Insulin Pen) NOVOLOG *MILD* ALGORI... Q4 SC Last administered on 04/14/16 08:56; Admin Dose 1 UNIT; Start 04/05/16 at 17:00 Clopidogrel Bisulfate (plaVIX) 75 mg DAILY PO Last administered on 04/14/16 08: 52; Admin Dose 75 MG; Start 04/05/16 at 18:30 Pregabalin (Lyrica) 100 mg BID PO Last administered on 04/14/16 08:51; Admin Dose 100 MG; Start 04/05/16 at 21:00 Acetaminophen (Tylenol Supp) 650 mg Q6H PRN [place] FEVER Last administered on 04/08at 14:12; Admin Dose 650 MG; Start 04/06/16 at 12:00 Apixaban 2.5 mg 2.5 mg BID PO Last administered on 04/14/16 08:52; Admin Dose 2.5 MG; Start 04/08/16 at 21:00 Dextrose (D5W) 1,000 ml @ 40 mls/hr Q24H IV Last administered on 04/14/16 06: 45; Admin Dose 40 MLS/HR; Start 04/09/16 at 10:00 Hydralazine HCl (Apresoline) 5 mg Q6H PRN IV ELEVATED BLOOD PRESSURE; Start 04/09/16 at 11:30 Famotidine (Pepcid) 20 mg QHS PO Last administered on 04/13/16t 21:32; Admin Dose 20 MG; Start 04/13/16 at 21:00 Assessment/Plan Chief Complaint/Hosp Course IMPRESSION: 1. Pulmonary edema with possible component of pneumonia with subsequent hypoxemic respiratory failure.Improved today 2. 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 3. Encephalopathy, toxic metabolic. 4. Patient's code status: DNR/DNI. 5. Severe mitral stenosis with underlying coronary artery disease 6. Status post coronary intervention 7. Dysphagia. PLAN: 1. Continue noninvasive positive pressure ventilation and nasal cannula oxygen. Aggressive pulmonary toilet 2. Supplemental O2. 3. DVT and GI prophylaxis. 4. Cardiac catheterization with revascularization, continue cardiology recommendations 5. ST evaluation. Consider hospice evaluation SNF placement. Problems: OSIRIS REYNOLDS MD, [facility] Apr 14, 2016 12:23
[2016-04-14] MEDS ORDERED: HEPARIN 1000 UNITS/ML 10 ML INJ CATHETER ONE (13:00)
[2016-04-14] MEDS ORDERED: ALBUMIN HUMAN 25% 100 ML IV ONE (13:00)
--- NOTE | 2016-04-14 13:56 | CONS ---
Date/Time of Note Date/Time of Note DATE: 04/14/16 TIME: 13:55 Consult Date/Type/Reason Admit Date/Time Apr 04, 2016 at 15:15 Initial Consult Date 04/04/16 Type of Consultation: ID Subjective awake, in HD, comfortable on nc, no fevers Objective Vital Signs Date Time Temp Pulse Resp B/P Pulse Ox O2 Delivery O2 Flow Rate FiO2 04/14/16 13:15 64 04/14/16 11:23 98.2 22 112/70 94 04/14/16 07:59 Nasal Cannula 3.0 04/14/16 05:11 32 Intake and Output 04/13/16 04/13/16 04/14/16 15:00 23:00 07:00 Intake Total 350 ml 680 ml Output Total 0 ml Balance 350 ml 680 ml Results/Medications Result Diagram: 04/14/16 0705 04/14/16 0705 Results 24 hrs Laboratory Tests Test 04/13/16 18:29 04/13/16 21:30 04/14/16 01:09 04/14/16 05:07 Bedside Glucose 196 177 149 166 Test 04/14/16 07:05 04/14/16 08:09 04/14/16 13:43 Anion Gap 20 H Basophils # 0.0 Basophils % 0.2 Blood Morphology Comment Blood Urea Nitrogen 35 #H Calcium Level 8.9 Carbon Dioxide Level 24 Chloride Level 94 L Creatinine 5.36 H Eosinophils # 0.1 Eosinophils % 0.9 Glucose Level 139 # Hematocrit 33.9 L Hemoglobin 11.0 L Lymphocytes # 1.3 Lymphocytes % 8.7 L Magnesium Level 1.9 Mean Corpuscular Hemoglobin 30.4 Mean Corpuscular Hemoglobin Concent 32.4 Mean Corpuscular Volume 93.7 Mean Platelet Volume 10.4 Monocytes # 0.7 Monocytes % 4.4 Neutrophils # 13.1 H Neutrophils % 85.8 H Nucleated Red Blood Cells # 0.0 Nucleated Red Blood Cells % 0.0 Phosphorus Level 3.4 Platelet Count 216 Potassium Level 4.0 Red Blood Count 3.62 L Red Cell Distribution Width 17.5 H Sodium Level 134 L White Blood Count 15.3 #H Bedside Glucose 158 189 Medications Current Medications Lorazepam (Ativan) 0.5 mg Q6H PRN IV ANXIETY Last administered on 04/04/16at 20 :40; Admin Dose 0.5 MG; Start 04/04/16 at 15:30 Ondansetron HCl (Zofran Inj) 4 mg Q6H PRN IV NAUSEA AND/OR VOMITING; Start at 15:30 Ferrous Sulfate (Ferrous Sulfate (Ec)) 325 mg DAILY PO Last administered on 04/14 08:52; Admin Dose 325 MG; Start 04/05/16 at 09:00 Insulin Glargine (Lantus) 25 unit QHS SC Last administered on 04/13/16 21:36; Admin Dose 25 UNIT; Start 04/04/16 at 21:00 Latanoprost (Xalatan) 1 drop QHS BOTH EYES Last administered on 04/13/16 21:57 ; Admin Dose 1 DROP; Start 04/04/16 at 21:00 Metoprolol Tartrate (Lopressor) 25 mg BID PO Last administered on 04/13/16 21: 32; Admin Dose 25 MG; Start 04/04/16 at 21:00 Polyethylene Glycol (Miralax) 17 gm DAILY PO Last administered on 04/14/16 08: 52; Admin Dose 17 GM; Start 04/05/16 at 09:00 Atorvastatin Calcium (Lipitor) 20 mg DAILY@21 PO Last administered on 04/13/16 21:31; Admin Dose 20 MG; Start 04/04/16 at 21:00 Miscellaneous Information 1 ea NOTE XX ; Start 04/04/16 at 16:00 Glucose (Glutose) 15 gm Q15M PRN PO DECREASED GLUCOSE; Start 04/04/16 at 16:00 Glucose (Glutose) 22.5 gm Q15M PRN PO DECREASED GLUCOSE; Start 04/04/16 at 16: 00 Dextrose (D50w Syringe) 25 ml Q15M PRN IV DECREASED GLUCOSE Last administered on 04/09/16 13:09; Admin Dose 25 ML; Start 04/04/16 at 16:00 Dextrose (D50w Syringe) 50 ml Q15M PRN IV DECREASED GLUCOSE; Start 04/04/16 at 16:00 Glucagon (Glucagen) 1 mg Q15M PRN IM DECREASED GLUCOSE; Start 04/04/16 at 16: 00 Glucose 15 gm 15 gm Q15M PRN BUCCAL DECREASED GLUCOSE; Start 04/04/16 at 16:00 Norepinephrine/ Dextrose (Levophed/D5W) 500 ml @ 1.87 mls/hr TITRATE IV Last administered on 04/06/16at 14:58; Admin Dose 28.12 MLS/HR; Start 04/04/16 at 16 :30 Tramadol HCl (Ultram) 50 mg Q6H PRN PO Pain Last administered on 04/11/16 09:20 ; Admin Dose 50 MG; Start 04/04/16 at 16:30 Allopurinol (Zyloprim) 200 mg DAILY PO Last administered on 04/14/16 08:51; Admin Dose 200 MG; Start 04/05/16 at 09:00 Insulin Aspart (Novolog Insulin Pen) NOVOLOG *MILD* ALGORI... Q4 SC Last administered on 04/14/16 13:45; Admin Dose 1 UNIT; Start 04/05/16 at 17:00 Clopidogrel Bisulfate (plaVIX) 75 mg DAILY PO Last administered on 04/14/16 08: 52; Admin Dose 75 MG; Start 04/05/16 at 18:30 Pregabalin (Lyrica) 100 mg BID PO Last administered on 04/14/16 08:51; Admin Dose 100 MG; Start 04/05/16 at 21:00 Acetaminophen (Tylenol Supp) 650 mg Q6H PRN [place] FEVER Last administered on 04/08at 14:12; Admin Dose 650 MG; Start 04/06/16 at 12:00 Apixaban 2.5 mg 2.5 mg BID PO Last administered on 04/14/16 08:52; Admin Dose 2.5 MG; Start 04/08/16 at 21:00 Dextrose (D5W) 1,000 ml @ 40 mls/hr Q24H IV Last administered on 04/14/16 06: 45; Admin Dose 40 MLS/HR; Start 04/09/16 at 10:00 Hydralazine HCl (Apresoline) 5 mg Q6H PRN IV ELEVATED BLOOD PRESSURE; Start 04/09/16 at 11:30 Famotidine 20 mg 20 mg QHS PO Last administered on 04/13/16 21:32; Admin Dose 20 MG; Start 04/13/16 at 21:00 Albumin Human (Albumin Human 25%) 100 ml @ 100 mls/hr ONCE ONCE IV Last administered on 04/14/16 13:20; Admin Dose 100 MLS/HR; Start 04/14/16 at 13:00; Stop 04/14/16 at 13:59 Assessment/Plan Chief Complaint/Hosp Course INDWELLINGS: Right chest Perm-A-Cath PHYSICAL EXAMINATION: GENERAL: This is a morbidly obese, fragile, elderly woman who is awake and lying comfortably in bed. HEENT: Head atraumatic, normocephalic. Sclerae anicteric. Buccal mucosa dry. NECK: Supple, trachea midline. CHEST: Rise symmetrical. Breath sounds diminished to bases. HEART: S1, S2. ABDOMEN: Soft, bowel tones present. EXTREMITIES: Without cyanosis. ASSESSMENT: 1. Status post shock, septic and cardiogenic. 2. Acute respiratory failure secondary to pulmonary edema, rule out aspiration= ==> s/p antibiotics for 7 days 3. Non-ST elevation myocardial infarction, status post cardiac catheterization with stent to the posterior descending artery 4. Severe mitral stenosis. 5. End-stage renal disease, hemodialysis dependent. 6. Encephalopathy. PLAN: More awake, no fevers, still with leukocytosis, will order bld cx with HD and cxr, keep off abx DW staff Problems: TAMIKO DIXON NP Apr 14, 2016 13:56
--- NOTE | 2016-04-14 15:21 | RADRPT ---
PROCEDURE: XR Chest. CLINICAL INDICATION: Pneumonia TECHNIQUE: Chest AP portable. COMPARISON: 04/10/2016 FINDINGS: Left-sided dual lead pacemaker. Left arm PICC line with tip in the distal subclavian vein. Right i nternal jugular tunneled dialysis catheter. Nasogastric tube in the stomach. The mediastinal structures are unremarkable. There is calcification of the thoracic aorta (consiste nt with atherosclerosis). There is moderate cardiac enlargement. There is a decrease in the conges tive heart failure. There are RLL and LLL patchy consolidation. The pleural spaces are unremarkabl e. The osseous structures are unremarkable. IMPRESSION: Moderate cardiac enlargement. Decrease in congestive heart failure. RLL and LLL patchy consolidations (edema/pneumonia). RPTAT: [facility] .Davon Frey MD, Date Time Electronically viewed and signed by .Davon Frey MD, on 04/14/2016 15:21 .B/
--- NOTE | 2016-04-14 16:25 | CONS ---
Date/Time of Note Date/Time of Note DATE: 04/14/16 TIME: 16:22 Consult Date/Type/Reason Admit Date/Time Apr 04, 2016 at 15:15 Initial Consult Date 04/04/16 Type of Consultation: nep Subjective SUBJECTIVE: The patient off BiPAP for st eval. The patient on hemodialysis today, tolerated it well. No acute events noted. No hemoptysis, hematemesis or hematochezia. OBJECTIVE: HEENT: Head is normocephalic. NECK: Supple. HEART: Regular rate. LUNGS: Show diminished breath sounds at base. ABDOMEN: Soft, nontender to palpation without rebound or guarding. EXTREMITIES: Negative for clubbing, cyanosis. Trace edema. DERMATOLOGIC: No rashes. MUSCULOSKELETAL: No joint effusions. NEUROLOGIC: No change in exam. ASSESSMENT AND PLAN: 1. End-stage renal disease. The patient has been receiving daily dialysis for volume removal. We will assess daily for hd, will ultrafiltrate as tolerated. 2. Hypokalemia, replete potassium chloride. Will dialyze on a low potassium bath. 3. Volume overload. Continue ultrafiltration with dialysis. 4. Anemia. Continue to monitor hemoglobin and hematocrit levels. Continue Epogen. 5. Acute hypoxemic respiratory failure secondary to congestive heart failure, pneumonia. Continue BiPAP, wean off if possible. 6. Hypertension. Continue current blood pressure regimen. 7. Mineral bone disorder. Continue to monitor calcium and phosphorous levels. 8. Non-ST elevation myocardial infarction. Continue the patient is status post percutaneous coronary intervention. Continue medical management. 9. Peripheral vascular disease. Continue medical management. 10. Encephalopathy dialysis toxic metabolic. Continue to monitor. 11. History of mitral stenosis. Objective Vital Signs Date Time Temp Pulse Resp B/P Pulse Ox O2 Delivery O2 Flow Rate FiO2 04/14/16 16:02 53 04/14/16 15:37 98.4 18 120/71 97 04/14/16 14:34 Nasal Cannula 3.0 04/14/16 05:11 32 Intake and Output 04/13/16 04/13/16 04/14/16 15:00 23:00 07:00 Intake Total 350 ml 680 ml Output Total 0 ml Balance 350 ml 680 ml Results/Medications Result Diagram: 04/14/16 0705 04/14/16 0705 Results 24 hrs Laboratory Tests Test 04/13/16 18:29 04/13/16 21:30 04/14/16 01:09 04/14/16 05:07 Bedside Glucose 196 177 149 166 Test 04/14/16 07:05 04/14/16 08:09 04/14/16 13:43 Anion Gap 20 H Basophils # 0.0 Basophils % 0.2 Blood Morphology Comment Blood Urea Nitrogen 35 #H Calcium Level 8.9 Carbon Dioxide Level 24 Chloride Level 94 L Creatinine 5.36 H Eosinophils # 0.1 Eosinophils % 0.9 Glucose Level 139 # Hematocrit 33.9 L Hemoglobin 11.0 L Lymphocytes # 1.3 Lymphocytes % 8.7 L Magnesium Level 1.9 Mean Corpuscular Hemoglobin 30.4 Mean Corpuscular Hemoglobin Concent 32.4 Mean Corpuscular Volume 93.7 Mean Platelet Volume 10.4 Monocytes # 0.7 Monocytes % 4.4 Neutrophils # 13.1 H Neutrophils % 85.8 H Nucleated Red Blood Cells # 0.0 Nucleated Red Blood Cells % 0.0 Phosphorus Level 3.4 Platelet Count 216 Potassium Level 4.0 Red Blood Count 3.62 L Red Cell Distribution Width 17.5 H Sodium Level 134 L White Blood Count 15.3 #H Bedside Glucose 158 189 Medications Current Medications Lorazepam (Ativan) 0.5 mg Q6H PRN IV ANXIETY Last administered on 04/04/16at 20 :40; Admin Dose 0.5 MG; Start 04/04/16 at 15:30 Ondansetron HCl (Zofran Inj) 4 mg Q6H PRN IV NAUSEA AND/OR VOMITING; Start at 15:30 Ferrous Sulfate (Ferrous Sulfate (Ec)) 325 mg DAILY PO Last administered on 04/14 08:52; Admin Dose 325 MG; Start 04/05/16 at 09:00 Insulin Glargine (Lantus) 25 unit QHS SC Last administered on 04/13/16 21:36; Admin Dose 25 UNIT; Start 04/04/16 at 21:00 Latanoprost (Xalatan) 1 drop QHS BOTH EYES Last administered on 04/13/16 21:57 ; Admin Dose 1 DROP; Start 04/04/16 at 21:00 Metoprolol Tartrate (Lopressor) 25 mg BID PO Last administered on 04/13/16 21: 32; Admin Dose 25 MG; Start 04/04/16 at 21:00 Polyethylene Glycol (Miralax) 17 gm DAILY PO Last administered on 04/14/16 08: 52; Admin Dose 17 GM; Start 04/05/16 at 09:00 Atorvastatin Calcium (Lipitor) 20 mg DAILY@21 PO Last administered on 04/13/16 21:31; Admin Dose 20 MG; Start 04/04/16 at 21:00 Miscellaneous Information 1 ea NOTE XX ; Start 04/04/16 at 16:00 Glucose (Glutose) 15 gm Q15M PRN PO DECREASED GLUCOSE; Start 04/04/16 at 16:00 Glucose (Glutose) 22.5 gm Q15M PRN PO DECREASED GLUCOSE; Start 04/04/16 at 16: 00 Dextrose (D50w Syringe) 25 ml Q15M PRN IV DECREASED GLUCOSE Last administered on 04/09/16 13:09; Admin Dose 25 ML; Start 04/04/16 at 16:00 Dextrose (D50w Syringe) 50 ml Q15M PRN IV DECREASED GLUCOSE; Start 04/04/16 at 16:00 Glucagon (Glucagen) 1 mg Q15M PRN IM DECREASED GLUCOSE; Start 04/04/16 at 16: 00 Glucose 15 gm 15 gm Q15M PRN BUCCAL DECREASED GLUCOSE; Start 04/04/16 at 16:00 Norepinephrine/ Dextrose (Levophed/D5W) 500 ml @ 1.87 mls/hr TITRATE IV Last administered on 04/06/16at 14:58; Admin Dose 28.12 MLS/HR; Start 04/04/16 at 16 :30 Tramadol HCl (Ultram) 50 mg Q6H PRN PO Pain Last administered on 04/11/16 09:20 ; Admin Dose 50 MG; Start 04/04/16 at 16:30 Allopurinol (Zyloprim) 200 mg DAILY PO Last administered on 04/14/16 08:51; Admin Dose 200 MG; Start 04/05/16 at 09:00 Insulin Aspart (Novolog Insulin Pen) NOVOLOG *MILD* ALGORI... Q4 SC Last administered on 04/14/16 13:45; Admin Dose 1 UNIT; Start 04/05/16 at 17:00 Clopidogrel Bisulfate (plaVIX) 75 mg DAILY PO Last administered on 04/14/16 08: 52; Admin Dose 75 MG; Start 04/05/16 at 18:30 Pregabalin (Lyrica) 100 mg BID PO Last administered on 04/14/16 08:51; Admin Dose 100 MG; Start 04/05/16 at 21:00 Acetaminophen (Tylenol Supp) 650 mg Q6H PRN [place] FEVER Last administered on 04/08at 14:12; Admin Dose 650 MG; Start 04/06/16 at 12:00 Apixaban 2.5 mg 2.5 mg BID PO Last administered on 04/14/16 08:52; Admin Dose 2.5 MG; Start 04/08/16 at 21:00 Dextrose (D5W) 1,000 ml @ 40 mls/hr Q24H IV Last administered on 04/14/16 06: 45; Admin Dose 40 MLS/HR; Start 04/09/16 at 10:00 Hydralazine HCl (Apresoline) 5 mg Q6H PRN IV ELEVATED BLOOD PRESSURE; Start 04/09/16 at 11:30 Famotidine (Pepcid) 20 mg QHS PO Last administered on 04/13/16 21:32; Admin Dose 20 MG; Start 04/13/16 at 21:00 IVELISSE HERRERA MD Apr 14, 2016 16:25
[2016-04-14] MEDS: FAMOTIDINE 20 MG TAB PO SCH (21:22)
[2016-04-14] MEDS: ATORVASTATIN 20 MG TAB PO SCH (21:22)
[2016-04-14] MEDS: INSULIN GLARGINE [LANtus] 3 ML PEN SC SCH (21:24)
[2016-04-14] MEDS: LATANOPROST 0.005% 2.5 ML OPH BOTH EYES SCH (21:27)
--- NOTE | 2016-04-14 23:45 | PN ---
Date/Time of Note Date/Time of Note DATE: 04/14/16 TIME: 23:38 Assessment/Plan VTE Prophylaxis VTE Prophylaxis Intervention: other (apixaban) Lines/Catheters IV [facility] P[facility] Line Central line still needed: Yes Urinary Cath still in place: No Assessment/Plan Assessment/Plan IMPRESSION: 1. Hypoxic respiratory failure, with pulmonary vascular congestion. 2. Coronary artery disease, status post PCI, with stent to right posterior descending artery. The patient also has a history of PCI to the LAD. 3. Severe mitral calcification with stenosis. 4. End-stage renal disease, on dialysis. 5. History of transient ischemic attack. 6. Status post sepsis, with possible underlying pneumonia. 7. Anemia, likely anemia of chronic disease. 8. Type 2 diabetes. 9. Hyponatremia and mild Hypokalemia 10. Leukocytosis 11. Sandra in resp cx; s/p treatment PLAN: - Will continue positive pressure support and try to transition to NC as tolerated. - Continue breathing treatments. pt is s/p cardiac catheterization with a PCI and stents to RPDA. She also has a history PCI of the LAD. Cont meds, including cardiac through NG tube. Will continue insulin for her diabetes and will adjust as needed. - Cont Dialysis per nephrology. - Overall the patient does not have a good prognosis and we need to have a family meeting to discuss even possible hospice. Palliative care on board - pt off abx now. no fever, but up trended WBC. cont to monitor for now. ID on board - Correct electrolytes as needed I had a long conversation with Daughter at bedside and she is considering hospice, but wants to cont current medical mgmt for few days before making that decision. She said she is the only child and her father is and no other family member for her to consult with. Further workup and management per clinical course. Subjective 24 Hr Interval Summary Free Text/Dictation on nasal canula, but still lethargic. Exam/Review of Systems Vital Signs Vitals Vital Signs Date Time Temp Pulse Resp B/P Pulse Ox O2 Delivery O2 Flow Rate FiO2 04/14/16 20:59 59 18 95 Nasal Cannula 4.0 04/14/16 20:59 40 04/14/16 20:53 98.3 98/53 Intake and Output 04/13/16 04/13/16 04/14/16 15:00 23:00 07:00 Intake Total 350 ml 680 ml Output Total 0 ml Balance 350 ml 680 ml Exam GENERAL: The patient is on BiPAP. Appears lethargic and moaning, not following any commands. HEENT: No obvious head deformity. CARDIOVASCULAR: Bradycardic, with a regular rhythm. She also has a systolic murmur. PULMONARY: Lungs sound congested, with crackles anteriorly. ABDOMEN: Obese, soft. No grimaces noted on palpation. Positive bowel sounds. EXTREMITIES: No edema. Results Result Diagram: 04/14/16 0704/14/16 07 Results 24 hrs Laboratory Tests Test 04/14/16 01:09 04/14/16 05:07 04/14/16 07:05 04/14/16 08:09 Bedside Glucose 149 166 158 Anion Gap 20 H Basophils # 0.0 Basophils % 0.2 Blood Morphology Comment Blood Urea Nitrogen 35 #H Calcium Level 8.9 Carbon Dioxide Level 24 Chloride Level 94 L Creatinine 5.36 H Eosinophils # 0.1 Eosinophils % 0.9 Glucose Level 139 # Hematocrit 33.9 L Hemoglobin 11.0 L Lymphocytes # 1.3 Lymphocytes % 8.7 L Magnesium Level 1.9 Mean Corpuscular Hemoglobin 30.4 Mean Corpuscular Hemoglobin Concent 32.4 Mean Corpuscular Volume 93.7 Mean Platelet Volume 10.4 Monocytes # 0.7 Monocytes % 4.4 Neutrophils # 13.1 H Neutrophils % 85.8 H Nucleated Red Blood Cells # 0.0 Nucleated Red Blood Cells % 0.0 Phosphorus Level 3.4 Platelet Count 216 Potassium Level 4.0 Red Blood Count 3.62 L Red Cell Distribution Width 17.5 H Sodium Level 134 L White Blood Count 15.3 #H Test 04/14/16 13:43 04/14/16 16:49 04/14/16 21:03 Bedside Glucose 189 233 H 214 Medications Medications Current Medications Lorazepam (Ativan) 0.5 mg Q6H PRN IV ANXIETY Last administered on 04/04/16at 20 :40; Admin Dose 0.5 MG; Start 04/04/16 at 15:30 Ondansetron HCl (Zofran Inj) 4 mg Q6H PRN IV NAUSEA AND/OR VOMITING; Start at 15:30 Ferrous Sulfate (Ferrous Sulfate (Ec)) 325 mg DAILY PO Last administered on 04/14t 08:52; Admin Dose 325 MG; Start 04/05/16 at 09:00 Insulin Glargine (Lantus) 25 unit QHS SC Last administered on 04/14/16 21:24; Admin Dose 25 UNIT; Start 04/04/16 at 21:00 Latanoprost (Xalatan) 1 drop QHS BOTH EYES Last administered on 04/14/16 21:27 ; Admin Dose 1 DROP; Start 04/04/16 at 21:00 Metoprolol Tartrate (Lopressor) 25 mg BID PO Last administered on 04/14/16 21: 22; Admin Dose 25 MG; Start 04/04/16 at 21:00 Polyethylene Glycol (Miralax) 17 gm DAILY PO Last administered on 04/14/16 08: 52; Admin Dose 17 GM; Start 04/05/16 at 09:00 Atorvastatin Calcium (Lipitor) 20 mg DAILY@21 PO Last administered on 04/14/16 21:22; Admin Dose 20 MG; Start 04/04/16 at 21:00 Miscellaneous Information 1 ea NOTE XX ; Start 04/04/16 at 16:00 Glucose (Glutose) 15 gm Q15M PRN PO DECREASED GLUCOSE; Start 04/04/16 at 16:00 Glucose (Glutose) 22.5 gm Q15M PRN PO DECREASED GLUCOSE; Start 04/04/16 at 16: 00 Dextrose (D50w Syringe) 25 ml Q15M PRN IV DECREASED GLUCOSE Last administered on 04/09/16 13:09; Admin Dose 25 ML; Start 04/04/16 at 16:00 Dextrose (D50w Syringe) 50 ml Q15M PRN IV DECREASED GLUCOSE; Start 04/04/16 at 16:00 Glucagon (Glucagen) 1 mg Q15M PRN IM DECREASED GLUCOSE; Start 04/04/16 at 16: 00 Glucose 15 gm 15 gm Q15M PRN BUCCAL DECREASED GLUCOSE; Start 04/04/16 at 16:00 Norepinephrine/ Dextrose (Levophed/D5W) 500 ml @ 1.87 mls/hr TITRATE IV Last administered on 04/06/16at 14:58; Admin Dose 28.12 MLS/HR; Start 04/04/16 at 16 :30 Tramadol HCl (Ultram) 50 mg Q6H PRN PO Pain Last administered on 04/11/16 09:20 ; Admin Dose 50 MG; Start 04/04/16 at 16:30 Allopurinol (Zyloprim) 200 mg DAILY PO Last administered on 04/14/16 08:51; Admin Dose 200 MG; Start 04/05/16 at 09:00 Insulin Aspart (Novolog Insulin Pen) NOVOLOG *MILD* ALGORI... Q4 SC Last administered on 04/14/16 21:24; Admin Dose 2 UNIT; Start 04/05/16 at 17:00 Clopidogrel Bisulfate (plaVIX) 75 mg DAILY PO Last administered on 04/14/16 08: 52; Admin Dose 75 MG; Start 04/05/16 at 18:30 Pregabalin (Lyrica) 100 mg BID PO Last administered on 04/14/16 21:21; Admin Dose 100 MG; Start 04/05/16 at 21:00 Acetaminophen (Tylenol Supp) 650 mg Q6H PRN [place] FEVER Last administered on 04/08at 14:12; Admin Dose 650 MG; Start 04/06/16 at 12:00 Apixaban 2.5 mg 2.5 mg BID PO Last administered on 04/14/16 21:22; Admin Dose 2.5 MG; Start 04/08/16 at 21:00 Dextrose (D5W) 1,000 ml @ 40 mls/hr Q24H IV Last administered on 04/14/16 06: 45; Admin Dose 40 MLS/HR; Start 04/09/16 at 10:00 Hydralazine HCl (Apresoline) 5 mg Q6H PRN IV ELEVATED BLOOD PRESSURE; Start 04/09/16 at 11:30 Famotidine (Pepcid) 20 mg QHS PO Last administered on 04/14/16 21:22; Admin Dose 20 MG; Start 04/13/16 at 21:00 DEJUAN LINDA MD Apr 14, 2016 23:45
[2016-04-15] VITALS (16 sets, daily range): BP systolic 90–102; BP diastolic 45–52; PULSE 50–60; RESP 18–22
[2016-04-15] MEDS: INSULIN ASPART [NOVOLOG] 3 ML PEN SC SCH ×6 (02:15→22:05)
[2016-04-15] MEDS: LEVOTHYROXINE 100 MCG TAB PO SCH (05:44)
[2016-04-15] MEDS: ALBUTEROL/IPRATROPIUM (NEB) 3 ML AMP HHN SCH ×4 (08:28→20:53)
[2016-04-15] MEDS: POLYETHYLENE GLYCOL 17 GM PACKET PO SCH (09:18)
[2016-04-15] MEDS: APIXABAN 5 MG TABLET PO SCH ×2 (09:18→21:43)
[2016-04-15] MEDS: FERROUS SULFATE (EC) 325 MG TAB PO SCH (09:18)
[2016-04-15] MEDS: ALLOPURINOL 100 MG TAB PO SCH (09:18)
[2016-04-15] MEDS: PREGABALIN 25 MG CAP PO SCH ×2 (09:18→21:44)
[2016-04-15] MEDS: CLOPIDOGREL 75 MG TAB PO SCH (09:18)
[2016-04-15] MEDS: METOPROLOL 25 MG TAB PO SCH ×2 (09:20→21:54)
--- NOTE | 2016-04-15 09:39 | CONS ---
Date/Time of Note Date/Time of Note DATE: 04/15/16 TIME: 09:37 Consult Date/Type/Reason Admit Date/Time Apr 04, 2016 at 15:15 Initial Consult Date 04/04/16 Type of Consultation: nep Subjective SUBJECTIVE: The patient off BiPAP. The patient on hemodialysis yesterday, tolerated it well. No acute events noted. No hemoptysis, hematemesis or hematochezia. OBJECTIVE: HEENT: Head is normocephalic. NECK: Supple. HEART: Regular rate. LUNGS: Show diminished breath sounds at base. ABDOMEN: Soft, nontender to palpation without rebound or guarding. EXTREMITIES: Negative for clubbing, cyanosis. Trace edema. DERMATOLOGIC: No rashes. MUSCULOSKELETAL: No joint effusions. NEUROLOGIC: No change in exam. ASSESSMENT AND PLAN: 1. End-stage renal disease. The patient has been receiving dialysis for volume removal. We will assess daily for hd, will ultrafiltrate as tolerated. 2. Hypokalemia, replete potassium chloride. Will dialyze on a low potassium bath. 3. Volume overload. Continue ultrafiltration with dialysis. 4. Anemia. Continue to monitor hemoglobin and hematocrit levels. Continue Epogen. 5. Acute hypoxemic respiratory failure secondary to congestive heart failure, pneumonia. Continue BiPAP, wean off if possible. 6. Hypertension. Continue current blood pressure regimen. 7. Mineral bone disorder. Continue to monitor calcium and phosphorous levels. 8. Non-ST elevation myocardial infarction. Continue the patient is status post percutaneous coronary intervention. Continue medical management. 9. Peripheral vascular disease. Continue medical management. 10. Encephalopathy dialysis toxic metabolic. Continue to monitor. 11. History of mitral stenosis. Objective Vital Signs Date Time Temp Pulse Resp B/P Pulse Ox O2 Delivery O2 Flow Rate FiO2 04/15/16 08:30 4.0 04/15/16 08:30 55 20 95 04/15/16 07:40 97.5 98/45 04/15/16 05:01 40 04/14/16 20:59 Nasal Cannula Intake and Output 04/14/16 04/14/16 04/15/16 15:00 23:00 07:00 Intake Total 0 ml 480 ml Balance 0 ml 480 ml Results/Medications Result Diagram: 04/14/16 0704/14/16 07 Results 24 hrs Laboratory Tests Test 04/14/16 13:43 04/14/16 16:49 04/14/16 21:03 04/15/16 02:12 Bedside Glucose 189 233 H 214 194 Test 04/15/16 05:27 04/15/16 09:28 Bedside Glucose 155 157 Medications Current Medications Lorazepam (Ativan) 0.5 mg Q6H PRN IV ANXIETY Last administered on 04/04/16at 20 :40; Admin Dose 0.5 MG; Start 04/04/16 at 15:30 Ondansetron HCl (Zofran Inj) 4 mg Q6H PRN IV NAUSEA AND/OR VOMITING; Start at 15:30 Ferrous Sulfate (Ferrous Sulfate (Ec)) 325 mg DAILY PO Last administered on 04/15 09:18; Admin Dose 325 MG; Start 04/05/16 at 09:00 Insulin Glargine (Lantus) 25 unit QHS SC Last administered on 04/14/16 21:24; Admin Dose 25 UNIT; Start 04/04/16 at 21:00 Latanoprost (Xalatan) 1 drop QHS BOTH EYES Last administered on 04/14/16 21:27 ; Admin Dose 1 DROP; Start 04/04/16 at 21:00 Metoprolol Tartrate (Lopressor) 25 mg BID PO Last administered on 04/15/16 09: 20; Admin Dose 25 MG; Start 04/04/16 at 21:00 Polyethylene Glycol (Miralax) 17 gm DAILY PO Last administered on 04/15/16 09: 18; Admin Dose 17 GM; Start 04/05/16 at 09:00 Atorvastatin Calcium (Lipitor) 20 mg DAILY@21 PO Last administered on 04/14/16 21:22; Admin Dose 20 MG; Start 04/04/16 at 21:00 Miscellaneous Information 1 ea NOTE XX ; Start 04/04/16 at 16:00 Glucose (Glutose) 15 gm Q15M PRN PO DECREASED GLUCOSE; Start 04/04/16 at 16:00 Glucose (Glutose) 22.5 gm Q15M PRN PO DECREASED GLUCOSE; Start 04/04/16 at 16: 00 Dextrose (D50w Syringe) 25 ml Q15M PRN IV DECREASED GLUCOSE Last administered on 04/09/16 13:09; Admin Dose 25 ML; Start 12/27/16 at 16:00 Dextrose (D50w Syringe) 50 ml Q15M PRN IV DECREASED GLUCOSE; Start 04/04/16 at 16:00 Glucagon (Glucagen) 1 mg Q15M PRN IM DECREASED GLUCOSE; Start 04/04/16 at 16: 00 Glucose 15 gm 15 gm Q15M PRN BUCCAL DECREASED GLUCOSE; Start 04/04/16 at 16:00 Norepinephrine/ Dextrose (Levophed/D5W) 500 ml @ 1.87 mls/hr TITRATE IV Last administered on 04/06/16at 14:58; Admin Dose 28.12 MLS/HR; Start 04/04/16 at 16 :30 Tramadol HCl (Ultram) 50 mg Q6H PRN PO Pain Last administered on 04/11/16 09:20 ; Admin Dose 50 MG; Start 04/04/16 at 16:30 Allopurinol (Zyloprim) 200 mg DAILY PO Last administered on 04/15/16 09:18; Admin Dose 200 MG; Start 04/05/16 at 09:00 Insulin Aspart (Novolog Insulin Pen) NOVOLOG *MILD* ALGORI... Q4 SC Last administered on 04/15/16 09:32; Admin Dose 1 UNIT; Start 04/05/16 at 17:00 Clopidogrel Bisulfate (plaVIX) 75 mg DAILY PO Last administered on 04/15/16 09: 18; Admin Dose 75 MG; Start 04/05/16 at 18:30 Pregabalin (Lyrica) 100 mg BID PO Last administered on 04/15/16 09:18; Admin Dose 100 MG; Start 04/05/16 at 21:00 Acetaminophen (Tylenol Supp) 650 mg Q6H PRN [place] FEVER Last administered on 04/08at 14:12; Admin Dose 650 MG; Start 04/06/16 at 12:00 Apixaban 2.5 mg 2.5 mg BID PO Last administered on 04/15/16 09:18; Admin Dose 2.5 MG; Start 04/08/16 at 21:00 Dextrose (D5W) 1,000 ml @ 40 mls/hr Q24H IV Last administered on 04/14/16 06: 45; Admin Dose 40 MLS/HR; Start 04/09/16 at 10:00 Hydralazine HCl (Apresoline) 5 mg Q6H PRN IV ELEVATED BLOOD PRESSURE; Start 04/09/16 at 11:30 Famotidine (Pepcid) 20 mg QHS PO Last administered on 04/14/16t 21:22; Admin Dose 20 MG; Start 04/13/16 at 21:00 IVELISSE HERRERA MD Apr 15, 2016 09:39
[2016-04-15] MEDS: DEXTROSE 5% 1,000 ML IV SCH (10:07)
--- NOTE | 2016-04-15 13:31 | CONS ---
Date/Time of Note Date/Time of Note DATE: 04/15/16 TIME: 13:29 Consult Date/Type/Reason Admit Date/Time Apr 04, 2016 at 15:15 Initial Consult Date 04/04/16 Type of Consultation: pulm Subjective No events. Objective Vital Signs Date Time Temp Pulse Resp B/P Pulse Ox O2 Delivery O2 Flow Rate FiO2 04/15/16 11:42 97.8 60 22 100/47 96 04/15/16 08:30 4.0 04/15/16 08:21 Nasal Cannula 04/15/16 05:01 40 Intake and Output 04/14/16 04/14/16 04/15/16 14:59 22:59 06:59 Intake Total 0 ml 480 ml Balance 0 ml 480 ml NECK: Supple. No JVD or lymphadenopathy. CARDIAC EXAM: S1, S2. No added sounds or murmurs. CHEST: clear bilaterally, No added sounds, rales or wheezes ABDOMEN: Soft, nontender. No guarding or rebound. Obese EXTREMITIES: No cyanosis, clubbing, edema +1 Results/Medications Result Diagram: 04/14/16 0704/14/16 0705 Results 24 hrs Laboratory Tests Test 04/14/16 13:43 04/14/16 16:49 04/14/16 21:03 04/15/16 02:12 Bedside Glucose 189 233 H 214 194 Test 04/15/16 05:27 04/15/16 09:28 04/15/16 12:58 Bedside Glucose 155 157 184 Medications Current Medications Lorazepam (Ativan) 0.5 mg Q6H PRN IV ANXIETY Last administered on 04/04/16at 20 :40; Admin Dose 0.5 MG; Start 04/04/16 at 15:30 Ondansetron HCl (Zofran Inj) 4 mg Q6H PRN IV NAUSEA AND/OR VOMITING; Start at 15:30 Ferrous Sulfate (Ferrous Sulfate (Ec)) 325 mg DAILY PO Last administered on 04/15 09:18; Admin Dose 325 MG; Start 04/05/16 at 09:00 Insulin Glargine (Lantus) 25 unit QHS SC Last administered on 04/14/16 21:24; Admin Dose 25 UNIT; Start 04/04/16 at 21:00 Latanoprost (Xalatan) 1 drop QHS BOTH EYES Last administered on 04/14/16 21:27 ; Admin Dose 1 DROP; Start 04/04/16 at 21:00 Metoprolol Tartrate (Lopressor) 25 mg BID PO Last administered on 04/15/16 09: 20; Admin Dose 25 MG; Start 04/04/16 at 21:00 Polyethylene Glycol (Miralax) 17 gm DAILY PO Last administered on 04/15/16 09: 18; Admin Dose 17 GM; Start 04/05/16 at 09:00 Atorvastatin Calcium (Lipitor) 20 mg DAILY@21 PO Last administered on 04/14/16 21:22; Admin Dose 20 MG; Start 04/04/16 at 21:00 Miscellaneous Information 1 ea NOTE XX ; Start 04/04/16 at 16:00 Glucose (Glutose) 15 gm Q15M PRN PO DECREASED GLUCOSE; Start 04/04/16 at 16:00 Glucose (Glutose) 22.5 gm Q15M PRN PO DECREASED GLUCOSE; Start 04/04/16 at 16: 00 Dextrose (D50w Syringe) 25 ml Q15M PRN IV DECREASED GLUCOSE Last administered on 04/09/16 13:09; Admin Dose 25 ML; Start 04/04/16 at 16:00 Dextrose (D50w Syringe) 50 ml Q15M PRN IV DECREASED GLUCOSE; Start 04/04/16 at 16:00 Glucagon (Glucagen) 1 mg Q15M PRN IM DECREASED GLUCOSE; Start 04/04/16 at 16: 00 Glucose 15 gm 15 gm Q15M PRN BUCCAL DECREASED GLUCOSE; Start 04/04/16 at 16:00 Norepinephrine/ Dextrose (Levophed/D5W) 500 ml @ 1.87 mls/hr TITRATE IV Last administered on 04/06/16at 14:58; Admin Dose 28.12 MLS/HR; Start 04/04/16 at 16 :30 Tramadol HCl (Ultram) 50 mg Q6H PRN PO Pain Last administered on 04/11/16 09:20 ; Admin Dose 50 MG; Start 04/04/16 at 16:30 Allopurinol (Zyloprim) 200 mg DAILY PO Last administered on 04/15/16 09:18; Admin Dose 200 MG; Start 04/05/16 at 09:00 Insulin Aspart (Novolog Insulin Pen) NOVOLOG *MILD* ALGORI... Q4 SC Last administered on 04/15/16 13:03; Admin Dose 2 UNIT; Start 04/05/16 at 17:00 Clopidogrel Bisulfate (plaVIX) 75 mg DAILY PO Last administered on 04/15/16 09: 18; Admin Dose 75 MG; Start 04/05/16 at 18:30 Pregabalin (Lyrica) 100 mg BID PO Last administered on 04/15/16 09:18; Admin Dose 100 MG; Start 04/05/16 at 21:00 Acetaminophen (Tylenol Supp) 650 mg Q6H PRN [place] FEVER Last administered on 04/08at 14:12; Admin Dose 650 MG; Start 04/06/16 at 12:00 Apixaban 2.5 mg 2.5 mg BID PO Last administered on 04/15/16 09:18; Admin Dose 2.5 MG; Start 04/08/16 at 21:00 Dextrose (D5W) 1,000 ml @ 40 mls/hr Q24H IV Last administered on 04/15/16 10: 07; Admin Dose 40 MLS/HR; Start 04/09/16 at 10:00 Hydralazine HCl (Apresoline) 5 mg Q6H PRN IV ELEVATED BLOOD PRESSURE; Start 04/09/16 at 11:30 Famotidine (Pepcid) 20 mg QHS PO Last administered on 04/14/16 21:22; Admin Dose 20 MG; Start 04/13/16 at 21:00 Assessment/Plan Additional Assessment/Plan IMPRESSION: 1. Hypoxemic Resp Insufficiency due to volume overload/pulm edema 2. 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 3. Encephalopathy, toxic metabolic. 4. Patient's code status: DNR/DNI. 5. Severe mitral stenosis with underlying coronary artery disease 6. Status post coronary intervention 7. Dysphagia. PLAN: 1. Continue noninvasive positive pressure ventilation and nasal cannula oxygen. Aggressive pulmonary toilet 2. Supplemental O2. 3. DVT and GI prophylaxis. 4. Aspiration precautions 5. ST evaluation. YIN NAVARRETE MD Apr 15, 2016 13:31
--- NOTE | 2016-04-15 13:54 | CONS ---
Date/Time of Note Date/Time of Note DATE: 04/15/16 TIME: 13:51 Consult Date/Type/Reason Admit Date/Time Apr 04, 2016 at 15:15 Initial Consult Date 04/04/16 Type of Consultation: Cardiology Objective Vital Signs Date Time Temp Pulse Resp B/P Pulse Ox O2 Delivery O2 Flow Rate FiO2 04/15/16 13:35 50 04/15/16 11:42 97.8 22 100/47 96 04/15/16 08:30 4.0 04/15/16 08:21 Nasal Cannula 04/15/16 05:01 40 Intake and Output 04/14/16 04/14/16 04/15/16 15:00 23:00 07:00 Intake Total 0 ml 480 ml Balance 0 ml 480 ml Results/Medications Result Diagram: 04/14/1670404/14/16 0705 Results 24 hrs Laboratory Tests Test 04/14/16 16:49 04/14/16 21:03 04/15/16 02:12 04/15/16 05:27 Bedside Glucose 233 H 214 194 155 Test 04/15/16 09:28 04/15/16 12:58 Bedside Glucose 157 184 Medications Current Medications Lorazepam (Ativan) 0.5 mg Q6H PRN IV ANXIETY Last administered on 04/04/16at 20 :40; Admin Dose 0.5 MG; Start 04/04/16 at 15:30 Ondansetron HCl (Zofran Inj) 4 mg Q6H PRN IV NAUSEA AND/OR VOMITING; Start at 15:30 Ferrous Sulfate (Ferrous Sulfate (Ec)) 325 mg DAILY PO Last administered on 04/15 09:18; Admin Dose 325 MG; Start 04/05/16 at 09:00 Insulin Glargine (Lantus) 25 unit QHS SC Last administered on 04/14/16 21:24; Admin Dose 25 UNIT; Start 04/04/16 at 21:00 Latanoprost (Xalatan) 1 drop QHS BOTH EYES Last administered on 04/14/16 21:27 ; Admin Dose 1 DROP; Start 04/04/16 at 21:00 Metoprolol Tartrate (Lopressor) 25 mg BID PO Last administered on 04/15/16 09: 20; Admin Dose 25 MG; Start 04/04/16 at 21:00 Polyethylene Glycol (Miralax) 17 gm DAILY PO Last administered on 04/15/16 09: 18; Admin Dose 17 GM; Start 04/05/16 at 09:00 Atorvastatin Calcium (Lipitor) 20 mg DAILY@21 PO Last administered on 04/14/16 21:22; Admin Dose 20 MG; Start 04/04/16 at 21:00 Miscellaneous Information 1 ea NOTE XX ; Start 04/04/16 at 16:00 Glucose (Glutose) 15 gm Q15M PRN PO DECREASED GLUCOSE; Start 04/04/16 at 16:00 Glucose (Glutose) 22.5 gm Q15M PRN PO DECREASED GLUCOSE; Start 04/04/16 at 16: 00 Dextrose (D50w Syringe) 25 ml Q15M PRN IV DECREASED GLUCOSE Last administered on 04/09/16 13:09; Admin Dose 25 ML; Start 04/04/16 at 16:00 Dextrose (D50w Syringe) 50 ml Q15M PRN IV DECREASED GLUCOSE; Start 04/04/16 at 16:00 Glucagon (Glucagen) 1 mg Q15M PRN IM DECREASED GLUCOSE; Start 04/04/16 at 16: 00 Glucose 15 gm 15 gm Q15M PRN BUCCAL DECREASED GLUCOSE; Start 04/04/16 at 16:00 Norepinephrine/ Dextrose (Levophed/D5W) 500 ml @ 1.87 mls/hr TITRATE IV Last administered on 04/06/16at 14:58; Admin Dose 28.12 MLS/HR; Start 04/04/16 at 16 :30 Tramadol HCl (Ultram) 50 mg Q6H PRN PO Pain Last administered on 04/11/16 09:20 ; Admin Dose 50 MG; Start 04/04/16 at 16:30 Allopurinol (Zyloprim) 200 mg DAILY PO Last administered on 04/15/16 09:18; Admin Dose 200 MG; Start 04/05/16 at 09:00 Insulin Aspart (Novolog Insulin Pen) NOVOLOG *MILD* ALGORI... Q4 SC Last administered on 04/15/16 13:03; Admin Dose 2 UNIT; Start 04/05/16 at 17:00 Clopidogrel Bisulfate (plaVIX) 75 mg DAILY PO Last administered on 04/15/16 09: 18; Admin Dose 75 MG; Start 04/05/16 at 18:30 Pregabalin (Lyrica) 100 mg BID PO Last administered on 04/15/16 09:18; Admin Dose 100 MG; Start 04/05/16 at 21:00 Acetaminophen (Tylenol Supp) 650 mg Q6H PRN [place] FEVER Last administered on 04/08at 14:12; Admin Dose 650 MG; Start 04/06/16 at 12:00 Apixaban 2.5 mg 2.5 mg BID PO Last administered on 04/15/16 09:18; Admin Dose 2.5 MG; Start 04/08/16 at 21:00 Dextrose (D5W) 1,000 ml @ 40 mls/hr Q24H IV Last administered on 04/15/16 10: 07; Admin Dose 40 MLS/HR; Start 04/09/16 at 10:00 Hydralazine HCl (Apresoline) 5 mg Q6H PRN IV ELEVATED BLOOD PRESSURE; Start 04/09/16 at 11:30 Famotidine (Pepcid) 20 mg QHS PO Last administered on 04/14/16 21:22; Admin Dose 20 MG; Start 04/13/16 at 21:00 Assessment/Plan Chief Complaint/Hosp Course Patient is 89 year old female with PMH of CAD pci of LAD, Severe mitral calcification with MS, CHF, ESRD on HD, Multiple TIA, PAD came in with SOB, Positive trop, intial plan was to take her to labor relations or personnel negotiator from ER but she was very SOB with craclkes, So brought to ICU. Will need HD, trend trop. had long discussion with family, daughter. Problems: Additional Assessment/Plan Patient still on a BiPAP on and off Doing clinically better Cardiac-caputo he is stable On is to send her to a [facility] Continue hemodialysis and nephrology care We will follow-up the patient ANH FRITZ MD Apr 15, 2016 13:53
--- NOTE | 2016-04-15 14:08 | CONS ---
Date/Time of Note Date/Time of Note DATE: 04/15/16 TIME: 14:05 Consult Date/Type/Reason Admit Date/Time Apr 04, 2016 at 15:15 Initial Consult Date 04/04/16 Type of Consultation: id Subjective no events, lethargic, nad, no fevers Objective Vital Signs Date Time Temp Pulse Resp B/P Pulse Ox O2 Delivery O2 Flow Rate FiO2 04/15/16 13:35 50 04/15/16 11:42 97.8 22 100/47 96 04/15/16 08:30 4.0 04/15/16 08:21 Nasal Cannula 04/15/16 05:01 40 Intake and Output 04/14/16 04/14/16 04/15/16 15:00 23:00 07:00 Intake Total 0 ml 480 ml Balance 0 ml 480 ml Results/Medications Result Diagram: 04/14/1670404/14/16704 Results 24 hrs Laboratory Tests Test 04/14/16 16:49 04/14/16 21:03 04/15/16 02:12 04/15/16 05:27 Bedside Glucose 233 H 214 194 155 Test 04/15/16 09:28 04/15/16 12:58 Bedside Glucose 157 184 Medications Current Medications Lorazepam (Ativan) 0.5 mg Q6H PRN IV ANXIETY Last administered on 04/04/16at 20 :40; Admin Dose 0.5 MG; Start 04/04/16 at 15:30 Ondansetron HCl (Zofran Inj) 4 mg Q6H PRN IV NAUSEA AND/OR VOMITING; Start at 15:30 Ferrous Sulfate (Ferrous Sulfate (Ec)) 325 mg DAILY PO Last administered on 04/15 09:18; Admin Dose 325 MG; Start 04/05/16 at 09:00 Insulin Glargine (Lantus) 25 unit QHS SC Last administered on 04/14/16 21:24; Admin Dose 25 UNIT; Start 04/04/16 at 21:00 Latanoprost (Xalatan) 1 drop QHS BOTH EYES Last administered on 04/14/16 21:27 ; Admin Dose 1 DROP; Start 04/04/16 at 21:00 Metoprolol Tartrate (Lopressor) 25 mg BID PO Last administered on 04/15/16 09: 20; Admin Dose 25 MG; Start 04/04/16 at 21:00 Polyethylene Glycol (Miralax) 17 gm DAILY PO Last administered on 04/15/16 09: 18; Admin Dose 17 GM; Start 04/05/16 at 09:00 Atorvastatin Calcium (Lipitor) 20 mg DAILY@21 PO Last administered on 04/14/16 21:22; Admin Dose 20 MG; Start 04/04/16 at 21:00 Miscellaneous Information 1 ea NOTE XX ; Start 04/04/16 at 16:00 Glucose (Glutose) 15 gm Q15M PRN PO DECREASED GLUCOSE; Start 04/04/16 at 16:00 Glucose (Glutose) 22.5 gm Q15M PRN PO DECREASED GLUCOSE; Start 04/04/16 at 16: 00 Dextrose (D50w Syringe) 25 ml Q15M PRN IV DECREASED GLUCOSE Last administered on 04/09/16 13:09; Admin Dose 25 ML; Start 04/04/16 at 16:00 Dextrose (D50w Syringe) 50 ml Q15M PRN IV DECREASED GLUCOSE; Start 04/04/16 at 16:00 Glucagon (Glucagen) 1 mg Q15M PRN IM DECREASED GLUCOSE; Start 04/04/16 at 16: 00 Glucose 15 gm 15 gm Q15M PRN BUCCAL DECREASED GLUCOSE; Start 04/04/16 at 16:00 Norepinephrine/ Dextrose (Levophed/D5W) 500 ml @ 1.87 mls/hr TITRATE IV Last administered on 04/06/16at 14:58; Admin Dose 28.12 MLS/HR; Start 04/04/16 at 16 :30 Tramadol HCl (Ultram) 50 mg Q6H PRN PO Pain Last administered on 04/11/16 09:20 ; Admin Dose 50 MG; Start 04/04/16 at 16:30 Allopurinol (Zyloprim) 200 mg DAILY PO Last administered on 04/15/16 09:18; Admin Dose 200 MG; Start 04/05/16 at 09:00 Insulin Aspart (Novolog Insulin Pen) NOVOLOG *MILD* ALGORI... Q4 SC Last administered on 04/15/16 13:03; Admin Dose 2 UNIT; Start 04/05/16 at 17:00 Clopidogrel Bisulfate (plaVIX) 75 mg DAILY PO Last administered on 04/15/16 09: 18; Admin Dose 75 MG; Start 04/05/16 at 18:30 Pregabalin (Lyrica) 100 mg BID PO Last administered on 04/15/16 09:18; Admin Dose 100 MG; Start 04/05/16 at 21:00 Acetaminophen (Tylenol Supp) 650 mg Q6H PRN [place] FEVER Last administered on 04/08at 14:12; Admin Dose 650 MG; Start 04/06/16 at 12:00 Apixaban 2.5 mg 2.5 mg BID PO Last administered on 04/15/16 09:18; Admin Dose 2.5 MG; Start 04/08/16 at 21:00 Dextrose (D5W) 1,000 ml @ 40 mls/hr Q24H IV Last administered on 04/15/16 10: 07; Admin Dose 40 MLS/HR; Start 04/09/16 at 10:00 Hydralazine HCl (Apresoline) 5 mg Q6H PRN IV ELEVATED BLOOD PRESSURE; Start 04/09/16 at 11:30 Famotidine (Pepcid) 20 mg QHS PO Last administered on 04/14/16 21:22; Admin Dose 20 MG; Start 04/13/16 at 21:00 Assessment/Plan Chief Complaint/Hosp Course INDWELLINGS: Right chest Perm-A-Cath NGT PHYSICAL EXAMINATION: GENERAL: This is a morbidly obese, fragile, elderly woman who is awake and lying comfortably in bed. HEENT: Head atraumatic, normocephalic. Sclerae anicteric. Buccal mucosa dry. NECK: Supple, trachea midline. CHEST: Rise symmetrical. Breath sounds diminished to bases. HEART: S1, S2. ABDOMEN: Soft, bowel tones present. EXTREMITIES: Without cyanosis. ASSESSMENT: 1. Status post shock, septic and cardiogenic. 2. S/p acute respiratory failure secondary to pulmonary edema, possible aspiration===> s/p antibiotics for 7 days 3. Non-ST elevation myocardial infarction, status post cardiac catheterization with stent to the posterior descending artery 4. Severe mitral stenosis. 5. End-stage renal disease, hemodialysis dependent. 6. Encephalopathy. 7. Leukocytosis with concern for possible aspiration PLAN: Start Merrem, f/u repeat bld cx, continue aspiration precaution, pulmonary /card rec-s DW staff Problems: TAMIKO DIXON NP Apr 15, 2016 14:07
[2016-04-15] MEDS: MEROPENEM 500 MG in SOD CHLORIDE 0.9% 100 ML IVPB SCH (16:04)
[2016-04-15] MEDS: METOCLOPRAMIDE 10 MG INJ IV SCH (17:20)
[2016-04-15] MEDS: traMADol 50 MG TAB PO PRN (17:20)
[2016-04-15] MEDS: LATANOPROST 0.005% 2.5 ML OPH BOTH EYES SCH (21:42)
[2016-04-15] MEDS: ATORVASTATIN 20 MG TAB PO SCH (21:43)
[2016-04-15] MEDS: FAMOTIDINE 20 MG TAB PO SCH (21:44)
[2016-04-15] MEDS: INSULIN GLARGINE [LANtus] 3 ML PEN SC SCH (21:51)
[2016-04-16] VITALS (29 sets, daily range): BP systolic 74–97; BP diastolic 32–50; PULSE 45–64; RESP 19–22
[2016-04-16] MEDS: METOCLOPRAMIDE 10 MG INJ IV SCH ×4 (00:55→17:40)
[2016-04-16] MEDS: INSULIN ASPART [NOVOLOG] 3 ML PEN SC SCH ×4 (01:06→18:06)
--- NOTE | 2016-04-16 01:25 | PN ---
Date/Time of Note Date/Time of Note DATE: 04/15/16 TIME: 11:24 Assessment/Plan VTE Prophylaxis VTE Prophylaxis Intervention: SCD's Lines/Catheters IV [facility] ([facility] PICC Line Central line still needed: Yes Urinary Cath still in place: No Assessment/Plan Assessment/Plan IMPRESSION: 1. Hypoxic respiratory failure, with pulmonary vascular congestion. 2. Coronary artery disease, status post PCI, with stent to right posterior descending artery. The patient also has a history of PCI to the LAD. 3. Severe mitral calcification with stenosis. 4. End-stage renal disease, on dialysis. 5. History of transient ischemic attack. 6. Status post sepsis, with possible underlying pneumonia. 7. Anemia, likely anemia of chronic disease. 8. Type 2 diabetes. 9. Hyponatremia and mild Hypokalemia 10. Leukocytosis 11. Sandra in resp cx; s/p treatment PLAN: - Will continue positive pressure support and try to transition to NC as tolerated. - Continue breathing treatments. pt is s/p cardiac catheterization with a PCI and stents to RPDA. She also has a history PCI of the LAD. Cont meds, including cardiac through NG tube. Will continue insulin for her diabetes and will adjust as needed. - Cont Dialysis per nephrology. - Overall the patient does not have a good prognosis and we need to have a family meeting to discuss even possible hospice. Palliative care on board - pt off abx now. no fever, but up trended WBC. cont to monitor for now. ID on board - Correct electrolytes as needed I had a long conversation with Daughter at bedside yesterday and she is considering hospice, but wants to cont current medical mgmt for few days before making that decision. She said she is the only child and her father is and no other family member for her to consult with. Further workup and management per clinical course. Subjective 24 Hr Interval Summary Free Text/Dictation on nasal canula x 2 days. pt however still lethargic Exam/Review of Systems Vital Signs Vitals Vital Signs Date Time Temp Pulse Resp B/P Pulse Ox O2 Delivery O2 Flow Rate FiO2 04/16/16 01:14 50 95 40 04/16/16 01:07 88/42 04/15/16 20:53 4.0 04/15/16 20:53 24 Nasal Cannula 04/15/16 20:32 98.3 Intake and Output 04/15/16 04/15/16 04/16/16 15:00 23:00 07:00 Intake Total 560 ml Balance 560 ml Exam GENERAL: The patient is on BiPAP. Appears lethargic and moaning, not following any commands. HEENT: No obvious head deformity. CARDIOVASCULAR: Bradycardic, with a regular rhythm. She also has a systolic murmur. PULMONARY: Lungs sound congested, with crackles anteriorly. ABDOMEN: Obese, soft. No grimaces noted on palpation. Positive bowel sounds. EXTREMITIES: No edema. Results Result Diagram: 04/14/1670404/14/16704 Results 24 hrs Laboratory Tests Test 04/15/16 02:12 04/15/16 05:27 04/15/16 09:28 04/15/16 12:58 Bedside Glucose 194 155 157 184 Test 04/15/16 17:26 04/15/16 21:33 04/16/16 01:01 Bedside Glucose 162 220 246 H Medications Medications Current Medications Lorazepam (Ativan) 0.5 mg Q6H PRN IV ANXIETY Last administered on 04/04/16at 20 :40; Admin Dose 0.5 MG; Start 04/04/16 at 15:30 Ondansetron HCl (Zofran Inj) 4 mg Q6H PRN IV NAUSEA AND/OR VOMITING; Start at 15:30 Ferrous Sulfate (Ferrous Sulfate (Ec)) 325 mg DAILY PO Last administered on 04/15 09:18; Admin Dose 325 MG; Start 04/05/16 at 09:00 Insulin Glargine (Lantus) 25 unit QHS SC Last administered on 04/15/16 21:51; Admin Dose 25 UNIT; Start 04/04/16 at 21:00 Latanoprost (Xalatan) 1 drop QHS BOTH EYES Last administered on 04/15/16 21:42 ; Admin Dose 1 DROP; Start 04/04/16 at 21:00 Metoprolol Tartrate (Lopressor) 25 mg BID PO Last administered on 04/15/16 21: 54; Admin Dose 25 MG; Start 04/04/16 at 21:00 Polyethylene Glycol (Miralax) 17 gm DAILY PO Last administered on 04/15/16 09: 18; Admin Dose 17 GM; Start 12/28/16 at 09:00 Atorvastatin Calcium (Lipitor) 20 mg DAILY@21 PO Last administered on 04/15/16 21:43; Admin Dose 20 MG; Start 04/04/16 at 21:00 Miscellaneous Information 1 ea NOTE XX ; Start 04/04/16 at 16:00 Glucose (Glutose) 15 gm Q15M PRN PO DECREASED GLUCOSE; Start 04/04/16 at 16:00 Glucose (Glutose) 22.5 gm Q15M PRN PO DECREASED GLUCOSE; Start 04/04/16 at 16: 00 Dextrose (D50w Syringe) 25 ml Q15M PRN IV DECREASED GLUCOSE Last administered on 04/09/16 13:09; Admin Dose 25 ML; Start 04/04/16 at 16:00 Dextrose (D50w Syringe) 50 ml Q15M PRN IV DECREASED GLUCOSE; Start 04/04/16 at 16:00 Glucagon (Glucagen) 1 mg Q15M PRN IM DECREASED GLUCOSE; Start 04/04/16 at 16: 00 Glucose (Glutose) 15 gm Q15M PRN BUCCAL DECREASED GLUCOSE; Start 04/04/16 at 16:00 Tramadol HCl (Ultram) 50 mg Q6H PRN PO Pain Last administered on 04/15/16 17:20 ; Admin Dose 50 MG; Start 04/04/16 at 16:30 Allopurinol (Zyloprim) 200 mg DAILY PO Last administered on 04/15/16 09:18; Admin Dose 200 MG; Start 04/05/16 at 09:00 Insulin Aspart (Novolog Insulin Pen) NOVOLOG *MILD* ALGORI... Q4 SC Last administered on 04/16/16 01:06; Admin Dose 3 UNIT; Start 04/05/16 at 17:00 Clopidogrel Bisulfate (plaVIX) 75 mg DAILY PO Last administered on 04/15/16 09: 18; Admin Dose 75 MG; Start 04/05/16 at 18:30 Pregabalin (Lyrica) 100 mg BID PO Last administered on 04/15/16 21:44; Admin Dose 100 MG; Start 04/05/16 at 21:00 Acetaminophen (Tylenol Supp) 650 mg Q6H PRN [place] FEVER Last administered on 04/08at 14:12; Admin Dose 650 MG; Start 04/06/16 at 12:00 Apixaban (Eliquis) 2.5 mg BID PO Last administered on 04/15/16 21:43; Admin Dose 2.5 MG; Start 04/08/16 at 21:00 Hydralazine HCl (Apresoline) 5 mg Q6H PRN IV ELEVATED BLOOD PRESSURE; Start 04/09/16 at 11:30 Famotidine 20 mg 20 mg QHS PO Last administered on 04/15/16 21:44; Admin Dose 20 MG; Start 04/13/16 at 21:00 Meropenem/Sodium Chloride (Merrem/NS) 100 ml @ 200 mls/hr Q24H IVPB Last administered on 04/15/16 16:04; Admin Dose 200 MLS/HR; Start 04/15/16 at 16:30 Metoclopramide HCl (Reglan) 10 mg Q6 IV Last administered on 04/16/16 00:55; Admin Dose 10 MG; Start 04/15/16 at 18:00 DEJUAN LINDA MD Apr 16, 2016 01:25
[2016-04-16] MEDS: LEVOTHYROXINE 100 MCG TAB PO SCH (06:21)
[2016-04-16] MEDS: ALBUTEROL/IPRATROPIUM (NEB) 3 ML AMP HHN SCH ×4 (07:45→20:03)
[2016-04-16] MEDS: METOPROLOL 25 MG TAB PO SCH ×2 (09:00→21:00)
[2016-04-16] MEDS: CLOPIDOGREL 75 MG TAB PO SCH (09:36)
[2016-04-16] MEDS: PREGABALIN 25 MG CAP PO SCH ×2 (09:36→21:20)
[2016-04-16] MEDS: POLYETHYLENE GLYCOL 17 GM PACKET PO SCH (09:36)
[2016-04-16] MEDS: ALLOPURINOL 100 MG TAB PO SCH (09:37)
[2016-04-16] MEDS: FERROUS SULFATE (EC) 325 MG TAB PO SCH (09:37)
[2016-04-16] MEDS: APIXABAN 5 MG TABLET PO SCH ×2 (09:38→21:19)
--- NOTE | 2016-04-16 11:16 | CONS ---
Date/Time of Note Date/Time of Note DATE: 04/16/16 TIME: 11:12 Consult Date/Type/Reason Admit Date/Time Apr 04, 2016 at 15:15 Initial Consult Date 04/04/16 Type of Consultation: neph Subjective The patient on hemodialysis today. No acute events noted. No hemoptysis, hematemesis or hematochezia. patient is lethargic and family is discussing hospice. OBJECTIVE: HEENT: Head is normocephalic. NECK: Supple. HEART: Regular rate. LUNGS: Show diminished breath sounds at base. ABDOMEN: Soft, nontender to palpation without rebound or guarding. EXTREMITIES: Negative for clubbing, cyanosis. Trace edema. DERMATOLOGIC: No rashes. MUSCULOSKELETAL: No joint effusions. NEUROLOGIC: No change in exam. Objective Vital Signs Date Time Temp Pulse Resp B/P Pulse Ox O2 Delivery O2 Flow Rate FiO2 04/16/16 08:19 50 04/16/16 08:11 98.6 21 85/39 97 04/16/16 03:40 40 04/16/16 00:00 BIPAP 04/15/16 20:53 4.0 Intake and Output 04/15/16 04/15/16 04/16/16 15:00 23:00 07:00 Intake Total 560 ml Balance 560 ml Results/Medications Result Diagram: 04/14/1670404/14/16 07 Results 24 hrs Laboratory Tests Test 04/15/16 12:58 04/15/16 17:26 04/15/16 21:33 04/16/16 01:01 Bedside Glucose 184 162 220 246 H Test 04/16/16 06:15 04/16/16 08:21 Bedside Glucose 264 H 253 H Medications Current Medications Lorazepam (Ativan) 0.5 mg Q6H PRN IV ANXIETY Last administered on 04/04/16at 20 :40; Admin Dose 0.5 MG; Start 04/04/16 at 15:30 Ondansetron HCl (Zofran Inj) 4 mg Q6H PRN IV NAUSEA AND/OR VOMITING; Start at 15:30 Ferrous Sulfate (Ferrous Sulfate (Ec)) 325 mg DAILY PO Last administered on 04/16t 09:37; Admin Dose 325 MG; Start 04/05/16 at 09:00 Insulin Glargine (Lantus) 25 unit QHS SC Last administered on 04/15/16 21:51; Admin Dose 25 UNIT; Start 04/04/16 at 21:00 Latanoprost (Xalatan) 1 drop QHS BOTH EYES Last administered on 04/15/16 21:42 ; Admin Dose 1 DROP; Start 04/04/16 at 21:00 Metoprolol Tartrate (Lopressor) 25 mg BID PO Last administered on 04/15/16 21: 54; Admin Dose 25 MG; Start 04/04/16 at 21:00 Polyethylene Glycol (Miralax) 17 gm DAILY PO Last administered on 04/16/16 09: 36; Admin Dose 17 GM; Start 04/05/16 at 09:00 Atorvastatin Calcium (Lipitor) 20 mg DAILY@21 PO Last administered on 04/15/16 21:43; Admin Dose 20 MG; Start 04/04/16 at 21:00 Miscellaneous Information 1 ea NOTE XX ; Start 04/04/16 at 16:00 Glucose (Glutose) 15 gm Q15M PRN PO DECREASED GLUCOSE; Start 04/04/16 at 16:00 Glucose (Glutose) 22.5 gm Q15M PRN PO DECREASED GLUCOSE; Start 04/04/16 at 16: 00 Dextrose (D50w Syringe) 25 ml Q15M PRN IV DECREASED GLUCOSE Last administered on 04/09/16 13:09; Admin Dose 25 ML; Start 04/04/16 at 16:00 Dextrose (D50w Syringe) 50 ml Q15M PRN IV DECREASED GLUCOSE; Start 04/04/16 at 16:00 Glucagon (Glucagen) 1 mg Q15M PRN IM DECREASED GLUCOSE; Start 04/04/16 at 16: 00 Glucose (Glutose) 15 gm Q15M PRN BUCCAL DECREASED GLUCOSE; Start 04/04/16 at 16:00 Tramadol HCl (Ultram) 50 mg Q6H PRN PO Pain Last administered on 04/15/16 17:20 ; Admin Dose 50 MG; Start 04/04/16 at 16:30 Allopurinol (Zyloprim) 200 mg DAILY PO Last administered on 04/16/16 09:37; Admin Dose 200 MG; Start 04/05/16 at 09:00 Insulin Aspart (Novolog Insulin Pen) NOVOLOG *MILD* ALGORI... Q4 SC Last administered on 04/16/16 09:51; Admin Dose 3 UNIT; Start 04/05/16 at 17:00 Clopidogrel Bisulfate (plaVIX) 75 mg DAILY PO Last administered on 04/16/16 09: 36; Admin Dose 75 MG; Start 04/05/16 at 18:30 Pregabalin (Lyrica) 100 mg BID PO Last administered on 04/16/16 09:36; Admin Dose 100 MG; Start 04/05/16 at 21:00 Acetaminophen (Tylenol Supp) 650 mg Q6H PRN [place] FEVER Last administered on 04/08at 14:12; Admin Dose 650 MG; Start 04/06/16 at 12:00 Apixaban (Eliquis) 2.5 mg BID PO Last administered on 04/16/16 09:38; Admin Dose 2.5 MG; Start 04/08/16 at 21:00 Hydralazine HCl (Apresoline) 5 mg Q6H PRN IV ELEVATED BLOOD PRESSURE; Start 04/09/16 at 11:30 Famotidine 20 mg 20 mg QHS PO Last administered on 04/15/16 21:44; Admin Dose 20 MG; Start 04/13/16 at 21:00 Meropenem/Sodium Chloride (Merrem/NS) 100 ml @ 200 mls/hr Q24H IVPB Last administered on 04/15/16 16:04; Admin Dose 200 MLS/HR; Start 04/15/16 at 16:30 Metoclopramide HCl (Reglan) 10 mg Q6 IV Last administered on 04/16/16 06:21; Admin Dose 10 MG; Start 04/15/16 at 18:00 Assessment/Plan Chief Complaint/Hosp Course 1. End-stage renal disease. The patient has been receiving dialysis for volume removal. We will assess daily for hd, will ultrafiltrate as tolerated. 2. Hypokalemia, repleted potassium chloride. 3. Volume overload. Continue ultrafiltration with dialysis. 4. Anemia. Continue to monitor hemoglobin and hematocrit levels. Continue Epogen. 5. Acute hypoxemic respiratory failure secondary to congestive heart failure, pneumonia. Continue BiPAP, wean off if possible. 6. Hypertension. Continue current blood pressure regimen. 7. Mineral bone disorder. Continue to monitor calcium and phosphorous levels. 8. Non-ST elevation myocardial infarction. Continue the patient is status post percutaneous coronary intervention. Continue medical management. 9. Peripheral vascular disease. Continue medical management. 10. Encephalopathy dialysis toxic metabolic. Continue to monitor. 11. History of mitral stenosis. Problems: VIELISSE HERRERA MD Apr 16, 2016 11:15
[2016-04-16] MEDS ORDERED: SOD CHLORIDE 0.9% 1,000 ML IV PRN (12:18)
--- NOTE | 2016-04-16 12:44 | PN ---
Date/Time of Note Date/Time of Note DATE: 04/16/16 TIME: 12:40 Assessment/Plan VTE Prophylaxis VTE Prophylaxis Intervention: heparin Lines/Catheters IV [facility] Type (from [facility]): PICC Line Central line still needed: Yes Urinary Cath still in place: No Assessment/Plan Assessment/Plan 1. Hypoxic respiratory failure, with pulmonary vascular congestion - stable - continue with pulmonary toilet - NPPV - appreciate pulm recs 2. Coronary artery disease, status post PCI, with stent to right posterior descending artery. The patient also has a history of PCI to the LAD - aspirin 3. Severe mitral calcification with stenosis monitor 4. End-stage renal disease, on dialysis - as per nephro 5. Transient ischemic attack previous - needs to be anticoagulated 6. Sepsis 2/2 to Pneumonia - will continue with ID recs - probably broaden antibiotics 7. Anemia of CKD - transfuse as needed 8. Type 2 diabetes - ISS 9. Hyponatremia and mild Hypokalemia - dialysis as needed 10. Sandra in resp cx; s/p treatment 11. GI ppx - pepcid 12. DVT ppx - heparin Dispo - Overall the patient does not have a good prognosis and we need to have a family meeting to discuss even possible hospice. Palliative care on board - pt off abx now. no fever, but up trended WBC. cont to monitor for now. ID on board - Correct electrolytes as needed Long conversation with Daughter at bedside yesterday and she is considering hospice, but wants to cont current medical mgmt for few days before making that decision. She said she is the only child and her father is and no other family member for her to consult with. this progress note took greater than 30 minutes to complete Exam/Review of Systems Vital Signs Vitals Vital Signs Date Time Temp Pulse Resp B/P Pulse Ox O2 Delivery O2 Flow Rate FiO2 04/16/16 12:14 98.4 50 22 84/41 93 04/16/16 03:40 40 04/16/16 00:00 BIPAP 04/15/16 20:53 4.0 Intake and Output 04/15/16 04/15/16 04/16/16 15:00 23:00 07:00 Intake Total 560 ml Balance 560 ml Results Result Diagram: 04/14/1670404/14/16 0705 Results 24 hrs Laboratory Tests Test 04/15/16 12:58 04/15/16 17:26 04/15/16 21:33 04/16/16 01:01 Bedside Glucose 184 162 220 246 H Test 04/16/16 06:15 04/16/16 08:21 Bedside Glucose 264 H 253 H Medications Medications Current Medications Lorazepam (Ativan) 0.5 mg Q6H PRN IV ANXIETY Last administered on 04/04/16at 20 :40; Admin Dose 0.5 MG; Start 04/04/16 at 15:30 Ondansetron HCl (Zofran Inj) 4 mg Q6H PRN IV NAUSEA AND/OR VOMITING; Start at 15:30 Ferrous Sulfate (Ferrous Sulfate (Ec)) 325 mg DAILY PO Last administered on 04/16 09:37; Admin Dose 325 MG; Start 04/05/16 at 09:00 Insulin Glargine (Lantus) 25 unit QHS SC Last administered on 04/15/16 21:51; Admin Dose 25 UNIT; Start 04/04/16 at 21:00 Latanoprost (Xalatan) 1 drop QHS BOTH EYES Last administered on 04/15/16 21:42 ; Admin Dose 1 DROP; Start 04/04/16 at 21:00 Metoprolol Tartrate (Lopressor) 25 mg BID PO Last administered on 04/15/16 21: 54; Admin Dose 25 MG; Start 04/04/16 at 21:00 Polyethylene Glycol (Miralax) 17 gm DAILY PO Last administered on 04/16/16 09: 36; Admin Dose 17 GM; Start 04/05/16 at 09:00 Atorvastatin Calcium (Lipitor) 20 mg DAILY@21 PO Last administered on 04/15/16 21:43; Admin Dose 20 MG; Start 04/04/16 at 21:00 Miscellaneous Information 1 ea NOTE XX ; Start 04/04/16 at 16:00 Glucose (Glutose) 15 gm Q15M PRN PO DECREASED GLUCOSE; Start 04/04/16 at 16:00 Glucose (Glutose) 22.5 gm Q15M PRN PO DECREASED GLUCOSE; Start 04/04/16 at 16: 00 Dextrose (D50w Syringe) 25 ml Q15M PRN IV DECREASED GLUCOSE Last administered on 04/09/16 13:09; Admin Dose 25 ML; Start 04/04/16 at 16:00 Dextrose (D50w Syringe) 50 ml Q15M PRN IV DECREASED GLUCOSE; Start 04/04/16 at 16:00 Glucagon (Glucagen) 1 mg Q15M PRN IM DECREASED GLUCOSE; Start 04/04/16 at 16: 00 Glucose (Glutose) 15 gm Q15M PRN BUCCAL DECREASED GLUCOSE; Start 04/04/16 at 16:00 Tramadol HCl (Ultram) 50 mg Q6H PRN PO Pain Last administered on 04/15/16 17:20 ; Admin Dose 50 MG; Start 04/04/16 at 16:30 Allopurinol (Zyloprim) 200 mg DAILY PO Last administered on 04/16/16 09:37; Admin Dose 200 MG; Start 04/05/16 at 09:00 Insulin Aspart (Novolog Insulin Pen) NOVOLOG *MILD* ALGORI... Q4 SC Last administered on 04/16/16 09:51; Admin Dose 3 UNIT; Start 04/05/16 at 17:00 Clopidogrel Bisulfate (plaVIX) 75 mg DAILY PO Last administered on 04/16/16 09: 36; Admin Dose 75 MG; Start 04/05/16 at 18:30 Pregabalin (Lyrica) 100 mg BID PO Last administered on 04/16/16 09:36; Admin Dose 100 MG; Start 04/05/16 at 21:00 Acetaminophen (Tylenol Supp) 650 mg Q6H PRN [place] FEVER Last administered on 04/08at 14:12; Admin Dose 650 MG; Start 04/06/16 at 12:00 Apixaban (Eliquis) 2.5 mg BID PO Last administered on 04/16/16 09:38; Admin Dose 2.5 MG; Start 04/08/16 at 21:00 Hydralazine HCl (Apresoline) 5 mg Q6H PRN IV ELEVATED BLOOD PRESSURE; Start 04/09/16 at 11:30 Famotidine 20 mg 20 mg QHS PO Last administered on 04/15/16 21:44; Admin Dose 20 MG; Start 04/13/16 at 21:00 Meropenem/Sodium Chloride (Merrem/NS) 100 ml @ 200 mls/hr Q24H IVPB Last administered on 04/15/16 16:04; Admin Dose 200 MLS/HR; Start 04/15/16 at 16:30 Metoclopramide HCl 10 mg 10 mg Q6 IV Last administered on 04/16/16t 06:21; Admin Dose 10 MG; Start 04/15/16 at 18:00 Sodium Chloride (NS) 1,000 ml @ 0 mls/hr Q0M PRN IV TO KEEP SBP ABOVE 90; Start 04/16/16 at 12:18 ARDEN LYONS MD Apr 16, 2016 12:43
--- NOTE | 2016-04-16 15:02 | CONS ---
Date/Time of Note Date/Time of Note DATE: 04/16/16 TIME: 15:00 Consult Date/Type/Reason Admit Date/Time Apr 04, 2016 at 15:15 Initial Consult Date 04/04/16 Type of Consultation: card Objective Vital Signs Date Time Temp Pulse Resp B/P Pulse Ox O2 Delivery O2 Flow Rate FiO2 04/16/16 13:30 64 22 04/16/16 12:38 96 Nasal Cannula 4.0 04/16/16 12:14 98.4 84/41 04/16/16 03:40 40 Intake and Output 04/15/16 04/15/16 04/16/16 15:00 23:00 07:00 Intake Total 560 ml Balance 560 ml Results/Medications Result Diagram: 04/14/1670404/14/16704 Results 24 hrs Laboratory Tests Test 04/15/16 17:26 04/15/16 21:33 04/16/16 01:01 04/16/16 06:15 Bedside Glucose 162 220 246 H 264 H Test 04/16/16 08:21 Bedside Glucose 253 H Medications Current Medications Lorazepam (Ativan) 0.5 mg Q6H PRN IV ANXIETY Last administered on 04/04/16at 20 :40; Admin Dose 0.5 MG; Start 04/04/16 at 15:30 Ondansetron HCl (Zofran Inj) 4 mg Q6H PRN IV NAUSEA AND/OR VOMITING; Start at 15:30 Ferrous Sulfate (Ferrous Sulfate (Ec)) 325 mg DAILY PO Last administered on 04/16 09:37; Admin Dose 325 MG; Start 04/05/16 at 09:00 Insulin Glargine (Lantus) 25 unit QHS SC Last administered on 04/15/16 21:51; Admin Dose 25 UNIT; Start 04/04/16 at 21:00 Latanoprost (Xalatan) 1 drop QHS BOTH EYES Last administered on 04/15/16 21:42 ; Admin Dose 1 DROP; Start 04/04/16 at 21:00 Metoprolol Tartrate (Lopressor) 25 mg BID PO Last administered on 04/15/16 21: 54; Admin Dose 25 MG; Start 04/04/16 at 21:00 Polyethylene Glycol (Miralax) 17 gm DAILY PO Last administered on 04/16/16 09: 36; Admin Dose 17 GM; Start 04/05/16 at 09:00 Atorvastatin Calcium (Lipitor) 20 mg DAILY@21 PO Last administered on 04/15/16 21:43; Admin Dose 20 MG; Start 04/04/16 at 21:00 Miscellaneous Information 1 ea NOTE XX ; Start 04/04/16 at 16:00 Glucose (Glutose) 15 gm Q15M PRN PO DECREASED GLUCOSE; Start 04/04/16 at 16:00 Glucose (Glutose) 22.5 gm Q15M PRN PO DECREASED GLUCOSE; Start 04/04/16 at 16: 00 Dextrose (D50w Syringe) 25 ml Q15M PRN IV DECREASED GLUCOSE Last administered on 04/09/16 13:09; Admin Dose 25 ML; Start 04/04/16 at 16:00 Dextrose (D50w Syringe) 50 ml Q15M PRN IV DECREASED GLUCOSE; Start 04/04/16 at 16:00 Glucagon (Glucagen) 1 mg Q15M PRN IM DECREASED GLUCOSE; Start 04/04/16 at 16: 00 Glucose (Glutose) 15 gm Q15M PRN BUCCAL DECREASED GLUCOSE; Start 04/04/16 at 16:00 Tramadol HCl (Ultram) 50 mg Q6H PRN PO Pain Last administered on 04/15/16 17:20 ; Admin Dose 50 MG; Start 04/04/16 at 16:30 Allopurinol (Zyloprim) 200 mg DAILY PO Last administered on 04/16/16 09:37; Admin Dose 200 MG; Start 04/05/16 at 09:00 Clopidogrel Bisulfate (plaVIX) 75 mg DAILY PO Last administered on 04/16/16 09: 36; Admin Dose 75 MG; Start 04/05/16 at 18:30 Pregabalin (Lyrica) 100 mg BID PO Last administered on 04/16/16 09:36; Admin Dose 100 MG; Start 04/05/16 at 21:00 Acetaminophen (Tylenol Supp) 650 mg Q6H PRN [place] FEVER Last administered on 04/08at 14:12; Admin Dose 650 MG; Start 04/06/16 at 12:00 Apixaban (Eliquis) 2.5 mg BID PO Last administered on 04/16/16 09:38; Admin Dose 2.5 MG; Start 04/08/16 at 21:00 Hydralazine HCl (Apresoline) 5 mg Q6H PRN IV ELEVATED BLOOD PRESSURE; Start 04/09/16 at 11:30 Famotidine 20 mg 20 mg QHS PO Last administered on 04/15/16 21:44; Admin Dose 20 MG; Start 04/13/16 at 21:00 Meropenem/Sodium Chloride (Merrem/NS) 100 ml @ 200 mls/hr Q24H IVPB Last administered on 04/15/16 16:04; Admin Dose 200 MLS/HR; Start 04/15/16 at 16:30 Metoclopramide HCl 10 mg 10 mg Q6 IV Last administered on 04/16/16 12:00; Admin Dose 10 MG; Start 04/15/16 at 18:00 Sodium Chloride (NS) 1,000 ml @ 0 mls/hr Q0M PRN IV TO KEEP SBP ABOVE 90; Start 04/16/16 at 12:18 Insulin Aspart (Novolog Insulin Pen) NOVOLOG *MILD* ALGORI... Q6 SC ; Start 04/16 at 18:00 Assessment/Plan Chief Complaint/Hosp Course Patient is 89 year old female with PMH of CAD pci of LAD, Severe mitral calcification with MS, CHF, ESRD on HD, Multiple TIA, PAD came in with SOB, Positive trop, intial plan was to take her to prosthetic lab technician from ER but she was very SOB with craclkes, So brought to ICU. Will need HD, trend trop. had long discussion with family, daughter. 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 Will /fu ANH FRITZ MD Apr 16, 2016 15:02
[2016-04-16] MEDS: ALBUMIN HUMAN 25% 100 ML IV PRN ×2 (15:22→15:35)
--- NOTE | 2016-04-16 16:18 | CONS ---
Date/Time of Note Date/Time of Note DATE: 04/16/16 TIME: 16:16 Consult Date/Type/Reason Admit Date/Time Apr 04, 2016 at 15:15 Initial Consult Date 04/04/16 Type of Consultation: Pulm Subjective Doing poorly overall. Objective Vital Signs Date Time Temp Pulse Resp B/P Pulse Ox O2 Delivery O2 Flow Rate FiO2 04/16/16 15:59 52 04/16/16 13:30 22 04/16/16 12:38 96 Nasal Cannula 4.0 04/16/16 12:14 98.4 84/41 04/16/16 03:40 40 Intake and Output 04/15/16 04/15/16 04/16/16 15:00 23:00 07:00 Intake Total 560 ml Balance 560 ml NECK: Supple. No JVD or lymphadenopathy. CARDIAC EXAM: S1, S2. No added sounds or murmurs. CHEST: Coarse BS and rhonchi ABDOMEN: Soft, nontender. No guarding or rebound. Obese EXTREMITIES: No cyanosis, clubbing, edema +1 Results/Medications Result Diagram: 04/14/16 0704/14/16 0705 Results 24 hrs Laboratory Tests Test 04/15/16 17:26 04/15/16 21:33 04/16/16 01:01 04/16/16 06:15 Bedside Glucose 162 220 246 H 264 H Test 04/16/16 08:21 Bedside Glucose 253 H Medications Current Medications Lorazepam (Ativan) 0.5 mg Q6H PRN IV ANXIETY Last administered on 04/04/16at 20 :40; Admin Dose 0.5 MG; Start 04/04/16 at 15:30 Ondansetron HCl (Zofran Inj) 4 mg Q6H PRN IV NAUSEA AND/OR VOMITING; Start at 15:30 Ferrous Sulfate (Ferrous Sulfate (Ec)) 325 mg DAILY PO Last administered on 04/16 09:37; Admin Dose 325 MG; Start 04/05/16 at 09:00 Insulin Glargine (Lantus) 25 unit QHS SC Last administered on 04/15/16 21:51; Admin Dose 25 UNIT; Start 04/04/16 at 21:00 Latanoprost (Xalatan) 1 drop QHS BOTH EYES Last administered on 04/15/16 21:42 ; Admin Dose 1 DROP; Start 04/04/16 at 21:00 Metoprolol Tartrate (Lopressor) 25 mg BID PO Last administered on 04/15/16 21: 54; Admin Dose 25 MG; Start 04/04/16 at 21:00 Polyethylene Glycol (Miralax) 17 gm DAILY PO Last administered on 04/16/16 09: 36; Admin Dose 17 GM; Start 04/05/16 at 09:00 Atorvastatin Calcium (Lipitor) 20 mg DAILY@21 PO Last administered on 04/15/16 21:43; Admin Dose 20 MG; Start 04/04/16 at 21:00 Miscellaneous Information 1 ea NOTE XX ; Start 04/04/16 at 16:00 Glucose (Glutose) 15 gm Q15M PRN PO DECREASED GLUCOSE; Start 04/04/16 at 16:00 Glucose (Glutose) 22.5 gm Q15M PRN PO DECREASED GLUCOSE; Start 04/04/16 at 16: 00 Dextrose (D50w Syringe) 25 ml Q15M PRN IV DECREASED GLUCOSE Last administered on 04/09/16 13:09; Admin Dose 25 ML; Start 04/04/16 at 16:00 Dextrose (D50w Syringe) 50 ml Q15M PRN IV DECREASED GLUCOSE; Start 04/04/16 at 16:00 Glucagon (Glucagen) 1 mg Q15M PRN IM DECREASED GLUCOSE; Start 04/04/16 at 16: 00 Glucose (Glutose) 15 gm Q15M PRN BUCCAL DECREASED GLUCOSE; Start 04/04/16 at 16:00 Tramadol HCl (Ultram) 50 mg Q6H PRN PO Pain Last administered on 04/15/16 17:20 ; Admin Dose 50 MG; Start 04/04/16 at 16:30 Allopurinol (Zyloprim) 200 mg DAILY PO Last administered on 04/16/16 09:37; Admin Dose 200 MG; Start 04/05/16 at 09:00 Clopidogrel Bisulfate (plaVIX) 75 mg DAILY PO Last administered on 04/16/16 09: 36; Admin Dose 75 MG; Start 04/05/16 at 18:30 Pregabalin (Lyrica) 100 mg BID PO Last administered on 04/16/16 09:36; Admin Dose 100 MG; Start 04/05/16 at 21:00 Acetaminophen (Tylenol Supp) 650 mg Q6H PRN [place] FEVER Last administered on 04/08at 14:12; Admin Dose 650 MG; Start 04/06/16 at 12:00 Apixaban (Eliquis) 2.5 mg BID PO Last administered on 04/16/16 09:38; Admin Dose 2.5 MG; Start 04/08/16 at 21:00 Hydralazine HCl (Apresoline) 5 mg Q6H PRN IV ELEVATED BLOOD PRESSURE; Start 04/09/16 at 11:30 Famotidine 20 mg 20 mg QHS PO Last administered on 04/15/16 21:44; Admin Dose 20 MG; Start 04/13/16 at 21:00 Meropenem/Sodium Chloride (Merrem/NS) 100 ml @ 200 mls/hr Q24H IVPB Last administered on 04/15/16 16:04; Admin Dose 200 MLS/HR; Start 04/15/16 at 16:30 Metoclopramide HCl 10 mg 10 mg Q6 IV Last administered on 04/16/16 12:00; Admin Dose 10 MG; Start 04/15/16 at 18:00 Sodium Chloride (NS) 1,000 ml @ 0 mls/hr Q0M PRN IV TO KEEP SBP ABOVE 90; Start 04/16/16 at 12:18 Insulin Aspart (Novolog Insulin Pen) NOVOLOG *MILD* ALGORI... Q6 SC ; Start 04/16 at 18:00 Assessment/Plan Additional Assessment/Plan IMPRESSION: 1. Hypoxemic Resp Insufficiency due to volume overload/pulm edema 2. 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 3. Encephalopathy, toxic metabolic. 4. Patient's code status: DNR/DNI. 5. Severe mitral stenosis with underlying coronary artery disease 6. Status post coronary intervention 7. Dysphagia. PLAN: 1. Continue noninvasive positive pressure ventilation and nasal cannula oxygen. Aggressive pulmonary toilet 2. Supplemental O2. 3. DVT and GI prophylaxis. 4. Aspiration precautions 5. Palliative Consult YIN NAVARRETE MD Apr 16, 2016 16:18
[2016-04-16] MEDS: MEROPENEM 500 MG in SOD CHLORIDE 0.9% 100 ML IVPB SCH (17:34)
--- NOTE | 2016-04-16 17:41 | PN ---
DATE: SUBJECTIVE: The patient is lying comfortably in bed. No fevers. MICROBIOLOGY: Repeat blood cultures on 04/14/2016 came back negative. ANTIMICROBIALS: She was started on meropenem for concern for aspiration yesterday. INDWELLINGS: NG tube, right chest Perm-A-Cath. PHYSICAL EXAMINATION: GENERAL: Obese, well-developed, chronically ill-appearing, elderly woman who is noncommunicating. She is lying comfortably in bed. The patient is getting tube feeding. She has some congestion. HEENT: Head atraumatic, normocephalic. Sclerae anicteric. Buccal mucosa dry. NECK: Obese. CHEST: Rise symmetrical. Breath sounds with scattered crackles. HEART: S1, S2. ABDOMEN: Soft, bowel tones present. EXTREMITIES: No cyanosis. ASSESSMENT: 1. Systemic inflammatory response syndrome with persistent leukocytosis, possibly secondary to ongo ing aspiration. 2. Dysphagia. 3. End-stage renal disease, hemodialysis dependent. 4. Status post shock, secondary to non-ST elevation myocardial infarction. 5. Severe mitral stenosis. 6. Status post cardiac stent to posterior descending artery. PLAN: The patient remains stable. We will continue her on current antimicrobials. Follow labs in a.m. Follow chest x-ray. She is DNR status. Dictated By: TAMIKO DIXON DENTAL APPLIANCE FIXER for JONAH GRACIA MD NI/NTS Conf#: [id number] DID#: [id number] CC: DUANE CORNELIUS MD;*EndCC*
[2016-04-16] MEDS: HEPARIN 1000 UNITS/ML 10 ML INJ CATHETER SCH (17:49)
[2016-04-16] MEDS: ATORVASTATIN 20 MG TAB PO SCH (21:19)
[2016-04-16] MEDS: FAMOTIDINE 20 MG TAB PO SCH (21:19)
[2016-04-16] MEDS: LATANOPROST 0.005% 2.5 ML OPH BOTH EYES SCH (21:19)
[2016-04-16] MEDS: INSULIN GLARGINE [LANtus] 3 ML PEN SC SCH (21:27)
[2016-04-17] VITALS (18 sets, daily range): BP systolic 76–98; BP diastolic 35–47; PULSE 50–52; RESP 15–20
[2016-04-17] MEDS: METOCLOPRAMIDE 10 MG INJ IV SCH ×5 (00:26→23:46)
[2016-04-17] MEDS: INSULIN ASPART [NOVOLOG] 3 ML PEN SC SCH ×5 (00:32→23:49)
[2016-04-17] MEDS: LEVOTHYROXINE 100 MCG TAB PO SCH (05:47)
[2016-04-17 08:18] LABS: BASOPHILS % 0.2 % (0.0-2.0); EOSINOPHILS % 0.4 % (0.0-7.0); HEMATOCRIT 29.7 % (37.0-47.0); HEMOGLOBIN 9.9 g/dl (12.0-16.0); LYMPHOCYTES # 0.9 10^3/ul (0.8-2.9); LYMPHOCYTES % 7.3 % (15.0-51.0); MEAN CORPUSCULAR HEMOGLOBIN 31.1 pg (29.0-33.0); MEAN CORPUSCULAR HGB CONC 33.2 g/dl (32.0-37.0); MEAN CORPUSCULAR VOLUME 93.5 fl (82.0-101.0); MEAN PLATELET VOLUME 11.1 fl (7.4-10.4); MONOCYTE # 0.8 10^3/ul (0.3-0.9); MONOCYTES % 6.8 % (0.0-11.0); NEUTROPHIL # 10.7 10^3/ul (1.6-7.5); NEUTROPHILS % 85.3 % (39.0-77.0); PLATELET COUNT 170 10^3/UL (140-440); RED BLOOD COUNT 3.17 10^6/ul (4.20-5.40); RED CELL DISTRIBUTION WIDTH 17.7 % (11.5-14.5); UNCORRECTED WBC 12.5 10^3/ul (4.8-10.8); WHITE BLOOD COUNT 12.5 10^3/ul (4.8-10.8)
[2016-04-17 08:26] LABS: CONDITION 1; LH ANALYZER COMMENTS 1; SUSPECT 1
[2016-04-17 08:30] LABS: POTASSIUM 3.8 mmol/L (3.5-5.1)
[2016-04-17 08:33] LABS: CALCIUM 9.5 mg/dl (8.4-10.2); CREATININE 4.9 mg/dl (0.44-1.00)
[2016-04-17] MEDS: METOPROLOL 25 MG TAB PO SCH ×2 (09:00→21:00)
[2016-04-17] MEDS: ALBUTEROL/IPRATROPIUM (NEB) 3 ML AMP HHN SCH ×4 (09:05→20:29)
--- NOTE | 2016-04-17 09:40 | CONS ---
Date/Time of Note Date/Time of Note DATE: 04/17/16 TIME: 09:39 Consult Date/Type/Reason Admit Date/Time Apr 04, 2016 at 15:15 Initial Consult Date 04/04/16 Type of Consultation: card Objective Vital Signs Date Time Temp Pulse Resp B/P Pulse Ox O2 Delivery O2 Flow Rate FiO2 04/17/16 09:00 51 18 95 Nasal Cannula 4.0 04/17/16 07:57 98.3 83/39 04/17/16 07:55 40 Intake and Output 04/16/16 04/16/16 04/17/16 15:00 23:00 07:00 Intake Total 130 ml 1000 ml 180 ml Output Total 1700 ml Balance 130 ml -700 ml 180 ml Results/Medications Result Diagram: 04/17/1616 04/17/1616 Results 24 hrs Laboratory Tests Test 04/16/16 17:40 04/17/16 00:30 04/17/16 05:40 04/17/16 07:16 Bedside Glucose 201 296 H 267 H Anion Gap 26 H Basophils # 0.0 Basophils % 0.2 Blood Morphology Comment Blood Urea Nitrogen 43 H Calcium Level 9.5 Carbon Dioxide Level 28 Chloride Level 87 L Creatinine 4.90 H Eosinophils # 0.0 Eosinophils % 0.4 Glucose Level 247 H Hematocrit 29.7 L Hemoglobin 9.9 L Lymphocytes # 0.9 Lymphocytes % 7.3 L Mean Corpuscular Hemoglobin 31.1 Mean Corpuscular Hemoglobin Concent 33.2 Mean Corpuscular Volume 93.5 Mean Platelet Volume 11.1 H Monocytes # 0.8 Monocytes % 6.8 Neutrophils # 10.7 H Neutrophils % 85.3 H Nucleated Red Blood Cells # 0.0 Nucleated Red Blood Cells % 0.0 Platelet Count 170 # Potassium Level 3.8 Red Blood Count 3.17 L Red Cell Distribution Width 17.7 H Sodium Level 137 White Blood Count 12.5 H Medications Current Medications Lorazepam (Ativan) 0.5 mg Q6H PRN IV ANXIETY Last administered on 04/04/16at 20 :40; Admin Dose 0.5 MG; Start 04/04/16 at 15:30 Ondansetron HCl (Zofran Inj) 4 mg Q6H PRN IV NAUSEA AND/OR VOMITING; Start at 15:30 Ferrous Sulfate (Ferrous Sulfate (Ec)) 325 mg DAILY PO Last administered on 04/16 09:37; Admin Dose 325 MG; Start 04/05/16 at 09:00 Insulin Glargine (Lantus) 25 unit QHS SC Last administered on 04/16/16 21:27; Admin Dose 25 UNIT; Start 04/04/16 at 21:00 Latanoprost (Xalatan) 1 drop QHS BOTH EYES Last administered on 04/16/16 21:19 ; Admin Dose 1 DROP; Start 04/04/16 at 21:00 Metoprolol Tartrate (Lopressor) 25 mg BID PO Last administered on 04/15/16 21: 54; Admin Dose 25 MG; Start 04/04/16 at 21:00 Polyethylene Glycol (Miralax) 17 gm DAILY PO Last administered on 04/16/16 09: 36; Admin Dose 17 GM; Start 04/05/16 at 09:00 Atorvastatin Calcium (Lipitor) 20 mg DAILY@21 PO Last administered on 04/16/16 21:19; Admin Dose 20 MG; Start 04/04/16 at 21:00 Miscellaneous Information 1 ea NOTE XX ; Start 04/04/16 at 16:00 Glucose (Glutose) 15 gm Q15M PRN PO DECREASED GLUCOSE; Start 04/04/16 at 16:00 Glucose (Glutose) 22.5 gm Q15M PRN PO DECREASED GLUCOSE; Start 04/04/16 at 16: 00 Dextrose (D50w Syringe) 25 ml Q15M PRN IV DECREASED GLUCOSE Last administered on 04/09/16 13:09; Admin Dose 25 ML; Start 04/04/16 at 16:00 Dextrose (D50w Syringe) 50 ml Q15M PRN IV DECREASED GLUCOSE; Start 04/04/16 at 16:00 Glucagon (Glucagen) 1 mg Q15M PRN IM DECREASED GLUCOSE; Start 04/04/16 at 16: 00 Glucose (Glutose) 15 gm Q15M PRN BUCCAL DECREASED GLUCOSE; Start 04/04/16 at 16:00 Tramadol HCl (Ultram) 50 mg Q6H PRN PO Pain Last administered on 04/15/16 17:20 ; Admin Dose 50 MG; Start 04/04/16 at 16:30 Allopurinol (Zyloprim) 200 mg DAILY PO Last administered on 04/16/16 09:37; Admin Dose 200 MG; Start 04/05/16 at 09:00 Clopidogrel Bisulfate (plaVIX) 75 mg DAILY PO Last administered on 04/16/16 09: 36; Admin Dose 75 MG; Start 04/05/16 at 18:30 Pregabalin (Lyrica) 100 mg BID PO Last administered on 04/16/16 21:20; Admin Dose 100 MG; Start 04/05/16 at 21:00 Acetaminophen (Tylenol Supp) 650 mg Q6H PRN [place] FEVER Last administered on 04/08at 14:12; Admin Dose 650 MG; Start 04/06/16 at 12:00 Apixaban (Eliquis) 2.5 mg BID PO Last administered on 04/16/16 21:19; Admin Dose 2.5 MG; Start 04/08/16 at 21:00 Hydralazine HCl (Apresoline) 5 mg Q6H PRN IV ELEVATED BLOOD PRESSURE; Start 04/09/16 at 11:30 Famotidine 20 mg 20 mg QHS PO Last administered on 04/16/16 21:19; Admin Dose 20 MG; Start 04/13/16 at 21:00 Meropenem/Sodium Chloride (Merrem/NS) 100 ml @ 200 mls/hr Q24H IVPB Last administered on 04/16/16 17:34; Admin Dose 200 MLS/HR; Start 04/15/16 at 16:30 Metoclopramide HCl 10 mg 10 mg Q6 IV Last administered on 04/17/16 05:33; Admin Dose 10 MG; Start 04/15/16 at 18:00 Sodium Chloride (NS) 1,000 ml @ 0 mls/hr Q0M PRN IV TO KEEP SBP ABOVE 90; Start 04/16/16 at 12:18 Insulin Aspart (Novolog Insulin Pen) NOVOLOG *MILD* ALGORI... Q6 SC Last administered on 04/17/16 05:45; Admin Dose 4 UNIT; Start 04/16/16 at 18:00 Assessment/Plan Chief Complaint/Hosp Course Patient is 89 year old female with PMH of CAD pci of LAD, Severe mitral calcification with MS, CHF, ESRD on HD, Multiple TIA, PAD came in with SOB, Positive trop, intial plan was to take her to denture laboratory technician from ER but she was very SOB with craclkes, So brought to ICU. Will need HD, trend trop. had long discussion with family, daughter. Problems: Additional Assessment/Plan d/w daughter over the phone pt has multiple med problem with multipel TIAs, Severe MS, ICMP Plan for snf vs hospice will /fu has NG T and pt is OK to go for PEG if decided. ANH FRITZ MD Apr 17, 2016 09:40
[2016-04-17] MEDS: FERROUS SULFATE (EC) 325 MG TAB PO SCH (09:44)
[2016-04-17] MEDS: CLOPIDOGREL 75 MG TAB PO SCH (09:46)
[2016-04-17] MEDS: POLYETHYLENE GLYCOL 17 GM PACKET PO SCH (09:46)
[2016-04-17] MEDS: APIXABAN 5 MG TABLET PO SCH ×2 (09:47→22:24)
[2016-04-17] MEDS: ALLOPURINOL 100 MG TAB PO SCH (09:47)
--- NOTE | 2016-04-17 11:27 | PN ---
DATE: 04/17/2016 SUBJECTIVE: The patient is stable, no acute events overnight. No fevers, chills, nausea, vomiting, no shortness of breath. OBJECTIVE: VITAL SIGNS: Blood pressure is 83/39, respirations 16, pulse 50, temperature 98.3. HEENT: Head is normocephalic. NECK: Supple. HEART: Regular rate. LUNGS: Show diminished breath sounds at the base. ABDOMEN: Soft, nontender to palpation without rebound or guarding. EXTREMITIES: Negative for clubbing, cyanosis. Trace edema. DERMATOLOGIC: No rashes. MUSCULOSKELETAL: No joint effusions. NEUROLOGIC: No change in exam. MEDICATIONS: The patient's medications have been reviewed. LABORATORY DATA: Shows sodium 136, potassium 3.8, chloride 87, BUN 43, creatinine 4.90, white count 12.5, hemoglobin 9.9, hematocrit 29.7, platelet count is 170. ASSESSMENT AND PLAN: 1. End-stage renal disease. The patient has been receiving almost daily dialysis for solute cleara nce and volume removal. The patient was dialyzed yesterday. Plan for dialysis tomorrow. 2. Hyperkalemia, improved. 3. Volume overload. Continue ultrafiltration with dialysis. 4. Anemia. Continue to monitor hemoglobin and hematocrit levels. Continue Epogen. 5. Mineral bone disorder. Continue to monitor calcium, phosphorus levels. Defer phosphate binders . 6. Hypotension. Continue to monitor closely. We will place parameters on blood pressure medicatio ns. 7. Acute hypoxemic respiratory failure secondary to congestive heart failure, pneumonia. The patie nt is on BiPAP, continue, wean off if possible. 8. Nutrition and dysphagia. The patient is on tube feedings. Continue. 9. Non-ST elevation myocardial infarction, status post percutaneous coronary intervention. Continu e medical management. 10. Peripheral vascular disease. Continue to monitor. 11. Encephalopathy, the etiology is toxic metabolic. 12. History of mitral stenosis. Dictated By: ZULEMA STOVALL/MAXIMO Conf#: [id number] DID#: [id number]
--- NOTE | 2016-04-17 12:00 | CONS ---
Date/Time of Note Date/Time of Note DATE: 04/17/16 TIME: 11:57 Consult Date/Type/Reason Admit Date/Time Apr 04, 2016 at 15:15 Initial Consult Date 04/04/16 Type of Consultation: ID Subjective no events, awake, lying comfortably in bed, sounds congested, unable to cough up secretions, no fevers Objective Vital Signs Date Time Temp Pulse Resp B/P Pulse Ox O2 Delivery O2 Flow Rate FiO2 04/17/16 11:52 97.9 84 20 98/47 94 04/17/16 09:00 Nasal Cannula 4.0 04/17/16 07:55 40 Intake and Output 04/16/16 04/16/16 04/17/16 15:00 23:00 07:00 Intake Total 130 ml 1000 ml 180 ml Output Total 1700 ml Balance 130 ml -700 ml 180 ml Results/Medications Result Diagram: 04/17/16 0716 04/17/16 0716 Results 24 hrs Laboratory Tests Test 04/16/16 17:40 04/17/16 00:30 04/17/16 05:40 04/17/16 07:16 Bedside Glucose 201 296 H 267 H Anion Gap 26 H Basophils # 0.0 Basophils % 0.2 Blood Morphology Comment Blood Urea Nitrogen 43 H Calcium Level 9.5 Carbon Dioxide Level 28 Chloride Level 87 L Creatinine 4.90 H Eosinophils # 0.0 Eosinophils % 0.4 Glucose Level 247 H Hematocrit 29.7 L Hemoglobin 9.9 L Lymphocytes # 0.9 Lymphocytes % 7.3 L Mean Corpuscular Hemoglobin 31.1 Mean Corpuscular Hemoglobin Concent 33.2 Mean Corpuscular Volume 93.5 Mean Platelet Volume 11.1 H Monocytes # 0.8 Monocytes % 6.8 Neutrophils # 10.7 H Neutrophils % 85.3 H Nucleated Red Blood Cells # 0.0 Nucleated Red Blood Cells % 0.0 Platelet Count 170 # Potassium Level 3.8 Red Blood Count 3.17 L Red Cell Distribution Width 17.7 H Sodium Level 137 White Blood Count 12.5 H Medications Current Medications Lorazepam (Ativan) 0.5 mg Q6H PRN IV ANXIETY Last administered on 04/04/16at 20 :40; Admin Dose 0.5 MG; Start 04/04/16 at 15:30 Ondansetron HCl (Zofran Inj) 4 mg Q6H PRN IV NAUSEA AND/OR VOMITING; Start at 15:30 Ferrous Sulfate (Ferrous Sulfate (Ec)) 325 mg DAILY PO Last administered on 04/17 09:44; Admin Dose 325 MG; Start 04/05/16 at 09:00 Insulin Glargine (Lantus) 25 unit QHS SC Last administered on 04/16/16 21:27; Admin Dose 25 UNIT; Start 04/04/16 at 21:00 Latanoprost (Xalatan) 1 drop QHS BOTH EYES Last administered on 04/16/16 21:19 ; Admin Dose 1 DROP; Start 04/04/16 at 21:00 Metoprolol Tartrate (Lopressor) 25 mg BID PO Last administered on 04/15/16 21: 54; Admin Dose 25 MG; Start 04/04/16 at 21:00 Polyethylene Glycol (Miralax) 17 gm DAILY PO Last administered on 04/17/16 09: 46; Admin Dose 17 GM; Start 04/05/16 at 09:00 Atorvastatin Calcium (Lipitor) 20 mg DAILY@21 PO Last administered on 04/16/16 21:19; Admin Dose 20 MG; Start 04/04/16 at 21:00 Miscellaneous Information 1 ea NOTE XX ; Start 04/04/16 at 16:00 Glucose (Glutose) 15 gm Q15M PRN PO DECREASED GLUCOSE; Start 04/04/16 at 16:00 Glucose (Glutose) 22.5 gm Q15M PRN PO DECREASED GLUCOSE; Start 04/04/16 at 16: 00 Dextrose (D50w Syringe) 25 ml Q15M PRN IV DECREASED GLUCOSE Last administered on 04/09/16 13:09; Admin Dose 25 ML; Start 04/04/16 at 16:00 Dextrose (D50w Syringe) 50 ml Q15M PRN IV DECREASED GLUCOSE; Start 04/04/16 at 16:00 Glucagon (Glucagen) 1 mg Q15M PRN IM DECREASED GLUCOSE; Start 04/04/16 at 16: 00 Glucose (Glutose) 15 gm Q15M PRN BUCCAL DECREASED GLUCOSE; Start 04/04/16 at 16:00 Tramadol HCl (Ultram) 50 mg Q6H PRN PO Pain Last administered on 04/15/16 17:20 ; Admin Dose 50 MG; Start 04/04/16 at 16:30 Allopurinol (Zyloprim) 200 mg DAILY PO Last administered on 04/17/16 09:47; Admin Dose 200 MG; Start 04/05/16 at 09:00 Clopidogrel Bisulfate (plaVIX) 75 mg DAILY PO Last administered on 04/17/16 09: 46; Admin Dose 75 MG; Start 04/05/16 at 18:30 Pregabalin (Lyrica) 100 mg BID PO Last administered on 04/16/16 21:20; Admin Dose 100 MG; Start 04/05/16 at 21:00 Acetaminophen (Tylenol Supp) 650 mg Q6H PRN [place] FEVER Last administered on 04/08at 14:12; Admin Dose 650 MG; Start 04/06/16 at 12:00 Apixaban (Eliquis) 2.5 mg BID PO Last administered on 04/17/16 09:47; Admin Dose 2.5 MG; Start 04/08/16 at 21:00 Hydralazine HCl (Apresoline) 5 mg Q6H PRN IV ELEVATED BLOOD PRESSURE; Start 04/09/16 at 11:30 Famotidine 20 mg 20 mg QHS PO Last administered on 04/16/16 21:19; Admin Dose 20 MG; Start 04/13/16 at 21:00 Meropenem/Sodium Chloride (Merrem/NS) 100 ml @ 200 mls/hr Q24H IVPB Last administered on 04/16/16 17:34; Admin Dose 200 MLS/HR; Start 04/15/16 at 16:30 Metoclopramide HCl 10 mg 10 mg Q6 IV Last administered on 04/17/16 05:33; Admin Dose 10 MG; Start 04/15/16 at 18:00 Sodium Chloride (NS) 1,000 ml @ 0 mls/hr Q0M PRN IV TO KEEP SBP ABOVE 90; Start 04/16/16 at 12:18 Insulin Aspart (Novolog Insulin Pen) NOVOLOG *MILD* ALGORI... Q6 SC Last administered on 04/17/16 05:45; Admin Dose 4 UNIT; Start 04/16/16 at 18:00 Assessment/Plan Chief Complaint/Hosp Course MICROBIOLOGY: Repeat blood cultures on 04/14/2016 came back negative. ANTIMICROBIALS: meropenem #3 INDWELLINGS: NG tube, right chest Perm-A-Cath. PHYSICAL EXAMINATION: GENERAL: Obese, well-developed, chronically ill-appearing, elderly woman who is noncommunicating. She is lying comfortably in bed. The patient is getting tube feeding. She has some congestion. HEENT: Head atraumatic, normocephalic. Sclerae anicteric. Buccal mucosa dry. NECK: Obese. CHEST: Rise symmetrical. Breath sounds with scattered crackles. HEART: S1, S2. ABDOMEN: Soft, bowel tones present. EXTREMITIES: No cyanosis. ASSESSMENT: 1. Systemic inflammatory response syndrome with persistent leukocytosis, possibly secondary to ongoing aspiration. 2. Dysphagia. 3. End-stage renal disease, hemodialysis dependent. 4. Status post shock, secondary to non-ST elevation myocardial infarction. 5. Severe mitral stenosis. 6. Status post cardiac stent to posterior descending artery. PLAN: The patient remains unchanged. We will continue her on current antimicrobials. Continue aspiration precautions, pulmonary toilet DW staff Problems: TAMIKO DIXON NP Apr 17, 2016 12:00
[2016-04-17] MEDS: PREGABALIN 25 MG CAP PO SCH ×2 (12:41→22:25)
[2016-04-17] MEDS: MEROPENEM 500 MG in SOD CHLORIDE 0.9% 100 ML IVPB SCH (16:30)
--- NOTE | 2016-04-17 17:53 | CONS ---
Date/Time of Note Date/Time of Note DATE: 04/17/16 TIME: 17:51 Consult Date/Type/Reason Admit Date/Time Apr 04, 2016 at 15:15 Initial Consult Date 04/04/16 Type of Consultation: Pulm Subjective Still confused, moderate oral secretions. Nasogastric tube in place. Family at bedside. Objective Vital Signs Date Time Temp Pulse Resp B/P Pulse Ox O2 Delivery O2 Flow Rate FiO2 04/17/16 16:33 50 04/17/16 15:34 97.8 20 98/46 92 04/17/16 15:15 Nasal Cannula 04/17/16 13:40 4.0 04/17/16 07:55 40 Intake and Output 04/16/16 04/16/16 04/17/16 14:59 22:59 06:59 Intake Total 130 ml 1000 ml 180 ml Output Total 1700 ml Balance 130 ml -700 ml 180 ml GENERAL: Elderly [place] lady. VITAL SIGNS: per chart NECK: Supple. No JVD or lymphadenopathy. CARDIAC EXAM: S1, S2. No added sounds or murmurs. CHEST: clear bilaterally, No added sounds, rales or wheezes ABDOMEN: Soft, nontender. No guarding or rebound. Obese EXTREMITIES: No cyanosis, clubbing, edema +1 NEUROLOGIC: Generalized weakness. Results/Medications Result Diagram: 04/17/1616 04/17/1616 Results 24 hrs Laboratory Tests Test 04/17/16 00:30 04/17/16 05:40 04/17/16 07:16 04/17/16 12:30 Bedside Glucose 296 H 267 H 285 H Anion Gap 26 H Basophils # 0.0 Basophils % 0.2 Blood Morphology Comment Blood Urea Nitrogen 43 H Calcium Level 9.5 Carbon Dioxide Level 28 Chloride Level 87 L Creatinine 4.90 H Eosinophils # 0.0 Eosinophils % 0.4 Glucose Level 247 H Hematocrit 29.7 L Hemoglobin 9.9 L Lymphocytes # 0.9 Lymphocytes % 7.3 L Mean Corpuscular Hemoglobin 31.1 Mean Corpuscular Hemoglobin Concent 33.2 Mean Corpuscular Volume 93.5 Mean Platelet Volume 11.1 H Monocytes # 0.8 Monocytes % 6.8 Neutrophils # 10.7 H Neutrophils % 85.3 H Nucleated Red Blood Cells # 0.0 Nucleated Red Blood Cells % 0.0 Platelet Count 170 # Potassium Level 3.8 Red Blood Count 3.17 L Red Cell Distribution Width 17.7 H Sodium Level 137 White Blood Count 12.5 H Medications Current Medications Lorazepam (Ativan) 0.5 mg Q6H PRN IV ANXIETY Last administered on 04/04/16at 20 :40; Admin Dose 0.5 MG; Start 04/04/16 at 15:30 Ondansetron HCl (Zofran Inj) 4 mg Q6H PRN IV NAUSEA AND/OR VOMITING; Start at 15:30 Ferrous Sulfate (Ferrous Sulfate (Ec)) 325 mg DAILY PO Last administered on 04/17 09:44; Admin Dose 325 MG; Start 04/05/16 at 09:00 Insulin Glargine (Lantus) 25 unit QHS SC Last administered on 04/16/16 21:27; Admin Dose 25 UNIT; Start 04/04/16 at 21:00 Latanoprost (Xalatan) 1 drop QHS BOTH EYES Last administered on 04/16/16 21:19 ; Admin Dose 1 DROP; Start 04/04/16 at 21:00 Metoprolol Tartrate (Lopressor) 25 mg BID PO Last administered on 04/15/16 21: 54; Admin Dose 25 MG; Start 04/04/16 at 21:00 Polyethylene Glycol (Miralax) 17 gm DAILY PO Last administered on 04/17/16 09: 46; Admin Dose 17 GM; Start 04/05/16 at 09:00 Atorvastatin Calcium (Lipitor) 20 mg DAILY@21 PO Last administered on 04/16/16 21:19; Admin Dose 20 MG; Start 04/04/16 at 21:00 Miscellaneous Information 1 ea NOTE XX ; Start 04/04/16 at 16:00 Glucose (Glutose) 15 gm Q15M PRN PO DECREASED GLUCOSE; Start 04/04/16 at 16:00 Glucose (Glutose) 22.5 gm Q15M PRN PO DECREASED GLUCOSE; Start 04/04/16 at 16: 00 Dextrose (D50w Syringe) 25 ml Q15M PRN IV DECREASED GLUCOSE Last administered on 04/09/16 13:09; Admin Dose 25 ML; Start 04/04/16 at 16:00 Dextrose (D50w Syringe) 50 ml Q15M PRN IV DECREASED GLUCOSE; Start 04/04/16 at 16:00 Glucagon (Glucagen) 1 mg Q15M PRN IM DECREASED GLUCOSE; Start 04/04/16 at 16: 00 Glucose (Glutose) 15 gm Q15M PRN BUCCAL DECREASED GLUCOSE; Start 04/04/16 at 16:00 Tramadol HCl (Ultram) 50 mg Q6H PRN PO Pain Last administered on 04/15/16 17:20 ; Admin Dose 50 MG; Start 04/04/16 at 16:30 Allopurinol (Zyloprim) 200 mg DAILY PO Last administered on 04/17/16 09:47; Admin Dose 200 MG; Start 04/05/16 at 09:00 Clopidogrel Bisulfate (plaVIX) 75 mg DAILY PO Last administered on 04/17/16 09: 46; Admin Dose 75 MG; Start 04/05/16 at 18:30 Pregabalin (Lyrica) 100 mg BID PO Last administered on 04/17/16 12:41; Admin Dose 100 MG; Start 04/05/16 at 21:00 Acetaminophen (Tylenol Supp) 650 mg Q6H PRN [place] FEVER Last administered on 04/08at 14:12; Admin Dose 650 MG; Start 04/06/16 at 12:00 Apixaban (Eliquis) 2.5 mg BID PO Last administered on 04/17/16 09:47; Admin Dose 2.5 MG; Start 04/08/16 at 21:00 Hydralazine HCl (Apresoline) 5 mg Q6H PRN IV ELEVATED BLOOD PRESSURE; Start 04/09/16 at 11:30 Famotidine 20 mg 20 mg QHS PO Last administered on 04/16/16 21:19; Admin Dose 20 MG; Start 04/13/16 at 21:00 Meropenem/Sodium Chloride (Merrem/NS) 100 ml @ 200 mls/hr Q24H IVPB Last administered on 04/16/16 17:34; Admin Dose 200 MLS/HR; Start 04/15/16 at 16:30 Metoclopramide HCl 10 mg 10 mg Q6 IV Last administered on 04/17/16 12:41; Admin Dose 10 MG; Start 04/15/16 at 18:00 Sodium Chloride (NS) 1,000 ml @ 0 mls/hr Q0M PRN IV TO KEEP SBP ABOVE 90; Start 04/16/16 at 12:18 Insulin Aspart (Novolog Insulin Pen) NOVOLOG *MILD* ALGORI... Q6 SC Last administered on 04/17/16t 12:52; Admin Dose 4 UNIT; Start 04/16/16 at 18:00 Assessment/Plan Chief Complaint/Hosp Course IMPRESSION: 1. Hypoxemic Resp Insufficiency due to volume overload/pulm edema 2. 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 3. Encephalopathy, toxic metabolic. 4. Patient's code status: DNR/DNI. 5. Severe mitral stenosis with underlying coronary artery disease 6. Status post coronary intervention 7. Dysphagia. PLAN: 1. Continue noninvasive positive pressure ventilation and nasal cannula oxygen. Aggressive pulmonary toilet 2. Supplemental O2. 3. DVT and GI prophylaxis. 4. Aspiration precautions 5. Palliative Consult Problems: OSIRIS REYNOLDS MD, [facility] Apr 17, 2016 17:53
--- NOTE | 2016-04-17 21:18 | PN ---
DATE: 04/17/2016 TIME OF EVALUATION: 1700. SUBJECTIVE DATA: The patient continues to have a cough. OBJECTIVE DATA: VITAL SIGNS: Temperature 97.8, pulse rate 50, respiratory rate 20, blood pressure 98/46, oxygen saturation 92% on low flow O2. HEENT: Head normocephalic and atraumatic. Eyes: Anicteric sclerae. Conjunctivae clear. ENT: Nasal septum is midline. Oral mucosa is dry. NECK: Short and obese. Unable to visualize any neck veins. RESPIRATORY: Bilateral coarse bases. Use of accessory muscles of respiration. CARDIAC: Regular rate and rhythm. S1 and S2 heard. ABDOMEN: Protuberant. Bowel sounds hypoactive in all 4 quadrants. GENITOURINARY: Deferred. EXTREMITIES: No cyanosis, no clubbing. Peripheral pulses palpable. NEUROLOGIC: The patient is awake and alert. The patient moves all 4 extremities. LABORATORY AND DIAGNOSTIC DATA: WBC 12.5, hemoglobin 9.9, hematocrit 29.7, platelet count 170. Sodium 137, potassium 3.8, chloride 87, carbon dioxide 20, anion gap 26, BUN 43, creatinine 4.97, glucose 247, calcium 9.5. ASSESSMENT AND PLAN: 1. Acute hypoxic respiratory failure. Continue supplemental oxygen. Continue inhaled bronchodilators. 2. Non-ST elevation myocardial infarction. Status post percutaneous transluminal coronary angioplasty with stent to the right posterior descending artery. Continue on anticoagulation. 3. Severe mitral stenosis with calcification. Monitor. 4. End-stage renal disease on hemodialysis. Continue dialysis as per nephrology. 5. Transient ischemic attack. Continue anticoagulation. 6. Sepsis secondary to pneumonia. Continue antibiotics as per infectious diseases. 7. 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 Will monitor H and H closely. 8. Type 2 diabetes mellitus. Continue sliding scale insulin. 9. Dysphagia. The patient has a NG tube in place. Continue aspiration precautions. 10. Hypothyroidism. Continue Synthroid. 11. History of multiple deep vein thromboses. Status post inferior vena cava filter placement. Continue factor Xa inhibitors. 12. Fluid, electrolytes, and nutrition. Continue NG tube feedings. 13. Deep venous thrombosis prophylaxis. Factor Xa inhibitors. 14. Gastrointestinal prophylaxis. Histamine 2 receptor blockers. PLAN: Continue current management. The patient is currently a DNR. Palliative care working with the patient's family. Scheduled for family meeting on 04/18/2016. Will await until the family meeting is done for further plan of care. Case discussed with Dr. Cornelius. CARLEY CORNELIUS MD, AM/MAXIMO Conf#: [id number] DID#: [id number] MTDD
[2016-04-17] MEDS: LATANOPROST 0.005% 2.5 ML OPH BOTH EYES SCH (22:23)
[2016-04-17] MEDS: FAMOTIDINE 20 MG TAB PO SCH (22:24)
[2016-04-17] MEDS: ATORVASTATIN 20 MG TAB PO SCH (22:25)
[2016-04-17] MEDS: INSULIN GLARGINE [LANtus] 3 ML PEN SC SCH (22:32)
[2016-04-18] VITALS (18 sets, daily range): BP systolic 82–102; BP diastolic 38–54; PULSE 48–50; RESP 18–20
[2016-04-18] MEDS: LEVOTHYROXINE 100 MCG TAB PO SCH (06:16)
[2016-04-18] MEDS: METOCLOPRAMIDE 10 MG INJ IV SCH ×3 (06:16→17:47)
[2016-04-18] MEDS: INSULIN ASPART [NOVOLOG] 3 ML PEN SC SCH ×3 (06:22→17:53)
[2016-04-18 07:05] LABS: BASOPHILS % 0.2 % (0.0-2.0); EOSINOPHILS # 0.1 10^3/ul (0.0-0.5); EOSINOPHILS % 0.5 % (0.0-7.0); HEMATOCRIT 29.4 % (37.0-47.0); LYMPHOCYTES # 1.2 10^3/ul (0.8-2.9); LYMPHOCYTES % 9.3 % (15.0-51.0); MEAN CORPUSCULAR HEMOGLOBIN 31.9 pg (29.0-33.0); MEAN CORPUSCULAR HGB CONC 33.9 g/dl (32.0-37.0); MEAN CORPUSCULAR VOLUME 93.9 fl (82.0-101.0); MONOCYTE # 0.9 10^3/ul (0.3-0.9); MONOCYTES % 7.3 % (0.0-11.0); NEUTROPHIL # 10.4 10^3/ul (1.6-7.5); NEUTROPHILS % 82.7 % (39.0-77.0); PLATELET COUNT 176 10^3/UL (140-440); RED BLOOD COUNT 3.13 10^6/ul (4.20-5.40); UNCORRECTED WBC 12.6 10^3/ul (4.8-10.8); WHITE BLOOD COUNT 12.6 10^3/ul (4.8-10.8)
[2016-04-18 07:08] LABS: CONDITION 1; LH ANALYZER COMMENTS 1
[2016-04-18 07:13] LABS: POTASSIUM 4.2 mmol/L (3.5-5.1)
[2016-04-18 07:18] LABS: CALCIUM 9.8 mg/dl (8.4-10.2); CREATININE 6.13 mg/dl (0.44-1.00); MAGNESIUM 2.3 mg/dl (1.7-2.5); PHOSPHORUS 5.3 mg/dl (2.5-4.9)
[2016-04-18] MEDS: ALBUTEROL/IPRATROPIUM (NEB) 3 ML AMP HHN SCH ×4 (08:50→21:37)
[2016-04-18] MEDS: METOPROLOL 25 MG TAB PO SCH ×2 (09:00→21:00)
[2016-04-18] MEDS: ALLOPURINOL 100 MG TAB PO SCH (10:03)
[2016-04-18] MEDS: POLYETHYLENE GLYCOL 17 GM PACKET PO SCH (10:03)
[2016-04-18] MEDS: CLOPIDOGREL 75 MG TAB PO SCH (10:04)
[2016-04-18] MEDS: APIXABAN 5 MG TABLET PO SCH ×2 (10:04→22:12)
[2016-04-18] MEDS: PREGABALIN 25 MG CAP PO SCH ×2 (10:04→22:12)
[2016-04-18] MEDS: FERROUS SULFATE (EC) 325 MG TAB PO SCH (10:04)
--- NOTE | 2016-04-18 10:54 | PN ---
DATE: 04/18/2016 SUBJECTIVE: The patient remains a debilitated, hypotensive, but overall has been stable. No other acute events overnight. No hemoptysis, hematemesis or hematochezia. OBJECTIVE: VITAL SIGNS: Blood pressure 88/43, respirations 20, pulse 50, temperature 98.3. I's and O's have been reviewed. HEENT: Head is normocephalic. NECK: Supple. HEART: Regular rate. LUNGS: Show diminished breath sounds at base. ABDOMEN: Soft, nontender to palpation without rebound or guarding. EXTREMITIES: Negative for clubbing, cyanosis. Positive edema. DERMATOLOGIC: No rashes. MUSCULOSKELETAL: No joint effusions. NEUROLOGIC: No change in exam. MEDICATIONS: The patient's medications have been reviewed. LABORATORY DATA: Shows white count 7.6, hemoglobin 10.0, hematocrit 29.4, platelet count 176. [place] um 134, potassium 4.2, chloride 85, BUN 64, creatinine 6.13, phosphorus 5.3. ASSESSMENT AND PLAN: 1. End-stage renal disease. The patient will have hemodialysis today for solute clearance and volu me removal. 2. Hypokalemia, improved. 3. Hyponatremia secondary to end-stage renal disease. Continue dialysis on a 140 sodium bath. 4. Volume overload. Continue ultrafiltration dialysis. 5. Anemia. Continue to monitor hemoglobin and hematocrit levels. Continue Epogen. 6. Mineral bone disorder. Continue to monitor calcium and phosphorus levels. 7. Hypertension. Etiology is multifactorial. Continue to monitor, minimize ultrafiltration with d ialysis. 8. Acute hypoxemic respiratory failure secondary to congestive heart failure, pneumonia. The patie nt is clinically improving, remains on BiPAP at night. Continue. 9 Nutrition dysphagia. Continue tube feeding. 10. Non-ST elevation myocardial infarction, status post percutaneous coronary intervention. Contin ue medical management. 11. Peripheral vascular disease. Continue to monitor. 12. History of mitral stenosis. 13. Encephalopathy, etiology is toxic metabolic. Continue to monitor. Dictated By: ZULEMA KOLB DO NR/[facility]IMO Conf#: [id number] DID#: [id number]
[2016-04-18] MEDS: ALBUMIN HUMAN 25% 100 ML IV PRN ×2 (13:01→13:50)
--- NOTE | 2016-04-18 13:08 | CONS ---
Date/Time of Note Date/Time of Note DATE: 04/18/16 TIME: 13:04 Consult Date/Type/Reason Admit Date/Time Apr 04, 2016 at 15:15 Initial Consult Date 04/04/16 Type of Consultation: Pulm Subjective Comfortable. No new events. Objective Vital Signs Date Time Temp Pulse Resp B/P Pulse Ox O2 Delivery O2 Flow Rate FiO2 04/18/16 12:09 50 04/18/16 11:56 98.2 18 91/42 97 04/18/16 10:45 Simple Mask 10.0 04/17/16 20:29 50 Intake and Output 04/17/16 04/17/16 04/18/16 15:00 23:00 07:00 Intake Total 420 ml 350 ml Balance 420 ml 350 ml GENERAL: Elderly [place] lady. VITAL SIGNS: per chart NECK: Supple. No JVD or lymphadenopathy. CARDIAC EXAM: S1, S2. No added sounds or murmurs. CHEST: clear bilaterally, No added sounds, rales or wheezes ABDOMEN: Soft, nontender. No guarding or rebound. Obese EXTREMITIES: No cyanosis, clubbing, edema +1 NEUROLOGIC: Generalized weakness. Results/Medications Result Diagram: 04/18/16 0610 04/18/16 0610 Results 24 hrs Laboratory Tests Test 04/17/16 18:15 04/17/16 23:45 04/18/16 06:10 04/18/16 06:15 Bedside Glucose 297 H 318 H 238 H Anion Gap 24 H Basophils # 0.0 Basophils % 0.2 Blood Morphology Comment Blood Urea Nitrogen 64 H Calcium Level 9.8 Carbon Dioxide Level 29 Chloride Level 85 L Creatinine 6.13 H Eosinophils # 0.1 Eosinophils % 0.5 Glucose Level 233 H Hematocrit 29.4 L Hemoglobin 10.0 L Lymphocytes # 1.2 Lymphocytes % 9.3 L Magnesium Level 2.3 Mean Corpuscular Hemoglobin 31.9 Mean Corpuscular Hemoglobin Concent 33.9 Mean Corpuscular Volume 93.9 Mean Platelet Volume 11.0 H Monocytes # 0.9 Monocytes % 7.3 Neutrophils # 10.4 H Neutrophils % 82.7 H Nucleated Red Blood Cells # 0.0 Nucleated Red Blood Cells % 0.0 Phosphorus Level 5.3 H Platelet Count 176 Potassium Level 4.2 Red Blood Count 3.13 L Red Cell Distribution Width 18.0 H Sodium Level 134 L White Blood Count 12.6 H Test 04/18/16 11:34 Bedside Glucose 218 Medications Current Medications Lorazepam (Ativan) 0.5 mg Q6H PRN IV ANXIETY Last administered on 04/04/16at 20 :40; Admin Dose 0.5 MG; Start 04/04/16 at 15:30 Ondansetron HCl (Zofran Inj) 4 mg Q6H PRN IV NAUSEA AND/OR VOMITING; Start at 15:30 Ferrous Sulfate (Ferrous Sulfate (Ec)) 325 mg DAILY PO Last administered on 10:04; Admin Dose 325 MG; Start 04/05/16 at 09:00 Latanoprost (Xalatan) 1 drop QHS BOTH EYES Last administered on 04/17/16 22:23 ; Admin Dose 1 DROP; Start 04/04/16 at 21:00 Metoprolol Tartrate (Lopressor) 25 mg BID PO Last administered on 04/15/16 21: 54; Admin Dose 25 MG; Start 04/04/16 at 21:00 Polyethylene Glycol (Miralax) 17 gm DAILY PO Last administered on 04/18/16 10: 03; Admin Dose 17 GM; Start 04/05/16 at 09:00 Atorvastatin Calcium (Lipitor) 20 mg DAILY@21 PO Last administered on 04/17/16 22:25; Admin Dose 20 MG; Start 04/04/16 at 21:00 Miscellaneous Information 1 ea NOTE XX ; Start 04/04/16 at 16:00 Glucose (Glutose) 15 gm Q15M PRN PO DECREASED GLUCOSE; Start 04/04/16 at 16:00 Glucose (Glutose) 22.5 gm Q15M PRN PO DECREASED GLUCOSE; Start 04/04/16 at 16: 00 Dextrose (D50w Syringe) 25 ml Q15M PRN IV DECREASED GLUCOSE Last administered on 04/09/16 13:09; Admin Dose 25 ML; Start 04/04/16 at 16:00 Dextrose (D50w Syringe) 50 ml Q15M PRN IV DECREASED GLUCOSE; Start 04/04/16 at 16:00 Glucagon (Glucagen) 1 mg Q15M PRN IM DECREASED GLUCOSE; Start 04/04/16 at 16: 00 Glucose (Glutose) 15 gm Q15M PRN BUCCAL DECREASED GLUCOSE; Start 04/04/16 at 16:00 Tramadol HCl (Ultram) 50 mg Q6H PRN PO Pain Last administered on 04/15/16 17:20 ; Admin Dose 50 MG; Start 04/04/16 at 16:30 Allopurinol (Zyloprim) 200 mg DAILY PO Last administered on 04/18/16 10:03; Admin Dose 200 MG; Start 04/05/16 at 09:00 Clopidogrel Bisulfate (plaVIX) 75 mg DAILY PO Last administered on 04/18/16 10 :04; Admin Dose 75 MG; Start 04/05/16 at 18:30 Pregabalin (Lyrica) 100 mg BID PO Last administered on 04/18/16 10:04; Admin Dose 100 MG; Start 04/05/16 at 21:00 Acetaminophen (Tylenol Supp) 650 mg Q6H PRN [place] FEVER Last administered on 04/08at 14:12; Admin Dose 650 MG; Start 04/06/16 at 12:00 Apixaban (Eliquis) 2.5 mg BID PO Last administered on 04/18/16 10:04; Admin Dose 2.5 MG; Start 04/08/16 at 21:00 Hydralazine HCl (Apresoline) 5 mg Q6H PRN IV ELEVATED BLOOD PRESSURE; Start 04/09/16 at 11:30 Famotidine 20 mg 20 mg QHS PO Last administered on 04/17/16 22:24; Admin Dose 20 MG; Start 04/13/16 at 21:00 Meropenem/Sodium Chloride (Merrem/NS) 100 ml @ 200 mls/hr Q24H IVPB Last administered on 04/17/16 16:30; Admin Dose 200 MLS/HR; Start 04/15/16 at 16:30 Metoclopramide HCl 10 mg 10 mg Q6 IV Last administered on 04/18/16 11:59; Admin Dose 10 MG; Start 04/15/16 at 18:00 Sodium Chloride (NS) 1,000 ml @ 0 mls/hr Q0M PRN IV TO KEEP SBP ABOVE 90; Start 04/16/16 at 12:18 Insulin Aspart (Novolog Insulin Pen) NOVOLOG *MILD* ALGORI... Q6 SC Last administered on 04/18/16 12:08; Admin Dose 2 UNIT; Start 04/16/16 at 18:00 Insulin Glargine (Lantus) 27 unit QHS SC Last administered on 04/17/16t 22:32; Admin Dose 27 UNIT; Start 04/17/16 at 21:00 Assessment/Plan Chief Complaint/Hosp Course IMPRESSION: 1. Hypoxemic Resp Insufficiency due to volume overload/pulm edema 2. 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 3. Encephalopathy, toxic metabolic. 4. Patient's code status: DNR/DNI. 5. Severe mitral stenosis with underlying coronary artery disease 6. Status post coronary intervention 7. Dysphagia. PLAN: 1. Continue noninvasive positive pressure ventilation and nasal cannula oxygen. Aggressive pulmonary toilet 2. Supplemental O2. 3. DVT and GI prophylaxis. 4. Aspiration precautions 5. Palliative Consult Problems: OSIRIS REYNOLDS MD, [facility] Apr 18, 2016 13:08
--- NOTE | 2016-04-18 13:36 | CONS ---
Date/Time of Note Date/Time of Note DATE: 04/18/16 TIME: 13:35 Consult Date/Type/Reason Admit Date/Time Apr 04, 2016 at 15:15 Initial Consult Date 04/04/16 Type of Consultation: ID Subjective no acute events, lethargic, nad, no fevers Objective Vital Signs Date Time Temp Pulse Resp B/P Pulse Ox O2 Delivery O2 Flow Rate FiO2 04/18/16 13:30 49 04/18/16 11:56 98.2 18 91/42 97 04/18/16 10:45 Simple Mask 10.0 04/17/16 20:29 50 Intake and Output 04/17/16 04/17/16 04/18/16 15:00 23:00 07:00 Intake Total 420 ml 350 ml Balance 420 ml 350 ml Results/Medications Result Diagram: 04/18/16 0610 04/18/16 0610 Results 24 hrs Laboratory Tests Test 04/17/16 18:15 04/17/16 23:45 04/18/16 06:10 04/18/16 06:15 Bedside Glucose 297 H 318 H 238 H Anion Gap 24 H Basophils # 0.0 Basophils % 0.2 Blood Morphology Comment Blood Urea Nitrogen 64 H Calcium Level 9.8 Carbon Dioxide Level 29 Chloride Level 85 L Creatinine 6.13 H Eosinophils # 0.1 Eosinophils % 0.5 Glucose Level 233 H Hematocrit 29.4 L Hemoglobin 10.0 L Lymphocytes # 1.2 Lymphocytes % 9.3 L Magnesium Level 2.3 Mean Corpuscular Hemoglobin 31.9 Mean Corpuscular Hemoglobin Concent 33.9 Mean Corpuscular Volume 93.9 Mean Platelet Volume 11.0 H Monocytes # 0.9 Monocytes % 7.3 Neutrophils # 10.4 H Neutrophils % 82.7 H Nucleated Red Blood Cells # 0.0 Nucleated Red Blood Cells % 0.0 Phosphorus Level 5.3 H Platelet Count 176 Potassium Level 4.2 Red Blood Count 3.13 L Red Cell Distribution Width 18.0 H Sodium Level 134 L White Blood Count 12.6 H Test 04/18/16 11:34 Bedside Glucose 218 Medications Current Medications Lorazepam (Ativan) 0.5 mg Q6H PRN IV ANXIETY Last administered on 04/04/16at 20 :40; Admin Dose 0.5 MG; Start 04/04/16 at 15:30 Ondansetron HCl (Zofran Inj) 4 mg Q6H PRN IV NAUSEA AND/OR VOMITING; Start at 15:30 Ferrous Sulfate (Ferrous Sulfate (Ec)) 325 mg DAILY PO Last administered on 10:04; Admin Dose 325 MG; Start 04/05/16 at 09:00 Latanoprost (Xalatan) 1 drop QHS BOTH EYES Last administered on 04/17/16 22:23 ; Admin Dose 1 DROP; Start 04/04/16 at 21:00 Metoprolol Tartrate (Lopressor) 25 mg BID PO Last administered on 04/15/16 21: 54; Admin Dose 25 MG; Start 04/04/16 at 21:00 Polyethylene Glycol (Miralax) 17 gm DAILY PO Last administered on 04/18/16 10: 03; Admin Dose 17 GM; Start 04/05/16 at 09:00 Atorvastatin Calcium (Lipitor) 20 mg DAILY@21 PO Last administered on 04/17/16 22:25; Admin Dose 20 MG; Start 04/04/16 at 21:00 Miscellaneous Information 1 ea NOTE XX ; Start 04/04/16 at 16:00 Glucose (Glutose) 15 gm Q15M PRN PO DECREASED GLUCOSE; Start 04/04/16 at 16:00 Glucose (Glutose) 22.5 gm Q15M PRN PO DECREASED GLUCOSE; Start 04/04/16 at 16: 00 Dextrose (D50w Syringe) 25 ml Q15M PRN IV DECREASED GLUCOSE Last administered on 04/09/16 13:09; Admin Dose 25 ML; Start 04/04/16 at 16:00 Dextrose (D50w Syringe) 50 ml Q15M PRN IV DECREASED GLUCOSE; Start 04/04/16 at 16:00 Glucagon (Glucagen) 1 mg Q15M PRN IM DECREASED GLUCOSE; Start 04/04/16 at 16: 00 Glucose (Glutose) 15 gm Q15M PRN BUCCAL DECREASED GLUCOSE; Start 04/04/16 at 16:00 Tramadol HCl (Ultram) 50 mg Q6H PRN PO Pain Last administered on 04/15/16 17:20 ; Admin Dose 50 MG; Start 04/04/16 at 16:30 Allopurinol (Zyloprim) 200 mg DAILY PO Last administered on 04/18/16 10:03; Admin Dose 200 MG; Start 04/05/16 at 09:00 Clopidogrel Bisulfate (plaVIX) 75 mg DAILY PO Last administered on 04/18/16 10 :04; Admin Dose 75 MG; Start 04/05/16 at 18:30 Pregabalin (Lyrica) 100 mg BID PO Last administered on 04/18/16 10:04; Admin Dose 100 MG; Start 04/05/16 at 21:00 Acetaminophen (Tylenol Supp) 650 mg Q6H PRN [place] FEVER Last administered on 04/08at 14:12; Admin Dose 650 MG; Start 04/06/16 at 12:00 Apixaban (Eliquis) 2.5 mg BID PO Last administered on 04/18/16 10:04; Admin Dose 2.5 MG; Start 04/08/16 at 21:00 Hydralazine HCl (Apresoline) 5 mg Q6H PRN IV ELEVATED BLOOD PRESSURE; Start 04/09/16 at 11:30 Famotidine 20 mg 20 mg QHS PO Last administered on 04/17/16 22:24; Admin Dose 20 MG; Start 04/13/16 at 21:00 Meropenem/Sodium Chloride (Merrem/NS) 100 ml @ 200 mls/hr Q24H IVPB Last administered on 04/17/16 16:30; Admin Dose 200 MLS/HR; Start 04/15/16 at 16:30 Metoclopramide HCl 10 mg 10 mg Q6 IV Last administered on 04/18/16 11:59; Admin Dose 10 MG; Start 04/15/16 at 18:00 Sodium Chloride (NS) 1,000 ml @ 0 mls/hr Q0M PRN IV TO KEEP SBP ABOVE 90; Start 04/16/16 at 12:18 Insulin Aspart (Novolog Insulin Pen) NOVOLOG *MILD* ALGORI... Q6 SC Last administered on 04/18/16 12:08; Admin Dose 2 UNIT; Start 04/16/16 at 18:00 Insulin Glargine (Lantus) 27 unit QHS SC Last administered on 04/17/16 22:32; Admin Dose 27 UNIT; Start 04/17/16 at 21:00 Assessment/Plan Chief Complaint/Hosp Course MICROBIOLOGY: Repeat blood cultures on 04/14/2016 came back negative. ANTIMICROBIALS: meropenem #4 INDWELLINGS: NG tube, right chest Perm-A-Cath. PHYSICAL EXAMINATION: GENERAL: Obese, well-developed, chronically ill-appearing, elderly woman who is noncommunicating. She is lying comfortably in bed. The patient is getting tube feeding. She has some congestion. HEENT: Head atraumatic, normocephalic. Sclerae anicteric. Buccal mucosa dry. NECK: Obese. CHEST: Rise symmetrical. Breath sounds with scattered crackles. HEART: S1, S2. ABDOMEN: Soft, bowel tones present. EXTREMITIES: No cyanosis. ASSESSMENT: 1. Systemic inflammatory response syndrome with persistent leukocytosis, possibly secondary to ongoing aspiration. 2. Dysphagia. 3. End-stage renal disease, hemodialysis dependent. 4. Status post shock, secondary to non-ST elevation myocardial infarction. 5. Severe mitral stenosis. 6. Status post cardiac stent to posterior descending artery. PLAN: The patient remains unchanged. Pulmonary/nephrology follow. We will continue her on current antimicrobials. Continue aspiration precautions, aggressive pulmonary toilet DW staff Problems: TAMIKO DIXON NP Apr 18, 2016 13:36
--- NOTE | 2016-04-18 14:31 | PN ---
Date/Time of Note Date/Time of Note DATE: 04/18/16 TIME: 14:30 Assessment/Plan VTE Prophylaxis VTE Prophylaxis Intervention: other (Factor Xa inhibitors.) Lines/Catheters IV [facility]ter Type (from [facility]): PERMACATH Urinary Cath still in place: No Assessment/Plan Chief Complaint/Hosp Course 1. Acute hypoxic respiratory failure. Continue supplemental oxygen. Continue inhaled bronchodilators. 2. Non-ST elevation myocardial infarction. Status post percutaneous transluminal coronary angioplasty with stent to the right posterior descending artery. Continue anticoagulation. 3. Severe mitral stenosis with calcification. Monitor. 4. End-stage renal disease on hemodialysis. Continue dialysis as per nephrology. 5. Transient ischemic attack. Continue anticoagulation. 6. Sepsis secondary to pneumonia. Continue antibiotics as per infectious diseases. 7. 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 Will monitor H and H closely. 8. Type 2 diabetes mellitus. Continue sliding scale insulin. 9. Dysphagia. The patient has an NG tube in place. 10. Hypothyroidism. Continue Synthroid. 11. History of multiple deep vein thromboses. Status post inferior vena cava filter placement. Continue factor Xa inhibitors. 12. Fluid, electrolytes, and nutrition. Continue NG tube feedings. 13. Deep venous thrombosis prophylaxis. Factor Xa inhibitors. 14. Gastrointestinal prophylaxis. Histamine 2 receptor blockers. PLAN: Continue current management. The patient is currently a DNR. Palliative care working with the patient's family. Scheduled for family meeting on 04/18/2016. Will await until the family meeting is done for further plan of care. Case discussed with Dr. Osuna. Problems: Subjective 24 Hr Interval Summary Free Text/Dictation Status remains unchanged. Exam/Review of Systems Vital Signs Vitals Vital Signs Date Time Temp Pulse Resp B/P Pulse Ox O2 Delivery O2 Flow Rate FiO2 04/18/16 14:00 50 04/18/16 11:56 98.2 18 91/42 97 04/18/16 10:45 Simple Mask 10.0 04/17/16 20:29 50 Intake and Output 04/17/16 04/17/16 04/18/16 15:00 23:00 07:00 Intake Total 420 ml 350 ml Balance 420 ml 350 ml Exam HEENT: Head normocephalic and atraumatic. Eyes: Anicteric sclerae. Conjunctivae clear. ENT: Nasal septum is midline. Oral mucosa is dry. NECK: Short and obese. Unable to visualize any neck veins. RESPIRATORY: Bilateral coarse bases. Use of accessory muscles of respiration. CARDIAC: Regular rate and rhythm. S1 and S2 heard. ABDOMEN: Protuberant. Bowel sounds hypoactive in all 4 quadrants. GENITOURINARY: Deferred. EXTREMITIES: No cyanosis, no clubbing. Peripheral pulses palpable. NEUROLOGIC: The patient is awake and alert. The patient moves all 4 extremities. Results Result Diagram: 04/18/16 0610 04/18/16 0610 Results 24 hrs Laboratory Tests Test 04/17/16 18:15 04/17/16 23:45 04/18/16 06:10 04/18/16 06:15 Bedside Glucose 297 H 318 H 238 H Anion Gap 24 H Basophils # 0.0 Basophils % 0.2 Blood Morphology Comment Blood Urea Nitrogen 64 H Calcium Level 9.8 Carbon Dioxide Level 29 Chloride Level 85 L Creatinine 6.13 H Eosinophils # 0.1 Eosinophils % 0.5 Glucose Level 233 H Hematocrit 29.4 L Hemoglobin 10.0 L Lymphocytes # 1.2 Lymphocytes % 9.3 L Magnesium Level 2.3 Mean Corpuscular Hemoglobin 31.9 Mean Corpuscular Hemoglobin Concent 33.9 Mean Corpuscular Volume 93.9 Mean Platelet Volume 11.0 H Monocytes # 0.9 Monocytes % 7.3 Neutrophils # 10.4 H Neutrophils % 82.7 H Nucleated Red Blood Cells # 0.0 Nucleated Red Blood Cells % 0.0 Phosphorus Level 5.3 H Platelet Count 176 Potassium Level 4.2 Red Blood Count 3.13 L Red Cell Distribution Width 18.0 H Sodium Level 134 L White Blood Count 12.6 H Test 04/18/16 11:34 Bedside Glucose 218 Medications Medications Current Medications Lorazepam (Ativan) 0.5 mg Q6H PRN IV ANXIETY Last administered on 04/04/16at 20 :40; Admin Dose 0.5 MG; Start 04/04/16 at 15:30 Ondansetron HCl (Zofran Inj) 4 mg Q6H PRN IV NAUSEA AND/OR VOMITING; Start at 15:30 Ferrous Sulfate (Ferrous Sulfate (Ec)) 325 mg DAILY PO Last administered on t 10:04; Admin Dose 325 MG; Start 04/05/16 at 09:00 Latanoprost (Xalatan) 1 drop QHS BOTH EYES Last administered on 04/17/16 22:23 ; Admin Dose 1 DROP; Start 04/04/16 at 21:00 Metoprolol Tartrate (Lopressor) 25 mg BID PO Last administered on 04/15/16 21: 54; Admin Dose 25 MG; Start 04/04/16 at 21:00 Polyethylene Glycol (Miralax) 17 gm DAILY PO Last administered on 04/18/16 10: 03; Admin Dose 17 GM; Start 04/05/16 at 09:00 Atorvastatin Calcium (Lipitor) 20 mg DAILY@21 PO Last administered on 04/17/16 22:25; Admin Dose 20 MG; Start 04/04/16 at 21:00 Miscellaneous Information 1 ea NOTE XX ; Start 04/04/16 at 16:00 Glucose (Glutose) 15 gm Q15M PRN PO DECREASED GLUCOSE; Start 04/04/16 at 16:00 Glucose (Glutose) 22.5 gm Q15M PRN PO DECREASED GLUCOSE; Start 04/04/16 at 16: 00 Dextrose (D50w Syringe) 25 ml Q15M PRN IV DECREASED GLUCOSE Last administered on 04/09/16 13:09; Admin Dose 25 ML; Start 04/04/16 at 16:00 Dextrose (D50w Syringe) 50 ml Q15M PRN IV DECREASED GLUCOSE; Start 04/04/16 at 16:00 Glucagon (Glucagen) 1 mg Q15M PRN IM DECREASED GLUCOSE; Start 04/04/16 at 16: 00 Glucose (Glutose) 15 gm Q15M PRN BUCCAL DECREASED GLUCOSE; Start 04/04/16 at 16:00 Tramadol HCl (Ultram) 50 mg Q6H PRN PO Pain Last administered on 04/15/16 17:20 ; Admin Dose 50 MG; Start 04/04/16 at 16:30 Allopurinol (Zyloprim) 200 mg DAILY PO Last administered on 04/18/16 10:03; Admin Dose 200 MG; Start 04/05/16 at 09:00 Clopidogrel Bisulfate (plaVIX) 75 mg DAILY PO Last administered on 04/18/16 10 :04; Admin Dose 75 MG; Start 04/05/16 at 18:30 Pregabalin (Lyrica) 100 mg BID PO Last administered on 04/18/16 10:04; Admin Dose 100 MG; Start 04/05/16 at 21:00 Acetaminophen (Tylenol Supp) 650 mg Q6H PRN [place] FEVER Last administered on 04/08at 14:12; Admin Dose 650 MG; Start 04/06/16 at 12:00 Apixaban (Eliquis) 2.5 mg BID PO Last administered on 04/18/16 10:04; Admin Dose 2.5 MG; Start 04/08/16 at 21:00 Hydralazine HCl (Apresoline) 5 mg Q6H PRN IV ELEVATED BLOOD PRESSURE; Start 04/09/16 at 11:30 Famotidine 20 mg 20 mg QHS PO Last administered on 04/17/16 22:24; Admin Dose 20 MG; Start 04/13/16 at 21:00 Meropenem/Sodium Chloride (Merrem/NS) 100 ml @ 200 mls/hr Q24H IVPB Last administered on 04/17/16 16:30; Admin Dose 200 MLS/HR; Start 04/15/16 at 16:30 Metoclopramide HCl 10 mg 10 mg Q6 IV Last administered on 04/18/16 11:59; Admin Dose 10 MG; Start 04/15/16 at 18:00 Sodium Chloride (NS) 1,000 ml @ 0 mls/hr Q0M PRN IV TO KEEP SBP ABOVE 90; Start 04/16/16 at 12:18 Insulin Aspart (Novolog Insulin Pen) NOVOLOG *MILD* ALGORI... Q6 SC Last administered on 04/18/16 12:08; Admin Dose 2 UNIT; Start 04/16/16 at 18:00 Insulin Glargine (Lantus) 27 unit QHS SC Last administered on 04/17/16 22:32; Admin Dose 27 UNIT; Start 04/17/16 at 21:00 CARLEY WAGONER NP Apr 18, 2016 14:31
[2016-04-18] MEDS: HEPARIN 1000 UNITS/ML 10 ML INJ CATHETER SCH (15:18)
--- NOTE | 2016-04-18 15:50 | CONS ---
Date/Time of Note Date/Time of Note DATE: 04/18/16 TIME: 15:49 Consult Date/Type/Reason Admit Date/Time Apr 04, 2016 at 15:15 Initial Consult Date 04/04/16 Type of Consultation: Card Objective Vital Signs Date Time Temp Pulse Resp B/P Pulse Ox O2 Delivery O2 Flow Rate FiO2 04/18/16 14:45 50 20 04/18/16 11:56 98.2 91/42 97 04/18/16 10:45 Simple Mask 10.0 04/17/16 20:29 50 Intake and Output 04/17/16 04/17/16 04/18/16 15:00 23:00 07:00 Intake Total 420 ml 350 ml Balance 420 ml 350 ml Results/Medications Result Diagram: 04/18/16 0610 04/18/16 0610 Results 24 hrs Laboratory Tests Test 04/17/16 18:15 04/17/16 23:45 04/18/16 06:10 04/18/16 06:15 Bedside Glucose 297 H 318 H 238 H Anion Gap 24 H Basophils # 0.0 Basophils % 0.2 Blood Morphology Comment Blood Urea Nitrogen 64 H Calcium Level 9.8 Carbon Dioxide Level 29 Chloride Level 85 L Creatinine 6.13 H Eosinophils # 0.1 Eosinophils % 0.5 Glucose Level 233 H Hematocrit 29.4 L Hemoglobin 10.0 L Lymphocytes # 1.2 Lymphocytes % 9.3 L Magnesium Level 2.3 Mean Corpuscular Hemoglobin 31.9 Mean Corpuscular Hemoglobin Concent 33.9 Mean Corpuscular Volume 93.9 Mean Platelet Volume 11.0 H Monocytes # 0.9 Monocytes % 7.3 Neutrophils # 10.4 H Neutrophils % 82.7 H Nucleated Red Blood Cells # 0.0 Nucleated Red Blood Cells % 0.0 Phosphorus Level 5.3 H Platelet Count 176 Potassium Level 4.2 Red Blood Count 3.13 L Red Cell Distribution Width 18.0 H Sodium Level 134 L White Blood Count 12.6 H Test 04/18/16 11:34 Bedside Glucose 218 Medications Current Medications Lorazepam (Ativan) 0.5 mg Q6H PRN IV ANXIETY Last administered on 04/04/16at 20 :40; Admin Dose 0.5 MG; Start 04/04/16 at 15:30 Ondansetron HCl (Zofran Inj) 4 mg Q6H PRN IV NAUSEA AND/OR VOMITING; Start at 15:30 Ferrous Sulfate (Ferrous Sulfate (Ec)) 325 mg DAILY PO Last administered on 10:04; Admin Dose 325 MG; Start 04/05/16 at 09:00 Latanoprost (Xalatan) 1 drop QHS BOTH EYES Last administered on 04/17/16 22:23 ; Admin Dose 1 DROP; Start 04/04/16 at 21:00 Metoprolol Tartrate (Lopressor) 25 mg BID PO Last administered on 04/15/16 21: 54; Admin Dose 25 MG; Start 04/04/16 at 21:00 Polyethylene Glycol (Miralax) 17 gm DAILY PO Last administered on 04/18/16 10: 03; Admin Dose 17 GM; Start 04/05/16 at 09:00 Atorvastatin Calcium (Lipitor) 20 mg DAILY@21 PO Last administered on 04/17/16 22:25; Admin Dose 20 MG; Start 04/04/16 at 21:00 Miscellaneous Information 1 ea NOTE XX ; Start 04/04/16 at 16:00 Glucose (Glutose) 15 gm Q15M PRN PO DECREASED GLUCOSE; Start 04/04/16 at 16:00 Glucose (Glutose) 22.5 gm Q15M PRN PO DECREASED GLUCOSE; Start 04/04/16 at 16: 00 Dextrose (D50w Syringe) 25 ml Q15M PRN IV DECREASED GLUCOSE Last administered on 04/09/16 13:09; Admin Dose 25 ML; Start 04/04/16 at 16:00 Dextrose (D50w Syringe) 50 ml Q15M PRN IV DECREASED GLUCOSE; Start 04/04/16 at 16:00 Glucagon (Glucagen) 1 mg Q15M PRN IM DECREASED GLUCOSE; Start 04/04/16 at 16: 00 Glucose (Glutose) 15 gm Q15M PRN BUCCAL DECREASED GLUCOSE; Start 04/04/16 at 16:00 Tramadol HCl (Ultram) 50 mg Q6H PRN PO Pain Last administered on 04/15/16 17:20 ; Admin Dose 50 MG; Start 04/04/16 at 16:30 Allopurinol (Zyloprim) 200 mg DAILY PO Last administered on 04/18/16 10:03; Admin Dose 200 MG; Start 04/05/16 at 09:00 Clopidogrel Bisulfate (plaVIX) 75 mg DAILY PO Last administered on 04/18/16 10 :04; Admin Dose 75 MG; Start 04/05/16 at 18:30 Pregabalin (Lyrica) 100 mg BID PO Last administered on 04/18/16 10:04; Admin Dose 100 MG; Start 04/05/16 at 21:00 Acetaminophen (Tylenol Supp) 650 mg Q6H PRN [place] FEVER Last administered on 04/08at 14:12; Admin Dose 650 MG; Start 04/06/16 at 12:00 Apixaban (Eliquis) 2.5 mg BID PO Last administered on 04/18/16 10:04; Admin Dose 2.5 MG; Start 04/08/16 at 21:00 Hydralazine HCl (Apresoline) 5 mg Q6H PRN IV ELEVATED BLOOD PRESSURE; Start 04/09/16 at 11:30 Famotidine 20 mg 20 mg QHS PO Last administered on 04/17/16 22:24; Admin Dose 20 MG; Start 04/13/16 at 21:00 Meropenem/Sodium Chloride (Merrem/NS) 100 ml @ 200 mls/hr Q24H IVPB Last administered on 04/17/16 16:30; Admin Dose 200 MLS/HR; Start 04/15/16 at 16:30 Metoclopramide HCl 10 mg 10 mg Q6 IV Last administered on 04/18/16 11:59; Admin Dose 10 MG; Start 04/15/16 at 18:00 Sodium Chloride (NS) 1,000 ml @ 0 mls/hr Q0M PRN IV TO KEEP SBP ABOVE 90; Start 04/16/16 at 12:18 Insulin Aspart (Novolog Insulin Pen) NOVOLOG *MILD* ALGORI... Q6 SC Last administered on 04/18/16 12:08; Admin Dose 2 UNIT; Start 04/16/16 at 18:00 Insulin Glargine (Lantus) 27 unit QHS SC Last administered on 04/17/16 22:32; Admin Dose 27 UNIT; Start 04/17/16 at 21:00 Assessment/Plan Chief Complaint/Hosp Course Patient is 89 year old female with PMH of CAD pci of LAD, Severe mitral calcification with MS, CHF, ESRD on HD, Multiple TIA, PAD came in with SOB, Positive trop, intial plan was to take her to engineering lab technician from ER but she was very SOB with craclkes, So brought to ICU. Will need HD, trend trop. had long discussion with family, daughter. Problems: Additional Assessment/Plan Palliative care consult Failing speech and swallow HD D/W daughter ANH FRITZ MD Apr 18, 2016 15:50
[2016-04-18] MEDS: MEROPENEM 500 MG in SOD CHLORIDE 0.9% 100 ML IVPB SCH (16:37)
[2016-04-18] MEDS: ATORVASTATIN 20 MG TAB PO SCH (22:12)
[2016-04-18] MEDS: FAMOTIDINE 20 MG TAB PO SCH (22:12)
[2016-04-18] MEDS: LATANOPROST 0.005% 2.5 ML OPH BOTH EYES SCH (22:28)
[2016-04-18] MEDS: INSULIN GLARGINE [LANtus] 3 ML PEN SC SCH (22:29)
[2016-04-19] VITALS (12 sets, daily range): BP systolic 99–120; BP diastolic 45–62; PULSE 50; RESP 16–20
[2016-04-19] MEDS: INSULIN ASPART [NOVOLOG] 3 ML PEN SC SCH ×5 (00:47→23:25)
[2016-04-19] MEDS: METOCLOPRAMIDE 10 MG INJ IV SCH ×5 (00:47→23:22)
[2016-04-19] MEDS: LEVOTHYROXINE 100 MCG TAB PO SCH (07:34)
[2016-04-19 07:36] LABS: BASOPHILS % 0.3 % (0.0-2.0); EOSINOPHILS # 0.1 10^3/ul (0.0-0.5); HEMATOCRIT 27.1 % (37.0-47.0); LYMPHOCYTES # 0.9 10^3/ul (0.8-2.9); LYMPHOCYTES % 9.7 % (15.0-51.0); MEAN CORPUSCULAR HEMOGLOBIN 31.4 pg (29.0-33.0); MEAN CORPUSCULAR HGB CONC 33.2 g/dl (32.0-37.0); MEAN CORPUSCULAR VOLUME 94.5 fl (82.0-101.0); MEAN PLATELET VOLUME 11.4 fl (7.4-10.4); MONOCYTE # 0.9 10^3/ul (0.3-0.9); MONOCYTES % 9.1 % (0.0-11.0); NEUTROPHIL # 7.6 10^3/ul (1.6-7.5); NEUTROPHILS % 79.9 % (39.0-77.0); RED BLOOD COUNT 2.87 10^6/ul (4.20-5.40); RED CELL DISTRIBUTION WIDTH 18.6 % (11.5-14.5); UNCORRECTED WBC 9.5 10^3/ul (4.8-10.8); WHITE BLOOD COUNT 9.5 10^3/ul (4.8-10.8)
[2016-04-19 07:40] LABS: CONDITION 1; LH ANALYZER COMMENTS 1; SUSPECT 1
[2016-04-19 07:43] LABS: CREATININE 4.55 mg/dl (0.44-1.00)
[2016-04-19 07:44] LABS: CALCIUM 9.7 mg/dl (8.4-10.2); PHOSPHORUS 3.8 mg/dl (2.5-4.9)
[2016-04-19 07:45] LABS: MAGNESIUM 2.3 mg/dl (1.7-2.5)
[2016-04-19] MEDS: METOPROLOL 25 MG TAB PO SCH ×2 (09:00→20:28)
[2016-04-19] MEDS: FERROUS SULFATE (EC) 325 MG TAB PO SCH (09:13)
[2016-04-19] MEDS: APIXABAN 5 MG TABLET PO SCH ×2 (09:13→20:27)
[2016-04-19] MEDS: POLYETHYLENE GLYCOL 17 GM PACKET PO SCH (09:13)
[2016-04-19] MEDS: PREGABALIN 25 MG CAP PO SCH ×2 (09:13→20:29)
[2016-04-19] MEDS: ALLOPURINOL 100 MG TAB PO SCH (09:14)
[2016-04-19] MEDS: CLOPIDOGREL 75 MG TAB PO SCH (09:14)
[2016-04-19] MEDS: ALBUTEROL/IPRATROPIUM (NEB) 3 ML AMP HHN SCH ×4 (09:16→21:32)
[2016-04-19 09:30] LABS: ANISOCYTOSIS 2+
[2016-04-19 09:31] LABS: PLATELET COUNT 140 10^3/UL (140-440)
--- NOTE | 2016-04-19 11:23 | PN ---
DATE: 04/19/2016 SUBJECTIVE: The patient remains critically ill on facemask and BiPAP. The patient had hemodialysis yesterday. No other events noted. OBJECTIVE: VITAL SIGNS: Blood pressure 106/52, respirations 20, pulse 51, temperature 98.6. HEENT: Head is normocephalic. NECK: Supple. HEART: Regular rate. LUNGS: Show diminished breath sounds at base. ABDOMEN: Soft, nontender to palpation. No rebound or guarding. EXTREMITIES: Negative for clubbing, cyanosis. No edema. DERMATOLOGIC: No rashes. MUSCULOSKELETAL: No joint effusions. NEUROLOGIC: No change in exam. MEDICATIONS: The patient's medications reviewed. LABORATORY DATA: Shows sodium 140, potassium 4.0, BUN 46, creatinine 4.55. White count 9.5, hemogl obin 9.0, hematocrit 27.1, platelet count is pending. ASSESSMENT AND PLAN: 1. End-stage renal disease. The patient has been having nearly daily dialysis. We will order dial ysis for tomorrow for solute clearance and volume removal. 2. Volume overload. Continue ultrafiltration dialysis. 3. Acute systolic, diastolic heart failure. Continue current medical management. Continue dialysi s. 4. Anemia. Continue to monitor hemoglobin and hematocrit levels. Continue Epogen. 5. Mineral bone disorder. Continue to monitor calcium and phosphorus levels. 6. Hypertension. Etiology is multifactorial. We will continue to monitor. Continue parameters on blood pressure medicines 7. Acute hypoxemic respiratory failure secondary to congestive heart failure and pneumonia. Contin ue BiPAP, facemask. 8. Nutrition, dysphagia. Continue tube feeding. 9. Non-ST elevation myocardial infarction, status post percutaneous coronary intervention. Continu e medical management. 10. Peripheral vascular disease. Continue to monitor. 11. History of mitral stenosis. 12. Encephalopathy, etiology is toxic metabolic. No significant change. Dictated By: ZULEMA STOVALL/MAXIMO Conf#: [id number] DID#: [id number]
--- NOTE | 2016-04-19 12:45 | PN ---
Date/Time of Note Date/Time of Note DATE: 04/19/16 TIME: 12:43 Assessment/Plan VTE Prophylaxis VTE Prophylaxis Intervention: other (Factor Xa inhibitors) Lines/Catheters [facility] PERMACATH Urinary Cath still in place: No Assessment/Plan Chief Complaint/Hosp Course 1. Acute hypoxic respiratory failure. Continue supplemental oxygen. Continue inhaled bronchodilators. 2. Non-ST elevation myocardial infarction. Status post percutaneous transluminal coronary angioplasty with stent to the right posterior descending artery. Continue anticoagulation. 3. Severe mitral stenosis with calcification. Monitor. 4. End-stage renal disease on hemodialysis. Continue dialysis as per nephrology. 5. Transient ischemic attack. Continue anticoagulation. 6. Sepsis secondary to pneumonia. Continue antibiotics as per infectious diseases. 7. 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 Will monitor H and H closely. 8. Type 2 diabetes mellitus. Continue sliding scale insulin. 9. Dysphagia. The patient has an NG tube in place. 10. Hypothyroidism. Continue Synthroid. 11. History of multiple deep vein thromboses. Status post inferior vena cava filter placement. Continue factor Xa inhibitors. 12. Fluid, electrolytes, and nutrition. Continue NG tube feedings. 13. Deep venous thrombosis prophylaxis. Factor Xa inhibitors. 14. Gastrointestinal prophylaxis. Histamine 2 receptor blockers. PLAN: Continue current management. The patient is currently a DNR. Palliative care working with the patient's family. Family meeting on 2016 was not done. Will await until the family meeting is done for further plan of care. Case discussed with Dr. Osuna. Problems: Subjective 24 Hr Interval Summary Free Text/Dictation The patient's status remains unchanged. Exam/Review of Systems Vital Signs Vitals Vital Signs Date Time Temp Pulse Resp B/P Pulse Ox O2 Delivery O2 Flow Rate FiO2 04/19/16 12:21 98.6 50 18 109/51 98 04/19/16 10:11 Simple Mask 6.0 04/17/16 20:29 50 Intake and Output 04/18/16 04/18/16 04/19/16 15:00 23:00 07:00 Intake Total 500 ml 280 ml Output Total 1140 ml Balance -640 ml 280 ml Exam HEENT: Head normocephalic and atraumatic. Eyes: Anicteric sclerae. Conjunctivae clear. ENT: Nasal septum is midline. Oral mucosa is dry. NECK: Short and obese. Unable to visualize any neck veins. RESPIRATORY: Bilateral coarse bases. Use of accessory muscles of respiration. CARDIAC: Regular rate and rhythm. S1 and S2 heard. ABDOMEN: Protuberant. Bowel sounds hypoactive in all 4 quadrants. GENITOURINARY: Deferred. EXTREMITIES: No cyanosis, no clubbing. Peripheral pulses palpable. NEUROLOGIC: The patient is awake and alert. The patient moves all 4 extremities. Results Result Diagram: 04/19/16 0640 04/19/16 0640 Results 24 hrs Laboratory Tests Test 04/18/16 17:45 04/18/16 22:25 04/19/16 00:36 04/19/16 06:07 Bedside Glucose 193 251 H 224 H 200 Test 04/19/16 06:40 04/19/16 12:08 Anion Gap 24 H Anisocytosis 2+ Basophils # 0.0 Basophils % 0.3 Blood Morphology Comment Blood Urea Nitrogen 46 #H Calcium Level 9.7 Carbon Dioxide Level 28 Chloride Level 92 L Creatinine 4.55 #H Differential Comment AUTO w/SCAN Eosinophils # 0.1 Eosinophils % 1.0 Giant Platelets RARE Glucose Level 185 Hematocrit 27.1 L Hemoglobin 9.0 L Large Platelets OCCASIONAL Lymphocytes # 0.9 Lymphocytes % 9.7 L Magnesium Level 2.3 Mean Corpuscular Hemoglobin 31.4 Mean Corpuscular Hemoglobin Concent 33.2 Mean Corpuscular Volume 94.5 Mean Platelet Volume 11.4 H Monocytes # 0.9 Monocytes % 9.1 Neutrophils # 7.6 H Neutrophils % 79.9 H Nucleated Red Blood Cells # 0.0 Nucleated Red Blood Cells % 0.0 Phosphorus Level 3.8 Platelet Count 140 # Potassium Level 4.0 Red Blood Count 2.87 L Red Cell Distribution Width 18.6 H Sodium Level 140 White Blood Count 9.5 # Bedside Glucose 241 H Medications Medications Current Medications Lorazepam (Ativan) 0.5 mg Q6H PRN IV ANXIETY Last administered on 04/04/16at 20 :40; Admin Dose 0.5 MG; Start 04/04/16 at 15:30 Ondansetron HCl (Zofran Inj) 4 mg Q6H PRN IV NAUSEA AND/OR VOMITING; Start at 15:30 Ferrous Sulfate (Ferrous Sulfate (Ec)) 325 mg DAILY PO Last administered on t 09:13; Admin Dose 325 MG; Start 04/05/16 at 09:00 Latanoprost (Xalatan) 1 drop QHS BOTH EYES Last administered on 04/18/16 22:28 ; Admin Dose 1 DROP; Start 04/04/16 at 21:00 Metoprolol Tartrate (Lopressor) 25 mg BID PO Last administered on 04/15/16 21: 54; Admin Dose 25 MG; Start 04/04/16 at 21:00 Polyethylene Glycol (Miralax) 17 gm DAILY PO Last administered on 04/19/16 09: 13; Admin Dose 17 GM; Start 04/05/16 at 09:00 Atorvastatin Calcium (Lipitor) 20 mg DAILY@21 PO Last administered on 22:12; Admin Dose 20 MG; Start 04/04/16 at 21:00 Miscellaneous Information 1 ea NOTE XX ; Start 04/04/16 at 16:00 Glucose (Glutose) 15 gm Q15M PRN PO DECREASED GLUCOSE; Start 04/04/16 at 16:00 Glucose (Glutose) 22.5 gm Q15M PRN PO DECREASED GLUCOSE; Start 04/04/16 at 16: 00 Dextrose (D50w Syringe) 25 ml Q15M PRN IV DECREASED GLUCOSE Last administered on 04/09/16 13:09; Admin Dose 25 ML; Start 04/04/16 at 16:00 Dextrose (D50w Syringe) 50 ml Q15M PRN IV DECREASED GLUCOSE; Start 04/04/16 at 16:00 Glucagon (Glucagen) 1 mg Q15M PRN IM DECREASED GLUCOSE; Start 04/04/16 at 16: 00 Glucose (Glutose) 15 gm Q15M PRN BUCCAL DECREASED GLUCOSE; Start 04/04/16 at 16:00 Tramadol HCl (Ultram) 50 mg Q6H PRN PO Pain Last administered on 04/15/16 17:20 ; Admin Dose 50 MG; Start 04/04/16 at 16:30 Allopurinol (Zyloprim) 200 mg DAILY PO Last administered on 04/19/16 09:14; Admin Dose 200 MG; Start 04/05/16 at 09:00 Clopidogrel Bisulfate (plaVIX) 75 mg DAILY PO Last administered on 04/19/16 09 :14; Admin Dose 75 MG; Start 04/05/16 at 18:30 Pregabalin (Lyrica) 100 mg BID PO Last administered on 04/19/16 09:13; Admin Dose 100 MG; Start 04/05/16 at 21:00 Acetaminophen (Tylenol Supp) 650 mg Q6H PRN [place] FEVER Last administered on 04/08at 14:12; Admin Dose 650 MG; Start 04/06/16 at 12:00 Apixaban (Eliquis) 2.5 mg BID PO Last administered on 04/19/16 09:13; Admin Dose 2.5 MG; Start 04/08/16 at 21:00 Hydralazine HCl (Apresoline) 5 mg Q6H PRN IV ELEVATED BLOOD PRESSURE; Start 04/09/16 at 11:30 Famotidine 20 mg 20 mg QHS PO Last administered on 04/18/16 22:12; Admin Dose 20 MG; Start 04/13/16 at 21:00 Meropenem/Sodium Chloride (Merrem/NS) 100 ml @ 200 mls/hr Q24H IVPB Last administered on 04/18/16 16:37; Admin Dose 200 MLS/HR; Start 04/15/16 at 16:30 Metoclopramide HCl 10 mg 10 mg Q6 IV Last administered on 04/19/16 12:06; Admin Dose 10 MG; Start 04/15/16 at 18:00 Sodium Chloride (NS) 1,000 ml @ 0 mls/hr Q0M PRN IV TO KEEP SBP ABOVE 90; Start 04/16/16 at 12:18 Insulin Aspart (Novolog Insulin Pen) NOVOLOG *MILD* ALGORI... Q6 SC Last administered on 04/19/16 12:12; Admin Dose 3 UNIT; Start 04/16/16 at 18:00 Insulin Glargine (Lantus) 27 unit QHS SC Last administered on 04/18/16 22:29; Admin Dose 27 UNIT; Start 04/17/16 at 21:00 CARLEY WAGONER NP Apr 19, 2016 12:45
--- NOTE | 2016-04-19 13:41 | CONS ---
Date/Time of Note Date/Time of Note DATE: 04/19/16 TIME: 13:39 Consult Date/Type/Reason Admit Date/Time Apr 04, 2016 at 15:15 Initial Consult Date 04/04/16 Type of Consultation: ID Subjective no acute changes, lethargic, opens eyes to stimulation, no fevers, nad Objective Vital Signs Date Time Temp Pulse Resp B/P Pulse Ox O2 Delivery O2 Flow Rate FiO2 04/19/16 13:13 8.0 04/19/16 13:13 50 20 96 Simple Mask 04/19/16 12:21 98.6 109/51 04/17/16 20:29 50 Intake and Output 04/18/16 04/18/16 04/19/16 15:00 23:00 07:00 Intake Total 500 ml 280 ml Output Total 1140 ml Balance -640 ml 280 ml Results/Medications Result Diagram: 04/19/16 0640 04/19/16 0640 Results 24 hrs Laboratory Tests Test 04/18/16 17:45 04/18/16 22:25 04/19/16 00:36 04/19/16 06:07 Bedside Glucose 193 251 H 224 H 200 Test 04/19/16 06:40 04/19/16 12:08 Anion Gap 24 H Anisocytosis 2+ Basophils # 0.0 Basophils % 0.3 Blood Morphology Comment Blood Urea Nitrogen 46 #H Calcium Level 9.7 Carbon Dioxide Level 28 Chloride Level 92 L Creatinine 4.55 #H Differential Comment AUTO w/SCAN Eosinophils # 0.1 Eosinophils % 1.0 Giant Platelets RARE Glucose Level 185 Hematocrit 27.1 L Hemoglobin 9.0 L Large Platelets OCCASIONAL Lymphocytes # 0.9 Lymphocytes % 9.7 L Magnesium Level 2.3 Mean Corpuscular Hemoglobin 31.4 Mean Corpuscular Hemoglobin Concent 33.2 Mean Corpuscular Volume 94.5 Mean Platelet Volume 11.4 H Monocytes # 0.9 Monocytes % 9.1 Neutrophils # 7.6 H Neutrophils % 79.9 H Nucleated Red Blood Cells # 0.0 Nucleated Red Blood Cells % 0.0 Phosphorus Level 3.8 Platelet Count 140 # Potassium Level 4.0 Red Blood Count 2.87 L Red Cell Distribution Width 18.6 H Sodium Level 140 White Blood Count 9.5 # Bedside Glucose 241 H Medications Current Medications Lorazepam (Ativan) 0.5 mg Q6H PRN IV ANXIETY Last administered on 04/04/16at 20 :40; Admin Dose 0.5 MG; Start 04/04/16 at 15:30 Ondansetron HCl (Zofran Inj) 4 mg Q6H PRN IV NAUSEA AND/OR VOMITING; Start at 15:30 Ferrous Sulfate (Ferrous Sulfate (Ec)) 325 mg DAILY PO Last administered on 09:13; Admin Dose 325 MG; Start 04/05/16 at 09:00 Latanoprost (Xalatan) 1 drop QHS BOTH EYES Last administered on 04/18/16 22:28 ; Admin Dose 1 DROP; Start 04/04/16 at 21:00 Metoprolol Tartrate (Lopressor) 25 mg BID PO Last administered on 04/15/16 21: 54; Admin Dose 25 MG; Start 04/04/16 at 21:00 Polyethylene Glycol (Miralax) 17 gm DAILY PO Last administered on 04/19/16 09: 13; Admin Dose 17 GM; Start 04/05/16 at 09:00 Atorvastatin Calcium (Lipitor) 20 mg DAILY@21 PO Last administered on 22:12; Admin Dose 20 MG; Start 04/04/16 at 21:00 Miscellaneous Information 1 ea NOTE XX ; Start 04/04/16 at 16:00 Glucose (Glutose) 15 gm Q15M PRN PO DECREASED GLUCOSE; Start 04/04/16 at 16:00 Glucose (Glutose) 22.5 gm Q15M PRN PO DECREASED GLUCOSE; Start 04/04/16 at 16: 00 Dextrose (D50w Syringe) 25 ml Q15M PRN IV DECREASED GLUCOSE Last administered on 04/09/16 13:09; Admin Dose 25 ML; Start 04/04/16 at 16:00 Dextrose (D50w Syringe) 50 ml Q15M PRN IV DECREASED GLUCOSE; Start 04/04/16 at 16:00 Glucagon (Glucagen) 1 mg Q15M PRN IM DECREASED GLUCOSE; Start 04/04/16 at 16: 00 Glucose (Glutose) 15 gm Q15M PRN BUCCAL DECREASED GLUCOSE; Start 04/04/16 at 16:00 Tramadol HCl (Ultram) 50 mg Q6H PRN PO Pain Last administered on 04/15/16 17:20 ; Admin Dose 50 MG; Start 04/04/16 at 16:30 Allopurinol (Zyloprim) 200 mg DAILY PO Last administered on 04/19/16 09:14; Admin Dose 200 MG; Start 04/05/16 at 09:00 Clopidogrel Bisulfate (plaVIX) 75 mg DAILY PO Last administered on 04/19/16 09 :14; Admin Dose 75 MG; Start 04/05/16 at 18:30 Pregabalin (Lyrica) 100 mg BID PO Last administered on 04/19/16 09:13; Admin Dose 100 MG; Start 04/05/16 at 21:00 Acetaminophen (Tylenol Supp) 650 mg Q6H PRN [place] FEVER Last administered on 04/08at 14:12; Admin Dose 650 MG; Start 04/06/16 at 12:00 Apixaban (Eliquis) 2.5 mg BID PO Last administered on 04/19/16 09:13; Admin Dose 2.5 MG; Start 04/08/16 at 21:00 Hydralazine HCl (Apresoline) 5 mg Q6H PRN IV ELEVATED BLOOD PRESSURE; Start 04/09/16 at 11:30 Famotidine 20 mg 20 mg QHS PO Last administered on 04/18/16 22:12; Admin Dose 20 MG; Start 04/13/16 at 21:00 Meropenem/Sodium Chloride (Merrem/NS) 100 ml @ 200 mls/hr Q24H IVPB Last administered on 04/18/16 16:37; Admin Dose 200 MLS/HR; Start 04/15/16 at 16:30 Metoclopramide HCl 10 mg 10 mg Q6 IV Last administered on 04/19/16 12:06; Admin Dose 10 MG; Start 04/15/16 at 18:00 Sodium Chloride (NS) 1,000 ml @ 0 mls/hr Q0M PRN IV TO KEEP SBP ABOVE 90; Start 04/16/16 at 12:18 Insulin Aspart (Novolog Insulin Pen) NOVOLOG *MILD* ALGORI... Q6 SC Last administered on 04/19/16 12:12; Admin Dose 3 UNIT; Start 04/16/16 at 18:00 Insulin Glargine (Lantus) 30 unit QHS SC ; Start 04/19/16 at 21:00 Assessment/Plan Chief Complaint/Hosp Course MICROBIOLOGY: Repeat blood cultures on 04/14/2016 came back negative. ANTIMICROBIALS: meropenem #5 INDWELLINGS: NG tube, right chest Perm-A-Cath. PHYSICAL EXAMINATION: GENERAL: Obese, well-developed, chronically ill-appearing, elderly woman who is noncommunicating. She is lying comfortably in bed. The patient is getting tube feeding. She has some congestion. HEENT: Head atraumatic, normocephalic. Sclerae anicteric. Buccal mucosa dry. NECK: Obese. CHEST: Rise symmetrical. Breath sounds with scattered crackles. HEART: S1, S2. ABDOMEN: Soft, bowel tones present. EXTREMITIES: No cyanosis. ASSESSMENT: 1. Systemic inflammatory response syndrome with persistent leukocytosis, possibly secondary to ongoing aspiration. 2. Dysphagia. 3. End-stage renal disease, hemodialysis dependent. 4. Status post shock, secondary to non-ST elevation myocardial infarction. 5. Severe mitral stenosis. 6. Status post cardiac stent to posterior descending artery. PLAN: Clinically unchanged. No fevers, wbc decreasing, continue abx, aspiration precautions, pulmonary/nephrology rec-s DW staff Problems: TAMIKO DIXON NP Apr 19, 2016 13:41
[2016-04-19] MEDS: MEROPENEM 500 MG in SOD CHLORIDE 0.9% 100 ML IVPB SCH (17:13)
[2016-04-19] MEDS: LATANOPROST 0.005% 2.5 ML OPH BOTH EYES SCH (20:27)
[2016-04-19] MEDS: ATORVASTATIN 20 MG TAB PO SCH (20:28)
[2016-04-19] MEDS: FAMOTIDINE 20 MG TAB PO SCH (20:29)
[2016-04-19] MEDS: INSULIN GLARGINE [LANtus] 3 ML PEN SC SCH (21:27)
[2016-04-19] MEDS: traMADol 50 MG TAB PO PRN (23:50)
[2016-04-20] VITALS (13 sets, daily range): BP systolic 73–106; BP diastolic 36–52; PULSE 50; RESP 16–20
[2016-04-20] MEDS: METOCLOPRAMIDE 10 MG INJ IV SCH ×4 (05:16→23:16)
[2016-04-20] MEDS: LEVOTHYROXINE 100 MCG TAB PO SCH (05:16)
[2016-04-20] MEDS: INSULIN ASPART [NOVOLOG] 3 ML PEN SC SCH ×4 (05:18→23:21)
[2016-04-20] MEDS: ALBUTEROL/IPRATROPIUM (NEB) 3 ML AMP HHN SCH ×4 (08:16→20:57)
[2016-04-20] MEDS: METOPROLOL 25 MG TAB PO SCH ×2 (09:00→20:30)
[2016-04-20] MEDS: PREGABALIN 25 MG CAP PO SCH ×2 (09:25→20:01)
[2016-04-20] MEDS: CLOPIDOGREL 75 MG TAB PO SCH (09:25)
[2016-04-20] MEDS: FERROUS SULFATE (EC) 325 MG TAB PO SCH (09:25)
[2016-04-20] MEDS: ALLOPURINOL 100 MG TAB PO SCH (09:25)
[2016-04-20] MEDS: APIXABAN 5 MG TABLET PO SCH ×2 (09:25→20:01)
[2016-04-20] MEDS: POLYETHYLENE GLYCOL 17 GM PACKET PO SCH (09:26)
--- NOTE | 2016-04-20 11:17 | PN ---
DATE: 04/20/2016 SUBJECTIVE: The patient remains critical. The patient is on simple mask without any significant ch stephen. No episodes of hemoptysis, hematemesis. No other acute events noted. OBJECTIVE: VITAL SIGNS: Blood pressure is 86/39, respirations 20, pulse 58, temperature 97.8. HEENT: Head is normocephalic. NECK: Supple. HEART: Regular rate. LUNGS: Show diminished breath sounds at the base. ABDOMEN: Soft, nontender to palpation without rebound or guarding. EXTREMITIES: Negative for clubbing, cyanosis. Trace edema. DERMATOLOGIC: No rashes. MUSCULOSKELETAL: No joint effusions. NEUROLOGIC: No change in exam. MEDICATIONS: Have been reviewed. LABORATORY DATA: Has been reviewed. No new labs. ASSESSMENT AND PLAN: 1. End-stage renal disease. The patient is scheduled for hemodialysis today for 3 hours on 2K bath , calcium 2.5 and ultrafiltrate as tolerated. 2. Volume overload. Continue ultrafiltration dialysis. 3. Acute systolic, diastolic heart failure. Continue current medical management. 4. Anemia. Continue to monitor H and H levels. Continue Epogen. 5. Mineral bone disorder. Continue to monitor calcium and phosphorus levels. 6. Hypotension. Continue to monitor. 7. Acute hypoxemic respiratory failure secondary to congestive heart failure , pneumonia. Continue BiPAP facemask. 8. Dysphagia. Continue tube feeding. 9. Non-ST elevation myocardial infarction, status post percutaneous coronary intervention. Continu e current treatment plan. 10. Peripheral vascular disease. Continue to monitor. 11. Encephalopathy, toxic metabolic, no significant change. Dictated By: ZULEMA STOVALL/MAXIMO Conf#: [id number] DID#: [id number]
--- NOTE | 2016-04-20 12:25 | CONS ---
Date/Time of Note Date/Time of Note DATE: 04/20/16 TIME: 12:23 Consult Date/Type/Reason Admit Date/Time Apr 04, 2016 at 15:15 Initial Consult Date 04/04/16 Type of Consultation: pulmonary Subjective Still has significant hypoxemia requiring Ventimask oxygen Objective Vital Signs Date Time Temp Pulse Resp B/P Pulse Ox O2 Delivery O2 Flow Rate FiO2 04/20/16 10:25 50 04/20/16 08:38 86/39 04/20/16 08:17 20 98 Simple Mask 8.0 04/20/16 08:16 97.8 04/17/16 20:29 50 GENERAL: Elderly Greek lady. VITAL SIGNS: per chart NECK: Supple. No JVD or lymphadenopathy. CARDIAC EXAM: S1, S2. No added sounds or murmurs. CHEST: clear bilaterally, No added sounds, rales or wheezes ABDOMEN: Soft, nontender. No guarding or rebound. Obese EXTREMITIES: No cyanosis, clubbing, edema +1 NEUROLOGIC: Generalized weakness. Results/Medications Result Diagram: 04/19/1640 04/19/16 0640 Results 24 hrs Laboratory Tests Test 04/19/16 17:54 04/19/16 21:21 04/19/16 22:26 04/20/16 04:26 Bedside Glucose 173 162 167 189 Test 04/20/16 11:57 Bedside Glucose 164 Medications Current Medications Lorazepam (Ativan) 0.5 mg Q6H PRN IV ANXIETY Last administered on 04/04/16at 20 :40; Admin Dose 0.5 MG; Start 04/04/16 at 15:30 Ondansetron HCl (Zofran Inj) 4 mg Q6H PRN IV NAUSEA AND/OR VOMITING; Start at 15:30 Ferrous Sulfate (Ferrous Sulfate (Ec)) 325 mg DAILY PO Last administered on 09:25; Admin Dose 325 MG; Start 04/05/16 at 09:00 Latanoprost (Xalatan) 1 drop QHS BOTH EYES Last administered on 04/19/16 20:27 ; Admin Dose 1 DROP; Start 04/04/16 at 21:00 Metoprolol Tartrate (Lopressor) 25 mg BID PO Last administered on 04/19/16 20: 28; Admin Dose 25 MG; Start 04/04/16 at 21:00 Polyethylene Glycol (Miralax) 17 gm DAILY PO Last administered on 04/20/16 09: 26; Admin Dose 17 GM; Start 04/05/16 at 09:00 Atorvastatin Calcium (Lipitor) 20 mg DAILY@21 PO Last administered on 20:28; Admin Dose 20 MG; Start 04/04/16 at 21:00 Miscellaneous Information 1 ea NOTE XX ; Start 04/04/16 at 16:00 Glucose (Glutose) 15 gm Q15M PRN PO DECREASED GLUCOSE; Start 04/04/16 at 16:00 Glucose (Glutose) 22.5 gm Q15M PRN PO DECREASED GLUCOSE; Start 04/04/16 at 16: 00 Dextrose (D50w Syringe) 25 ml Q15M PRN IV DECREASED GLUCOSE Last administered on 04/09/16 13:09; Admin Dose 25 ML; Start 04/04/16 at 16:00 Dextrose (D50w Syringe) 50 ml Q15M PRN IV DECREASED GLUCOSE; Start 04/04/16 at 16:00 Glucagon (Glucagen) 1 mg Q15M PRN IM DECREASED GLUCOSE; Start 04/04/16 at 16: 00 Glucose (Glutose) 15 gm Q15M PRN BUCCAL DECREASED GLUCOSE; Start 04/04/16 at 16:00 Tramadol HCl (Ultram) 50 mg Q6H PRN PO Pain Last administered on 04/19/16 23: 50; Admin Dose 50 MG; Start 04/04/16 at 16:30 Allopurinol (Zyloprim) 200 mg DAILY PO Last administered on 04/20/16 09:25; Admin Dose 200 MG; Start 04/05/16 at 09:00 Clopidogrel Bisulfate (plaVIX) 75 mg DAILY PO Last administered on 04/20/16 09 :25; Admin Dose 75 MG; Start 04/05/16 at 18:30 Pregabalin (Lyrica) 100 mg BID PO Last administered on 04/20/16 09:25; Admin Dose 100 MG; Start 04/05/16 at 21:00 Acetaminophen (Tylenol Supp) 650 mg Q6H PRN [place] FEVER Last administered on 04/08at 14:12; Admin Dose 650 MG; Start 04/06/16 at 12:00 Apixaban (Eliquis) 2.5 mg BID PO Last administered on 04/20/16 09:25; Admin Dose 2.5 MG; Start 04/08/16 at 21:00 Hydralazine HCl (Apresoline) 5 mg Q6H PRN IV ELEVATED BLOOD PRESSURE; Start 04/09/16 at 11:30 Famotidine 20 mg 20 mg QHS PO Last administered on 04/19/16 20:29; Admin Dose 20 MG; Start 04/13/16 at 21:00 Meropenem/Sodium Chloride (Merrem/NS) 100 ml @ 200 mls/hr Q24H IVPB Last administered on 04/19/16 17:13; Admin Dose 200 MLS/HR; Start 04/15/16 at 16:30 Metoclopramide HCl 10 mg 10 mg Q6 IV Last administered on 04/20/16 05:16; Admin Dose 10 MG; Start 04/15/16 at 18:00 Sodium Chloride (NS) 1,000 ml @ 0 mls/hr Q0M PRN IV TO KEEP SBP ABOVE 90; Start 04/16/16 at 12:18 Insulin Aspart (Novolog Insulin Pen) NOVOLOG *MILD* ALGORI... Q6 SC Last administered on 04/20/16 12:10; Admin Dose 1 UNIT; Start 04/16/16 at 18:00 Insulin Glargine (Lantus) 30 unit QHS SC Last administered on 04/19/16 21:27; Admin Dose 30 UNIT; Start 04/19/16 at 21:00 Assessment/Plan Chief Complaint/Hosp Course IMPRESSION: 1. Hypoxemic Resp Insufficiency due to volume overload/pulm edema 2. 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 3. Encephalopathy, toxic metabolic. 4. Patient's code status: DNR/DNI. 5. Severe mitral stenosis with underlying coronary artery disease 6. Status post coronary intervention 7. Dysphagia. PLAN: 1. Continue noninvasive positive pressure ventilation and nasal cannula oxygen. Aggressive pulmonary toilet 2. Supplemental O2. 3. DVT and GI prophylaxis. 4. Aspiration precautions 5. Palliative Consult Problems: OSIRIS REYNOLDS MD, [facility] Apr 20, 2016 12:25
--- NOTE | 2016-04-20 15:39 | CONS ---
Date/Time of Note Date/Time of Note DATE: 04/20/16 TIME: 15:38 Consult Date/Type/Reason Admit Date/Time Apr 04, 2016 at 15:15 Initial Consult Date 04/04/16 Type of Consultation: ID Subjective lethargic, nad, no fevers, tolerates TF Objective Vital Signs Date Time Temp Pulse Resp B/P Pulse Ox O2 Delivery O2 Flow Rate FiO2 04/20/16 13:00 50 18 98 Simple Mask 8.0 04/20/16 08:38 86/39 04/20/16 08:16 97.8 04/17/16 20:29 50 Results/Medications Result Diagram: 04/19/16 0640 04/19/16 0640 Results 24 hrs Laboratory Tests Test 04/19/16 17:54 04/19/16 21:21 04/19/16 22:26 04/20/16 04:26 Bedside Glucose 173 162 167 189 Test 04/20/16 11:57 Bedside Glucose 164 Medications Current Medications Lorazepam (Ativan) 0.5 mg Q6H PRN IV ANXIETY Last administered on 04/04/16at 20 :40; Admin Dose 0.5 MG; Start 04/04/16 at 15:30 Ondansetron HCl (Zofran Inj) 4 mg Q6H PRN IV NAUSEA AND/OR VOMITING; Start at 15:30 Ferrous Sulfate (Ferrous Sulfate (Ec)) 325 mg DAILY PO Last administered on 09:25; Admin Dose 325 MG; Start 04/05/16 at 09:00 Latanoprost (Xalatan) 1 drop QHS BOTH EYES Last administered on 04/19/16 20:27 ; Admin Dose 1 DROP; Start 04/04/16 at 21:00 Metoprolol Tartrate (Lopressor) 25 mg BID PO Last administered on 04/19/16 20: 28; Admin Dose 25 MG; Start 04/04/16 at 21:00 Polyethylene Glycol (Miralax) 17 gm DAILY PO Last administered on 04/20/16 09: 26; Admin Dose 17 GM; Start 04/05/16 at 09:00 Atorvastatin Calcium (Lipitor) 20 mg DAILY@21 PO Last administered on 20:28; Admin Dose 20 MG; Start 04/04/16 at 21:00 Miscellaneous Information 1 ea NOTE XX ; Start 04/04/16 at 16:00 Glucose (Glutose) 15 gm Q15M PRN PO DECREASED GLUCOSE; Start 04/04/16 at 16:00 Glucose (Glutose) 22.5 gm Q15M PRN PO DECREASED GLUCOSE; Start 04/04/16 at 16: 00 Dextrose (D50w Syringe) 25 ml Q15M PRN IV DECREASED GLUCOSE Last administered on 04/09/16 13:09; Admin Dose 25 ML; Start 04/04/16 at 16:00 Dextrose (D50w Syringe) 50 ml Q15M PRN IV DECREASED GLUCOSE; Start 04/04/16 at 16:00 Glucagon (Glucagen) 1 mg Q15M PRN IM DECREASED GLUCOSE; Start 04/04/16 at 16: 00 Glucose (Glutose) 15 gm Q15M PRN BUCCAL DECREASED GLUCOSE; Start 04/04/16 at 16:00 Tramadol HCl (Ultram) 50 mg Q6H PRN PO Pain Last administered on 04/19/16 23: 50; Admin Dose 50 MG; Start 04/04/16 at 16:30 Allopurinol (Zyloprim) 200 mg DAILY PO Last administered on 04/20/16 09:25; Admin Dose 200 MG; Start 04/05/16 at 09:00 Clopidogrel Bisulfate (plaVIX) 75 mg DAILY PO Last administered on 04/20/16 09 :25; Admin Dose 75 MG; Start 04/05/16 at 18:30 Pregabalin (Lyrica) 100 mg BID PO Last administered on 04/20/16 09:25; Admin Dose 100 MG; Start 04/05/16 at 21:00 Acetaminophen (Tylenol Supp) 650 mg Q6H PRN [place] FEVER Last administered on 04/08at 14:12; Admin Dose 650 MG; Start 04/06/16 at 12:00 Apixaban (Eliquis) 2.5 mg BID PO Last administered on 04/20/16 09:25; Admin Dose 2.5 MG; Start 04/08/16 at 21:00 Hydralazine HCl (Apresoline) 5 mg Q6H PRN IV ELEVATED BLOOD PRESSURE; Start 04/09/16 at 11:30 Famotidine 20 mg 20 mg QHS PO Last administered on 04/19/16 20:29; Admin Dose 20 MG; Start 04/13/16 at 21:00 Meropenem/Sodium Chloride (Merrem/NS) 100 ml @ 200 mls/hr Q24H IVPB Last administered on 04/19/16 17:13; Admin Dose 200 MLS/HR; Start 04/15/16 at 16:30 Metoclopramide HCl 10 mg 10 mg Q6 IV Last administered on 04/20/16 12:23; Admin Dose 10 MG; Start 04/15/16 at 18:00 Sodium Chloride (NS) 1,000 ml @ 0 mls/hr Q0M PRN IV TO KEEP SBP ABOVE 90; Start 04/16/16 at 12:18 Insulin Aspart (Novolog Insulin Pen) NOVOLOG *MILD* ALGORI... Q6 SC Last administered on 04/20/16 12:10; Admin Dose 1 UNIT; Start 04/16/16 at 18:00 Insulin Glargine (Lantus) 30 unit QHS SC Last administered on 04/19/16 21:27; Admin Dose 30 UNIT; Start 04/19/16 at 21:00 Assessment/Plan Chief Complaint/Hosp Course MICROBIOLOGY: Repeat blood cultures on 04/14/2016 came back negative. ANTIMICROBIALS: meropenem #6 INDWELLINGS: NG tube, right chest Perm-A-Cath. PHYSICAL EXAMINATION: GENERAL: Obese, well-developed, chronically ill-appearing, elderly woman who is noncommunicating. She is lying comfortably in bed. The patient is getting tube feeding. She has some congestion. HEENT: Head atraumatic, normocephalic. Sclerae anicteric. Buccal mucosa dry. NECK: Obese. CHEST: Rise symmetrical. Breath sounds with scattered crackles. HEART: S1, S2. ABDOMEN: Soft, bowel tones present. EXTREMITIES: No cyanosis. ASSESSMENT: 1. Systemic inflammatory response syndrome with persistent leukocytosis, possibly secondary to ongoing aspiration. 2. Dysphagia. 3. End-stage renal disease, hemodialysis dependent. 4. Status post shock, secondary to non-ST elevation myocardial infarction. 5. Severe mitral stenosis. 6. Status post cardiac stent to posterior descending artery. PLAN: Clinically unchanged. No fevers, continue abx, aspiration precautions, pulmonary/nephrology rec-s. Pending family decision re final plan of care DW staff Problems: TAMIKO DIXON [employer] SUPERVISOR Apr 20, 2016 15:39
--- NOTE | 2016-04-20 16:03 | PN ---
Date/Time of Note Date/Time of Note DATE: 04/20/16 TIME: 15:59 Assessment/Plan VTE Prophylaxis VTE Prophylaxis Intervention: SCD's Lines/Catheters IV [facility] permacath Urinary Cath still in place: No Assessment/Plan Chief Complaint/Hosp Course Assessment and plan 1. Acute hypoxic respiratory failure. Dried Yeast Supervisor has been consulted, continue supplemental oxygen facemask. Continue inhaled bronchodilators. 2. Non-ST elevation myocardial infarction. Status post percutaneous transluminal coronary angioplasty with stent to the right posterior descending artery. Continue anticoagulation. 3. Severe mitral stenosis with calcification. Monitor. 4. End-stage renal disease on hemodialysis. Continue dialysis as per nephrology. 5. Transient ischemic attack. Continue anticoagulation. 6. Sepsis secondary to pneumonia. Continue antibiotics as per infectious diseases. 7. 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 Will monitor H and H closely. 8. Type 2 diabetes mellitus. Continue sliding scale insulin. 9. Dysphagia. Continue NG tube feeding, follow residual 10. Hypothyroidism. Continue Synthroid. 11. History of multiple deep vein thromboses. Status post inferior vena cava filter placement. Continue factor Xa inhibitors. 12. Fluid, electrolytes, and nutrition. Continue NG tube feedings. 13. Deep venous thrombosis prophylaxis. Factor Xa inhibitors. 14. Gastrointestinal prophylaxis. Histamine 2 receptor blockers. PLAN: Continue current management. The patient is currently a DNR. Palliative care working with the patient's family. Family meeting on 2016 was not done. Will await until the family meeting is done for further plan of care. Problems: Subjective 24 Hr Interval Summary Free Text/Dictation Patient responds minimally to verbal stimuli Still requiring high flow oxygen via face facemask NG tube feeding No family at the bedside Exam/Review of Systems Vital Signs Vitals Vital Signs Date Time Temp Pulse Resp B/P Pulse Ox O2 Delivery O2 Flow Rate FiO2 04/20/16 13:00 50 18 98 Simple Mask 8.0 04/20/16 08:38 86/39 04/20/16 08:16 97.8 04/17/16 20:29 50 Exam General: The patient is lethargic, Not in acute distress. HEENT: Atraumatic, normocephalic. The pupils are equal, NG tube in place Neck: Supple Chest: Normal expansion of the thorax during inspiration Lungs: Decreased breath sounds bilateral lower lung field with no crackles rales Heart: Normal S1-S2, bradycardic Abdomen: Soft , nontender, nondistended , bowel sounds are present. Extremities: Normal to inspection, nonpitting edema no cyanosis Neurologic:The patient is awake, minimal response to verbal stimuli Results Result Diagram: 04/19/16 0640 04/19/16 0640 Results 24 hrs Laboratory Tests Test 04/19/16 17:54 04/19/16 21:21 04/19/16 22:26 04/20/16 04:26 Bedside Glucose 173 162 167 189 Test 04/20/16 11:57 Bedside Glucose 164 Medications Medications Current Medications Lorazepam (Ativan) 0.5 mg Q6H PRN IV ANXIETY Last administered on 04/04/16at 20 :40; Admin Dose 0.5 MG; Start 04/04/16 at 15:30 Ondansetron HCl (Zofran Inj) 4 mg Q6H PRN IV NAUSEA AND/OR VOMITING; Start at 15:30 Ferrous Sulfate (Ferrous Sulfate (Ec)) 325 mg DAILY PO Last administered on 09:25; Admin Dose 325 MG; Start 04/05/16 at 09:00 Latanoprost (Xalatan) 1 drop QHS BOTH EYES Last administered on 04/19/16 20:27 ; Admin Dose 1 DROP; Start 04/04/16 at 21:00 Metoprolol Tartrate (Lopressor) 25 mg BID PO Last administered on 04/19/16 20: 28; Admin Dose 25 MG; Start 04/04/16 at 21:00 Polyethylene Glycol (Miralax) 17 gm DAILY PO Last administered on 04/20/16 09: 26; Admin Dose 17 GM; Start 04/05/16 at 09:00 Atorvastatin Calcium (Lipitor) 20 mg DAILY@21 PO Last administered on 20:28; Admin Dose 20 MG; Start 04/04/16 at 21:00 Miscellaneous Information 1 ea NOTE XX ; Start 04/04/16 at 16:00 Glucose (Glutose) 15 gm Q15M PRN PO DECREASED GLUCOSE; Start 04/04/16 at 16:00 Glucose (Glutose) 22.5 gm Q15M PRN PO DECREASED GLUCOSE; Start 04/04/16 at 16: 00 Dextrose (D50w Syringe) 25 ml Q15M PRN IV DECREASED GLUCOSE Last administered on 04/09/16 13:09; Admin Dose 25 ML; Start 04/04/16 at 16:00 Dextrose (D50w Syringe) 50 ml Q15M PRN IV DECREASED GLUCOSE; Start 04/04/16 at 16:00 Glucagon (Glucagen) 1 mg Q15M PRN IM DECREASED GLUCOSE; Start 04/04/16 at 16: 00 Glucose (Glutose) 15 gm Q15M PRN BUCCAL DECREASED GLUCOSE; Start 04/04/16 at 16:00 Tramadol HCl (Ultram) 50 mg Q6H PRN PO Pain Last administered on 04/19/16 23: 50; Admin Dose 50 MG; Start 04/04/16 at 16:30 Allopurinol (Zyloprim) 200 mg DAILY PO Last administered on 04/20/16 09:25; Admin Dose 200 MG; Start 04/05/16 at 09:00 Clopidogrel Bisulfate (plaVIX) 75 mg DAILY PO Last administered on 04/20/16 09 :25; Admin Dose 75 MG; Start 04/05/16 at 18:30 Pregabalin (Lyrica) 100 mg BID PO Last administered on 04/20/16 09:25; Admin Dose 100 MG; Start 04/05/16 at 21:00 Acetaminophen (Tylenol Supp) 650 mg Q6H PRN [place] FEVER Last administered on 04/08at 14:12; Admin Dose 650 MG; Start 04/06/16 at 12:00 Apixaban (Eliquis) 2.5 mg BID PO Last administered on 04/20/16 09:25; Admin Dose 2.5 MG; Start 04/08/16 at 21:00 Hydralazine HCl (Apresoline) 5 mg Q6H PRN IV ELEVATED BLOOD PRESSURE; Start 04/09/16 at 11:30 Famotidine 20 mg 20 mg QHS PO Last administered on 04/19/16 20:29; Admin Dose 20 MG; Start 04/13/16 at 21:00 Meropenem/Sodium Chloride (Merrem/NS) 100 ml @ 200 mls/hr Q24H IVPB Last administered on 04/19/16 17:13; Admin Dose 200 MLS/HR; Start 04/15/16 at 16:30 Metoclopramide HCl 10 mg 10 mg Q6 IV Last administered on 04/20/16 12:23; Admin Dose 10 MG; Start 04/15/16 at 18:00 Sodium Chloride (NS) 1,000 ml @ 0 mls/hr Q0M PRN IV TO KEEP SBP ABOVE 90; Start 04/16/16 at 12:18 Insulin Aspart (Novolog Insulin Pen) NOVOLOG *MILD* ALGORI... Q6 SC Last administered on 04/20/16 12:10; Admin Dose 1 UNIT; Start 04/16/16 at 18:00 Insulin Glargine (Lantus) 30 unit QHS SC Last administered on 04/19/16 21:27; Admin Dose 30 UNIT; Start 04/19/16 at 21:00 FRANKI RUSHING MD Apr 20, 2016 16:03
[2016-04-20] MEDS: MEROPENEM 500 MG in SOD CHLORIDE 0.9% 100 ML IVPB SCH (16:43)
[2016-04-20] MEDS: LATANOPROST 0.005% 2.5 ML OPH BOTH EYES SCH (20:01)
[2016-04-20] MEDS: FAMOTIDINE 20 MG TAB PO SCH (20:01)
[2016-04-20] MEDS: ATORVASTATIN 20 MG TAB PO SCH (20:01)
[2016-04-20] MEDS: INSULIN GLARGINE [LANtus] 3 ML PEN SC SCH (20:03)
[2016-04-21] VITALS (12 sets, daily range): BP systolic 80–110; BP diastolic 40–49; PULSE 50–59; RESP 16–20
[2016-04-21] MEDS: METOCLOPRAMIDE 10 MG INJ IV SCH ×3 (05:06→17:39)
[2016-04-21] MEDS: INSULIN ASPART [NOVOLOG] 3 ML PEN SC SCH ×3 (05:07→17:50)
[2016-04-21] MEDS: LEVOTHYROXINE 100 MCG TAB PO SCH (05:10)
[2016-04-21] MEDS: ALBUTEROL/IPRATROPIUM (NEB) 3 ML AMP HHN SCH ×5 (08:27→21:06)
[2016-04-21] MEDS: METOPROLOL 25 MG TAB PO SCH ×2 (09:00→21:00)
[2016-04-21] MEDS: POLYETHYLENE GLYCOL 17 GM PACKET PO SCH (09:15)
[2016-04-21] MEDS: FERROUS SULFATE (EC) 325 MG TAB PO SCH (09:16)
[2016-04-21] MEDS: CLOPIDOGREL 75 MG TAB PO SCH (09:16)
[2016-04-21] MEDS: APIXABAN 5 MG TABLET PO SCH ×2 (09:16→21:34)
[2016-04-21] MEDS: ALLOPURINOL 100 MG TAB PO SCH (09:16)
[2016-04-21] MEDS: PREGABALIN 25 MG CAP PO SCH ×2 (09:16→21:36)
[2016-04-21] MEDS ORDERED: SOD CHLORIDE 0.9% 500 ML IV ONE (12:00)
--- NOTE | 2016-04-21 12:07 | PN ---
DATE: 04/21/2016 SUBJECTIVE: The patient remains critically ill, hypotensive, on facemask. The patient's family is pending a palliative care evaluation. No other events noted. OBJECTIVE: VITAL SIGNS: Blood pressure is 89/46, respirations 17, pulse 79, temperature 98.4. HEENT: Head is normocephalic. NECK: Supple. HEART: Regular rate. LUNGS: Show diminished breath sounds at the base. Positive rhonchi and crackles. ABDOMEN: Soft, nontender to palpation, no rebound or guarding. EXTREMITIES: Negative for clubbing, cyanosis, no edema. DERMATOLOGIC: No rashes. MUSCULOSKELETAL: No joint effusions. NEUROLOGIC: No change in exam. MEDICATIONS: The patient's medications have been reviewed. LABORATORY DATA: Have been reviewed, no new labs. ASSESSMENT AND PLAN: 1. End-stage renal disease. Plan for hemodialysis today if patient is hemodynamically stable. 2. Volume overload. Continue ultrafiltration dialysis. 3. Acute systolic, diastolic heart failure. Continue current medical management. 4. Anemia. Continue to monitor hemoglobin and hematocrit levels. Continue Epogen. 5. Mineral bone disorder. Continue to monitor calcium and phosphorus levels. 6. Hypertension. Continue to monitor. 7. Respiratory failure secondary to congestive heart failure and pneumonia. The patient is on BiPA P facemask. 8. Dysphagia. Continue tube feeding. 9. [id number] myocardial infarction. The patient is status post percutaneous coronary interv ention. Continue medical management. 10. Peripheral vascular disease. 11. Encephalopathy, toxic, no change. Please note the patient has poor prognosis and family is pending hospice evaluation, palliative care . Dictated By: ZULEMA STOVALL/MAXIMO Conf#: [id number] DID#: [id number]
--- NOTE | 2016-04-21 13:07 | CONS ---
Date/Time of Note Date/Time of Note DATE: 04/21/16 TIME: 13:06 Consult Date/Type/Reason Admit Date/Time Apr 04, 2016 at 15:15 Initial Consult Date 04/04/16 Type of Consultation: ID Subjective noncommunicative, no fevers, nad, tolerates TF Objective Vital Signs Date Time Temp Pulse Resp B/P Pulse Ox O2 Delivery O2 Flow Rate FiO2 04/21/16 11:45 97.7 50 20 80/40 98 04/21/16 08:30 Simple Mask 8.0 04/17/16 20:29 50 Intake and Output 04/20/16 04/20/16 04/21/16 15:00 23:00 07:00 Intake Total 550 ml 342 ml Balance 550 ml 342 ml Results/Medications Result Diagram: 04/19/16 0640 04/19/16 0640 Results 24 hrs Laboratory Tests Test 04/20/16 17:20 04/20/16 19:56 04/20/16 22:57 04/21/16 04:38 Bedside Glucose 184 177 166 151 Test 04/21/16 12:01 Bedside Glucose 172 Medications Current Medications Lorazepam (Ativan) 0.5 mg Q6H PRN IV ANXIETY Last administered on 04/04/16at 20 :40; Admin Dose 0.5 MG; Start 04/04/16 at 15:30 Ondansetron HCl (Zofran Inj) 4 mg Q6H PRN IV NAUSEA AND/OR VOMITING; Start at 15:30 Ferrous Sulfate (Ferrous Sulfate (Ec)) 325 mg DAILY PO Last administered on 09:16; Admin Dose 325 MG; Start 04/05/16 at 09:00 Latanoprost (Xalatan) 1 drop QHS BOTH EYES Last administered on 04/20/16 20:01 ; Admin Dose 1 DROP; Start 04/04/16 at 21:00 Metoprolol Tartrate (Lopressor) 25 mg BID PO Last administered on 04/19/16 20: 28; Admin Dose 25 MG; Start 04/04/16 at 21:00 Polyethylene Glycol (Miralax) 17 gm DAILY PO Last administered on 04/21/16 09: 15; Admin Dose 17 GM; Start 04/05/16 at 09:00 Atorvastatin Calcium (Lipitor) 20 mg DAILY@21 PO Last administered on 20:01; Admin Dose 20 MG; Start 04/04/16 at 21:00 Miscellaneous Information 1 ea NOTE XX ; Start 04/04/16 at 16:00 Glucose (Glutose) 15 gm Q15M PRN PO DECREASED GLUCOSE; Start 04/04/16 at 16:00 Glucose (Glutose) 22.5 gm Q15M PRN PO DECREASED GLUCOSE; Start 04/04/16 at 16: 00 Dextrose (D50w Syringe) 25 ml Q15M PRN IV DECREASED GLUCOSE Last administered on 04/09/16 13:09; Admin Dose 25 ML; Start 04/04/16 at 16:00 Dextrose (D50w Syringe) 50 ml Q15M PRN IV DECREASED GLUCOSE; Start 04/04/16 at 16:00 Glucagon (Glucagen) 1 mg Q15M PRN IM DECREASED GLUCOSE; Start 04/04/16 at 16: 00 Glucose (Glutose) 15 gm Q15M PRN BUCCAL DECREASED GLUCOSE; Start 04/04/16 at 16:00 Tramadol HCl (Ultram) 50 mg Q6H PRN PO Pain Last administered on 04/19/16 23: 50; Admin Dose 50 MG; Start 04/04/16 at 16:30 Allopurinol (Zyloprim) 200 mg DAILY PO Last administered on 04/21/16 09:16; Admin Dose 200 MG; Start 04/05/16 at 09:00 Clopidogrel Bisulfate (plaVIX) 75 mg DAILY PO Last administered on 04/21/16 09 :16; Admin Dose 75 MG; Start 04/05/16 at 18:30 Pregabalin (Lyrica) 100 mg BID PO Last administered on 04/21/16 09:16; Admin Dose 100 MG; Start 04/05/16 at 21:00 Acetaminophen (Tylenol Supp) [address] FEVER Last administered on 04/08at 14:12; Admin Dose 650 MG; Start 04/06/16 at 12:00 Apixaban (Eliquis) 2.5 mg BID PO Last administered on 04/21/16 09:16; Admin Dose 2.5 MG; Start 04/08/16 at 21:00 Hydralazine HCl (Apresoline) 5 mg Q6H PRN IV ELEVATED BLOOD PRESSURE; Start 04/09/16 at 11:30 Famotidine 20 mg 20 mg QHS PO Last administered on 04/20/16 20:01; Admin Dose 20 MG; Start 04/13/16 at 21:00 Meropenem/Sodium Chloride (Merrem/NS) 100 ml @ 200 mls/hr Q24H IVPB Last administered on 04/20/16 16:43; Admin Dose 200 MLS/HR; Start 04/15/16 at 16:30 Metoclopramide HCl 10 mg 10 mg Q6 IV Last administered on 04/21/16 12:23; Admin Dose 10 MG; Start 04/15/16 at 18:00 Sodium Chloride (NS) 1,000 ml @ 0 mls/hr Q0M PRN IV TO KEEP SBP ABOVE 90; Start 04/16/16 at 12:18 Insulin Aspart (Novolog Insulin Pen) NOVOLOG *MILD* ALGORI... Q6 SC Last administered on 04/21/16 12:23; Admin Dose 1 UNIT; Start 04/16/16 at 18:00 Insulin Glargine (Lantus) 30 unit QHS SC Last administered on 04/20/16 20:03; Admin Dose 30 UNIT; Start 04/19/16 at 21:00 Assessment/Plan Chief Complaint/Hosp Course MICROBIOLOGY: Repeat blood cultures on 04/14/2016 came back negative. ANTIMICROBIALS: meropenem #7 INDWELLINGS: NG tube, right chest Perm-A-Cath. PHYSICAL EXAMINATION: GENERAL: Obese, well-developed, chronically ill-appearing, elderly woman who is noncommunicating. She is lying comfortably in bed. The patient is getting tube feeding. She has some congestion. HEENT: Head atraumatic, normocephalic. Sclerae anicteric. Buccal mucosa dry. NECK: Obese. CHEST: Rise symmetrical. Breath sounds with scattered crackles. HEART: S1, S2. ABDOMEN: Soft, bowel tones present. EXTREMITIES: No cyanosis. ASSESSMENT: 1. Systemic inflammatory response syndrome with persistent leukocytosis, possibly secondary to ongoing aspiration. 2. Dysphagia. 3. End-stage renal disease, hemodialysis dependent. 4. Status post shock, secondary to non-ST elevation myocardial infarction. 5. Severe mitral stenosis. 6. Status post cardiac stent to posterior descending artery. PLAN: Clinically unchanged. No fevers, continue abx, aspiration precautions, pulmonary/nephrology rec-s. Pending family decision re final plan of care DW staff Problems: TAMIKO DIXON NP Apr 21, 2016 13:07
--- NOTE | 2016-04-21 14:30 | CONS ---
Date/Time of Note Date/Time of Note DATE: 04/21/16 TIME: 14:29 Consult Date/Type/Reason Admit Date/Time Apr 04, 2016 at 15:15 Initial Consult Date 04/04/16 Type of Consultation: Cardiology Objective Vital Signs Date Time Temp Pulse Resp B/P Pulse Ox O2 Delivery O2 Flow Rate FiO2 04/21/16 13:23 50 04/21/16 11:45 97.7 20 80/40 98 04/21/16 08:30 Simple Mask 8.0 04/17/16 20:29 50 Intake and Output 04/20/16 04/20/16 04/21/16 15:00 23:00 07:00 Intake Total 550 ml 342 ml Balance 550 ml 342 ml Results/Medications Result Diagram: 04/19/1640 04/19/16 0640 Results 24 hrs Laboratory Tests Test 04/20/16 17:20 04/20/16 19:56 04/20/16 22:57 04/21/16 04:38 Bedside Glucose 184 177 166 151 Test 04/21/16 12:01 Bedside Glucose 172 Medications Current Medications Lorazepam (Ativan) 0.5 mg Q6H PRN IV ANXIETY Last administered on 04/04/16at 20 :40; Admin Dose 0.5 MG; Start 04/04/16 at 15:30 Ondansetron HCl (Zofran Inj) 4 mg Q6H PRN IV NAUSEA AND/OR VOMITING; Start at 15:30 Ferrous Sulfate (Ferrous Sulfate (Ec)) 325 mg DAILY PO Last administered on 09:16; Admin Dose 325 MG; Start 04/05/16 at 09:00 Latanoprost (Xalatan) 1 drop QHS BOTH EYES Last administered on 04/20/16 20:01 ; Admin Dose 1 DROP; Start 04/04/16 at 21:00 Metoprolol Tartrate (Lopressor) 25 mg BID PO Last administered on 04/19/16 20: 28; Admin Dose 25 MG; Start 04/04/16 at 21:00 Polyethylene Glycol (Miralax) 17 gm DAILY PO Last administered on 04/21/16 09: 15; Admin Dose 17 GM; Start 04/05/16 at 09:00 Atorvastatin Calcium (Lipitor) 20 mg DAILY@21 PO Last administered on 20:01; Admin Dose 20 MG; Start 04/04/16 at 21:00 Miscellaneous Information 1 ea NOTE XX ; Start 04/04/16 at 16:00 Glucose (Glutose) 15 gm Q15M PRN PO DECREASED GLUCOSE; Start 04/04/16 at 16:00 Glucose (Glutose) 22.5 gm Q15M PRN PO DECREASED GLUCOSE; Start 04/04/16 at 16: 00 Dextrose (D50w Syringe) 25 ml Q15M PRN IV DECREASED GLUCOSE Last administered on 04/09/16 13:09; Admin Dose 25 ML; Start 04/04/16 at 16:00 Dextrose (D50w Syringe) 50 ml Q15M PRN IV DECREASED GLUCOSE; Start 04/04/16 at 16:00 Glucagon (Glucagen) 1 mg Q15M PRN IM DECREASED GLUCOSE; Start 04/04/16 at 16: 00 Glucose (Glutose) 15 gm Q15M PRN BUCCAL DECREASED GLUCOSE; Start 04/04/16 at 16:00 Tramadol HCl (Ultram) 50 mg Q6H PRN PO Pain Last administered on 04/19/16 23: 50; Admin Dose 50 MG; Start 04/04/16 at 16:30 Allopurinol (Zyloprim) 200 mg DAILY PO Last administered on 04/21/16 09:16; Admin Dose 200 MG; Start 04/05/16 at 09:00 Clopidogrel Bisulfate (plaVIX) 75 mg DAILY PO Last administered on 04/21/16 09 :16; Admin Dose 75 MG; Start 04/05/16 at 18:30 Pregabalin (Lyrica) 100 mg BID PO Last administered on 04/21/16 09:16; Admin Dose 100 MG; Start 04/05/16 at 21:00 Acetaminophen (Tylenol Supp) 650 mg Q6H PRN [place] FEVER Last administered on 04/08at 14:12; Admin Dose 650 MG; Start 04/06/16 at 12:00 Apixaban (Eliquis) 2.5 mg BID PO Last administered on 04/21/16 09:16; Admin Dose 2.5 MG; Start 04/08/16 at 21:00 Hydralazine HCl (Apresoline) 5 mg Q6H PRN IV ELEVATED BLOOD PRESSURE; Start 04/09/16 at 11:30 Famotidine 20 mg 20 mg QHS PO Last administered on 04/20/16 20:01; Admin Dose 20 MG; Start 04/13/16 at 21:00 Meropenem/Sodium Chloride (Merrem/NS) 100 ml @ 200 mls/hr Q24H IVPB Last administered on 04/20/16 16:43; Admin Dose 200 MLS/HR; Start 04/15/16 at 16:30 Metoclopramide HCl 10 mg 10 mg Q6 IV Last administered on 04/21/16 12:23; Admin Dose 10 MG; Start 04/15/16 at 18:00 Sodium Chloride (NS) 1,000 ml @ 0 mls/hr Q0M PRN IV TO KEEP SBP ABOVE 90; Start 04/16/16 at 12:18 Insulin Aspart (Novolog Insulin Pen) NOVOLOG *MILD* ALGORI... Q6 SC Last administered on 04/21/16 12:23; Admin Dose 1 UNIT; Start 04/16/16 at 18:00 Insulin Glargine (Lantus) 30 unit QHS SC Last administered on 04/20/16 20:03; Admin Dose 30 UNIT; Start 04/19/16 at 21:00 Assessment/Plan Chief Complaint/Hosp Course Patient is 89 year old female with PMH of CAD pci of LAD, Severe mitral calcification with MS, CHF, ESRD on HD, Multiple TIA, PAD came in with SOB, Positive trop, intial plan was to take her to [facility] from ER but she was very SOB with craclkes, So brought to ICU. Will need HD, trend trop. had long discussion with family, daughter. Problems: Additional Assessment/Plan Pt stable, plan for hospice will /fu d/w daughter ANH FRITZ MD Apr 21, 2016 14:30
--- NOTE | 2016-04-21 16:29 | PN ---
DATE: SUBJECTIVE: The patient remains largely somnolent on Ventimask O2, opens eyes, but not following co mmands. PHYSICAL EXAMINATION: VITAL SIGNS: Temperature 98, pulse is 50, blood pressure 80/40, O2 saturation 96% on 8 liters Venti mask. NECK: Supple, no JVD or lymphadenopathy. CARDIAC: S1, S2, no added sounds or murmurs. CHEST: Diminished air entry bilaterally with rales. ABDOMEN: Soft, nontender. No guarding or rebound. EXTREMITIES: No cyanosis, clubbing, edema. NEUROLOGIC: Unable to assess. LABORATORY DATA: Pending at time of this dictation. IMPRESSION AND PLAN: 1. Hypoxemic respiratory failure. 2. Pulmonary edema. 3. Likely aspiration pneumonia. 4. Dementia with encephalopathy. PLAN: 1. Continue supplemental O2. 2. Aspiration precautions. 3. Hemodialysis with volume removal. 4. Consider family conference as overall prognosis is very poor. The patient is currently not very stable for G-tube and palliative care would be more appropriate. Dictated By: OSIRIS DRAPER/MAXIMO Conf#: [id number] DID#: [id number]
--- NOTE | 2016-04-21 16:46 | PN ---
Date/Time of Note Date/Time of Note DATE: 04/21/16 TIME: 16:42 Assessment/Plan VTE Prophylaxis VTE Prophylaxis Intervention: SCD's Lines/Catheters IV Catheter Type (from [facility], [place]): PERMACATH Urinary Cath still in place: No Assessment/Plan Chief Complaint/Hosp Course Assessment and plan 1. Acute hypoxic respiratory failure. [employer] has been consulted, continue supplemental oxygen facemask. Continue inhaled bronchodilators. 2. Non-ST elevation myocardial infarction. Status post percutaneous transluminal coronary angioplasty with stent to the right posterior descending artery. Continue anticoagulation. 3. Severe mitral stenosis with calcification. Monitor. 4. End-stage renal disease on hemodialysis. Continue dialysis as per nephrology. 5. Transient ischemic attack. Continue anticoagulation. 6. Sepsis secondary to pneumonia. Continue antibiotics as per infectious diseases. 7. 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 Will monitor H and H closely. 8. Type 2 diabetes mellitus. Continue sliding scale insulin. 9. Dysphagia. Continue NG tube feeding, follow residual 10. Hypothyroidism. Continue Synthroid. 11. History of multiple deep vein thromboses. Status post inferior vena cava filter placement. Continue factor Xa inhibitors. 12. Fluid, electrolytes, and nutrition. Continue NG tube feedings. 13. Deep venous thrombosis prophylaxis. Factor Xa inhibitors. 14. Gastrointestinal prophylaxis. Histamine 2 receptor blockers. PLAN: Continue current management. The patient is currently a DNR. Palliative care working with the patient's family. Continue NG tube feeding until 04/24/2016, family will decide regarding further feeding or stop feeding on Sunday Problems: Subjective 24 Hr Interval Summary Free Text/Dictation No acute changes Patient continues to be on high flow oxygen via facemask NG tube in place Family meeting with palliative care physician and have decided to continue NG tube feeding until 04/24/2016 Exam/Review of Systems Vital Signs Vitals Vital Signs Date Time Temp Pulse Resp B/P Pulse Ox O2 Delivery O2 Flow Rate FiO2 04/21/16 16:17 98.6 75 18 110/46 98 04/21/16 08:30 Simple Mask 8.0 04/17/16 20:29 50 Intake and Output 04/20/16 04/20/16 04/21/16 15:00 23:00 07:00 Intake Total 550 ml 342 ml Balance 550 ml 342 ml Exam General: The patient is lethargic, Not in acute distress. Minimal response to verbal stimuli HEENT: Atraumatic, normocephalic. The pupils are equal and round . Neck: Supple Chest: Normal Lungs: Clear to auscultation bilaterally Heart: Normal S1-S2, Regular rhythm and rate. Abdomen: Soft , nontender, nondistended , bowel sounds are present. Extremities: Normal to inspection, no edema no cyanosis Neurologic: The patient is awake minimal responses to verbal stimuli, Results Result Diagram: 04/19/16 0640 04/19/16 0640 Results 24 hrs Laboratory Tests Test 04/20/16 17:20 04/20/16 19:56 04/20/16 22:57 04/21/16 04:38 Bedside Glucose 184 177 166 151 Test 04/21/16 12:01 Bedside Glucose 172 Medications Medications Current Medications Lorazepam (Ativan) 0.5 mg Q6H PRN IV ANXIETY Last administered on 04/04/16at 20 :40; Admin Dose 0.5 MG; Start 04/04/16 at 15:30 Ondansetron HCl (Zofran Inj) 4 mg Q6H PRN IV NAUSEA AND/OR VOMITING; Start at 15:30 Ferrous Sulfate (Ferrous Sulfate (Ec)) 325 mg DAILY PO Last administered on 09:16; Admin Dose 325 MG; Start 04/05/16 at 09:00 Latanoprost (Xalatan) 1 drop QHS BOTH EYES Last administered on 04/20/16 20:01 ; Admin Dose 1 DROP; Start 04/04/16 at 21:00 Metoprolol Tartrate (Lopressor) 25 mg BID PO Last administered on 04/19/16 20: 28; Admin Dose 25 MG; Start 04/04/16 at 21:00 Polyethylene Glycol (Miralax) 17 gm DAILY PO Last administered on 04/21/16 09: 15; Admin Dose 17 GM; Start 04/05/16 at 09:00 Atorvastatin Calcium (Lipitor) 20 mg DAILY@21 PO Last administered on 20:01; Admin Dose 20 MG; Start 04/04/16 at 21:00 Miscellaneous Information 1 ea NOTE XX ; Start 04/04/16 at 16:00 Glucose (Glutose) 15 gm Q15M PRN PO DECREASED GLUCOSE; Start 04/04/16 at 16:00 Glucose (Glutose) 22.5 gm Q15M PRN PO DECREASED GLUCOSE; Start 04/04/16 at 16: 00 Dextrose (D50w Syringe) 25 ml Q15M PRN IV DECREASED GLUCOSE Last administered on 04/09/16 13:09; Admin Dose 25 ML; Start 04/04/16 at 16:00 Dextrose (D50w Syringe) 50 ml Q15M PRN IV DECREASED GLUCOSE; Start 04/04/16 at 16:00 Glucagon (Glucagen) 1 mg Q15M PRN IM DECREASED GLUCOSE; Start 04/04/16 at 16: 00 Glucose (Glutose) 15 gm Q15M PRN BUCCAL DECREASED GLUCOSE; Start 04/04/16 at 16:00 Tramadol HCl (Ultram) 50 mg Q6H PRN PO Pain Last administered on 04/19/16 23: 50; Admin Dose 50 MG; Start 04/04/16 at 16:30 Allopurinol (Zyloprim) 200 mg DAILY PO Last administered on 04/21/16 09:16; Admin Dose 200 MG; Start 04/05/16 at 09:00 Clopidogrel Bisulfate (plaVIX) 75 mg DAILY PO Last administered on 04/21/16 09 :16; Admin Dose 75 MG; Start 04/05/16 at 18:30 Pregabalin (Lyrica) 100 mg BID PO Last administered on 04/21/16 09:16; Admin Dose 100 MG; Start 04/05/16 at 21:00 Acetaminophen (Tylenol Supp) 650 mg Q6H PRN [place] FEVER Last administered on 04/08at 14:12; Admin Dose 650 MG; Start 04/06/16 at 12:00 Apixaban (Eliquis) 2.5 mg BID PO Last administered on 04/21/16 09:16; Admin Dose 2.5 MG; Start 04/08/16 at 21:00 Hydralazine HCl (Apresoline) 5 mg Q6H PRN IV ELEVATED BLOOD PRESSURE; Start 04/09/16 at 11:30 Famotidine 20 mg 20 mg QHS PO Last administered on 04/20/16 20:01; Admin Dose 20 MG; Start 04/13/16 at 21:00 Meropenem/Sodium Chloride (Merrem/NS) 100 ml @ 200 mls/hr Q24H IVPB Last administered on 04/20/16 16:43; Admin Dose 200 MLS/HR; Start 04/15/16 at 16:30 Metoclopramide HCl 10 mg 10 mg Q6 IV Last administered on 04/21/16 12:23; Admin Dose 10 MG; Start 04/15/16 at 18:00 Sodium Chloride (NS) 1,000 ml @ 0 mls/hr Q0M PRN IV TO KEEP SBP ABOVE 90; Start 04/16/16 at 12:18 Insulin Aspart (Novolog Insulin Pen) NOVOLOG *MILD* ALGORI... Q6 SC Last administered on 04/21/16 12:23; Admin Dose 1 UNIT; Start 04/16/16 at 18:00 Insulin Glargine (Lantus) 30 unit QHS SC Last administered on 04/20/16 20:03; Admin Dose 30 UNIT; Start 04/19/16 at 21:00 FRANKI RUSHING MD Apr 21, 2016 16:46
[2016-04-21] MEDS: MEROPENEM 500 MG in SOD CHLORIDE 0.9% 100 ML IVPB SCH (17:39)
[2016-04-21] MEDS: ATORVASTATIN 20 MG TAB PO SCH (21:34)
[2016-04-21] MEDS: LATANOPROST 0.005% 2.5 ML OPH BOTH EYES SCH (21:36)
[2016-04-21] MEDS: FAMOTIDINE 20 MG TAB PO SCH (21:36)
[2016-04-21] MEDS: INSULIN GLARGINE [LANtus] 3 ML PEN SC SCH (21:39)
[2016-04-22] VITALS (16 sets, daily range): BP systolic 83–118; BP diastolic 39–49; PULSE 49–70; RESP 17–19
[2016-04-22] MEDS: METOCLOPRAMIDE 10 MG INJ IV SCH ×4 (00:41→17:36)
[2016-04-22] MEDS: INSULIN ASPART [NOVOLOG] 3 ML PEN SC SCH ×4 (00:46→17:45)
[2016-04-22] MEDS: LEVOTHYROXINE 100 MCG TAB PO SCH (06:41)
[2016-04-22 08:17] LABS: POTASSIUM 5.3 mmol/L (3.5-5.1)
[2016-04-22 08:17] LABS: BASOPHIL # 0.1 10^3/ul (0.0-0.1); BASOPHILS % 0.7 % (0.0-2.0); EOSINOPHILS # 0.1 10^3/ul (0.0-0.5); EOSINOPHILS % 0.7 % (0.0-7.0); HEMATOCRIT 27.7 % (37.0-47.0); LYMPHOCYTES # 1.3 10^3/ul (0.8-2.9); LYMPHOCYTES % 11.4 % (15.0-51.0); MEAN CORPUSCULAR HEMOGLOBIN 31.6 pg (29.0-33.0); MEAN CORPUSCULAR HGB CONC 32.7 g/dl (32.0-37.0); MEAN CORPUSCULAR VOLUME 96.7 fl (82.0-101.0); MEAN PLATELET VOLUME 10.9 fl (7.4-10.4); MONOCYTE # 0.9 10^3/ul (0.3-0.9); MONOCYTES % 8.1 % (0.0-11.0); NEUTROPHIL # 9.1 10^3/ul (1.6-7.5); NEUTROPHILS % 79.1 % (39.0-77.0); PLATELET COUNT 148 10^3/UL (140-440); RED BLOOD COUNT 2.86 10^6/ul (4.20-5.40); RED CELL DISTRIBUTION WIDTH 19.3 % (11.5-14.5); UNCORRECTED WBC 11.5 10^3/ul (4.8-10.8); WHITE BLOOD COUNT 11.5 10^3/ul (4.8-10.8)
[2016-04-22 08:19] LABS: CREATININE 7.91 mg/dl (0.44-1.00)
[2016-04-22 08:20] LABS: PHOSPHORUS 5.1 mg/dl (2.5-4.9)
[2016-04-22 08:21] LABS: CALCIUM 9.8 mg/dl (8.4-10.2); MAGNESIUM 2.8 mg/dl (1.7-2.5)
[2016-04-22 08:24] LABS: CONDITION 1; LH ANALYZER COMMENTS 1; SUSPECT 1
[2016-04-22] MEDS: ALBUTEROL/IPRATROPIUM (NEB) 3 ML AMP HHN SCH ×4 (08:26→21:55)
[2016-04-22] MEDS: POLYETHYLENE GLYCOL 17 GM PACKET PO SCH (08:47)
[2016-04-22] MEDS: ALLOPURINOL 100 MG TAB PO SCH (08:47)
[2016-04-22] MEDS: PREGABALIN 25 MG CAP PO SCH ×2 (08:47→21:48)
[2016-04-22] MEDS: APIXABAN 5 MG TABLET PO SCH ×2 (08:48→21:48)
[2016-04-22] MEDS: FERROUS SULFATE (EC) 325 MG TAB PO SCH (08:48)
[2016-04-22] MEDS: METOPROLOL 25 MG TAB PO SCH ×2 (08:48→21:00)
[2016-04-22] MEDS: CLOPIDOGREL 75 MG TAB PO SCH (08:48)
--- NOTE | 2016-04-22 08:50 | RADRPT ---
PROCEDURE: XR Chest. CLINICAL INDICATION: Shortness of breath. TECHNIQUE: Single frontal view. COMPARISON: 04/14/2016. FINDINGS: The right internal jugular vein tunneled dialysis catheter, nasogastric tube, left arm PICC line, an d left-sided dual lead permanent pacemaker remain in satisfactory position. Pulmonary edema is unch anged. The lungs are otherwise clear. The heart is enlarged. There is no pleural effusion. There is no pneumothorax. IMPRESSION: 1. No change from 04/14/2016. RPTAT: QQ .Ethan Fay MD, MD Date Time Electronically viewed and signed by .Ethan Fay MD, MD on 04/22/2016 08:50 .R/
--- NOTE | 2016-04-22 09:45 | PN ---
DATE: 04/22/2016 SUBJECTIVE: The patient remains critical. The patient remains on a facemask. Family is discussing the possibility of hospice. No other events noted. OBJECTIVE: VITAL SIGNS: Blood pressure 118/49, respirations 19, pulse 50, temperature 98.0. HEENT: Head is normocephalic. NECK: Supple. HEART: Regular rate. LUNGS: Showed diminished breath sounds at the base. ABDOMEN: Soft, nontender to palpation. No rebound or guarding. EXTREMITIES: Negative for clubbing or cyanosis. Positive edema. DERMATOLOGIC: No rashes. MUSCULOSKELETAL: Have no joint effusion. NEUROLOGIC: No change in exam. MEDICATIONS: The patient's medications have been reviewed. LABORATORY DATA: Shows sodium 135, potassium 4.3, chloride 93, BUN 106, creatinine 7.91, phosphorus 5.1, magnesium 2.8. ASSESSMENT AND PLAN: 1. End-stage renal disease. Plan for dialysis today for 3 hours on a 3K bath, calcium 2.5. Will u ltrafiltrate as tolerated. 2. Volume overload. Continue ultrafiltration with dialysis. 3. Acute systolic and diastolic heart failure. Continue the current medical management. 4. Continue to monitor hemoglobin and hematocrit levels. Continue Epogen. 5. Mineral bone disorder. Continue to monitor calcium and phosphorus levels. 6. Hypertension. Continue to monitor. 7. Respiratory failure secondary to congestive heart failure and pneumonia. The patient remains on a face mask. Continue. 8. Dysphagia. Will continue to monitor. 9. Non-ST elevation myocardial infarction. Continue medical management. 10. Peripheral vascular disease. 11. Encephalopathy. No change. Dictated By: ZULEMA STOVALL/MAXIMO Conf#: [id number] DID#: [id number]
--- NOTE | 2016-04-22 11:09 | CONS ---
Date/Time of Note Date/Time of Note DATE: 04/22/16 TIME: 11:08 Consult Date/Type/Reason Admit Date/Time Apr 04, 2016 at 15:15 Initial Consult Date 04/04/16 Type of Consultation: Cardiology Objective Vital Signs Date Time Temp Pulse Resp B/P Pulse Ox O2 Delivery O2 Flow Rate FiO2 04/22/16 08:28 54 20 96 Simple Mask 8.0 04/22/16 07:54 98.0 118/49 Intake and Output 04/21/16 04/21/16 04/22/16 15:00 23:00 07:00 Intake Total 340 ml 340 ml Balance 340 ml 340 ml Results/Medications Result Diagram: 04/22/16 0727 04/22/16 0724 Results 24 hrs Laboratory Tests Test 04/21/16 12:01 04/21/16 17:46 04/21/16 21:27 04/22/16 00:38 Bedside Glucose 172 178 190 186 Test 04/22/16 06:32 04/22/16 07:24 04/22/16 07:27 Bedside Glucose 194 Anion Gap 24 H Blood Urea Nitrogen 106 H Calcium Level 9.8 Carbon Dioxide Level 23 Chloride Level 93 L Creatinine 7.91 H Glucose Level 186 Magnesium Level 2.8 H Phosphorus Level 5.1 H Potassium Level 5.3 H Sodium Level 135 Basophils # 0.1 Basophils % 0.7 Blood Morphology Comment Eosinophils # 0.1 Eosinophils % 0.7 Hematocrit 27.7 L Hemoglobin 9.0 L Lymphocytes # 1.3 Lymphocytes % 11.4 L Mean Corpuscular Hemoglobin 31.6 Mean Corpuscular Hemoglobin Concent 32.7 Mean Corpuscular Volume 96.7 Mean Platelet Volume 10.9 H Monocytes # 0.9 Monocytes % 8.1 Neutrophils # 9.1 H Neutrophils % 79.1 H Nucleated Red Blood Cells # 0.0 Nucleated Red Blood Cells % 0.0 Platelet Count 148 Red Blood Count 2.86 L Red Cell Distribution Width 19.3 H White Blood Count 11.5 #H Medications Current Medications Lorazepam (Ativan) 0.5 mg Q6H PRN IV ANXIETY Last administered on 04/04/16at 20 :40; Admin Dose 0.5 MG; Start 04/04/16 at 15:30 Ondansetron HCl (Zofran Inj) 4 mg Q6H PRN IV NAUSEA AND/OR VOMITING; Start at 15:30 Ferrous Sulfate (Ferrous Sulfate (Ec)) 325 mg DAILY PO Last administered on 08:48; Admin Dose 325 MG; Start 04/05/16 at 09:00 Latanoprost (Xalatan) 1 drop QHS BOTH EYES Last administered on 04/21/16 21:36 ; Admin Dose 1 DROP; Start 04/04/16 at 21:00 Metoprolol Tartrate (Lopressor) 25 mg BID PO Last administered on 04/19/16 20: 28; Admin Dose 25 MG; Start 04/04/16 at 21:00 Polyethylene Glycol (Miralax) 17 gm DAILY PO Last administered on 04/22/16 08: 47; Admin Dose 17 GM; Start 04/05/16 at 09:00 Atorvastatin Calcium (Lipitor) 20 mg DAILY@21 PO Last administered on 21:34; Admin Dose 20 MG; Start 04/04/16 at 21:00 Miscellaneous Information 1 ea NOTE XX ; Start 04/04/16 at 16:00 Glucose (Glutose) 15 gm Q15M PRN PO DECREASED GLUCOSE; Start 04/04/16 at 16:00 Glucose (Glutose) 22.5 gm Q15M PRN PO DECREASED GLUCOSE; Start 04/04/16 at 16: 00 Dextrose (D50w Syringe) 25 ml Q15M PRN IV DECREASED GLUCOSE Last administered on 04/09/16 13:09; Admin Dose 25 ML; Start 04/04/16 at 16:00 Dextrose (D50w Syringe) 50 ml Q15M PRN IV DECREASED GLUCOSE; Start 04/04/16 at 16:00 Glucagon (Glucagen) 1 mg Q15M PRN IM DECREASED GLUCOSE; Start 04/04/16 at 16: 00 Glucose (Glutose) 15 gm Q15M PRN BUCCAL DECREASED GLUCOSE; Start 04/04/16 at 16:00 Tramadol HCl (Ultram) 50 mg Q6H PRN PO Pain Last administered on 04/19/16 23: 50; Admin Dose 50 MG; Start 04/04/16 at 16:30 Allopurinol (Zyloprim) 200 mg DAILY PO Last administered on 04/22/16 08:47; Admin Dose 200 MG; Start 04/05/16 at 09:00 Clopidogrel Bisulfate (plaVIX) 75 mg DAILY PO Last administered on 04/22/16 08 :48; Admin Dose 75 MG; Start 04/05/16 at 18:30 Pregabalin (Lyrica) 100 mg BID PO Last administered on 04/22/16 08:47; Admin Dose 100 MG; Start 04/05/16 at 21:00 Acetaminophen (Tylenol Supp) 650 mg Q6H PRN DC FEVER Last administered on 04/08at 14:12; Admin Dose 650 MG; Start 04/06/16 at 12:00 Apixaban (Eliquis) 2.5 mg BID PO Last administered on 04/22/16 08:48; Admin Dose 2.5 MG; Start 04/08/16 at 21:00 Hydralazine HCl (Apresoline) 5 mg Q6H PRN IV ELEVATED BLOOD PRESSURE; Start 04/09/16 at 11:30 Famotidine 20 mg 20 mg QHS PO Last administered on 04/21/16 21:36; Admin Dose 20 MG; Start 04/13/16 at 21:00 Meropenem/Sodium Chloride (Merrem/NS) 100 ml @ 200 mls/hr Q24H IVPB Last administered on 04/21/16 17:39; Admin Dose 200 MLS/HR; Start 04/15/16 at 16:30 Metoclopramide HCl 10 mg 10 mg Q6 IV Last administered on 04/22/16 06:36; Admin Dose 10 MG; Start 04/15/16 at 18:00 Sodium Chloride (NS) 1,000 ml @ 0 mls/hr Q0M PRN IV TO KEEP SBP ABOVE 90; Start 04/16/16 at 12:18 Insulin Aspart (Novolog Insulin Pen) NOVOLOG *MILD* ALGORI... Q6 SC Last administered on 04/22/16 06:41; Admin Dose 2 UNIT; Start 04/16/16 at 18:00 Insulin Glargine (Lantus) 30 unit QHS SC Last administered on 04/21/16 21:39; Admin Dose 30 UNIT; Start 04/19/16 at 21:00 Assessment/Plan Chief Complaint/Hosp Course Patient is 89 year old female with PMH of CAD pci of LAD, Severe mitral calcification with MS, CHF, ESRD on HD, Multiple TIA, PAD came in with SOB, Positive trop, intial plan was to take her to lab asst from ER but she was very SOB with craclkes, So brought to ICU. Will need HD, trend trop. had long discussion with family, daughter. Problems: Additional Assessment/Plan On MV stable cardiac caputo Pt doing fine plan for hospice ANH FRITZ MD Apr 22, 2016 11:09
--- NOTE | 2016-04-22 14:59 | PN ---
Date/Time of Note Date/Time of Note DATE: 04/22/16 TIME: 14:58 Assessment/Plan VTE Prophylaxis VTE Prophylaxis Intervention: SCD's Lines/Catheters IV Catheter Type (from Nrs): PERMACATH Assessment/Plan Chief Complaint/Hosp Course Assessment and plan 1. Acute hypoxic respiratory failure. [facility] has been consulted, continue supplemental oxygen facemask. Continue inhaled bronchodilators. 2. Non-ST elevation myocardial infarction. Status post percutaneous transluminal coronary angioplasty with stent to the right posterior descending artery. Continue anticoagulation. 3. Severe mitral stenosis with calcification. Monitor. 4. End-stage renal disease on hemodialysis. Continue dialysis as per nephrology. 5. Transient ischemic attack. Continue anticoagulation. 6. Sepsis secondary to pneumonia. Continue antibiotics as per infectious diseases. 7. 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 Will monitor H and H closely. 8. Type 2 diabetes mellitus. Continue sliding scale insulin. 9. Dysphagia. Continue NG tube feeding, follow residual 10. Hypothyroidism. Continue Synthroid. 11. History of multiple deep vein thromboses. Status post inferior vena cava filter placement. Continue factor Xa inhibitors. 12. Fluid, electrolytes, and nutrition. Continue NG tube feedings. 13. Deep venous thrombosis prophylaxis. Factor Xa inhibitors. 14. Gastrointestinal prophylaxis. Histamine 2 receptor blockers. PLAN: Continue current management. The patient is currently a DNR. Palliative care working with the patient's family. Continue NG tube feeding until 04/24/2016, family will decide regarding further feeding or stop feeding on Sunday Problems: Subjective 24 Hr Interval Summary Free Text/Dictation Patient continues to be lethargic Patient blood pressure was found to be in the low 80s yesterday and was treated with 500 cc of IV fluid/normal saline NG tube in place Minimal respond to pain stimuli Exam/Review of Systems Vital Signs Vitals Vital Signs Date Time Temp Pulse Resp B/P Pulse Ox O2 Delivery O2 Flow Rate FiO2 04/22/16 12:40 56 22 97 Simple Mask 8.0 04/22/16 12:04 98.0 95/46 Intake and Output 04/21/16 04/21/16 04/22/16 15:00 23:00 07:00 Intake Total 340 ml 340 ml Balance 340 ml 340 ml Exam General: The patient is lethargic and cachectic HEENT: Atraumatic, normocephalic. The pupils are equal and round . Neck: Supple with full range of motion. Chest: Normal expansion of the thorax during inspiration Lungs: Clear to auscultation bilaterally Heart: Normal S1-S2, Regular rhythm and rate. Abdomen: Soft , nontender, nondistended , bowel sounds are present. Extremities: Normal to inspection, +1 edema no cyanosis Neurologic: Minimal response Results Result Diagram: 04/22/16 0727 04/22/16 0724 Results 24 hrs Laboratory Tests Test 04/21/16 17:46 04/21/16 21:27 04/22/16 00:38 04/22/16 06:32 Bedside Glucose 178 190 186 194 Test 04/22/16 07:24 04/22/16 07:27 04/22/16 09:40 04/22/16 12:48 Anion Gap 24 H Blood Urea Nitrogen 106 H Calcium Level 9.8 Carbon Dioxide Level 23 Chloride Level 93 L Creatinine 7.91 H Glucose Level 186 Magnesium Level 2.8 H Phosphorus Level 5.1 H Potassium Level 5.3 H Sodium Level 135 Basophils # 0.1 Basophils % 0.7 Blood Morphology Comment Eosinophils # 0.1 Eosinophils % 0.7 Hematocrit 27.7 L Hemoglobin 9.0 L Lymphocytes # 1.3 Lymphocytes % 11.4 L Mean Corpuscular Hemoglobin 31.6 Mean Corpuscular Hemoglobin Concent 32.7 Mean Corpuscular Volume 96.7 Mean Platelet Volume 10.9 H Monocytes # 0.9 Monocytes % 8.1 Neutrophils # 9.1 H Neutrophils % 79.1 H Nucleated Red Blood Cells # 0.0 Nucleated Red Blood Cells % 0.0 Platelet Count 148 Red Blood Count 2.86 L Red Cell Distribution Width 19.3 H White Blood Count 11.5 #H Stool Occult Blood POSITIVE Bedside Glucose 217 Medications Medications Current Medications Lorazepam (Ativan) 0.5 mg Q6H PRN IV ANXIETY Last administered on 04/04/16at 20 :40; Admin Dose 0.5 MG; Start 04/04/16 at 15:30 Ondansetron HCl (Zofran Inj) 4 mg Q6H PRN IV NAUSEA AND/OR VOMITING; Start at 15:30 Ferrous Sulfate (Ferrous Sulfate (Ec)) 325 mg DAILY PO Last administered on t 08:48; Admin Dose 325 MG; Start 04/05/16 at 09:00 Latanoprost (Xalatan) 1 drop QHS BOTH EYES Last administered on 04/21/16 21:36 ; Admin Dose 1 DROP; Start 04/04/16 at 21:00 Metoprolol Tartrate (Lopressor) 25 mg BID PO Last administered on 04/19/16 20: 28; Admin Dose 25 MG; Start 04/04/16 at 21:00 Polyethylene Glycol (Miralax) 17 gm DAILY PO Last administered on 04/22/16 08: 47; Admin Dose 17 GM; Start 04/05/16 at 09:00 Atorvastatin Calcium (Lipitor) 20 mg DAILY@21 PO Last administered on 21:34; Admin Dose 20 MG; Start 04/04/16 at 21:00 Miscellaneous Information 1 ea NOTE XX ; Start 04/04/16 at 16:00 Glucose (Glutose) 15 gm Q15M PRN PO DECREASED GLUCOSE; Start 04/04/16 at 16:00 Glucose (Glutose) 22.5 gm Q15M PRN PO DECREASED GLUCOSE; Start 04/04/16 at 16: 00 Dextrose (D50w Syringe) 25 ml Q15M PRN IV DECREASED GLUCOSE Last administered on 04/09/16 13:09; Admin Dose 25 ML; Start 04/04/16 at 16:00 Dextrose (D50w Syringe) 50 ml Q15M PRN IV DECREASED GLUCOSE; Start 04/04/16 at 16:00 Glucagon (Glucagen) 1 mg Q15M PRN IM DECREASED GLUCOSE; Start 04/04/16 at 16: 00 Glucose (Glutose) 15 gm Q15M PRN BUCCAL DECREASED GLUCOSE; Start 04/04/16 at 16:00 Tramadol HCl (Ultram) 50 mg Q6H PRN PO Pain Last administered on 04/19/16 23: 50; Admin Dose 50 MG; Start 04/04/16 at 16:30 Allopurinol (Zyloprim) 200 mg DAILY PO Last administered on 04/22/16 08:47; Admin Dose 200 MG; Start 04/05/16 at 09:00 Clopidogrel Bisulfate (plaVIX) 75 mg DAILY PO Last administered on 04/22/16 08 :48; Admin Dose 75 MG; Start 04/05/16 at 18:30 Pregabalin (Lyrica) 100 mg BID PO Last administered on 04/22/16 08:47; Admin Dose 100 MG; Start 04/05/16 at 21:00 Acetaminophen (Tylenol Supp) 650 mg Q6H PRN RI FEVER Last administered on 04/08at 14:12; Admin Dose 650 MG; Start 04/06/16 at 12:00 Apixaban (Eliquis) 2.5 mg BID PO Last administered on 04/22/16 08:48; Admin Dose 2.5 MG; Start 04/08/16 at 21:00 Hydralazine HCl (Apresoline) 5 mg Q6H PRN IV ELEVATED BLOOD PRESSURE; Start 04/09/16 at 11:30 Famotidine 20 mg 20 mg QHS PO Last administered on 04/21/16 21:36; Admin Dose 20 MG; Start 04/13/16 at 21:00 Meropenem/Sodium Chloride (Merrem/NS) 100 ml @ 200 mls/hr Q24H IVPB Last administered on 04/21/16 17:39; Admin Dose 200 MLS/HR; Start 04/15/16 at 16:30 Metoclopramide HCl 10 mg 10 mg Q6 IV Last administered on 04/22/16 12:46; Admin Dose 10 MG; Start 04/15/16 at 18:00 Sodium Chloride (NS) 1,000 ml @ 0 mls/hr Q0M PRN IV TO KEEP SBP ABOVE 90; Start 04/16/16 at 12:18 Insulin Aspart (Novolog Insulin Pen) NOVOLOG *MILD* ALGORI... Q6 SC Last administered on 04/22/16 12:52; Admin Dose 2 UNIT; Start 04/16/16 at 18:00 Insulin Glargine (Lantus) 30 unit QHS SC Last administered on 04/21/16 21:39; Admin Dose 30 UNIT; Start 04/19/16 at 21:00 FRANKI RUSHING MD Apr 22, 2016 14:59
[2016-04-22] MEDS: ALBUMIN HUMAN 25% 100 ML IV PRN (16:16)
[2016-04-22] MEDS: MEROPENEM 500 MG in SOD CHLORIDE 0.9% 100 ML IVPB SCH (17:37)
[2016-04-22] MEDS: FAMOTIDINE 20 MG TAB PO SCH (21:48)
[2016-04-22] MEDS: ATORVASTATIN 20 MG TAB PO SCH (21:48)
[2016-04-22] MEDS: INSULIN GLARGINE [LANtus] 3 ML PEN SC SCH (21:59)
[2016-04-22] MEDS: LATANOPROST 0.005% 2.5 ML OPH BOTH EYES SCH (22:00)
[2016-04-23] VITALS (19 sets, daily range): BP systolic 65–119; BP diastolic 35–61; PULSE 49–55; RESP 17–22
[2016-04-23] MEDS: METOCLOPRAMIDE 10 MG INJ IV SCH ×4 (00:32→17:01)
[2016-04-23] MEDS: INSULIN ASPART [NOVOLOG] 3 ML PEN SC SCH ×4 (00:37→18:05)
[2016-04-23] MEDS ORDERED: SOD CHLORIDE 0.9% 500 ML IV ONE (04:00)
[2016-04-23] MEDS: LEVOTHYROXINE 100 MCG TAB PO SCH (06:18)
[2016-04-23 08:03] LABS: POTASSIUM 3.9 mmol/L (3.5-5.1)
[2016-04-23 08:05] LABS: CREATININE 5.12 mg/dl (0.44-1.00)
[2016-04-23 08:06] LABS: CALCIUM 9.2 mg/dl (8.4-10.2); PHOSPHORUS 3.8 mg/dl (2.5-4.9)
[2016-04-23 08:07] LABS: MAGNESIUM 2.5 mg/dl (1.7-2.5)
[2016-04-23] MEDS: ALBUTEROL/IPRATROPIUM (NEB) 3 ML AMP HHN SCH ×4 (08:15→20:58)
[2016-04-23] MEDS: APIXABAN 5 MG TABLET PO SCH ×2 (08:30→21:19)
[2016-04-23] MEDS: ALLOPURINOL 100 MG TAB PO SCH (08:30)
[2016-04-23] MEDS: POLYETHYLENE GLYCOL 17 GM PACKET PO SCH (08:30)
[2016-04-23] MEDS: PREGABALIN 25 MG CAP PO SCH ×2 (08:30→21:19)
[2016-04-23] MEDS: CLOPIDOGREL 75 MG TAB PO SCH (08:30)
[2016-04-23] MEDS: FERROUS SULFATE (EC) 325 MG TAB PO SCH (08:30)
[2016-04-23] MEDS: METOPROLOL 25 MG TAB PO SCH ×2 (08:33→21:00)
--- NOTE | 2016-04-23 12:24 | PN ---
Date/Time of Note Date/Time of Note DATE: 04/23/16 TIME: 12:22 Assessment/Plan VTE Prophylaxis VTE Prophylaxis Intervention: SCD's Lines/Catheters IV Catheter Type (from [facility]): Permacath Urinary Cath still in place: No Assessment/Plan Chief Complaint/Hosp Course Assessment and plan 1. Acute hypoxic respiratory failure. [facility] has been consulted, continue supplemental oxygen facemask. Continue inhaled bronchodilators. 2. Non-ST elevation myocardial infarction. Status post percutaneous transluminal coronary angioplasty with stent to the right posterior descending artery. Continue anticoagulation. 3. Severe mitral stenosis with calcification. Monitor. 4. End-stage renal disease on hemodialysis. Continue dialysis as per nephrology. 5. Transient ischemic attack. Continue anticoagulation. 6. Sepsis secondary to pneumonia. Continue antibiotics as per infectious diseases. 7. 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 Will monitor H and H closely. 8. Type 2 diabetes mellitus. Continue sliding scale insulin. 9. Dysphagia. Continue NG tube feeding, follow residual 10. Hypothyroidism. Continue Synthroid. 11. History of multiple deep vein thromboses. Status post inferior vena cava filter placement. Continue factor Xa inhibitors. 12. Fluid, electrolytes, and nutrition. Continue NG tube feedings. 13. Deep venous thrombosis prophylaxis. Factor Xa inhibitors. 14. Gastrointestinal prophylaxis. Histamine 2 receptor blockers. PLAN: Continue current management. The patient is currently a DNR. Palliative care working with the patient's family. Continue NG tube feeding until 04/24/2016, family will decide regarding further feeding or stop feeding on Sunday Problems: Subjective 24 Hr Interval Summary Free Text/Dictation No acute changes Patient is found to be very lethargic Exam/Review of Systems Vital Signs Vitals Vital Signs Date Time Temp Pulse Resp B/P Pulse Ox O2 Delivery O2 Flow Rate FiO2 04/23/16 12:15 98.0 50 17 114/45 99 04/23/16 08:16 Simple Mask 6.0 Intake and Output 04/22/16 04/22/16 04/23/16 15:00 23:00 07:00 Intake Total 840 ml 440 ml Output Total 2500 ml Balance -1660 ml 440 ml Exam General: The patient is lethargic, Not in acute distress. NG-tube in place HEENT: Atraumatic, normocephalic. The pupils are symmetric Neck: Supple Chest: Normal Lungs: Lamb breath sounds bilateral lower lung field Heart: Normal S1-S2, Regular rhythm and rate. Abdomen: Soft , nontender, nondistended , bowel sounds are present. Extremities: Normal to inspection, +2 edema no cyanosis Neurologic: Minimal response to pain or verbal stimuli Results Result Diagram: 04/22/16 0727 04/23/16 0620 Results 24 hrs Laboratory Tests Test 04/22/16 12:48 04/22/16 17:40 04/22/16 21:51 04/23/16 00:31 Bedside Glucose 217 176 179 172 Test 04/23/16 03:40 04/23/16 05:53 04/23/16 06:20 04/23/16 12:05 Bedside Glucose 151 122 141 Anion Gap 20 H Blood Urea Nitrogen 62 #H Calcium Level 9.2 Carbon Dioxide Level 28 Chloride Level 94 L Creatinine 5.12 #H Glucose Level 105 # Magnesium Level 2.5 Phosphorus Level 3.8 Potassium Level 3.9 Sodium Level 138 Medications Medications Current Medications Lorazepam (Ativan) 0.5 mg Q6H PRN IV ANXIETY Last administered on 04/04/16at 20 :40; Admin Dose 0.5 MG; Start 04/04/16 at 15:30 Ondansetron HCl (Zofran Inj) 4 mg Q6H PRN IV NAUSEA AND/OR VOMITING; Start at 15:30 Ferrous Sulfate (Ferrous Sulfate (Ec)) 325 mg DAILY PO Last administered on 08:30; Admin Dose 325 MG; Start 04/05/16 at 09:00 Latanoprost (Xalatan) 1 drop QHS BOTH EYES Last administered on 04/22/16 22:00 ; Admin Dose 1 DROP; Start 04/04/16 at 21:00 Metoprolol Tartrate (Lopressor) 25 mg BID PO Last administered on 04/19/16 20: 28; Admin Dose 25 MG; Start 04/04/16 at 21:00 Polyethylene Glycol (Miralax) 17 gm DAILY PO Last administered on 04/23/16 08: 30; Admin Dose 17 GM; Start 04/05/16 at 09:00 Atorvastatin Calcium (Lipitor) 20 mg DAILY@21 PO Last administered on 21:48; Admin Dose 20 MG; Start 04/04/16 at 21:00 Miscellaneous Information 1 ea NOTE XX ; Start 04/04/16 at 16:00 Glucose (Glutose) 15 gm Q15M PRN PO DECREASED GLUCOSE; Start 04/04/16 at 16:00 Glucose (Glutose) 22.5 gm Q15M PRN PO DECREASED GLUCOSE; Start 04/04/16 at 16: 00 Dextrose (D50w Syringe) 25 ml Q15M PRN IV DECREASED GLUCOSE Last administered on 04/09/16 13:09; Admin Dose 25 ML; Start 04/04/16 at 16:00 Dextrose (D50w Syringe) 50 ml Q15M PRN IV DECREASED GLUCOSE; Start 04/04/16 at 16:00 Glucagon (Glucagen) 1 mg Q15M PRN IM DECREASED GLUCOSE; Start 04/04/16 at 16: 00 Glucose (Glutose) 15 gm Q15M PRN BUCCAL DECREASED GLUCOSE; Start 04/04/16 at 16:00 Tramadol HCl (Ultram) 50 mg Q6H PRN PO Pain Last administered on 04/19/16 23: 50; Admin Dose 50 MG; Start 04/04/16 at 16:30 Allopurinol (Zyloprim) 200 mg DAILY PO Last administered on 04/23/16 08:30; Admin Dose 200 MG; Start 04/05/16 at 09:00 Clopidogrel Bisulfate (plaVIX) 75 mg DAILY PO Last administered on 04/23/16 08 :30; Admin Dose 75 MG; Start 04/05/16 at 18:30 Pregabalin (Lyrica) 100 mg BID PO Last administered on 04/23/16 08:30; Admin Dose 100 MG; Start 04/05/16 at 21:00 Acetaminophen (Tylenol Supp) 650 mg Q6H PRN MD FEVER Last administered on 04/08at 14:12; Admin Dose 650 MG; Start 04/06/16 at 12:00 Apixaban (Eliquis) 2.5 mg BID PO Last administered on 04/22/16 21:48; Admin Dose 2.5 MG; Start 04/08/16 at 21:00 Hydralazine HCl (Apresoline) 5 mg Q6H PRN IV ELEVATED BLOOD PRESSURE; Start 04/09/16 at 11:30 Famotidine 20 mg 20 mg QHS PO Last administered on 04/22/16 21:48; Admin Dose 20 MG; Start 04/13/16 at 21:00 Meropenem/Sodium Chloride (Merrem/NS) 100 ml @ 200 mls/hr Q24H IVPB Last administered on 04/22/16 17:37; Admin Dose 200 MLS/HR; Start 04/15/16 at 16:30 Metoclopramide HCl 10 mg 10 mg Q6 IV Last administered on 04/23/16 12:07; Admin Dose 10 MG; Start 04/15/16 at 18:00 Sodium Chloride (NS) 1,000 ml @ 0 mls/hr Q0M PRN IV TO KEEP SBP ABOVE 90; Start 04/16/16 at 12:18 Insulin Aspart (Novolog Insulin Pen) NOVOLOG *MILD* ALGORI... Q6 SC Last administered on 04/23/16 12:08; Admin Dose 1 UNIT; Start 04/16/16 at 18:00 Insulin Glargine (Lantus) 30 unit QHS SC Last administered on 04/22/16 21:59; Admin Dose 30 UNIT; Start 04/19/16 at 21:00 FRANKI RUSHING MD Apr 23, 2016 12:24
--- NOTE | 2016-04-23 12:47 | CONS ---
Date/Time of Note Date/Time of Note DATE: 04/23/16 TIME: 12:46 Consult Date/Type/Reason Admit Date/Time Apr 04, 2016 at 15:15 Initial Consult Date 04/04/16 Type of Consultation: Cardiology Objective Vital Signs Date Time Temp Pulse Resp B/P Pulse Ox O2 Delivery O2 Flow Rate FiO2 04/23/16 12:15 98.0 50 17 114/45 99 04/23/16 08:16 Simple Mask 6.0 Intake and Output 04/22/16 04/22/16 04/23/16 15:00 23:00 07:00 Intake Total 840 ml 440 ml Output Total 2500 ml Balance -1660 ml 440 ml Results/Medications Result Diagram: 04/22/16 0727 04/23/16 0620 Results 24 hrs Laboratory Tests Test 04/22/16 12:48 04/22/16 17:40 04/22/16 21:51 04/23/16 00:31 Bedside Glucose 217 176 179 172 Test 04/23/16 03:40 04/23/16 05:53 04/23/16 06:20 04/23/16 12:05 Bedside Glucose 151 122 141 Anion Gap 20 H Blood Urea Nitrogen 62 #H Calcium Level 9.2 Carbon Dioxide Level 28 Chloride Level 94 L Creatinine 5.12 #H Glucose Level 105 # Magnesium Level 2.5 Phosphorus Level 3.8 Potassium Level 3.9 Sodium Level 138 Medications Current Medications Lorazepam (Ativan) 0.5 mg Q6H PRN IV ANXIETY Last administered on 04/04/16at 20 :40; Admin Dose 0.5 MG; Start 04/04/16 at 15:30 Ondansetron HCl (Zofran Inj) 4 mg Q6H PRN IV NAUSEA AND/OR VOMITING; Start at 15:30 Ferrous Sulfate (Ferrous Sulfate (Ec)) 325 mg DAILY PO Last administered on 08:30; Admin Dose 325 MG; Start 04/05/16 at 09:00 Latanoprost (Xalatan) 1 drop QHS BOTH EYES Last administered on 04/22/16 22:00 ; Admin Dose 1 DROP; Start 04/04/16 at 21:00 Metoprolol Tartrate (Lopressor) 25 mg BID PO Last administered on 04/19/16 20: 28; Admin Dose 25 MG; Start 04/04/16 at 21:00 Polyethylene Glycol (Miralax) 17 gm DAILY PO Last administered on 04/23/16 08: 30; Admin Dose 17 GM; Start 04/05/16 at 09:00 Atorvastatin Calcium (Lipitor) 20 mg DAILY@21 PO Last administered on 21:48; Admin Dose 20 MG; Start 04/04/16 at 21:00 Miscellaneous Information 1 ea NOTE XX ; Start 04/04/16 at 16:00 Glucose (Glutose) 15 gm Q15M PRN PO DECREASED GLUCOSE; Start 04/04/16 at 16:00 Glucose (Glutose) 22.5 gm Q15M PRN PO DECREASED GLUCOSE; Start 04/04/16 at 16: 00 Dextrose (D50w Syringe) 25 ml Q15M PRN IV DECREASED GLUCOSE Last administered on 04/09/16 13:09; Admin Dose 25 ML; Start 04/04/16 at 16:00 Dextrose (D50w Syringe) 50 ml Q15M PRN IV DECREASED GLUCOSE; Start 04/04/16 at 16:00 Glucagon (Glucagen) 1 mg Q15M PRN IM DECREASED GLUCOSE; Start 04/04/16 at 16: 00 Glucose (Glutose) 15 gm Q15M PRN BUCCAL DECREASED GLUCOSE; Start 04/04/16 at 16:00 Tramadol HCl (Ultram) 50 mg Q6H PRN PO Pain Last administered on 04/19/16 23: 50; Admin Dose 50 MG; Start 04/04/16 at 16:30 Allopurinol (Zyloprim) 200 mg DAILY PO Last administered on 04/23/16 08:30; Admin Dose 200 MG; Start 04/05/16 at 09:00 Clopidogrel Bisulfate (plaVIX) 75 mg DAILY PO Last administered on 04/23/16 08 :30; Admin Dose 75 MG; Start 04/05/16 at 18:30 Pregabalin (Lyrica) 100 mg BID PO Last administered on 04/23/16 08:30; Admin Dose 100 MG; Start 04/05/16 at 21:00 Acetaminophen (Tylenol Supp) 650 mg Q6H PRN [place] FEVER Last administered on 04/08at 14:12; Admin Dose 650 MG; Start 04/06/16 at 12:00 Apixaban (Eliquis) 2.5 mg BID PO Last administered on 04/22/16 21:48; Admin Dose 2.5 MG; Start 04/08/16 at 21:00 Hydralazine HCl (Apresoline) 5 mg Q6H PRN IV ELEVATED BLOOD PRESSURE; Start 04/09/16 at 11:30 Famotidine 20 mg 20 mg QHS PO Last administered on 04/22/16 21:48; Admin Dose 20 MG; Start 04/13/16 at 21:00 Meropenem/Sodium Chloride (Merrem/NS) 100 ml @ 200 mls/hr Q24H IVPB Last administered on 04/22/16 17:37; Admin Dose 200 MLS/HR; Start 04/15/16 at 16:30 Metoclopramide HCl 10 mg 10 mg Q6 IV Last administered on 04/23/16 12:07; Admin Dose 10 MG; Start 04/15/16 at 18:00 Sodium Chloride (NS) 1,000 ml @ 0 mls/hr Q0M PRN IV TO KEEP SBP ABOVE 90; Start 04/16/16 at 12:18 Insulin Aspart (Novolog Insulin Pen) NOVOLOG *MILD* ALGORI... Q6 SC Last administered on 04/23/16 12:08; Admin Dose 1 UNIT; Start 04/16/16 at 18:00 Insulin Glargine (Lantus) 30 unit QHS SC Last administered on 04/22/16 21:59; Admin Dose 30 UNIT; Start 04/19/16 at 21:00 Assessment/Plan Chief Complaint/Hosp Course Patient is 89 year old female with PMH of CAD pci of LAD, Severe mitral calcification with MS, CHF, ESRD on HD, Multiple TIA, PAD came in with SOB, Positive trop, intial plan was to take her to [facility] from ER but she was very SOB with craclkes, So brought to ICU. Will need HD, trend trop. had long discussion with family, daughter. Problems: Additional Assessment/Plan Post HD right now feeling fine plan for SNF d/c planning f/u out pt ANH FRITZ MD Apr 23, 2016 12:47
[2016-04-23] MEDS: traMADol 50 MG TAB PO PRN (15:44)
--- NOTE | 2016-04-23 16:18 | PN ---
DATE: 04/23/2016 SUBJECTIVE: The patient had hemodialysis yesterday with 2 liters removed. The patient remains on f acemask and remains frail and critical. No other events noted. OBJECTIVE: VITAL SIGNS: Blood pressure 88/49, respiration 17, pulse 60, temperature 98.1. HEENT: Head is normocephalic. NECK: Supple. HEART: Regular rate. LUNGS: Show diminished breath sounds at base. ABDOMEN: Soft, nontender to palpation. No rebound or guarding. EXTREMITIES: Negative for clubbing, cyanosis, or edema. DERMATOLOGIC: No rashes. MUSCULOSKELETAL: No joint effusions. NEUROLOGIC: No change in exam. MEDICATIONS: Reviewed. LABORATORY DATA: Shows sodium 138, potassium 3.9, BUN 64, creatinine 5.2. White count 11.5, hemogl obin 9.0, hematocrit is 27.7, platelet count 148. ASSESSMENT AND PLAN: 1. End-stage renal disease. The patient had hemodialysis yesterday, tolerated well. Plan for dial ysis tomorrow. 2. Volume overload. We will continue ultrafiltration dialysis. 3. Acute systolic, diastolic heart failure. Continue current medical management. 4. Anemia. Continue to monitor hemoglobin levels. Continue Epogen. 5. Mineral bone . 6. Hypertension. Continue current blood pressure regimen. 6. Respiratory failure secondary to congestive heart failure, pneumonia. Continue current medical management. Continue ultrafiltration dialysis. The patient remains on facemask. 7. Dysphagia. Continue tube feeding. 8. Non-ST elevation myocardial infarction, status post medical management. 9. Peripheral vascular disease. 10. Encephalopathy. No change. Dictated By: ZULEMA STOVALL/MAXIMO Conf#: [id number] DID#: [id number]
[2016-04-23] MEDS: MEROPENEM 500 MG in SOD CHLORIDE 0.9% 100 ML IVPB SCH (16:58)
--- NOTE | 2016-04-23 18:54 | PN ---
DATE: 04/23/2016 SUBJECTIVE: The patient remains largely somnolent on facemask O2. Family at bedside. She requires frequent pulmonary toilet. Continues nasogastric tube feeding. PHYSICAL EXAMINATION: VITAL SIGNS: Temperature 98, pulse is 50, blood pressure 114/50, O2 saturation 96% on 6 L facemask. NECK: Supple. No JVD or lymphadenopathy. CARDIAC: S1, S2. No added sounds or murmurs. CHEST: Diminished air entry bilaterally. ABDOMEN: Soft, nontender, obese. EXTREMITIES: No cyanosis, clubbing, edema. NEUROLOGIC: Generalized weakness. LABORATORY DATA: White count 11.5, hemoglobin 9.5, platelets 148. BUN 62, creatinine 5.12. IMPRESSION AND PLAN: 1. Congestive cardiac failure with hypoxemic respiratory failure. 2. Encephalopathy. 3. Dysphagia with aspiration. 4. Encephalopathy. 5. End-stage renal failure on hemodialysis. I had an extensive discussion with the patient's daughter at bedside and explained that prognosis is very poor and the patient is unlikely to survive this event. The patient's daughter understands th is and will switch to [facility] inpatient hospice, once her daughter is present tomorrow afternoon and w ants to be engaged in this discussion. For now, continue supportive care. We discussed withdrawing hemodialysis and antibiotics and focusing on comfort measures, which she is in agreement with. Dictated By: OSIRIS REYNOLDS MD SV/MAXIMO Conf#: [id number] DID#: [id number] CC: DUANE CORNELIUS MD;*EndCC*
[2016-04-23] MEDS: ATORVASTATIN 20 MG TAB PO SCH (21:19)
[2016-04-23] MEDS: LATANOPROST 0.005% 2.5 ML OPH BOTH EYES SCH (21:19)
[2016-04-23] MEDS: FAMOTIDINE 20 MG TAB PO SCH (21:19)
[2016-04-23] MEDS: INSULIN GLARGINE [LANtus] 3 ML PEN SC SCH (21:22)
[2016-04-24] VITALS (21 sets, daily range): BP systolic 71–107; BP diastolic 29–53; PULSE 49–51; RESP 19–22
[2016-04-24] MEDS: METOCLOPRAMIDE 10 MG INJ IV SCH ×4 (01:00→17:53)
[2016-04-24] MEDS: INSULIN ASPART [NOVOLOG] 3 ML PEN SC SCH ×4 (01:02→17:49)
[2016-04-24 06:26] LABS: BASOPHILS % 0.1 % (0.0-2.0); EOSINOPHILS # 0.1 10^3/ul (0.0-0.5); EOSINOPHILS % 1.2 % (0.0-7.0); HEMOGLOBIN 8.4 g/dl (12.0-16.0); LYMPHOCYTES # 1.3 10^3/ul (0.8-2.9); LYMPHOCYTES % 13.8 % (15.0-51.0); MEAN CORPUSCULAR HEMOGLOBIN 31.3 pg (29.0-33.0); MEAN CORPUSCULAR HGB CONC 32.3 g/dl (32.0-37.0); MEAN CORPUSCULAR VOLUME 96.9 fl (82.0-101.0); MEAN PLATELET VOLUME 11.2 fl (7.4-10.4); MONOCYTE # 0.8 10^3/ul (0.3-0.9); MONOCYTES % 8.5 % (0.0-11.0); NEUTROPHILS % 76.4 % (39.0-77.0); PLATELET COUNT 106 10^3/UL (140-440); RED BLOOD COUNT 2.68 10^6/ul (4.20-5.40); RED CELL DISTRIBUTION WIDTH 20.7 % (11.5-14.5); UNCORRECTED WBC 9.2 10^3/ul (4.8-10.8); WHITE BLOOD COUNT 9.2 10^3/ul (4.8-10.8)
[2016-04-24 06:28] LABS: CONDITION 1; LH ANALYZER COMMENTS 1; SUSPECT 1
[2016-04-24 06:33] LABS: POTASSIUM 4.3 mmol/L (3.5-5.1)
[2016-04-24 06:35] LABS: CREATININE 6.31 mg/dl (0.44-1.00)
[2016-04-24 06:36] LABS: CALCIUM 9.4 mg/dl (8.4-10.2)
[2016-04-24] MEDS: LEVOTHYROXINE 100 MCG TAB PO SCH (06:45)
[2016-04-24] MEDS: ALBUTEROL/IPRATROPIUM (NEB) 3 ML AMP HHN SCH ×4 (08:50→20:52)
[2016-04-24] MEDS ORDERED: ALBUMIN HUMAN 25% 100 ML IV ONE (09:00)
[2016-04-24] MEDS: METOPROLOL 25 MG TAB PO SCH ×2 (09:00→21:00)
--- NOTE | 2016-04-24 09:20 | CONS ---
Date/Time of Note Date/Time of Note DATE: 04/24/16 TIME: 09:19 Consult Date/Type/Reason Admit Date/Time Apr 04, 2016 at 15:15 Initial Consult Date 04/04/16 Type of Consultation: Cardiology Objective Vital Signs Date Time Temp Pulse Resp B/P Pulse Ox O2 Delivery O2 Flow Rate FiO2 04/24/16 08:55 50 04/24/16 08:21 97.9 19 71/29 98 04/24/16 02:02 6.0 04/24/16 01:00 Simple Mask Intake and Output 04/23/16 04/23/16 04/24/16 15:00 23:00 07:00 Intake Total 340 ml 80 ml Balance 340 ml 80 ml Results/Medications Result Diagram: 04/24/1651904/24/16519 Results 24 hrs Laboratory Tests Test 04/23/16 12:05 04/23/16 18:01 04/23/16 21:17 04/24/16 01:01 Bedside Glucose 141 150 143 136 Test 04/24/16 05:20 04/24/16 06:31 Anion Gap 19 H Basophils # 0.0 Basophils % 0.1 Blood Morphology Comment Blood Urea Nitrogen 74 H Calcium Level 9.4 Carbon Dioxide Level 27 Chloride Level 95 L Creatinine 6.31 H Eosinophils # 0.1 Eosinophils % 1.2 Glucose Level 150 Hematocrit 26.0 L Hemoglobin 8.4 L Lymphocytes # 1.3 Lymphocytes % 13.8 L Mean Corpuscular Hemoglobin 31.3 Mean Corpuscular Hemoglobin Concent 32.3 Mean Corpuscular Volume 96.9 Mean Platelet Volume 11.2 H Monocytes # 0.8 Monocytes % 8.5 Neutrophils # 7.0 Neutrophils % 76.4 Nucleated Red Blood Cells # 0.0 Nucleated Red Blood Cells % 0.0 Platelet Count 106 #L Potassium Level 4.3 Red Blood Count 2.68 L Red Cell Distribution Width 20.7 H Sodium Level 137 White Blood Count 9.2 Bedside Glucose 172 Medications Current Medications Lorazepam (Ativan) 0.5 mg Q6H PRN IV ANXIETY Last administered on 04/04/16at 20 :40; Admin Dose 0.5 MG; Start 04/04/16 at 15:30 Ondansetron HCl (Zofran Inj) 4 mg Q6H PRN IV NAUSEA AND/OR VOMITING; Start at 15:30 Ferrous Sulfate (Ferrous Sulfate (Ec)) 325 mg DAILY PO Last administered on 08:30; Admin Dose 325 MG; Start 04/05/16 at 09:00 Latanoprost (Xalatan) 1 drop QHS BOTH EYES Last administered on 04/23/16 21:19 ; Admin Dose 1 DROP; Start 04/04/16 at 21:00 Metoprolol Tartrate (Lopressor) 25 mg BID PO Last administered on 04/19/16 20: 28; Admin Dose 25 MG; Start 04/04/16 at 21:00 Polyethylene Glycol (Miralax) 17 gm DAILY PO Last administered on 04/23/16 08: 30; Admin Dose 17 GM; Start 04/05/16 at 09:00 Atorvastatin Calcium (Lipitor) 20 mg DAILY@21 PO Last administered on 21:19; Admin Dose 20 MG; Start 04/04/16 at 21:00 Miscellaneous Information 1 ea NOTE XX ; Start 04/04/16 at 16:00 Glucose (Glutose) 15 gm Q15M PRN PO DECREASED GLUCOSE; Start 04/04/16 at 16:00 Glucose (Glutose) 22.5 gm Q15M PRN PO DECREASED GLUCOSE; Start 04/04/16 at 16: 00 Dextrose (D50w Syringe) 25 ml Q15M PRN IV DECREASED GLUCOSE Last administered on 04/09/16 13:09; Admin Dose 25 ML; Start 04/04/16 at 16:00 Dextrose (D50w Syringe) 50 ml Q15M PRN IV DECREASED GLUCOSE; Start 04/04/16 at 16:00 Glucagon (Glucagen) 1 mg Q15M PRN IM DECREASED GLUCOSE; Start 04/04/16 at 16: 00 Glucose (Glutose) 15 gm Q15M PRN BUCCAL DECREASED GLUCOSE; Start 04/04/16 at 16:00 Allopurinol (Zyloprim) 200 mg DAILY PO Last administered on 04/23/16 08:30; Admin Dose 200 MG; Start 04/05/16 at 09:00 Clopidogrel Bisulfate (plaVIX) 75 mg DAILY PO Last administered on 04/23/16 08 :30; Admin Dose 75 MG; Start 04/05/16 at 18:30 Pregabalin (Lyrica) 100 mg BID PO Last administered on 04/23/16 21:19; Admin Dose 100 MG; Start 04/05/16 at 21:00 Acetaminophen (Tylenol Supp) 650 mg Q6H PRN [place] FEVER Last administered on 04/08at 14:12; Admin Dose 650 MG; Start 04/06/16 at 12:00 Apixaban (Eliquis) 2.5 mg BID PO Last administered on 04/23/16 21:19; Admin Dose 2.5 MG; Start 04/08/16 at 21:00 Hydralazine HCl (Apresoline) 5 mg Q6H PRN IV ELEVATED BLOOD PRESSURE; Start 04/09/16 at 11:30 Famotidine 20 mg 20 mg QHS PO Last administered on 04/23/16 21:19; Admin Dose 20 MG; Start 04/13/16 at 21:00 Meropenem/Sodium Chloride (Merrem/NS) 100 ml @ 200 mls/hr Q24H IVPB Last administered on 04/23/16 16:58; Admin Dose 200 MLS/HR; Start 04/15/16 at 16:30 Metoclopramide HCl 10 mg 10 mg Q6 IV Last administered on 04/24/16 06:29; Admin Dose 10 MG; Start 04/15/16 at 18:00 Sodium Chloride (NS) 1,000 ml @ 0 mls/hr Q0M PRN IV TO KEEP SBP ABOVE 90; Start 04/16/16 at 12:18 Insulin Aspart (Novolog Insulin Pen) NOVOLOG *MILD* ALGORI... Q6 SC Last administered on 04/24/16 06:36; Admin Dose 1 UNIT; Start 04/16/16 at 18:00 Insulin Glargine (Lantus) 30 unit QHS SC Last administered on 04/23/16 21:22; Admin Dose 30 UNIT; Start 04/19/16 at 21:00 Tramadol HCl 50 mg 50 mg Q6H PRN PO pain Last administered on 04/23/16 15:44; Admin Dose 50 MG; Start 04/23/16 at 15:30 Albumin Human (Albumin Human 25%) 100 ml @ 100 mls/hr ONCE ONCE IV ; Start at 09:00; Stop 04/24/16 at 09:59 Assessment/Plan Chief Complaint/Hosp Course Patient is 89 year old female with PMH of CAD pci of LAD, Severe mitral calcification with MS, CHF, ESRD on HD, Multiple TIA, PAD came in with SOB, Positive trop, intial plan was to take her to [facility] from ER but she was very SOB with craclkes, So brought to ICU. Will need HD, trend trop. had long discussion with family, daughter. Problems: Additional Assessment/Plan Pt is hymodynamically stable on HD right now plan SNF vs Hospice ANH FRITZ MD Apr 24, 2016 09:19
[2016-04-24] MEDS ORDERED: EPOETIN 10000 UNITS/1 ML INJ (ESRD) SC SCH (09:30)
[2016-04-24] MEDS: CLOPIDOGREL 75 MG TAB PO SCH (09:36)
[2016-04-24] MEDS: POLYETHYLENE GLYCOL 17 GM PACKET PO SCH (09:36)
[2016-04-24] MEDS: ALLOPURINOL 100 MG TAB PO SCH (09:36)
[2016-04-24] MEDS: PREGABALIN 25 MG CAP PO SCH ×2 (09:36→22:42)
[2016-04-24] MEDS: FERROUS SULFATE (EC) 325 MG TAB PO SCH (09:36)
[2016-04-24] MEDS: APIXABAN 5 MG TABLET PO SCH ×2 (09:55→22:42)
--- NOTE | 2016-04-24 14:19 | PN ---
Date/Time of Note Date/Time of Note DATE: 04/24/16 TIME: 14:17 Assessment/Plan VTE Prophylaxis VTE Prophylaxis Intervention: SCD's Lines/Catheters IV [facility] Permacath Urinary Cath still in place: No Assessment/Plan Chief Complaint/Hosp Course Assessment and plan 1. Acute hypoxic respiratory failure. Hand Spinner has been consulted, continue supplemental oxygen facemask. Continue inhaled bronchodilators. 2. Non-ST elevation myocardial infarction. Status post percutaneous transluminal coronary angioplasty with stent to the right posterior descending artery. Continue anticoagulation. 3. Severe mitral stenosis with calcification. Monitor. 4. End-stage renal disease on hemodialysis. Continue dialysis as per nephrology. 5. Transient ischemic attack. Continue anticoagulation. 6. Sepsis secondary to pneumonia. Continue antibiotics as per infectious diseases. 7. 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 Will monitor H and H closely. 8. Type 2 diabetes mellitus. Continue sliding scale insulin. 9. Dysphagia. Continue NG tube feeding, follow residual 10. Hypothyroidism. Continue Synthroid. 11. History of multiple deep vein thromboses. Status post inferior vena cava filter placement. Continue factor Xa inhibitors. 12. Fluid, electrolytes, and nutrition. Continue NG tube feedings. 13. Deep venous thrombosis prophylaxis. Factor Xa inhibitors. 14. Gastrointestinal prophylaxis. Histamine 2 receptor blockers. PLAN: Continue current management. The patient is currently a DNR. Palliative care working with the patient's family. Continue NG tube feeding , family is deciding for possible inpatient hospice placement tomorrow Problems: Subjective 24 Hr Interval Summary Free Text/Dictation No acute changes Patient continues to be lethargic Response minimally to verbal stimuli Exam/Review of Systems Vital Signs Vitals Vital Signs Date Time Temp Pulse Resp B/P Pulse Ox O2 Delivery O2 Flow Rate FiO2 04/24/16 12:49 50 04/24/16 11:42 97.6 22 95/42 100 04/24/16 08:56 Simple Mask 5.0 Intake and Output 04/23/16 04/23/16 04/24/16 14:59 22:59 06:59 Intake Total 340 ml 80 ml Balance 340 ml 80 ml Exam General: The patient is lethargic, Not in acute distress. NG tube in place HEENT: Atraumatic, normocephalic. The pupils are equal and round . Neck: Supple with full range of motion. Chest: Normal expansion of the thorax during inspiration Lungs: Clear to auscultation bilaterally Heart: Normal S1-S2, Regular rhythm and rate. Abdomen: Soft , nontender, nondistended , bowel sounds are present. Extremities: Normal to inspection, +1 edema no cyanosis Neurologic: ,The patient is awake, Results Result Diagram: 04/24/16 0520 04/24/16 0520 Results 24 hrs Laboratory Tests Test 04/23/16 18:01 04/23/16 21:17 04/24/16 01:01 04/24/16 05:20 Bedside Glucose 150 143 136 Anion Gap 19 H Basophils # 0.0 Basophils % 0.1 Blood Morphology Comment Blood Urea Nitrogen 74 H Calcium Level 9.4 Carbon Dioxide Level 27 Chloride Level 95 L Creatinine 6.31 H Eosinophils # 0.1 Eosinophils % 1.2 Glucose Level 150 Hematocrit 26.0 L Hemoglobin 8.4 L Lymphocytes # 1.3 Lymphocytes % 13.8 L Mean Corpuscular Hemoglobin 31.3 Mean Corpuscular Hemoglobin Concent 32.3 Mean Corpuscular Volume 96.9 Mean Platelet Volume 11.2 H Monocytes # 0.8 Monocytes % 8.5 Neutrophils # 7.0 Neutrophils % 76.4 Nucleated Red Blood Cells # 0.0 Nucleated Red Blood Cells % 0.0 Platelet Count 106 #L Potassium Level 4.3 Red Blood Count 2.68 L Red Cell Distribution Width 20.7 H Sodium Level 137 White Blood Count 9.2 Test 04/24/16 06:31 04/24/16 12:03 Bedside Glucose 172 181 Medications Medications Current Medications Lorazepam (Ativan) 0.5 mg Q6H PRN IV ANXIETY Last administered on 04/04/16at 20 :40; Admin Dose 0.5 MG; Start 04/04/16 at 15:30 Ondansetron HCl (Zofran Inj) 4 mg Q6H PRN IV NAUSEA AND/OR VOMITING; Start at 15:30 Ferrous Sulfate (Ferrous Sulfate (Ec)) 325 mg DAILY PO Last administered on 09:36; Admin Dose 325 MG; Start 04/05/16 at 09:00 Latanoprost (Xalatan) 1 drop QHS BOTH EYES Last administered on 04/23/16 21:19 ; Admin Dose 1 DROP; Start 04/04/16 at 21:00 Metoprolol Tartrate (Lopressor) 25 mg BID PO Last administered on 04/19/16 20: 28; Admin Dose 25 MG; Start 04/04/16 at 21:00 Polyethylene Glycol (Miralax) 17 gm DAILY PO Last administered on 04/24/16 09: 36; Admin Dose 17 GM; Start 04/05/16 at 09:00 Atorvastatin Calcium (Lipitor) 20 mg DAILY@21 PO Last administered on 21:19; Admin Dose 20 MG; Start 04/04/16 at 21:00 Miscellaneous Information 1 ea NOTE XX ; Start 04/04/16 at 16:00 Glucose (Glutose) 15 gm Q15M PRN PO DECREASED GLUCOSE; Start 04/04/16 at 16:00 Glucose (Glutose) 22.5 gm Q15M PRN PO DECREASED GLUCOSE; Start 04/04/16 at 16: 00 Dextrose (D50w Syringe) 25 ml Q15M PRN IV DECREASED GLUCOSE Last administered on 04/09/16 13:09; Admin Dose 25 ML; Start 04/04/16 at 16:00 Dextrose (D50w Syringe) 50 ml Q15M PRN IV DECREASED GLUCOSE; Start 04/04/16 at 16:00 Glucagon (Glucagen) 1 mg Q15M PRN IM DECREASED GLUCOSE; Start 04/04/16 at 16: 00 Glucose (Glutose) 15 gm Q15M PRN BUCCAL DECREASED GLUCOSE; Start 04/04/16 at 16:00 Allopurinol (Zyloprim) 200 mg DAILY PO Last administered on 04/24/16 09:36; Admin Dose 200 MG; Start 04/05/16 at 09:00 Clopidogrel Bisulfate (plaVIX) 75 mg DAILY PO Last administered on 04/24/16 09 :36; Admin Dose 75 MG; Start 04/05/16 at 18:30 Pregabalin (Lyrica) 100 mg BID PO Last administered on 04/24/16 09:36; Admin Dose 100 MG; Start 04/05/16 at 21:00 Acetaminophen (Tylenol Supp) 650 mg Q6H PRN [place] FEVER Last administered on 04/08at 14:12; Admin Dose 650 MG; Start 04/06/16 at 12:00 Apixaban (Eliquis) 2.5 mg BID PO Last administered on 04/24/16 09:55; Admin Dose 2.5 MG; Start 04/08/16 at 21:00 Hydralazine HCl (Apresoline) 5 mg Q6H PRN IV ELEVATED BLOOD PRESSURE; Start 04/09/16 at 11:30 Famotidine 20 mg 20 mg QHS PO Last administered on 04/23/16 21:19; Admin Dose 20 MG; Start 04/13/16 at 21:00 Meropenem/Sodium Chloride (Merrem/NS) 100 ml @ 200 mls/hr Q24H IVPB Last administered on 04/23/16 16:58; Admin Dose 200 MLS/HR; Start 04/15/16 at 16:30 Metoclopramide HCl 10 mg 10 mg Q6 IV Last administered on 04/24/16 11:51; Admin Dose 10 MG; Start 04/15/16 at 18:00 Sodium Chloride (NS) 1,000 ml @ 0 mls/hr Q0M PRN IV TO KEEP SBP ABOVE 90; Start 04/16/16 at 12:18 Insulin Aspart (Novolog Insulin Pen) NOVOLOG *MILD* ALGORI... Q6 SC Last administered on 04/24/16 12:12; Admin Dose 2 UNIT; Start 04/16/16 at 18:00 Insulin Glargine (Lantus) 30 unit QHS SC Last administered on 04/23/16 21:22; Admin Dose 30 UNIT; Start 04/19/16 at 21:00 Tramadol HCl (Ultram) 50 mg Q6H PRN PO pain Last administered on 04/23/16 15: 44; Admin Dose 50 MG; Start 04/23/16 at 15:30 FRANKI RUSHING MD Apr 24, 2016 14:19
--- NOTE | 2016-04-24 14:23 | PN ---
DATE: 04/24/2016 SUBJECTIVE: The patient remains in critical. Remains on simple facemask. Remains hypotensive. No other events noted. OBJECTIVE: VITAL SIGNS: Blood pressure is 71/92, respirations are 19, pulse 50, temperature 97.9. I'S AND O'S: The patient had 1.2 L in, 500 out. HEENT: Head is normocephalic. NECK: Supple. HEART: Regular rate. LUNGS: Show diminished breath sounds at the base. Positive rhonchi and crackles. ABDOMEN: Soft, nontender to palpation, no rebound or guarding. EXTREMITIES: Negative for clubbing, cyanosis, trace edema. DERMATOLOGIC: No rashes. MUSCULOSKELETAL: No joint effusions. NEUROLOGIC: No change in exam. MEDICATIONS: The patient's medications have been reviewed. LABORATORY DATA: Shows white count 9.2, hemoglobin 8.4, hematocrit 26.0, platelet count is 0.6. So dium 137, potassium 4.3, chloride 95, BUN 74, creatinine 6.31. ASSESSMENT AND PLAN: 1. End-stage renal disease. The patient is scheduled for dialysis today for 3 hours, 3K bath, calc ium 2.5, ultrafiltrate as tolerated. 2. Volume overload. Continue ultrafiltration dialysis. 3. Acute systolic/diastolic heart failure. Continue current medical management. 4. Anemia. Continue to monitor hemoglobin and hematocrit levels. 5. Mineral bone disorder. Continue to monitor calcium and phosphorus levels. Defer phos binders. 6. Respiratory failure secondary to congestive heart failure, pneumonia. Continue current manageme nt. Continue dialysis. Continue face mask, nebulizer therapy. 7. Dysphagia, status post nasogastric tube. Continue tube feeding. 8. [id number] myocardial infarction, status post percutaneous coronary intervention. Continu e medical management and follow up with cardiology. 9. Encephalopathy. No change. Please note, the patient is being evaluated for possible hospice placement. We will follow up with palliative care. Dictated By: ZULEMA STOVALL/MAXIMO Conf#: [id number] DID#: [id number]
--- NOTE | 2016-04-24 15:22 | CONS ---
Date/Time of Note Date/Time of Note DATE: 04/24/16 TIME: 15:21 Consult Date/Type/Reason Admit Date/Time Apr 04, 2016 at 15:15 Initial Consult Date 04/04/16 Type of Consultation: pulmonary Subjective No significant changes Objective Vital Signs Date Time Temp Pulse Resp B/P Pulse Ox O2 Delivery O2 Flow Rate FiO2 04/24/16 12:49 50 04/24/16 11:42 97.6 22 95/42 100 04/24/16 08:56 Simple Mask 5.0 Intake and Output 04/23/16 04/23/16 04/24/16 15:00 23:00 07:00 Intake Total 340 ml 80 ml Balance 340 ml 80 ml PHYSICAL EXAMINATION: VITAL SIGNS: Ventimask O2 NECK: Supple. No JVD or lymphadenopathy. CARDIAC: S1, S2. No added sounds or murmurs. CHEST: Diminished air entry bilaterally. ABDOMEN: Soft, nontender, obese. EXTREMITIES: No cyanosis, clubbing, edema. NEUROLOGIC: Generalized weakness. Results/Medications Result Diagram: 04/24/16 0520 04/24/16 0520 Results 24 hrs Laboratory Tests Test 04/23/16 18:01 04/23/16 21:17 04/24/16 01:01 04/24/16 05:20 Bedside Glucose 150 143 136 Anion Gap 19 H Basophils # 0.0 Basophils % 0.1 Blood Morphology Comment Blood Urea Nitrogen 74 H Calcium Level 9.4 Carbon Dioxide Level 27 Chloride Level 95 L Creatinine 6.31 H Eosinophils # 0.1 Eosinophils % 1.2 Glucose Level 150 Hematocrit 26.0 L Hemoglobin 8.4 L Lymphocytes # 1.3 Lymphocytes % 13.8 L Mean Corpuscular Hemoglobin 31.3 Mean Corpuscular Hemoglobin Concent 32.3 Mean Corpuscular Volume 96.9 Mean Platelet Volume 11.2 H Monocytes # 0.8 Monocytes % 8.5 Neutrophils # 7.0 Neutrophils % 76.4 Nucleated Red Blood Cells # 0.0 Nucleated Red Blood Cells % 0.0 Platelet Count 106 #L Potassium Level 4.3 Red Blood Count 2.68 L Red Cell Distribution Width 20.7 H Sodium Level 137 White Blood Count 9.2 Test 04/24/16 06:31 04/24/16 12:03 Bedside Glucose 172 181 Medications Current Medications Lorazepam (Ativan) 0.5 mg Q6H PRN IV ANXIETY Last administered on 04/04/16at 20 :40; Admin Dose 0.5 MG; Start 04/04/16 at 15:30 Ondansetron HCl (Zofran Inj) 4 mg Q6H PRN IV NAUSEA AND/OR VOMITING; Start at 15:30 Ferrous Sulfate (Ferrous Sulfate (Ec)) 325 mg DAILY PO Last administered on 09:36; Admin Dose 325 MG; Start 04/05/16 at 09:00 Latanoprost (Xalatan) 1 drop QHS BOTH EYES Last administered on 04/23/16 21:19 ; Admin Dose 1 DROP; Start 04/04/16 at 21:00 Metoprolol Tartrate (Lopressor) 25 mg BID PO Last administered on 04/19/16 20: 28; Admin Dose 25 MG; Start 04/04/16 at 21:00 Polyethylene Glycol (Miralax) 17 gm DAILY PO Last administered on 04/24/16 09: 36; Admin Dose 17 GM; Start 04/05/16 at 09:00 Atorvastatin Calcium (Lipitor) 20 mg DAILY@21 PO Last administered on 21:19; Admin Dose 20 MG; Start 04/04/16 at 21:00 Miscellaneous Information 1 ea NOTE XX ; Start 04/04/16 at 16:00 Glucose (Glutose) 15 gm Q15M PRN PO DECREASED GLUCOSE; Start 04/04/16 at 16:00 Glucose (Glutose) 22.5 gm Q15M PRN PO DECREASED GLUCOSE; Start 04/04/16 at 16: 00 Dextrose (D50w Syringe) 25 ml Q15M PRN IV DECREASED GLUCOSE Last administered on 04/09/16 13:09; Admin Dose 25 ML; Start 04/04/16 at 16:00 Dextrose (D50w Syringe) 50 ml Q15M PRN IV DECREASED GLUCOSE; Start 04/04/16 at 16:00 Glucagon (Glucagen) 1 mg Q15M PRN IM DECREASED GLUCOSE; Start 04/04/16 at 16: 00 Glucose (Glutose) 15 gm Q15M PRN BUCCAL DECREASED GLUCOSE; Start 04/04/16 at 16:00 Allopurinol (Zyloprim) 200 mg DAILY PO Last administered on 04/24/16 09:36; Admin Dose 200 MG; Start 04/05/16 at 09:00 Clopidogrel Bisulfate (plaVIX) 75 mg DAILY PO Last administered on 04/24/16 09 :36; Admin Dose 75 MG; Start 04/05/16 at 18:30 Pregabalin (Lyrica) 100 mg BID PO Last administered on 04/24/16 09:36; Admin Dose 100 MG; Start 04/05/16 at 21:00 Acetaminophen (Tylenol Supp) 650 mg Q6H PRN [place] FEVER Last administered on 04/08at 14:12; Admin Dose 650 MG; Start 04/06/16 at 12:00 Apixaban (Eliquis) 2.5 mg BID PO Last administered on 04/24/16 09:55; Admin Dose 2.5 MG; Start 04/08/16 at 21:00 Hydralazine HCl (Apresoline) 5 mg Q6H PRN IV ELEVATED BLOOD PRESSURE; Start 04/09/16 at 11:30 Famotidine 20 mg 20 mg QHS PO Last administered on 04/23/16 21:19; Admin Dose 20 MG; Start 04/13/16 at 21:00 Meropenem/Sodium Chloride (Merrem/NS) 100 ml @ 200 mls/hr Q24H IVPB Last administered on 04/23/16 16:58; Admin Dose 200 MLS/HR; Start 04/15/16 at 16:30 Metoclopramide HCl 10 mg 10 mg Q6 IV Last administered on 04/24/16 11:51; Admin Dose 10 MG; Start 04/15/16 at 18:00 Sodium Chloride (NS) 1,000 ml @ 0 mls/hr Q0M PRN IV TO KEEP SBP ABOVE 90; Start 04/16/16 at 12:18 Insulin Aspart (Novolog Insulin Pen) NOVOLOG *MILD* ALGORI... Q6 SC Last administered on 04/24/16 12:12; Admin Dose 2 UNIT; Start 04/16/16 at 18:00 Insulin Glargine (Lantus) 30 unit QHS SC Last administered on 04/23/16 21:22; Admin Dose 30 UNIT; Start 04/19/16 at 21:00 Tramadol HCl (Ultram) 50 mg Q6H PRN PO pain Last administered on 04/23/16 15: 44; Admin Dose 50 MG; Start 04/23/16 at 15:30 Assessment/Plan Chief Complaint/Hosp Course IMPRESSION: 1. Hypoxemic Resp Insufficiency due to volume overload/pulm edema 2. 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 3. Encephalopathy, toxic metabolic. 4. Patient's code status: DNR/DNI. 5. Severe mitral stenosis with underlying coronary artery disease 6. Status post coronary intervention 7. Dysphagia. PLAN: 1. Continue noninvasive positive pressure ventilation and nasal cannula oxygen. Aggressive pulmonary toilet 2. Supplemental O2. 3. DVT and GI prophylaxis. 4. Aspiration precautions 5. Hospice evaluation Problems: OSIRIS REYNOLDS MD, [facility] Apr 24, 2016 15:22
[2016-04-24] MEDS: MEROPENEM 500 MG in SOD CHLORIDE 0.9% 100 ML IVPB SCH (15:49)
[2016-04-24] MEDS: LATANOPROST 0.005% 2.5 ML OPH BOTH EYES SCH (22:42)
[2016-04-24] MEDS: FAMOTIDINE 20 MG TAB PO SCH (22:43)
[2016-04-24] MEDS: ATORVASTATIN 20 MG TAB PO SCH (22:43)
[2016-04-24] MEDS: traMADol 50 MG TAB PO PRN (22:43)
[2016-04-24] MEDS: INSULIN GLARGINE [LANtus] 3 ML PEN SC SCH (22:52)
[2016-04-25] VITALS (12 sets, daily range): BP systolic 78–122; BP diastolic 42–55; PULSE 49–50; RESP 18–20
[2016-04-25] MEDS: INSULIN ASPART [NOVOLOG] 3 ML PEN SC SCH ×6 (02:00→23:03)
[2016-04-25] MEDS: METOCLOPRAMIDE 10 MG INJ IV SCH ×5 (02:10→23:00)
[2016-04-25] MEDS: LEVOTHYROXINE 100 MCG TAB PO SCH (06:54)
[2016-04-25] MEDS: ALBUTEROL/IPRATROPIUM (NEB) 3 ML AMP HHN SCH ×4 (08:38→20:24)
--- NOTE | 2016-04-25 08:42 | CONS ---
Date/Time of Note Date/Time of Note DATE: 04/25/16 TIME: 08:41 Consult Date/Type/Reason Admit Date/Time Apr 04, 2016 at 15:15 Initial Consult Date 04/04/16 Type of Consultation: card Objective Vital Signs Date Time Temp Pulse Resp B/P Pulse Ox O2 Delivery O2 Flow Rate FiO2 04/25/16 08:38 51 22 93 Simple Mask 6.0 04/25/16 08:00 98.4 102/55 Intake and Output 04/24/16 04/24/16 04/25/16 15:00 23:00 07:00 Intake Total 700 ml 620 ml Output Total 1900 ml 1300 ml Balance -1200 ml -680 ml Results/Medications Result Diagram: 04/24/1651904/24/1620 Results 24 hrs Laboratory Tests Test 04/24/16 12:03 04/24/16 17:34 04/25/16 00:24 04/25/16 05:00 Bedside Glucose 181 188 192 143 Medications Current Medications Lorazepam (Ativan) 0.5 mg Q6H PRN IV ANXIETY Last administered on 04/04/16at 20 :40; Admin Dose 0.5 MG; Start 04/04/16 at 15:30 Ondansetron HCl (Zofran Inj) 4 mg Q6H PRN IV NAUSEA AND/OR VOMITING; Start at 15:30 Ferrous Sulfate (Ferrous Sulfate (Ec)) 325 mg DAILY PO Last administered on 09:36; Admin Dose 325 MG; Start 04/05/16 at 09:00 Latanoprost (Xalatan) 1 drop QHS BOTH EYES Last administered on 04/24/16 22:42 ; Admin Dose 1 DROP; Start 04/04/16 at 21:00 Metoprolol Tartrate (Lopressor) 25 mg BID PO Last administered on 04/19/16 20: 28; Admin Dose 25 MG; Start 04/04/16 at 21:00 Polyethylene Glycol (Miralax) 17 gm DAILY PO Last administered on 04/24/16 09: 36; Admin Dose 17 GM; Start 04/05/16 at 09:00 Atorvastatin Calcium (Lipitor) 20 mg DAILY@21 PO Last administered on 22:43; Admin Dose 20 MG; Start 04/04/16 at 21:00 Miscellaneous Information 1 ea NOTE XX ; Start 04/04/16 at 16:00 Glucose (Glutose) 15 gm Q15M PRN PO DECREASED GLUCOSE; Start 04/04/16 at 16:00 Glucose (Glutose) 22.5 gm Q15M PRN PO DECREASED GLUCOSE; Start 04/04/16 at 16: 00 Dextrose (D50w Syringe) 25 ml Q15M PRN IV DECREASED GLUCOSE Last administered on 04/09/16 13:09; Admin Dose 25 ML; Start 04/04/16 at 16:00 Dextrose (D50w Syringe) 50 ml Q15M PRN IV DECREASED GLUCOSE; Start 04/04/16 at 16:00 Glucagon (Glucagen) 1 mg Q15M PRN IM DECREASED GLUCOSE; Start 04/04/16 at 16: 00 Glucose (Glutose) 15 gm Q15M PRN BUCCAL DECREASED GLUCOSE; Start 04/04/16 at 16:00 Allopurinol (Zyloprim) 200 mg DAILY PO Last administered on 04/24/16 09:36; Admin Dose 200 MG; Start 04/05/16 at 09:00 Clopidogrel Bisulfate (plaVIX) 75 mg DAILY PO Last administered on 04/24/16 09 :36; Admin Dose 75 MG; Start 04/05/16 at 18:30 Pregabalin (Lyrica) 100 mg BID PO Last administered on 04/24/16 22:42; Admin Dose 100 MG; Start 04/05/16 at 21:00 Acetaminophen (Tylenol Supp) 650 mg Q6H PRN [place] FEVER Last administered on 04/08at 14:12; Admin Dose 650 MG; Start 04/06/16 at 12:00 Apixaban (Eliquis) 2.5 mg BID PO Last administered on 04/24/16 22:42; Admin Dose 2.5 MG; Start 04/08/16 at 21:00 Hydralazine HCl (Apresoline) 5 mg Q6H PRN IV ELEVATED BLOOD PRESSURE; Start 04/09/16 at 11:30 Famotidine 20 mg 20 mg QHS PO Last administered on 04/24/16 22:43; Admin Dose 20 MG; Start 04/13/16 at 21:00 Meropenem/Sodium Chloride (Merrem/NS) 100 ml @ 200 mls/hr Q24H IVPB Last administered on 04/24/16 15:49; Admin Dose 200 MLS/HR; Start 04/15/16 at 16:30 Metoclopramide HCl 10 mg 10 mg Q6 IV Last administered on 04/25/16 04:59; Admin Dose 10 MG; Start 04/15/16 at 18:00 Sodium Chloride (NS) 1,000 ml @ 0 mls/hr Q0M PRN IV TO KEEP SBP ABOVE 90; Start 04/16/16 at 12:18 Insulin Aspart (Novolog Insulin Pen) NOVOLOG *MILD* ALGORI... Q6 SC Last administered on 04/25/16 06:59; Admin Dose 1 UNIT; Start 04/16/16 at 18:00 Insulin Glargine (Lantus) 30 unit QHS SC Last administered on 04/24/16 22:52; Admin Dose 30 UNIT; Start 04/19/16 at 21:00 Tramadol HCl (Ultram) 50 mg Q6H PRN PO pain Last administered on 04/24/16 22: 43; Admin Dose 50 MG; Start 04/23/16 at 15:30 Assessment/Plan Chief Complaint/Hosp Course Patient is 89 year old female with PMH of CAD pci of LAD, Severe mitral calcification with MS, CHF, ESRD on HD, Multiple TIA, PAD came in with SOB, Positive trop, intial plan was to take her to carpenter labor supervisor from ER but she was very SOB with craclkes, So brought to ICU. Will need HD, trend trop. had long discussion with family, daughter. Problems: Additional Assessment/Plan cardiac caputo stable pulm toilet stable hospice eval plan for SNF vs hospice ANH FRITZ MD Apr 25, 2016 08:42
[2016-04-25] MEDS: METOPROLOL 25 MG TAB PO SCH ×2 (08:48→21:25)
[2016-04-25] MEDS: PREGABALIN 25 MG CAP PO SCH ×2 (08:59→21:24)
[2016-04-25] MEDS: FERROUS SULFATE (EC) 325 MG TAB PO SCH (08:59)
[2016-04-25] MEDS: POLYETHYLENE GLYCOL 17 GM PACKET PO SCH (08:59)
[2016-04-25] MEDS: APIXABAN 5 MG TABLET PO SCH ×2 (08:59→21:24)
[2016-04-25] MEDS: CLOPIDOGREL 75 MG TAB PO SCH (08:59)
[2016-04-25] MEDS: ALLOPURINOL 100 MG TAB PO SCH (08:59)
--- NOTE | 2016-04-25 11:04 | PN ---
DATE: 04/25/2016 SUBJECTIVE: The patient remains critically ill on facemask. The patient had hemodialysis yesterday with 1300 mL removed. No other acute events noted. OBJECTIVE: VITAL SIGNS: Blood pressure is 102/55, respirations 18, pulse 60, temperature 98.4. HEENT: Head is normocephalic. NECK: Supple. HEART: Regular rate. LUNGS: Show diminished breath sounds at base. ABDOMEN: Soft, nontender to palpation. No rebound or guarding. EXTREMITIES: Negative for clubbing, cyanosis. Trace edema. DERMATOLOGIC: No rashes. MUSCULOSKELETAL: No joint effusions. NEUROLOGIC: No change in exam. MEDICATIONS: Have been reviewed. LABORATORY DATA: Has been reviewed. No new labs. ASSESSMENT AND PLAN: 1. End-stage renal disease. The patient had hemodialysis yesterday, tolerated well. Plan for dial ysis tomorrow. 2. Volume overload. Continue ultrafiltration with dialysis. 3. Acute systolic/diastolic heart failure. Continue current medical management. 4. Anemia. Continue to monitor hemoglobin and hematocrit levels. Continue Epogen. 5. Mineral bone disorder. Continue to monitor calcium and phosphate levels. 6. Respiratory failure secondary to congestive heart failure, pneumonia. Continue current treatmen t plan. Continue dialysis. Continue facemask 7. Dysphagia status post nasogastric tube. Continue tube feeding. 8. Non-ST elevation myocardial infarction, status post percutaneous coronary intervention. Continu e current plan. Follow up with cardiology. 9. Encephalopathy. No change. Please note the patient is pending hospice evaluation. Dictated By: ZULEMA STOVALL/MAXIMO Conf#: [id number] DID#: [id number]
--- NOTE | 2016-04-25 15:57 | PN ---
Date/Time of Note Date/Time of Note DATE: 04/25/16 TIME: 15:55 Assessment/Plan VTE Prophylaxis VTE Prophylaxis Intervention: SCD's Lines/Catheters IV [facility] PERMACATH Urinary Cath still in place: No Assessment/Plan Chief Complaint/Hosp Course Assessment and plan 1. Acute hypoxic respiratory failure. Jalousie Installer has been consulted, continue supplemental oxygen facemask. Continue inhaled bronchodilators. 2. Non-ST elevation myocardial infarction. Status post percutaneous transluminal coronary angioplasty with stent to the right posterior descending artery. Continue anticoagulation. 3. Severe mitral stenosis with calcification. Monitor. 4. End-stage renal disease on hemodialysis. Continue dialysis as per nephrology. 5. Transient ischemic attack. Continue anticoagulation. 6. Sepsis secondary to pneumonia. Continue antibiotics as per infectious diseases. 7. 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 Will monitor H and H closely. 8. Type 2 diabetes mellitus. Continue sliding scale insulin. 9. Dysphagia. Continue NG tube feeding, follow residual 10. Hypothyroidism. Continue Synthroid. 11. History of multiple deep vein thromboses. Status post inferior vena cava filter placement. Continue factor Xa inhibitors. 12. Fluid, electrolytes, and nutrition. Continue NG tube feedings. 13. Deep venous thrombosis prophylaxis. Factor Xa inhibitors. 14. Gastrointestinal prophylaxis. Histamine 2 receptor blockers. PLAN: Continue current management. The patient is currently a DNR. Palliative care working with the patient's family. Continue NG tube feeding , family is deciding for possible inpatient hospice placement tomorrow Problems: Subjective 24 Hr Interval Summary Free Text/Dictation No acute changes Patient responds minimally to verbal stimuli NG tube in place Exam/Review of Systems Vital Signs Vitals Vital Signs Date Time Temp Pulse Resp B/P Pulse Ox O2 Delivery O2 Flow Rate FiO2 04/25/16 15:34 97.5 50 20 111/54 100 04/25/16 14:29 Simple Mask 6.0 Intake and Output 04/24/16 04/24/16 04/25/16 14:59 22:59 06:59 Intake Total 700 ml 620 ml Output Total 1900 ml 1300 ml Balance -1200 ml -680 ml Exam General: The patient is cachectic, NG tube in place HEENT: Atraumatic, normocephalic. The pupils symmetric Neck: Supple Chest: Normal expansion of the thorax during inspiration Lungs: Decreased breath sounds bilaterally Heart: Normal S1-S2, Regular rhythm and rate. Abdomen: Soft , nontender, nondistended , bowel sounds are present. Extremities: Normal to inspection, no edema no cyanosis Neurologic: Arousable Results Result Diagram: 04/24/16 0504/24/16 0520 Results 24 hrs Laboratory Tests Test 04/24/16 17:34 04/25/16 00:24 04/25/16 05:00 04/25/16 12:09 Bedside Glucose 188 192 143 98 Medications Medications Current Medications Lorazepam (Ativan) 0.5 mg Q6H PRN IV ANXIETY Last administered on 04/04/16at 20 :40; Admin Dose 0.5 MG; Start 04/04/16 at 15:30 Ondansetron HCl (Zofran Inj) 4 mg Q6H PRN IV NAUSEA AND/OR VOMITING; Start at 15:30 Ferrous Sulfate (Ferrous Sulfate (Ec)) 325 mg DAILY PO Last administered on 08:59; Admin Dose 325 MG; Start 04/05/16 at 09:00 Latanoprost (Xalatan) 1 drop QHS BOTH EYES Last administered on 04/24/16 22:42 ; Admin Dose 1 DROP; Start 04/04/16 at 21:00 Metoprolol Tartrate (Lopressor) 25 mg BID PO Last administered on 04/19/16 20: 28; Admin Dose 25 MG; Start 04/04/16 at 21:00 Polyethylene Glycol (Miralax) 17 gm DAILY PO Last administered on 04/25/16 08: 59; Admin Dose 17 GM; Start 04/05/16 at 09:00 Atorvastatin Calcium (Lipitor) 20 mg DAILY@21 PO Last administered on 22:43; Admin Dose 20 MG; Start 04/04/16 at 21:00 Miscellaneous Information 1 ea NOTE XX ; Start 04/04/16 at 16:00 Glucose (Glutose) 15 gm Q15M PRN PO DECREASED GLUCOSE; Start 04/04/16 at 16:00 Glucose (Glutose) 22.5 gm Q15M PRN PO DECREASED GLUCOSE; Start 04/04/16 at 16: 00 Dextrose (D50w Syringe) 25 ml Q15M PRN IV DECREASED GLUCOSE Last administered on 04/09/16 13:09; Admin Dose 25 ML; Start 04/04/16 at 16:00 Dextrose (D50w Syringe) 50 ml Q15M PRN IV DECREASED GLUCOSE; Start 04/04/16 at 16:00 Glucagon (Glucagen) 1 mg Q15M PRN IM DECREASED GLUCOSE; Start 04/04/16 at 16: 00 Glucose (Glutose) 15 gm Q15M PRN BUCCAL DECREASED GLUCOSE; Start 04/04/16 at 16:00 Allopurinol (Zyloprim) 200 mg DAILY PO Last administered on 04/25/16 08:59; Admin Dose 200 MG; Start 04/05/16 at 09:00 Clopidogrel Bisulfate (plaVIX) 75 mg DAILY PO Last administered on 04/25/16 08 :59; Admin Dose 75 MG; Start 04/05/16 at 18:30 Pregabalin (Lyrica) 100 mg BID PO Last administered on 04/25/16 08:59; Admin Dose 100 MG; Start 04/05/16 at 21:00 Acetaminophen (Tylenol Supp) 650 mg Q6H PRN [place] FEVER Last administered on 04/08at 14:12; Admin Dose 650 MG; Start 04/06/16 at 12:00 Apixaban (Eliquis) 2.5 mg BID PO Last administered on 04/25/16 08:59; Admin Dose 2.5 MG; Start 04/08/16 at 21:00 Hydralazine HCl (Apresoline) 5 mg Q6H PRN IV ELEVATED BLOOD PRESSURE; Start 04/09/16 at 11:30 Famotidine 20 mg 20 mg QHS PO Last administered on 04/24/16 22:43; Admin Dose 20 MG; Start 04/13/16 at 21:00 Meropenem/Sodium Chloride (Merrem/NS) 100 ml @ 200 mls/hr Q24H IVPB Last administered on 04/24/16 15:49; Admin Dose 200 MLS/HR; Start 04/15/16 at 16:30 Metoclopramide HCl 10 mg 10 mg Q6 IV Last administered on 04/25/16 12:35; Admin Dose 10 MG; Start 04/15/16 at 18:00 Sodium Chloride (NS) 1,000 ml @ 0 mls/hr Q0M PRN IV TO KEEP SBP ABOVE 90; Start 04/16/16 at 12:18 Insulin Aspart (Novolog Insulin Pen) NOVOLOG *MILD* ALGORI... Q6 SC Last administered on 04/25/16 06:59; Admin Dose 1 UNIT; Start 04/16/16 at 18:00 Insulin Glargine (Lantus) 30 unit QHS SC Last administered on 04/24/16 22:52; Admin Dose 30 UNIT; Start 04/19/16 at 21:00 Tramadol HCl (Ultram) 50 mg Q6H PRN PO pain Last administered on 04/24/16 22: 43; Admin Dose 50 MG; Start 04/23/16 at 15:30 FRANKI RUSHING MD Apr 25, 2016 15:57
[2016-04-25] MEDS: MEROPENEM 500 MG in SOD CHLORIDE 0.9% 100 ML IVPB SCH (16:26)
[2016-04-25] MEDS: ATORVASTATIN 20 MG TAB PO SCH (21:24)
[2016-04-25] MEDS: traMADol 50 MG TAB PO PRN (21:24)
[2016-04-25] MEDS: LATANOPROST 0.005% 2.5 ML OPH BOTH EYES SCH (21:24)
[2016-04-25] MEDS: FAMOTIDINE 20 MG TAB PO SCH (21:25)
[2016-04-25] MEDS: INSULIN GLARGINE [LANtus] 3 ML PEN SC SCH (21:35)
[2016-04-26] VITALS (10 sets, daily range): BP systolic 78–103; BP diastolic 42–55; PULSE 50; RESP 16–22
[2016-04-26] MEDS: METOCLOPRAMIDE 10 MG INJ IV SCH ×3 (05:40→17:23)
[2016-04-26] MEDS: INSULIN ASPART [NOVOLOG] 3 ML PEN SC SCH ×3 (05:42→17:29)
[2016-04-26] MEDS: LEVOTHYROXINE 100 MCG TAB PO SCH (05:47)
[2016-04-26] MEDS: METOPROLOL 25 MG TAB PO SCH ×2 (08:17→21:00)
[2016-04-26] MEDS: POLYETHYLENE GLYCOL 17 GM PACKET PO SCH (08:18)
[2016-04-26] MEDS: PREGABALIN 25 MG CAP PO SCH ×2 (08:18→21:04)
[2016-04-26] MEDS: ALLOPURINOL 100 MG TAB PO SCH (08:18)
[2016-04-26] MEDS: FERROUS SULFATE (EC) 325 MG TAB PO SCH (08:19)
[2016-04-26] MEDS: APIXABAN 5 MG TABLET PO SCH ×2 (08:19→21:00)
[2016-04-26] MEDS: CLOPIDOGREL 75 MG TAB PO SCH (08:19)
[2016-04-26] MEDS: traMADol 50 MG TAB PO PRN (08:24)
[2016-04-26] MEDS: ALBUTEROL/IPRATROPIUM (NEB) 3 ML AMP HHN SCH ×4 (09:04→20:17)
--- NOTE | 2016-04-26 14:04 | PN ---
DATE: 04/26/2016 SUBJECTIVE: The patient remains critically ill, on facemask. No change in status. No other events noted. OBJECTIVE: VITAL SIGNS: Blood pressure 101/55, respiration 22, pulse 67, temperature 98.4. HEENT: Head is normocephalic. NECK: Supple. HEART: Regular rate. LUNGS: Show diminished breath sounds at base. Positive crackles. ABDOMEN: Soft, nontender to palpation. No rebound or guarding. EXTREMITIES: Negative for clubbing, cyanosis. No edema. DERMATOLOGIC: No rashes. MUSCULOSKELETAL: No joint effusions. NEUROLOGIC: No change in exam. MEDICATIONS: The patient's medications have been reviewed. LABORATORY DATA: Have been reviewed. ASSESSMENT AND PLAN: 1. End-stage renal disease. The patient had dialysis yesterday, tolerated well. Plan for dialysis today for ultrafiltration and clearance. 2. Volume overload. Continue ultrafiltration with dialysis. 3. Acute systolic/diastolic heart failure. Continue current treatment plan. 4. Anemia. Continue to monitor H and H levels. Continue Epogen. 5. Mineral bone disorder. Continue to monitor calcium and phosphorus levels. 6. Respiratory failure secondary to congestive heart failure and pneumonia. Continue current treat ment plan. Continue dialysis. Continue ultrafiltration. 7. Dysphagia, status post nasogastric tube. Continue tube feeding. 8. Non-ST elevation myocardial infarction, status post percutaneous coronary intervention. Continu e current medical management. 9. Encephalopathy. No change. DISPOSITION: Patient's family is considering possible home hospice evaluation. Agree with plan. Dictated By: ZULEMA STOVALL/MAXIMO Conf#: [id number] DID#: [id number]
--- NOTE | 2016-04-26 14:58 | PDOCDIS ---
Discharge Instructions CONDITION Patient Condition: Guarded HOME CARE INSTRUCTIONS: Special Diet: diabetic source FRANKI RUSHING MD Apr 26, 2016 14:58
[2016-04-26] MEDS: FAMOTIDINE 20 MG TAB PO SCH (21:00)
[2016-04-26] MEDS: ATORVASTATIN 20 MG TAB PO SCH (21:00)
[2016-04-26] MEDS: INSULIN GLARGINE [LANtus] 3 ML PEN SC SCH (21:02)
--- NOTE | 2016-04-26 22:56 | CONS ---
Date/Time of Note Date/Time of Note DATE: 04/26/16 TIME: 22:55 Consult Date/Type/Reason Admit Date/Time Apr 04, 2016 at 15:15 Initial Consult Date 04/04/16 Type of Consultation: card Objective Vital Signs Date Time Temp Pulse Resp B/P Pulse Ox O2 Delivery O2 Flow Rate FiO2 04/26/16 20:17 50 18 100 Simple Mask 6.0 04/26/16 19:29 97.3 100/52 Intake and Output 04/25/16 04/25/16 04/26/16 15:00 23:00 07:00 Intake Total 520 ml 550 ml Balance 520 ml 550 ml Results/Medications Result Diagram: 04/24/16 0520 04/24/16 0520 Results 24 hrs Laboratory Tests Test 04/25/16 23:01 04/26/16 05:35 04/26/16 11:14 04/26/16 17:24 Bedside Glucose 137 172 221 H 189 Test 04/26/16 20:54 Bedside Glucose 190 Medications Current Medications Lorazepam (Ativan) 0.5 mg Q6H PRN IV ANXIETY Last administered on 04/04/16at 20 :40; Admin Dose 0.5 MG; Start 04/04/16 at 15:30 Ondansetron HCl (Zofran Inj) 4 mg Q6H PRN IV NAUSEA AND/OR VOMITING; Start at 15:30 Ferrous Sulfate (Ferrous Sulfate (Ec)) 325 mg DAILY PO Last administered on 08:19; Admin Dose 325 MG; Start 04/05/16 at 09:00 Latanoprost (Xalatan) 1 drop QHS BOTH EYES Last administered on 04/25/16 21:24 ; Admin Dose 1 DROP; Start 04/04/16 at 21:00 Metoprolol Tartrate (Lopressor) 25 mg BID PO Last administered on 04/25/16 21: 25; Admin Dose 25 MG; Start 04/04/16 at 21:00 Polyethylene Glycol (Miralax) 17 gm DAILY PO Last administered on 04/26/16 08: 18; Admin Dose 17 GM; Start 04/05/16 at 09:00 Atorvastatin Calcium (Lipitor) 20 mg DAILY@21 PO Last administered on 21:00; Admin Dose 20 MG; Start 04/04/16 at 21:00 Miscellaneous Information 1 ea NOTE XX ; Start 04/04/16 at 16:00 Glucose (Glutose) 15 gm Q15M PRN PO DECREASED GLUCOSE; Start 04/04/16 at 16:00 Glucose (Glutose) 22.5 gm Q15M PRN PO DECREASED GLUCOSE; Start 04/04/16 at 16: 00 Dextrose (D50w Syringe) 25 ml Q15M PRN IV DECREASED GLUCOSE Last administered on 04/09/16 13:09; Admin Dose 25 ML; Start 04/04/16 at 16:00 Dextrose (D50w Syringe) 50 ml Q15M PRN IV DECREASED GLUCOSE; Start 04/04/16 at 16:00 Glucagon (Glucagen) 1 mg Q15M PRN IM DECREASED GLUCOSE; Start 04/04/16 at 16: 00 Glucose (Glutose) 15 gm Q15M PRN BUCCAL DECREASED GLUCOSE; Start 04/04/16 at 16:00 Allopurinol (Zyloprim) 200 mg DAILY PO Last administered on 04/26/16 08:18; Admin Dose 200 MG; Start 04/05/16 at 09:00 Clopidogrel Bisulfate (plaVIX) 75 mg DAILY PO Last administered on 04/26/16 08 :19; Admin Dose 75 MG; Start 04/05/16 at 18:30 Pregabalin (Lyrica) 100 mg BID PO Last administered on 04/26/16 21:04; Admin Dose 100 MG; Start 04/05/16 at 21:00 Acetaminophen (Tylenol Supp) 650 mg Q6H PRN [place] FEVER Last administered on 04/08at 14:12; Admin Dose 650 MG; Start 04/06/16 at 12:00 Apixaban (Eliquis) 2.5 mg BID PO Last administered on 04/26/16 21:00; Admin Dose 2.5 MG; Start 04/08/16 at 21:00 Hydralazine HCl (Apresoline) 5 mg Q6H PRN IV ELEVATED BLOOD PRESSURE; Start 04/09/16 at 11:30 Famotidine (Pepcid) 20 mg QHS PO Last administered on 04/26/16 21:00; Admin Dose 20 MG; Start 04/13/16 at 21:00 Metoclopramide HCl 10 mg 10 mg Q6 IV Last administered on 04/26/16 17:23; Admin Dose 10 MG; Start 04/15/16 at 18:00 Sodium Chloride (NS) 1,000 ml @ 0 mls/hr Q0M PRN IV TO KEEP SBP ABOVE 90; Start 04/16/16 at 12:18 Insulin Aspart (Novolog Insulin Pen) NOVOLOG *MILD* ALGORI... Q6 SC Last administered on 04/26/16 17:29; Admin Dose 2 UNIT; Start 04/16/16 at 18:00 Insulin Glargine (Lantus) 30 unit QHS SC Last administered on 04/26/16 21:02; Admin Dose 30 UNIT; Start 04/19/16 at 21:00 Tramadol HCl (Ultram) 50 mg Q6H PRN PO pain Last administered on 04/26/16 08: 24; Admin Dose 50 MG; Start 04/23/16 at 15:30 Assessment/Plan Chief Complaint/Hosp Course Patient is 89 year old female with PMH of CAD pci of LAD, Severe mitral calcification with MS, CHF, ESRD on HD, Multiple TIA, PAD came in with SOB, Positive trop, intial plan was to take her to home performance laborer from ER but she was very SOB with craclkes, So brought to ICU. Will need HD, trend trop. had long discussion with family, daughter. Problems: Additional Assessment/Plan Plan for home hospice resp on oxygen cardiac caputo stable HD today ANH FRITZ MD Apr 26, 2016 22:56
--- NOTE | 2016-04-26 23:43 | DS ---
DATE OF ADMISSION: 04/04/2016 DATE OF DISCHARGE: 04/26/2016 CONSULTANTS: 1. Dr. Truman Hirsch 2. Dr. Tahir Jim 3. Dr. Tyler Coyle 4. Dr. Yadiel Lopez 5. Dr. Rodriguez 6. ____ 7. [facility]. PROCEDURES: Echocardiogram which demonstrated normal ejection fraction. Pacemaker, right heart. DIAGNOSES: 1. Acute hypoxic respiratory failure. The patient was placed on continuous supplemental oxygen wit h facemask. 2. Non-ST elevation myocardial infraction, status post percutaneous transluminal coronary angioplas ty with stent in the right posterior descending artery. 3. Severe mitral stenosis. 4. End-stage renal disease on hemodialysis. 5. History of transient ischemic attack. 6. Sepsis secondary to pneumonia. 7. Pneumonia. 8. Normocytic, normochromic anemia. 9. Diabetes mellitus type 2. 10. Dysphagia. The patient was placed on nasogastric tube feeding. 11. Hypothyroidism. 12. History of multiple deep venous thromboses. MEDICATIONS: As per hospice physician. DISPOSITION: To hospice. HOSPITAL COURSE: This is an 89-year-old [place] in female with multiple comorbidities including end -stage renal disease on hemodialysis, type 2 diabetes mellitus, diabetic nephropathy, essential hype rtension, paroxysmal atrial fibrillation, hypothyroidism, dyslipidemia, multiple TIAs, gout, glaucom a, CVA, COPD, diastolic heart failure, CAD, sick sinus syndrome who was brought into emergency room because of increasing shortness of breath and chest congestion. The patient was also noted to be fe brile in emergency room, temperature 100.4. The patient was found to have ____. Troponin was found to be elevated at 0.173. In emergency room, the patient was treated with aspirin 325 mg, Plavix 30 0 mg, urgently was taken to cardiac outside laborer for evaluation of possible underlying acute coronary sy ndrome. However, in the outside laborer, the patient was unable to lie down flat, and hence coronary angio graphy had to be aborted and patient was moved in ICU. The patient was then taken to cardiac cath l ab for percutaneous transluminal coronary angioplasty with stent to the right posterior descending a rtery, was continued to be cared at ICU. For her sepsis secondary to pneumonia, patient was placed on IV antibiotics. Unfortunately, the patient started to deteriorate and became less responsive and was taken to telemetry floor. There were several family meetings with her daughter, and after disc ussing the code status, the patient's daughter decided to change the code status to DNR, and the pat ient was evaluated by palliative care physician, and as per family, they decided to not proceed with any PEG tube feeding, and patient was continued on NG tube feeding. The dialysis was discontinued, and secondary to patient's comorbidities and her prognosis, the family decided to meet up with [facility], and the patient was transferred to inpatient hospice today on 04/26/2016. CONDITION AT TIME OF DISCHARGE: Guarded. Dictated By: FRANKI ROPER/NTS Conf#: [id number] DID#: [id number]
[2016-04-27] MEDS: METOCLOPRAMIDE 10 MG INJ IV SCH ×2 (00:41→06:03)
[2016-04-27] MEDS: INSULIN ASPART [NOVOLOG] 3 ML PEN SC SCH ×2 (00:44→06:05)
[2016-04-27] MEDS: LATANOPROST 0.005% 2.5 ML OPH BOTH EYES SCH (00:50)
[2016-04-27] MEDS: LEVOTHYROXINE 100 MCG TAB PO SCH (06:17)
[2016-04-27 07:55] VITALS: BP 128/58; RESP 24
[2016-04-27] MEDS ORDERED: PROCHLORPERAZINE 25 MG SUPP PR PRN (08:30)
[2016-04-27] MEDS ORDERED: BISACODYL 10 MG SUPP PR PRN (08:30)
[2016-04-27] MEDS ORDERED: ATROPINE 1% 5 ML OPH SL PRN (08:30)
[2016-04-27] MEDS ORDERED: morphine (DRIP) 100 MG/D5W 100 ML IV SCH (08:30)
[2016-04-27] MEDS: APIXABAN 5 MG TABLET PO SCH ×2 (08:32→21:26)
[2016-04-27] MEDS: ALBUTEROL/IPRATROPIUM (NEB) 3 ML AMP HHN SCH (08:45)
[2016-04-27] MEDS ORDERED: HYDROmorphONE 50 MG in DEXTROSE 5% 45 ML IV SCH (11:00)
[2016-04-27] MEDS: ATROPINE 1% 5 ML OPH SL PRN ×2 (11:57→17:23)
[2016-04-27 20:17] VITALS: BP 116/51; RESP 24
--- NOTE | 2016-04-27 21:00 | HP ---
DATE OF ADMISSION: 04/04/2016 DATE OF ADMISSION TO [facility]: 04/26/2016. : End-stage renal disease. LEVEL OF CARE: [facility]. COMORBIDITIES: Coronary artery disease, hypertension, dysphagia, acute respiratory failure, recent non-ST elevation myocardial infarction, status post percutaneous coronary intervention, multiple TIA s and a history of DVT. CHIEF COMPLAINT AND HISTORY OF PRESENT ILLNESS: The patient is an 89-year-old P[place] female with m ultiple medical issues, as listed above, including end-stage renal disease, on hemodialysis, diabete s, hypertension, paroxysmal atrial fibrillation, hypothyroidism, multiple TIAs, history of severe CO PD, diastolic heart failure, coronary artery disease, status post recent myocardial infarction, a hi story of sick sinus syndrome. The patient was brought in to the ER because of increasing shortness of breath and chest pain. The patient was noted to be in acute respiratory failure and also was not ed to have acute coronary syndrome. The patient was taken to cardiac catheterization and underwent a PCI, with stenting of the right posterior descending artery. The patient also had sepsis due to p neumonia and was placed on IV antibiotics. Unfortunately, the patient continued to deteriorate and progressively became less responsive and the family made her code status DNR and also requested hosp [facility] care. The patient was admitted under hospice care for [facility] level of care. The patient is unable to provide any history and is lethargic. She opens eyes on stimuli. No reported vomiting, no repo rted fever or chills since admission, no reported seizure, no reported bleeding from any site. The patient is unable to swallow and a NG tube is in place, only for medications. The patient's family has requested to continue Eliquis due to her history of multiple TIAs. PAST MEDICAL HISTORY: As stated above. PAST SURGICAL HISTORY: The patient is status post permanent pacemaker placement, and a history of [facility] for dialysis. FAMILY HISTORY: Noncontributory. SOCIAL HISTORY: No smoking, no alcohol. PHYSICAL EXAMINATION: GENERAL: The patient is lethargic, opens eyes on stimuli. VITAL SIGNS: Temperature 97.6, pulse 50, respirations 16, blood pressure 128/58, O2 saturation 85% on 100% FIO2. HEENT: No eye discharge or redness. Extraocular movements could not be tested. Nose and ears are normal externally. Oropharynx examination was deferred. NECK: No mass. CHEST: Revealed diminished air entry at the bases. No use of accessory muscles. CARDIOVASCULAR: S1, S2 normal. No murmur. ABDOMEN: Soft, nondistended. EXTREMITIES: No edema. Pedal pulses feeble. NEUROLOGIC: The patient is lethargic. No useful communication was possible. LABORATORY DATA: Last labs done revealed a WBC of 9.2, hemoglobin 8.4, platelets 106. Sodium 137, potassium , BUN , creatinine 6.3. IMPRESSION: 1. End-stage renal disease. 2. Coronary artery disease, status post recent myocardial infarction, status post recent percutaneo us coronary intervention. 3. Hypertension. 4. Diabetes mellitus. 5. Paroxysmal atrial fibrillation. 6. Dysphagia. 7. Acute hypoxemic respiratory failure due to recent pneumonia. PLAN: The patient will be started on an IV Dilaudid drip and will also start atropine drops for sec retions and breathing treatments for chest congestion. Will optimize comfort care. Plan of care was discussed with the patient's nurse, as well as [facility] nurse. Family is currently no t available. The patient does have a history of an allergic reaction to MORPHINE SULFATE, although on further evaluation of medical records it appears the patient had a history of nausea, therefore w ill try IV Dilaudid drip. If the patient has any signs of any allergy, then will switch her to IV f entanyl. Dictated By: SHIVANI DAY/MAXIMO Conf#: [id number] DID#: [id number]
[2016-04-28 07:32] VITALS: BP 65/29; RESP 14; RESP 4
[2016-04-28] MEDS: APIXABAN 5 MG TABLET PO SCH (08:08)
--- NOTE | 2016-04-28 14:24 | DS ---
Date/Time of Note Date/Time of Note DATE: 04/28/16 TIME: 14:23 Discharge Summary Admission/Discharge Info Admit Date/Time Apr 04, 2016 at 15:15 Discharge Date/Time 04/28/16 1400 Final Diagnosis 1. End-stage renal disease. 2. Coronary artery disease, status post recent myocardial infarction, status post recent percutaneous coronary intervention. 3. Hypertension. 4. Diabetes mellitus. 5. Paroxysmal atrial fibrillation. 6. Dysphagia. 7. Acute hypoxemic respiratory failure due to recent pneumonia. Hospital Course Patient with respiratory failure, renal failure was admitted to hospice for comfort care. Patient was admitted and quickly . Patient was pronounced at 1400 on 04/28/16. IMPRESSION: 1. Hypoxemic Resp Insufficiency due to volume overload/pulm edema 2. 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 3. Encephalopathy, toxic metabolic. 4. Patient's code status: DNR/DNI. 5. Severe mitral stenosis with underlying coronary artery disease 6. Status post coronary intervention 7. Dysphagia. PLAN: 1. Continue noninvasive positive pressure ventilation and nasal cannula oxygen. Aggressive pulmonary toilet 2. Supplemental O2. 3. DVT and GI prophylaxis. 4. Aspiration precautions 5. Hospice evaluation Home Meds Discontinued Reported Medications Ondansetron Hcl* (Zofran*) 4 Mg Tablet, 4 MG PO Q8 Y for NAUSEA AND/OR VOMITING , TAB 04/04/16 Simvastatin* (Zocor*) 40 Mg Tablet, 40 MG PO QHS, #30 TAB 04/04/16 Meclizine Hcl* (Meclizine Hcl*) 25 Mg Tablet, 25 MG PO Q6 Y for DIZZINESS, TAB 04/04/16 Metoprolol Tartrate* (Lopressor*) 25 Mg Tablet, 25 MG PO BID, #60 TAB 04/04/16 Insulin Lispro (Humalog) 100 Unit/1 Ml Cartridge, 4 UNIT SQ AC MEALS 04/04/16 Insulin Glargine* (Lantus*) 100 Unit/Ml Soln, 25 UNIT SC QHS, #1 VIAL 04/04/16 Sennosides* (Senna Lax*) 8.6 Mg Tablet, 1 TAB PO BID, TAB 09/08/15 Polyethylene Glycol* (Polyethylene Glycol*) 17 Gm Powd.pack, 17 GM PO DAILY, # 30 PACKET 09/08/15 Docusate Sodium* (Docusate Sodium*) 100 Mg Capsule, 100 MG PO BID, #60 CAP 09/08/15 Bisacodyl* (Bisacodyl*) 10 Mg Supp, 10 MG CA DAILY, SUPP 09/08/15 Benzonatate* (Benzonatate*) 200 Mg Capsule, 200 MG PO Q8 Y for COUGH, CAP 09/08/15 Acetaminophen* (Acetaminophen*) 650 Mg Tablet, 650 MG PO Q4 Y for PAIN AND OR ELEVATED TEMP, #30 TAB 09/08/15 Tamsulosin Hcl* (Tamsulosin Hcl*) 0.4 Mg Cap.er.24h, 0.4 MG PO DAILY, CAP 09/08/15 Folic Acid/Vitamin B Comp W-C (Renal Multivitamin Tablet) 0.8 Mg Tablet, 0.8 MG PO QAM, TAB 09/08/15 Pregabalin* (Lyrica*) 100 Mg Capsule, 100 MG PO BID, CAP 09/08/15 Prednisone* (Prednisone*) 5 Mg Tab, 5 MG PO DAILY SUN WED SUN, TAB 09/08/15 Levothyroxine Sodium* (Levothyroxine Sodium*) 200 Mcg Tablet, 200 MCG PO BEFORE BREAKFAST, #30 TAB 09/08/15 Latanoprost (Latanoprost) 2.5 Ml Drops, 1 DROP BOTH EYES QHS, #1 BOTTLE 09/08/15 Lactobacillus Rhamnosus* (Culturelle*) 1 Each Cap.sprink, 1 CAP PO BID, CAP 09/08/15 Heparin Sodium,Porcine/Ns/Pf (Heparin 1,000 Units-Ns 500 Ml) 2 Unit/Ml Iv.soln, 6000 UNIT CATHETER AFTER EACH DIALYSIS 09/08/15 Guaifenesin (MUCUS ER) 600 Mg Tablet.er, 600 MG PO BID, TAB 09/08/15 Ferrous Sulfate* (Ferrous Sulfate*) 325 Mg Tabec, 325 MG PO DAILY, TAB 09/08/15 Docusate Sodium* (Colace*) 100 Mg Capsule, 200 MG PO DAILY, #30 CAP 09/08/15 Budesonide-Formoterol Fumarate* (Symbicort*) 80-4.5 Inha, 2 PUFFS INHALATION BID , #1 EACH 09/08/15 Apixaban* (Eliquis*) 2.5 Mg Tablet, 2.5 MG PO BID, TAB 09/08/15 Albuterol/Ipratropium* (Combivent Respimat*) 20-100 Mcg/Inh - 4 Gm Aer.w.adap, 1 PUFF INHALATION QID, #1 INHALER 09/08/15 Allopurinol* (Allopurinol*) 100 Mg Tablet, 200 MG PO DAILY, TAB 09/08/15 RITCHIE GARCÍA Apr 28, 2016 14:24
== END 2016-04-28 14:00 | disposition expired | DRG 853 ==
LOC: E/R 12:57 → SDS 14:39 → CCL 14:39 → ICU 15:15 → MS4 04-10 23:51 → PP2 04-19 15:28 → MS4 04-19 22:05 → MS2 04-26 14:20
PROVIDERS: ADMIT Internal Medicine; ATTEND Internal Medicine
PROC: 5A1D60Z (ICD-10-PCS; 2016-04-04)
PROC: 5A09457 Assistance with Respiratory Ventilation, 24-96 Consecutive Hours, Continuous Positive Airway Pressure (ICD-10-PCS; 2016-04-04)
PROC: 5A09557 Assistance with Respiratory Ventilation, Greater than 96 Consecutive Hours, Continuous Positive Airway Pressure (ICD-10-PCS; 2016-04-04)
PROC: 4A023N7 Measurement of Cardiac Sampling and Pressure, Left Heart, Percutaneous Approach (ICD-10-PCS; 2016-04-06)
PROC: B211YZZ Fluoroscopy of Multiple Coronary Arteries using Other Contrast (ICD-10-PCS; 2016-04-06)
PROC: B410YZZ Fluoroscopy of Abdominal Aorta using Other Contrast (ICD-10-PCS; 2016-04-06)
PROC: B41BYZZ Fluoroscopy of Other Intra-Abdominal Arteries using Other Contrast (ICD-10-PCS; 2016-04-06)
PROC: B41FYZZ Fluoroscopy of Right Lower Extremity Arteries using Other Contrast (ICD-10-PCS; 2016-04-06)
PROC: B41GYZZ Fluoroscopy of Left Lower Extremity Arteries using Other Contrast (ICD-10-PCS; 2016-04-06)
PROC: 02HV33Z Insertion of Infusion Device into Superior Vena Cava, Percutaneous Approach (ICD-10-PCS; principal; 2016-04-06 17:30)
PROC: 027034Z Dilation of Coronary Artery, One Artery with Drug-eluting Intraluminal Device, Percutaneous Approach (ICD-10-PCS; 2016-04-06 17:30)
DX: A41.9 Sepsis, unspecified organism (principal); I21.4 Non-ST elevation (NSTEMI) myocardial infarction; J96.21 Acute and chronic respiratory failure with hypoxia; G92 Toxic encephalopathy; R65.21 Severe sepsis with septic shock; R57.0 Cardiogenic shock; N18.6 End stage renal disease; J18.9 Pneumonia, unspecified organism; I50.41 Acute combined systolic (congestive) and diastolic (congestive) heart failure; I48.0 Paroxysmal atrial fibrillation; T82.855A Stenosis of coronary artery stent, initial encounter; E87.1 Hypo-osmolality and hyponatremia; I13.2 Hypertensive heart and chronic kidney disease with heart failure and with stage 5 chronic kidney disease, or end stage renal disease; E11.22 Type 2 diabetes mellitus with diabetic chronic kidney disease; E03.9 Hypothyroidism, unspecified; E78.5 Hyperlipidemia, unspecified; J44.9 Chronic obstructive pulmonary disease, unspecified; I25.10 Atherosclerotic heart disease of native coronary artery without angina pectoris; Z51.5 Encounter for palliative care; M10.9 Gout, unspecified; I05.0 Rheumatic mitral stenosis; I25.2 Old myocardial infarction; E87.8 Other disorders of electrolyte and fluid balance, not elsewhere classified; E11.51 Type 2 diabetes mellitus with diabetic peripheral angiopathy without gangrene; H40.9 Unspecified glaucoma; D63.8 Anemia in other chronic diseases classified elsewhere; E83.9 Disorder of mineral metabolism, unspecified; Y92.89 Other specified places as the place of occurrence of the external cause; E87.6 Hypokalemia; D63.1 Anemia in chronic kidney disease; R13.10 Dysphagia, unspecified; E87.5 Hyperkalemia; I16.0 Hypertensive urgency; Y83.2 Surgical operation with anastomosis, bypass or graft as the cause of abnormal reaction of the patient, or of later complication, without mention of misadventure at the time of the procedure; Z99.2 Dependence on renal dialysis; Z86.718 Personal history of other venous thrombosis and embolism; Z86.73 Personal history of transient ischemic attack (TIA), and cerebral infarction without residual deficits; Z95.0 Presence of cardiac pacemaker; Z66 Do not resuscitate; Z79.4 Long term (current) use of insulin; Z79.01 Long term (current) use of anticoagulants
CPT/HCPCS: 36415; 36569; 36600; 71010; 76937; 80048; 80053; 80061; 80202; 82270; 82550; 82553; 82803; 82962; 83605; 83735; 84100; 84145; 84439; 84443; 84484; 84560; 85025; 85610; 85730; 87040; 87070; 90935; 92610; 93005; 93306; 93458; 94640; 94660; 94664; C1725; C1760; C1769; C1874; C1887; C1894; C9600; J0360; J0692; J0744; J0886; J1200; J1644; J1815; J1940; J2060; J2185; J2250; J2765; J2930; J3370; J3480; J7040; J7042; J7050; J7070; P9047; Q9967